=== PATIENT | female | born 1950 | race Caucasian/White ===

== ENCOUNTER 2016-06-29 19:11 | Emergency (ER) | payer MEDICARE, OTHER ==
[~2016-06-29] VITALS: Ht 149.9 cm; Wt 65.5 kg
[~2016-06-29 19:11] MED LIST: AMLO-145 PO; ASPI-676 PO; ATOR80TA75 PO; BENA40TA54 PO; CARV6.25 PO; CLOP75TA27 PO; FOLI-49 PO; HYDR-3671 PO; HYDR200T39 PO; ISOS10TA2 PO; KTR.5OP5 LEFT EYE; MEGE400O4 PO; MET25 PO; METF500T4 PO; PANT40TA4 PO; PRD1OP5 LEFT EYE; SULF500T11 PO
[2016-06-29 19:31] VITALS: Ht 149.9 cm; Wt 65.5 kg
--- NOTE | 2016-06-29 22:52 | ERA ---
ER Documentation Chief Complaint Date/Time DATE: 06/29/16 TIME: 22:51 Chief Complaint fever/chills, day 6 of amox for ear infection, cough 10 days, n/v HPI The patient is a 65-year-old female, presenting to the ER because of right ear pain for 10 days. She was seen by her physician who treated her with amoxicillin for the last 9 days. She still complaining of right ear pain and intermittent chills. She denies facial pain, sore throat, complains of intermittent cough with posttussive emesis. She denies chest pain, dyspnea, abdominal pain, vomiting, diarrhea, constipation, dysuria. She does not smoke, drink Past medical history: CAD, history of CVA, hypertension, dyslipidemia, diabetes mellitus, rheumatoid arthritis Past surgical history: Stent PCI ROS All systems reviewed and are negative except as per history of present illness. Medications Home Meds Active Scripts Carvedilol* (Coreg*) 6.25 Mg Tab, 6.25 MG PO BID, #60 TAB Prov:FERNANDO HELLER MD 08/17/14 Pantoprazole (Protonix) 40 Mg Tabec, 40 MG PO DAILY@06 for GASTROINTESTINAL UPSET, #60 Prov:LANDON ZAMORA MD 03/05/14 Megestrol Acetate* (Megace*) 400 Mg/10 Ml Susp, 400 MG PO BID for apetite, #120 Prov:LANDON ZAMOAR MD 03/05/14 Isosorbide Dinitrate* (Isordil*) 10 Mg Tab, 10 MG PO TID for chest pain, angina , #90 Prov:LANDON ZAMORA MD 03/05/14 Hydralazine Hcl* (Hydralazine Hcl*) 25 Mg Tab, 25 MG PO TID, #90 TAB Prov:ELI BUCHANAN NP 02/02/14 Reported Medications Metformin* (Glucophage*) 500 Mg Tab, 500 MG PO BID WITH MEALS, TAB 08/14/14 Prednisolone Acetate* (Pred Forte*) 5 Ml Susp, 1 DROP LEFT EYE QID, EA 03/03/14 Ketorolac Tromethamine Oph (Acular) 10 Ml Drops, 1 DROP LEFT EYE QID, EA 03/03/14 Hydroxychloroquine Sulfate* (Hydroxychloroquine Sulfate*) 200 Mg Tablet, 200 MG PO TID, TAB 01/31/14 Folic Acid* (Folic Acid*) 1 Mg Tablet, 1 MG PO DAILY, TAB 01/31/14 Methotrexate* (Methotrexate*) 2.5 Mg Tab, 2.5 MG PO 5 times weekly, TAB 01/31/14 Sulfasalazine* (Sulfazine*) 500 Mg Tablet, 500 MG PO BID, TAB 01/31/14 Aspirin (Angelina Child) 81 Mg Chew, 81 MG PO DAILY 08/14/13 Benazepril Hcl* (Lotensin*) 40 Mg Tablet, 40 MG PO DAILY 02/27/13 Amlodipine Besylate* (Amlodipine Besylate*) 5 Mg Tablet, 5 MG PO 02/27/13 Atorvastatin* (Atorvastatin*) 80 Mg Tablet, 80 MG PO HS 02/27/13 Clopidogrel Bisulfate (Clopidogrel) 75 Mg Tablet, 75 MG PO DAILY 02/27/13 Allergies Allergies: Coded Allergies: No Known Drug Allergies (Verified Allergy, Unknown, 03/03/14) PMhx/Soc History of Surgery: Yes (cardiac catheter c stent placement, L shoulder surgery ) Anesthesia Reaction: No Hx Neurological Disorder: Yes (CVA LEFT WEAKNESS(RESOLVED)) Hx Respiratory Disorders: No Hx Cardiac Disorders: Yes (HTN,CP,CAD, HYPERLIPIDEMIA) Hx Psychiatric Problems: No Hx Miscellaneous Medical Probl: Yes (chronic hyponatremia, HTN, CAD, hyperlipidemia, DM2, h/o CVA L side weak) Hx Alcohol Use: No Hx Substance Use: No Hx Tobacco Use: No Physical Exam Vitals Vital Signs Date Time Temp Pulse Resp B/P Pulse Ox O2 Delivery O2 Flow Rate FiO2 06/29/16 19:31 98.6 70 20 129/62 98 Physical Exam Const: No acute distress. Head: Atraumatic. Eyes: Normal Conjunctiva. ENT: Normal External Ears, Nose and Mouth. Bilateral tympanic membranes are within normal limits, moderate amount of cerumen in the right ear canal Neck: Full range of motion. No meningismus. Resp: Clear to auscultation bilaterally. Cardio: Regular rate and rhythm, no murmurs. Abd: Soft, non distended, normal bowel sounds, non tender. Skin: No petechiae or rashes. Back: No midline or flank tenderness. Ext: No cyanosis, or edema. Neur: Awake and alert. No focal deficit Psych: Normal Mood and Affect. Procedures/MDM MEDICAL MAKING DECISION: The patient is a 65-year-old female, presenting with recent right otitis media and cerumen impaction. The differential diagnoses considered include but are not limited to otitis media, otitis externa, cellulitis Departure Diagnosis: Primary Impression: Otitis media Additional Impression: Impacted cerumen of right ear Condition: Good Comments She was discharged with Zithromax since he is still symptomatic and Debrox I discussed the findings with the patient. I advised the patient to follow-up with the primary physician in about 2-3 days, sooner if needed and return if any concern. CASS QUESADA MD Jun 29, 2016 22:52
[2016-06-29] MEDS ORDERED: CARB15DR48 RIGHT EAR (23:21)
[2016-06-29] MEDS ORDERED: AZIT250T94 PO (23:21)
== END 2016-06-29 23:40 | disposition home or self-care (01) ==
LOC: E/R 19:11
DX: H66.91 Otitis media, unspecified, right ear (principal); H61.21 Impacted cerumen, right ear; I25.10 Atherosclerotic heart disease of native coronary artery without angina pectoris; I10 Essential (primary) hypertension; E11.9 Type 2 diabetes mellitus without complications; Z79.84 Long term (current) use of oral hypoglycemic drugs; Z79.82 Long term (current) use of aspirin
CPT/HCPCS: 99283

== ENCOUNTER 2016-10-07 15:13 | Inpatient (IN) | payer MEDICARE, OTHER ==
[~2016-10-07] VITALS: Ht 144.8 cm; Wt 65.7 kg
[~2016-10-07 15:13] MED LIST changes: +AZIT250T94 PO; +CARB15DR48 RIGHT EAR; -SULF500T11 PO; +SULF500T5 PO
[2016-10-07] MEDS ORDERED: ONDANSETRON 4 MG INJ IV STA (16:12)
[2016-10-07] MEDS ORDERED: SODIUM CHLORIDE 0.9% 1L BAG IV* STA (16:12)
[2016-10-07] MEDS ORDERED: CEFTRIAXONE 1 GM/50 ML (PMX) 50 ML IVPB ONE (16:30)
[2016-10-07] MEDS: IBUPROFEN 600 MG TAB PO ONE ×2 (16:40→17:02)
[2016-10-07 16:47] LABS: ADD SCAN DIFF NO
[2016-10-07 16:52] LABS: ABNORMAL IP MESSAGE 1; HEMATOCRIT 35.6 % (37.0-47.0); HEMOGLOBIN 11.7 g/dl (12.0-16.0); MEAN CORPUSCULAR HEMOGLOBIN 31.8 pg (29.0-33.0); MEAN CORPUSCULAR HGB CONC 32.9 g/dl (32.0-37.0); MEAN CORPUSCULAR VOLUME 96.7 fl (82.0-101.0); MEAN PLATELET VOLUME 10.8 fl (7.4-10.4); PLATELET COUNT 261 10^3/UL (140-415); RED BLOOD COUNT 3.68 10^6/ul (4.20-5.40); RED CELL DISTRIBUTION WIDTH 14.6 % (11.5-14.5); WHITE BLOOD COUNT 14.7 10^3/ul (4.8-10.8)
[2016-10-07 17:02] LABS: ALBUMIN 3.4 g/dl (3.3-4.9)
[2016-10-07 17:03] LABS: INR 1.29; PARTIAL THROMBOPLASTIN TIME 32.7 Sec (25.0-35.0); POTASSIUM 3.6 mmol/L (3.5-5.1); PROTIME 16.2 Sec (12.2-14.2); PT RATIO 1.3
[2016-10-07 17:05] LABS: ALBUMIN/GLOBULIN RATIO 0.68; BILIRUBIN,DIRECT 2.2 mg/dl (0.00-0.20); BILIRUBIN,INDIRECT 0.5 mg/dl (0-1.1); BILIRUBIN,TOTAL 2.7 mg/dl (0.2-1.3); CREATININE 1.05 mg/dl (0.44-1.00); TOTAL PROTEIN 8.4 g/dl (6.1-8.1)
[2016-10-07 17:06] LABS: CALCIUM 10.3 mg/dl (8.4-10.2)
--- NOTE | 2016-10-07 17:10 | RADRPT ---
PROCEDURE: XR Chest. CLINICAL INDICATION: Sepsis. TECHNIQUE: PA and Lateral views of the chest were obtained. COMPARISON: Chest x-ray 08/14/2014. FINDINGS: The soft tissues are normal. The left humeral head is not visualized. This finding is unchanged co mpared to 03/03/2013. The heart, cardiomediastinal silhouette and hilar structures are normal. The pulmonary vasculature is normal. Atherosclerotic calcifications are noted in the aortic arch. The car ngs are clear. The costophrenic angles are normal. IMPRESSION: 1. Stable chest x-ray with no evidence of active cardiopulmonary disease. 2. Absence of the left humeral head is noted that is unchanged compared to 03/03/2013. This is pre sumed secondary to earlier surgery. Clinical correlation is needed. RPTAT:AAJJ Physician Yaritza Date Time Electronically viewed and signed by Physician Yaritza on 10/07/2016 17:10 NICOLA/
[2016-10-07 17:13] LABS: ADD UMIC YES; URINE BILIRUBIN (Dip) 2+ (NEGATIVE); URINE BLOOD (Dip) TRACE (NEGATIVE); URINE COLOR AMBER (YELLOW); URINE GLUCOSE (Dip) NEGATIVE (NEGATIVE); URINE KETONES (Dip) NEGATIVE (NEGATIVE); URINE LEUKOCYTE ESTERASE (Dip) NEGATIVE (NEGATIVE); URINE NITRITE (Dip) NEGATIVE (NEGATIVE); URINE TOTAL PROTEIN (Dip) 2+ (NEGATIVE); URINE UROBILINOGEN (Dip) 2.0 E.U./dL (0.1-1.0)
[2016-10-07] MEDS ORDERED: CARV3.1260 PO (17:15)
[2016-10-07] MEDS ORDERED: METF500T4 PO (17:15)
[2016-10-07] MEDS ORDERED: ATOR40TA68 PO (17:16)
[2016-10-07] MEDS ORDERED: TRAV2.5D BOTH EYES (17:16)
[2016-10-07 17:17] LABS: TROPONIN-I 0.026 ng/ml (0.00-0.12)
[2016-10-07 17:28] LABS: ICTOTEST POSITIVE (NEGATIVE)
[2016-10-07] MEDS ORDERED: metroNIDAZOLE 500 MG/NS (PMX) 100 ML IVPB ONE (17:30)
[2016-10-07 17:32] LABS: BACTERIA,URINE MODERATE; URINE RBCS 0-2 /HPF (0)
--- NOTE | 2016-10-07 17:41 | RADRPT ---
PROCEDURE: CT abdomen and pelvis without contrast. CLINICAL INDICATION: Sepsis TECHNIQUE: CT scan of the abdomen and pelvis without contrast was performed and is reconstructed a t 2.5 mm contiguous axial intervals from the dome of the diaphragm to the inferior pubic rami.. The patient was scanned without intravenous contrast. Sagittal and coronal reformatted images were obt ained from the axial source images. The calculated radiation dose measures 5 526 mGy centimeters. Th e CTDI measures 10 mGy. COMPARISON: CT abdomen pelvis August 18, 2013 FINDINGS: There is interstitial infiltrate in the medial basal segment of the left lower lobe. No alveolar pn eumonia is seen and there is no mass or effusion. Dense coronary artery calcifications are present. The liver is of normal size, contour and attenuation with no mass . There is mild intrahepatic duct al dilatation. No gallstones are visualized. No splenic, adrenal or pancreatic abnormalities prese nt. Kidneys are of normal size and contour. No hydronephrosis, calculus or masses seen. Ureters are o f normal course and caliber with no stone. [place] catheter is seen in a decompressed urinary bladder . . Atrophic postmenopausal uterus appears normal. No adnexal mass is seen. There is no aneurysm. No adenopathy is present. No intraperitoneal or retroperitoneal abscess is noted. No bowel mass or obstruction is present. The appendix is normal. No phlegmon, ascites or pneumop eritoneum is visualized. The osseous structures are intact. IMPRESSION: No evidence of urolithiasis, obstructive uropathy, diverticulitis or appendicitis. Mild intrahepatic ductal dilatation. Correlation with serum bilirubin levels is suggested. No intraperitoneal or retroperitoneal abscess seen. Vascular calcifications. Minimal interstitial infiltrate left lower lobe. .Dante Choi MD, Date Time Electronically viewed and signed by .Dante Choi MD, on 10/07/2016 17:41 .A/
--- NOTE | 2016-10-07 17:46 | ERA ---
ER Documentation Chief Complaint Date/Time DATE: 10/07/16 TIME: 17:29 Chief Complaint AP, VOMITING, FEVER, STARTING YESTERDAY HPI 65-year-old woman brought in by family member for fever, weakness, abdominal pain, cramping and vomiting 2 days. Her emesis has been clear nonbloody nonbilious and she has had no diarrhea. She has had no melena or blood per rectum, no chest pain or shortness of breath, no rash, no cough, no sore throat or difficulty swallowing, no headache or blurry vision, no neck pain. Patient has had no recent antibiotic use or recent travel. ROS All systems reviewed and are negative except as per history of present illness. Medications Home Meds Reported Medications Travoprost* (Travatan Z*) 2.5 Ml Drops, 1 DROP BOTH EYES HS, #1 BOTTLE 10/07/16 Atorvastatin* (Atorvastatin*) 40 Mg Tablet, 40 MG PO QHS, #30 TAB 10/07/16 Metformin Hcl* (Metformin Hcl*) 500 Mg Tablet, 500 MG PO WITH BREAKFAST DINNE, # 60 TAB 10/07/16 Carvedilol* (Carvedilol*) 3.125 Mg Tablet, 3.125 MG PO BID, #60 TAB 10/07/16 Discontinued Reported Medications Metformin* (Glucophage*) 500 Mg Tab, 500 MG PO BID WITH MEALS, TAB 08/14/14 Prednisolone Acetate* (Pred Forte*) 5 Ml Susp, 1 DROP LEFT EYE QID, EA 03/03/14 Ketorolac Tromethamine Oph (Acular) 10 Ml Drops, 1 DROP LEFT EYE QID, EA 03/03/14 Hydroxychloroquine Sulfate* (Hydroxychloroquine Sulfate*) 200 Mg Tablet, 200 MG PO TID, TAB 01/31/14 Folic Acid* (Folic Acid*) 1 Mg Tablet, 1 MG PO DAILY, TAB 01/31/14 Methotrexate* (Methotrexate*) 2.5 Mg Tab, 2.5 MG PO 5 times weekly, TAB 01/31/14 Sulfasalazine* (Sulfazine*) 500 Mg Tablet, 500 MG PO BID, TAB 01/31/14 Aspirin (Angelina Child) 81 Mg Chew, 81 MG PO DAILY 08/14/13 Benazepril Hcl* (Lotensin*) 40 Mg Tablet, 40 MG PO DAILY 02/27/13 Amlodipine Besylate* (Amlodipine Besylate*) 5 Mg Tablet, 5 MG PO 02/27/13 Atorvastatin* (Atorvastatin*) 80 Mg Tablet, 80 MG PO HS 02/27/13 Clopidogrel Bisulfate (Clopidogrel) 75 Mg Tablet, 75 MG PO DAILY 02/27/13 Discontinued Scripts Carbamide Peroxide* (Debrox*) 6.5% - 15 Ml Drops, 10 DROP RIGHT EAR BID for 5 Days, BOTTLE Prov:CASS QUESADA MD 06/29/16 Azithromycin* (Zithromax*) 250 Mg Tablet, 250 MG PO .MANACK DIRECTED, #6 TAB TAKE 500 MG (2 TABS) THE FIRST DAY THEN 250 MG (1 TAB) DAYS 2-5 Prov:CASS QUESADA MD 06/29/16 Carvedilol* (Coreg*) 6.25 Mg Tab, 6.25 MG PO BID, #60 TAB Prov:FERNANDO HELLER MD 08/17/14 Pantoprazole (Protonix) 40 Mg Tabec, 40 MG PO DAILY@06 for GASTROINTESTINAL UPSET, #60 Prov:LANDON DELATORRE MD 03/05/14 Megestrol Acetate* (Megace*) 400 Mg/10 Ml Susp, 400 MG PO BID for apetite, #120 Prov:LANDON DELATORRE MD 03/05/14 Isosorbide Dinitrate* (Isordil*) 10 Mg Tab, 10 MG PO TID for chest pain, angina , #90 Prov:LANDON DELATORRE MD 03/05/14 Hydralazine Hcl* (Hydralazine Hcl*) 25 Mg Tab, 25 MG PO TID, #90 TAB Prov:ELI BUCHANAN NP 02/02/14 Allergies Allergies: Coded Allergies: No Known Drug Allergies (Verified Allergy, Unknown, 10/07/16) PMhx/Soc Hypertension, diabetes mellitus, rheumatoid arthritis, previous stroke, SIADH, coronary artery disease and NH with 3 previous coronary artery stents, chronic right-sided earache History of Surgery: Yes (bilat knee (last 08/31)) Anesthesia Reaction: No Hx Neurological Disorder: No Hx Respiratory Disorders: No Hx Cardiac Disorders: Yes (HTN, Stent) Hx Psychiatric Problems: No Hx Miscellaneous Medical Probl: Yes (DM) Hx Alcohol Use: No Hx Substance Use: No Hx Tobacco Use: No Smoking Status: Never smoker FmHx Family History: diabetes Physical Exam Vitals Vital Signs Date Time Temp Pulse Resp B/P Pulse Ox O2 Delivery O2 Flow Rate FiO2 10/07/16 18:30 20 118/49 100 Nasal Cannula 3.0 10/07/16 16:29 81 28 79/56 98 Room Air 10/07/16 16:29 Nasal Cannula 2 10/07/16 15:15 103.8 91 20 152/70 98 Physical Exam GENERAL: Well-developed, elderly, dehydrated, febrile HEENT: Dry mucous membranes, pink conjunctiva, no cervical spine tenderness or step-off deformities, no goiter, no jaundice or icterus, extraocular movements intact without pain. No submandibular induration, and no pharyngeal erythema NEURO: Alert and oriented 3, cranial nerves II through XII intact bilaterally, pupils equal round reactive to light, no facial asymmetry CARDIAC: Tachycardic and regular, no murmurs rubs or gallops LUNGS: Clear bilaterally no wheezing crackles or stridor ABDOMEN: Right upper quadrant tenderness to touch, no rigidity, no rebound, no psoas sign no obturator sign. Normoactive bowel sounds SKIN: Warm and dry to touch, no abrasions, contusions, or hematomas, no lacerations, no ecchymosis, no target lesions, and without ulcers EXTREMITIES: No clubbing cyanosis or edema, calves are bilaterally symmetrical, no Homans sign, no popliteal cord sign. Distal pulses equal and bilateral PSYCH: Unable to assess Result Diagram: 10/07/16 1620 10/07/16 1620 Results 24 hrs Laboratory Tests Test 10/07/16 16:20 10/07/16 16:55 10/07/16 18:45 White Blood Count 14.710^3/ul Red Blood Count 3.6810^6/ul Hemoglobin 11.7g/dl Hematocrit 35.6% Mean Corpuscular Volume 96.7fl Mean Corpuscular Hemoglobin 31.8pg Mean Corpuscular Hemoglobin Concent 32.9g/dl Red Cell Distribution Width 14.6% Platelet Count 78832^3/UL Mean Platelet Volume 10.8fl Neutrophils % 72.0% Band Neutrophils % 22.0% Lymphocytes % 5.0% Monocytes % 1.0% Eosinophils % % Neutrophils # 10.610^3/ul Lymphocytes # 0.710^3/ul Monocytes # 0.110^3/ul Eosinophils # 10^3/ul Prothrombin Time 16.2Sec Prothrombin Time Ratio 1.3 INR International Normalized Ratio 1.29 Activated Partial Thromboplast Time 32.7Sec Sodium Level 129mmol/L Potassium Level 3.6mmol/L Chloride Level 90mmol/L Carbon Dioxide Level 18mmol/L Anion Gap 25 Blood Urea Nitrogen 24mg/dl Creatinine 1.05mg/dl Glucose Level 201mg/dl Lactic Acid Level 6.8mmol/L 4.8mmol/L Calcium Level 10.3mg/dl Total Bilirubin 2.7mg/dl Direct Bilirubin 2.20mg/dl Indirect Bilirubin 0.5mg/dl Aspartate Amino Transf (AST/SGOT) 133IU/L Alanine Aminotransferase (ALT/SGPT) 83IU/L Alkaline Phosphatase 1270IU/L Troponin I 0.026ng/ml Total Protein 8.4g/dl Albumin 3.4g/dl Globulin 5.00g/dl Albumin/Globulin Ratio 0.68 Lipase 221U/L Urine Color MARLENE Urine Clarity SLIGHTLY CLOUDY Urine pH 5.5 Urine Specific [place] 1.025 Urine Ketones NEGATIVE Urine Nitrite NEGATIVE Urine Bilirubin 2+ Urine Ictotest POSITIVE Urine Urobilinogen 2.0 E.U./dL Urine Leukocyte Esterase NEGATIVE Urine Microscopic RBC 0-2/HPF Urine Microscopic WBC 0-2/HPF Urine Bacteria MODERATE Urine Granular Casts OCCASIONAL Urine Fine Granular Casts OCCASIONAL Urine Coarse Granular Casts FEW Urine Hemoglobin TRACE Urine Glucose NEGATIVE% Urine Total Protein 2+ Current Medications Medications (Trade) Dose Ordered Sig/Maegan Route PRN Reason Start Time Stop Time Status Last Admin Dose Admin Sodium Chloride (NS) 2,000 ml BOLUS OVER 2 HOURS STAT IV* 10/07/16 16:12 10/07/16 16:15 DC 10/07/16 16:41 Ondansetron HCl (Zofran Inj) 4 mg ONCE STAT IV 10/07/16 16:12 10/07/16 16:15 DC 10/07/16 16:40 Ibuprofen 600 mg 600 mg ONCE ONCE PO 10/07/16 16:30 10/07/16 16:31 DC Ceftriaxone Sodium 50 ml @ 100 mls/hr ONCE ONCE IVPB 10/07/16 16:30 10/07/16 16:59 DC 10/07/16 16:40 Metronidazole (Flagyl 500 Mg (Pmx)) 100 ml @ 100 mls/hr ONCE ONCE IVPB 10/07/16 17:30 10/07/16 18:29 DC 10/07/16 18:22 Atorvastatin Calcium (Lipitor) 40 mg QHS PO 10/07/16 21:00 Carvedilol (Coreg) 3.125 mg BID PO 10/07/16 21:00 Latanoprost 1 drop 1 drop HS BOTH EYES 10/07/16 21:00 Ceftriaxone Sodium 50 ml @ 100 mls/hr DAILY IVPB 10/08/16 16:00 10/08/16 16:00 DC Azithromycin 250 ml @ 250 mls/hr DAILY IVPB 10/07/16 20:00 Sodium Chloride (NS) 1,000 ml @ 75 mls/hr [id number] IV 10/07/16 19:09 UNV IV Flush (NS 3 ml) 3 ml PER PROTOCOL IV 10/07/16 19:30 UNV Ondansetron HCl (Zofran Inj) 4 mg Q4H PRN IV NAUSEA AND/OR VOMITING 10/07/16 19:30 UNV Acetaminophen (Tylenol Tab) 650 mg Q6H PRN PO PAIN LEVEL 1-3 OR FEVER 10/07/16 19:30 UNV Acetaminophen/ Hydrocodone Bitart ([place] (5/325)) 1 tab Q6H PRN PO MODERATE PAIN LEVEL 4-6 10/07/16 19:30 UNV Morphine Sulfate (morphine) 2 mg Q4H PRN IV SEVERE PAIN LEVEL 7-10 10/07/16 19:30 UNV Docusate Sodium (Colace) 100 mg Q12H PRN PO CONSTIPATION 10/07/16 19:30 UNV Magnesium Hydroxide (Milk Of Mag) 30 ml DAILY PRN PO CONSTIPATION 10/07/16 19:30 UNV Bisacodyl (Dulcolax) 5 mg DAILY PRN PO CONSTIPATION 10/07/16 19:30 UNV Bisacodyl (Dulcolax Supp) 10 mg DAILY PRN [place] CONSTIPATION 10/07/16 19:30 UNV Sodium Biphosphate/ Sodium Phosphate (Fleet Enema) 133 ml DAILY PRN [place] CONSTIPATION 10/07/16 19:30 UNV Zolpidem Tartrate (Ambien) 5 mg QHS PRN PO SLEEP 10/07/16 19:30 UNV Famotidine (Pepcid Iv) 20 mg Q12 IV 10/07/16 21:00 UNV Albuterol/ Ipratropium (Duoneb) 3 ml Q2H RESP THERAPY PRN HHN SHORTNESS OF BREATH 10/07/16 19:30 UNV Insulin Aspart (Novolog Insulin Pen) NOVOLOG *MODERATE* ALGORITHM WITH MEALS BEDTIME SC 10/07/16 21:00 UNV Miscellaneous Information (* Miscellaneous Pharmacy Order) HYPOGLYCEMIA PROTOCOL w... ONCE ONCE XX 10/07/16 19:30 10/07/16 19:31 UNV Miscellaneous Information (* Miscellaneous Pharmacy Order) Discontinue Glyburide, Glipizide,... ONCE ONCE XX 10/07/16 19:30 10/07/16 19:31 UNV Miscellaneous Information Discontinue all previ... ONCE ONCE XX 10/07/16 19:30 10/07/16 19:31 UNV Metronidazole 100 ml @ 100 mls/hr Q8 IVPB 10/07/16 22:00 UNV Piperacillin Sod/ Tazobactam Sod (Zosyn 3.375gm/ 100 ml (Pmx)) 100 ml @ 200 mls/hr Q8 IVPB 10/07/16 22:00 UNV Procedures/MDM IV line was established patient was placed on washroom attendant rhythm strip revealed a sinus tachycardia at 110 bpm with upright P and T waves. Patient was febrile. Blood and urine cultures have been ordered results are pending I will follow-up. I administered about 2 L normal saline intravenously, ibuprofen 600 mg p.o., ceftriaxone 1 g IV, and Flagyl 500 mg IV. Patient also received Zofran 4 mg IV. EKG performed, read by me: Normal sinus rhythm at 71 bpm, normal axis, no acute ST segment changes, narrow QRS complex, with good R-wave progression in precordial leads. Chest X-ray 1V Interpreted by me: Soft Tissue: No acute abnormalities Bones: No acute abnormalities Mediastinum/Cardiac Silhouette/Lungs: No acute abnormalities Patient's infectious symptoms have not stabilized and the patient is at risk of rapid decompensation. The patient will be admitted for careful hydration, antibiotic therapy, and infectious source control. CBC reveals a leukocytosis of 15, electrolytes revealed dehydration with a BUN/ creatinine of 24/1, lactic acid elevated at 6.8, liver function tests were abnormal with an alkaline phosphatase of over 1000 and transaminitis, lipase normal, troponin was negative. Urine analysis was positive for bilirubinuria CT scan of the abdomen and pelvis was performed, given the patient's symptoms. There was no acute inflammatory or infectious pathology noted, vascular structures were unremarkable. Please refer radiologist's dictation for full report. Severe Sepsis Assessment: Infectious Source: Cholangitis End organ damage indicated by: Lactate equals 6.8 Bili equals 2.8 Severe Sepsis Managment: Blood Cultures X 2 before broad spectrum antibiotics initiated within 3 hours of recognition. 30 ml/kg NS bolus Completed Initial Lactate: 6.8, repeat lactic acid level down to 4.8. Critical Care: Time: 40 minutes, this was time separate from other procedures Treatments/Evaluations: Emergent fluid management, while maintaining close respiratory support. Immediate broad spectrum antibiotic therapy. Simultaneous assessment for possible sources in order to direct therapy. Consideration for invasive and chemical support to prevent respiratory or cardiac collapse. Septic Shock Assessment (1 hour post 30 ml/kg fluid bolus): Hypotension (SBP < 90 or 40 mmHg drop, MAP < 65): No Lactic acid > 4.0 yes Perfusion Reassessment for Septic Shock: Temp 100.8 and febrile, pulse 70, BP 120/80, respiratory rate 20 breaths per minute, oxygen saturation 98% and normal Heart Exam: Regular rate and rhythm Lung Exam: No Crackles Capillary Refill: Less than 2 seconds Peripheral Pulses: Radially present Skin: [place], hot to touch Hypotensive Treatment (not required for isolated lactic acid elevation): Comfort Care: No Central LIne: Not indicated Vasopressor started: None I considered further perfusion assessment with CVP measurement, SCVO2, bedside ultrasound volume assessment, passive leg raise, trial of further fluid bolus. And preceded with IV antibiotics, IV fluids, and pain control Accepting Care Team: Current data and ongoing care discussed. Time: Time of admission Primary Provider: Dr. Sean Delatorre Consulting: DREA Soares who saw the patient at the bedside, I also spoke to the surgeon new car salesperson Dr. Smart Outstanding Data: none Departure Diagnosis: Primary Impression: Septic shock Additional Impressions: Hyponatremia Acute cholangitis Condition: Serious GRACIELA JOHNSON MD Oct 07, 2016 17:41
[2016-10-07 17:53] LABS: LYMPHOCYTES # 0.7 10^3/ul (0.8-2.9); MONOCYTE # 0.1 10^3/ul (0.3-0.9); NEUTROPHIL # 10.6 10^3/ul (1.6-7.5)
[2016-10-07] MEDS ORDERED: ACETAMINOPHEN 325 MG TAB PO PRN (19:30)
[2016-10-07] MEDS ORDERED: DOCUSATE SODIUM 100 MG CAP PO PRN (19:30)
[2016-10-07] MEDS ORDERED: ALBUTEROL/IPRATROPIUM (NEB) 3 ML AMP HHN PRN (19:30)
[2016-10-07] MEDS ORDERED: NACL 0.9% 3 ML SYG IV SCH (19:30)
[2016-10-07] MEDS ORDERED: ZOLPIDEM 5 MG TAB PO PRN (19:30)
[2016-10-07] MEDS ORDERED: HYDROCODONE/APAP (5/325) TAB PO PRN (19:30)
[2016-10-07] MEDS ORDERED: NA PHOSPHATE/BIPHOS 133 ML ENEMA PR PRN (19:30)
[2016-10-07] MEDS ORDERED: BISACODYL 10 MG SUPP PR PRN (19:30)
[2016-10-07] MEDS ORDERED: MAGNESIUM HYDROXIDE 30ML CUP PO PRN (19:30)
--- NOTE | 2016-10-07 20:13 | RADRPT ---
PROCEDURE: Right upper quadrant ultrasound. CLINICAL INDICATION: Abdominal pain, intrahepatic biliary ductal dilatation seen on prior CT. TECHNIQUE: Multiple real-time longitudinal and transverse images of the right upper quadrant of th e abdomen were acquired utilizing a curved array transducer. Images were reviewed on a high-resoluti on PACS workstation. COMPARISON: CT of the abdomen and pelvis dated 10/07/2016 FINDINGS: The pancreas head and body are unremarkable. The pancreas tail is not well seen. The liver is normal in echogenicity. The liver measures 14.3 cm in length. No hepatic lesion is se en. There is intrahepatic biliary ductal dilatation. The portal vein is patent with hepatopetal simone w. There is a 1.9 cm stone in the gallbladder neck. The gallbladder wall is thickened (6 mm). There is no pericholecystic fluid. The common bile duct measures 10 mm in diameter, dilated. The right kidney measures 9.3 cm in length. Renal echogenicity is increased. There is no hydroneph rosis, urinary calculus, or renal mass. The visualized portions of the aorta and IVC are unremarkable. IMPRESSION: 1. Intrahepatic and extrahepatic biliary ductal dilatation (CBD: 10 mm), nonspecific. Correlation w ith bilirubin levels is recommended. This could be further evaluated with MRCP or ERCP, as clinical ly warranted. 2. Cholelithiasis and gallbladder wall thickening. This could represent cholecystitis in the corre ct clinical setting. 3. Echogenic right kidney, suggestive of medical renal disease. RPTAT: HTAR .Breezy Murguia MD, Date Time Electronically viewed and signed by .Breezy Murguia MD, on 10/07/2016 20:12 .R/
[2016-10-07] MEDS ORDERED: DEXTROSE 50% 50 ML SYRINGE IV PRN ×2 (20:30)
[2016-10-07] MEDS ORDERED: GLUCOSE GEL 15 GRAM TUBE PO PRN ×2 (20:30)
[2016-10-07] MEDS ORDERED: GLUCAGON 1 MG INJ IM PRN (20:30)
[2016-10-07] MEDS ORDERED: GLUCOSE GEL 15 GRAM TUBE BUCCAL PRN (20:30)
[2016-10-07 20:35] VITALS: TEMP 98.3
--- NOTE | 2016-10-07 20:53 | CONS ---
DATE OF ADMISSION: 10/07/2016 DATE OF CONSULTATION: TYPE OF CONSULTATION: Gastroenterology. Dear Landon, Thank you for your kind referral. HISTORY OF PRESENT ILLNESS: The patient is a 65-year-old female brought to the emergency room for a bdominal pain confined to the epigastric area and both upper quadrants for last 2 to 3 days' duratio n associated with fever and chills and also 2 episodes of vomiting. No GI bleeding. The patient hernandes d a knee replacement just last month and was in a group home for rehab. No chest pain, no shortne ss of breath. No GI bleeding. 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 PAST MEDICAL HISTORY: History of rheumatoid arthritis, diabetes mellitus. Coronary artery disease, myocardial infarction, had 3 coronary artery stents. Right-sided chronic earache and also previous history of stroke and SIADH. REVIEW OF SYSTEMS: Negative otherwise. FAMILY HISTORY: Nothing contributory other than diabetes. All the information regarding patient's condition obtained by discussing with a family member who wa s by the side of the patient. PHYSICAL EXAMINATION: GENERAL: She is alert, awake, well built, not in distress. VITAL SIGNS: Stable. HEENT: Unremarkable. NECK: Supple. No thyromegaly, no lymphadenopathy. CARDIOVASCULAR: No murmur, gallop or click. LUNGS: Clear. ABDOMEN: Soft. Mild tenderness in the epigastric area. Bowel sounds good. EXTREMITIES: No edema. CENTRAL NERVOUS SYSTEM: Grossly within normal limit. MEDICATIONS: All the patient's medications reviewed. LABORATORY DATA: WBC is 14.7, hematocrit is 35, platelet count was 261. BUN 24, creatinine is 1. Total bilirubin was 2.7, alkaline phosphatase 1270. Her lactic acid level was 6.8 and 4.8, and INR was within normal limits. MEDICATIONS: The patient is on: 1. Flagyl. 2. Zosyn. 3. Carvedilol. 4. Famotidine. 5. Insulin. 6. Azithromycin. She is not on any antiplatelet agent or blood thinner. IMPRESSION: 1. Abnormal LFTs with abdominal pain, vomiting and fever and chills, rule out cholangitis secondary to most probably bile duct stone. 2. Rheumatoid arthritis. 3. Diabetes mellitus. 4. Status post knee replacement 1 month ago. 5. History of cerebrovascular accident. 6. History of 3 stents. 7. Diabetes mellitus. 8. Possible pneumonia. PLAN: Continue all the antibiotic, IV hydration. Will get stat MRCP done, and if MRCP shows a ston e or any biliary obstruction, patient will undergo therapeutic endoscopy. In the meantime, will opt imize the patient's condition, make sure lactic acid level is coming down and WBC is also dropping. Dictated By: LAUREN SOUSA/NTS Conf#: [id number] DID#: [id number] CC: LANDON ZAMORA MD;*EndCC*
[2016-10-07 20:56] VITALS: Ht 144.8 cm; Wt 65.7 kg
[2016-10-07 20:59] VITALS: PULSE 77
[2016-10-07 21:00] VITALS: BP 115/55; PULSE 79; RESP 16
[2016-10-07] MEDS: LATANOPROST 0.005% 2.5 ML OPH BOTH EYES SCH (21:00)
[2016-10-07] MEDS: INSULIN ASPART [NOVOLOG] 3 ML PEN SC SCH (21:00)
[2016-10-07] MEDS: ATORVASTATIN 40 MG TAB PO SCH (21:47)
[2016-10-07] MEDS: morphine 2 MG INJ IV PRN (21:47)
[2016-10-07] MEDS: metroNIDAZOLE 500 MG/NS (PMX) 100 ML IVPB SCH (21:47)
[2016-10-07] MEDS: ONDANSETRON 4 MG INJ IV PRN (21:47)
[2016-10-07] MEDS: PIPER-TAZO 3.375 GM IV (PMX) 100 ML IVPB SCH (21:48)
[2016-10-07] MEDS: SOD CHLORIDE 0.9% 1,000 ML IV SCH (21:48)
[2016-10-07] MEDS: FAMOTIDINE 20 MG INJ IV SCH (21:48)
--- NOTE | 2016-10-07 22:26 | CONS ---
Date/Time of Note Date/Time of Note DATE: 10/07/16 TIME: 22:20 Assessment/Plan Assessment/Plan Chief Complaint/Hosp Course 1. Abdominal pain, nausea, vomiting, & abnormal LFTs probably 2nd Cholangitis secondary to most probably biliary obstruction/?Choledocholithiasis -abx -ivf -supportive -GI for ERCP -eventual lap janet 2. CAD, hx of HI with multiple stents -cardiac optimization 3. DM -nutrition and medication optimization -encourage weight optimization 4. CVA hx -medical/cardiac optimization -off loading -nutritional optimization 5. Rheumatoid arthritis. -medical management 6. Possible PNA -pulmonary toilette -abx per medical team 7. Anemia -monitor 8. Lactic acidosis, leukocytosis with sepsis 2nd #1 -abx -supportive -as above Thank you very much for consulting me in this patient's care, Problems: Consultation Date/Type/Reason Admit Date/Time Oct 07, 2016 at 20:54 Date of Consultation: Oct 07, 2016 Type of Consultation: Gen surgical Reason for Consultation Abdominal pain Dilated biliary tree Cholangitis Referring Provider: LANDON ZAMORA MD Hx of Present Illness Chacho Lamar is a 65-year-old female with multiple significant comorbidities brought to the emergency room from rehab for abdominal pain confined to the epigastric area and both upper quadrants for last 2 to 3 days' duration associated with fever and chills and 2 episodes of vomiting. No GI bleeding. No cough, sz, rash, or change in bowel functions. No cp/sob/visual or neuro changes. No pyuria. No dysuria. No blood per mouth or rectum. Surgical consult is obtained for further evaluation and treatment. 12 point ros negative unless addressed in hpi. Past Medical History Rheumatoid arthritis Diabetes mellitus. Coronary artery disease, Myocardial infarction Right-sided chronic earache History of stroke SIADH. BMI 31, obesity Past Surgical History Stents x 3 Knee replacement Family History Significant Family History: diabetes Social History Smoking Status: Never smoker Exam/Review of Systems Vital Signs Vitals Vital Signs Date Time Temp Pulse Resp B/P Pulse Ox O2 Delivery O2 Flow Rate FiO2 10/07/16 21:00 97.8 79 16 115/55 98 Nasal Cannula 2.0 Exam Constitutional: alert, obese, oriented, No distress Psych: nl mood/affect, No anxiety, No confusion Head: atraumatic, normocephalic Eyes: EOMI, PERRL, nl conjunctiva ENMT: mucosa pink and moist, nl external ears & nose Neck: supple, No non-tender Respiratory: normal air movement, No congested cough Cardiovascular: regular rate and rhythm, No edema Gastrointestinal: soft, tender (min), No rebound or guarding Musculoskeletal: No joint tenderness, No nl extremities to inspection, No nl gait and stance Extremities: normal pulses, No calf tenderness, No cyanosis Neurological: nl mental status, nl speech Skin: nl turgor, No diaphoresis, No rash or lesions Lymph: nl lymph nodes Results Result Diagram: 10/07/16 1620 10/07/16 1620 Results 24 hrs Laboratory Tests Test 10/07/16 16:20 10/07/16 16:55 10/07/16 18:45 10/07/16 21:20 White Blood Count 14.7 #H Red Blood Count 3.68 L Hemoglobin 11.7 L Hematocrit 35.6 L Mean Corpuscular Volume 96.7 Mean Corpuscular Hemoglobin 31.8 Mean Corpuscular Hemoglobin Concent 32.9 Red Cell Distribution Width 14.6 H Platelet Count 261 Mean Platelet Volume 10.8 #H Neutrophils % 72.0 Band Neutrophils % 22.0 H Lymphocytes % 5.0 L Monocytes % 1.0 Eosinophils % Neutrophils # 10.6 H Lymphocytes # 0.7 L Monocytes # 0.1 L Eosinophils # Prothrombin Time 16.2 H Prothrombin Time Ratio 1.3 INR International Normalized Ratio 1.29 Activated Partial Thromboplast Time 32.7 Sodium Level 129 L Potassium Level 3.6 Chloride Level 90 L Carbon Dioxide Level 18 L Anion Gap 25 H Blood Urea Nitrogen 24 H Creatinine 1.05 H Glucose Level 201 Lactic Acid Level 6.8 *H 4.8 *H 5.3 *H Calcium Level 10.3 H Total Bilirubin 2.7 H Direct Bilirubin 2.20 H Indirect Bilirubin 0.5 Aspartate Amino Transf (AST/SGOT) 133 H Alanine Aminotransferase (ALT/SGPT) 83 H Alkaline Phosphatase 1270 H Troponin I 0.026 Total Protein 8.4 H Albumin 3.4 Globulin 5.00 H Albumin/Globulin Ratio 0.68 Lipase 221 Urine Color MARLENE Urine Clarity SLIGHTLY CLOUDY Urine pH 5.5 Urine Specific [place] 1.025 Urine Ketones NEGATIVE Urine Nitrite NEGATIVE Urine Bilirubin 2+ H Urine Ictotest POSITIVE Urine Urobilinogen 2.0 E.U./dL H Urine Leukocyte Esterase NEGATIVE Urine Microscopic RBC 0-2 Urine Microscopic WBC 0-2 Urine Bacteria MODERATE Urine Granular Casts OCCASIONAL Urine Fine Granular Casts OCCASIONAL Urine Coarse Granular Casts FEW Urine Hemoglobin TRACE Urine Glucose NEGATIVE Urine Total Protein 2+ H Medications Medications Current Medications Atorvastatin Calcium (Lipitor) 40 mg QHS PO Last administered on 10/07/16 21: 47; Admin Dose 40 MG; Start 10/07/16 at 21:00 Carvedilol (Coreg) 3.125 mg BID PO Last administered on 10/07/16 21:48; Admin Dose 3.125 MG; Start 10/07/16 at 21:00 Latanoprost 1 drop 1 drop HS BOTH EYES ; Start 10/07/16 at 21:00 Azithromycin 250 ml @ 250 mls/hr DAILY IVPB ; Start 10/07/16 at 20:00 Sodium Chloride (NS) 1,000 ml @ 75 mls/hr [id number] IV Last administered on 10/07 21:48; Admin Dose 75 MLS/HR; Start 10/07/16 at 19:09 Ondansetron HCl (Zofran Inj) 4 mg Q4H PRN IV NAUSEA AND/OR VOMITING Last administered on 10/07/16 21:47; Admin Dose 4 MG; Start 10/07/16 at 19:30 Acetaminophen (Tylenol Tab) 650 mg Q6H PRN PO PAIN LEVEL 1-3 OR FEVER; Start at 19:30 Acetaminophen/ Hydrocodone Bitart ([place] (5/325)) 1 tab Q6H PRN PO MODERATE PAIN LEVEL 4-6; Start 10/07/16 at 19:30 Morphine Sulfate (morphine) 2 mg Q4H PRN IV SEVERE PAIN LEVEL 7-10 Last administered on 10/07/16 21:47; Admin Dose 2 MG; Start 10/07/16 at 19:30 Docusate Sodium (Colace) 100 mg Q12H PRN PO CONSTIPATION; Start 10/07/16 at 19: 30 Magnesium Hydroxide (Milk Of Mag) 30 ml DAILY PRN PO CONSTIPATION; Start at 19:30 Bisacodyl (Dulcolax) 5 mg DAILY PRN PO CONSTIPATION; Start 10/07/16 at 19:30 Bisacodyl (Dulcolax Supp) 10 mg DAILY PRN CA CONSTIPATION; Start 10/07/16 at 19 :30 Sodium Biphosphate/ Sodium Phosphate (Fleet Enema) 133 ml DAILY PRN CA CONSTIPATION; Start 10/07/16 at 19:30 Zolpidem Tartrate (Ambien) 5 mg QHS PRN PO SLEEP; Start 10/07/16 at 19:30 Famotidine 20 mg 20 mg Q12 IV Last administered on 10/07/16 21:48; Admin Dose 20 MG; Start 10/07/16 at 21:00 Metronidazole 100 ml @ 100 mls/hr Q8 IVPB Last administered on 10/07/16 21:47 ; Admin Dose 100 MLS/HR; Start 10/07/16 at 22:00 Piperacillin Sod/ Tazobactam Sod (Zosyn 3.375gm/ 100 ml (Pmx)) 100 ml @ 200 mls /hr Q8 IVPB Last administered on 10/07/16 21:48; Admin Dose 200 MLS/HR; Start 10/07/16 at 22:00 Diagnostic Test (Pha) (Accu-Chek) 1 ea 02 XX ; Start 10/08/16 at 02:00 Miscellaneous Information 1 ea NOTE XX ; Start 10/07/16 at 20:30 Glucose (Glutose) 15 gm Q15M PRN PO DECREASED GLUCOSE; Start 10/07/16 at 20:30 Glucose (Glutose) 22.5 gm Q15M PRN PO DECREASED GLUCOSE; Start 10/07/16 at 20: 30 Dextrose (D50w Syringe) 25 ml Q15M PRN IV DECREASED GLUCOSE; Start 10/07/16 at 20:30 Dextrose (D50w Syringe) 50 ml Q15M PRN IV DECREASED GLUCOSE; Start 10/07/16 at 20:30 Glucagon (Glucagen) 1 mg Q15M PRN IM DECREASED GLUCOSE; Start 10/07/16 at 20:30 Glucose (Glutose) 15 gm Q15M PRN BUCCAL DECREASED GLUCOSE; Start 10/07/16 at 20 :30 BINH RODRIGUEZ MD Oct 07, 2016 22:26
[2016-10-07] MEDS: ACCUCHECK AT 2AM (Patients on SS coverage) XX SCH (23:34)
[2016-10-07] MEDS: AZITHROMYCIN 500MG/NS (PMX) 250 ML IVPB SCH (23:34)
[2016-10-08] VITALS (35 sets, daily range): BP systolic 103–217; BP diastolic 54–191; PULSE 57–108; RESP 18–43
[2016-10-08] MEDS: morphine 2 MG INJ IV PRN ×2 (02:14→23:21)
[2016-10-08] MEDS: ONDANSETRON 4 MG INJ IV PRN (02:14)
[2016-10-08] MEDS: metroNIDAZOLE 500 MG/NS (PMX) 100 ML IVPB SCH ×3 (05:41→23:21)
[2016-10-08] MEDS: PIPER-TAZO 3.375 GM IV (PMX) 100 ML IVPB SCH ×3 (05:41→23:21)
--- NOTE | 2016-10-08 07:00 | HP ---
DATE OF ADMISSION: 10/07/2016 CHIEF COMPLAINT: Fever, chills, abdominal pain. REASON FOR ADMISSION: Severe sepsis, concerned about biliary sepsis, left lower lobe pneumonia. HISTORY OF PRESENT ILLNESS: This is a 65-year-old female who has a past medical history of hypertension; history of coronary artery disease, status post previous stent placement; history of diabetes mellitus, on metformin at home; history of bilateral knee surgery. The recent surgery was done in ____ . The patient presented to the [facility] Emergency Room with a complaint of abdominal pain. She was also complaining of fever, chills. She was febrile with a temperature up to 101 in the emergency room. She has been having abdominal pain, cramping and vomiting episodes for the last 2 days. The emesis has been clear, nonbloody, nonbilious, and then she has had no diarrhea, and the patient has no melena or bright red blood per rectum, no chest pain, no shortness of breath, no rash, no cough, no sore throat or difficulty swallowing. The patient had a lactic acid of 6.8 in the emergency room. She was little bit hypotensive with a blood pressure of 79/56. She was febrile with a temperature of 103.8. She has been started on IV antibiotics, Zosyn, Flagyl, azithromycin. GI has been consulted because her CT abdomen and pelvis without contrast done in the emergency room shows there is a small stone at the neck of the gallbladder and concerned about dilated common bile duct. General Surgery, Dr. Milan Smart, has been also consulted on the patient. The patient is hemodynamically stable at the time of my evaluation. Her temperature came down to 98.3, heart rate 80, respirations 20, blood pressure 112/52, and she is saturating 100% on 2 L nasal cannula. REVIEW OF SYSTEMS: Positive for multiple complaints including abdominal pain, nausea, vomiting, fever, chills. Other review of systems has been obtained and is negative except what is mentioned in the history of present illness. PAST MEDICAL HISTORY: Notable for hypertension, diabetes mellitus, history of coronary artery disease, status post previous stent placement. PAST SURGICAL HISTORY: History of bilateral knee surgery, the last surgery done in ____. SOCIAL HISTORY: No smoking, alcohol, recreational drug use. FAMILY HISTORY: Not available at the time of my evaluation. PHYSICAL EXAMINATION: VITAL SIGNS: Temperature 103.8, heart rate is 91, respirations 20, blood pressure 79/56, saturation 98% on 2 L nasal cannula. GENERAL: Awake, alert. Moderate distress due to the hypotension and sepsis. HEENT: Normal. Oropharynx clear. No jaundice. NECK: Supple. No JVD, no lymphadenopathy. LUNGS: Bilateral air entry presence. The patient has left lower lobe rales present with minimal expiratory wheezing. HEART: S1, S2. Tachycardia. No murmur. ABDOMEN: Soft, tender to palpation in right upper quadrant with minimal guarding, no rebound tenderness. Bowel sounds are present. EXTREMITIES: No clubbing, cyanosis, edema. Bilateral knees have surgical scarring present. No cyanosis. NEUROLOGICAL: Nonfocal, intact. PSYCHIATRIC: Appropriate affect and mood. SKIN: No rash. LABORATORY DATA AND DIAGNOSTIC IMAGIN. WBC 14.7, hemoglobin 11.7, platelet count is 261. 2. Sodium 129, potassium 3.6, chloride 90, bicarbonate 18, BUN 24, creatinine 1.05, glucose 201, calcium 10.3. Lactic acid 6.8 on admission. Total bilirubin 2.7, direct bilirubin 2.2, AST 133, ALT 83, alkaline phosphatase 1270. Troponin x1 negative. Albumin 3.4, lipase 221. Urinalysis shows positive Icotest, negative leukocyte esterase, moderate bacteria, few granular casts, urine hemoglobin ____. 3. Chest x-ray, 1 view portable done in the emergency room shows a stable chest x-ray, no evidence of any cardiopulmonary disease. Absence of the left femoral head. 4. Gallbladder ultrasound shows 1.9 cm stone in the gallbladder neck, intrahepatic and extrahepatic biliary ductal dilatation stents, 10 mm of common bile duct cholelithiasis and gallbladder wall thickening, echogenic right kidney suggestive of medical renal disease. 5. CT abdomen, pelvis without contrast done that shows no evidence of urolithiasis, obstructive uropathy, diverticulitis or appendicitis. Mild intrahepatic ductal dilatations. No intraperitoneal or retroperitoneal abscess seen. Vascular calcifications, minimal interstitial left lower lobe infiltrate. IMPRESSION: This is a 65-year-old female with: 1. Severe sepsis, multifactorial secondary to possible biliary sepsis and also secondary to left lower lobe infiltrates. 2. Biliary sepsis with acute choledocholithiasis and dilated common bile duct, concerned about obstructing common bile duct stone. 3. Left lower lobe infiltrates, concerned about community-acquired pneumonia. 4. Lactic acidosis, likely secondary to severe sepsis. 5. Hyponatremia with a sodium 129 on admission, ____ secondary to hypovolemic hyponatremia. 6. Acute kidney injury on chronic kidney disease stage III secondary to prerenal azotemia and secondary to sepsis. 7. History of chronic kidney disease stage II to III secondary to diabetic nephropathy. 8. Hypercalcemia secondary to moderate to severe dehydration. 9. Moderate to severe dehydration. 10. Acute transaminitis with alkaline phosphatase of 1270 and elevated total bilirubin secondary to biliary obstruction. 11. History of hypertension. 12. History of diabetes mellitus type 2, on metformin. 13. History of coronary artery disease, status post previous stent placement. 14. History of bilateral knee surgeries, the last one was done in 08/2014. PLAN: 1. The patient currently seen in the emergency room. The patient likely has a biliary sepsis and left lower lobe pneumonia. I will start her on broad- spectrum antibiotics including Zosyn 3.375 grams IV q.8 hours along with that Flagyl 500 mg IV q.8h., and azithromycin will be added for community-acquired pneumonia coverage. 2. The patient will be kept n.p.o. except medications. 3. GI consult, Dr. Soares to evaluate the patient. 4. General Surgery, Dr. Milan Smart, has been also consulted due to possible gallbladder wall thickening and to rule out acute cholecystitis. 5. MRCP has been ordered to evaluate for common bile duct stone. 6. Pepcid 20 mg IV b.i.d. for GI prophylaxis. 7. SCDs for DVT prophylaxis 8. continue IVF, making good urine output- had a [place] catheter placed in ED- pt was recently discharged from SNF on saturday after having rehab for knee surgery- will conitnue current IVF at 75 cc/hr, will avoid Any high volume resuscitation due to risk of fluid overload. 9. The patient currently seen in the emergency room. She has severe sepsis and getting admitted to the telemetry inpatient. The patient will be followed up along with GI, Dr. Soares, and General Surgery, Dr. Milan Smart. Dictated By: LANDON ZAMORA MD, KP/YURY Conf#: [id number] DID#: [id number]
[2016-10-08] MEDS: INSULIN ASPART [NOVOLOG] 3 ML PEN SC SCH ×4 (08:00→21:00)
[2016-10-08] MEDS: SOD CHLORIDE 0.9% 1,000 ML IV SCH (08:02)
[2016-10-08] MEDS: FAMOTIDINE 20 MG INJ IV SCH ×2 (08:10→23:23)
[2016-10-08 08:25] LABS: ADD SCAN DIFF NO
[2016-10-08 08:45] LABS: BASOPHILS % 0.2 % (0.0-2.0); EOSINOPHILS # 0.1 10^3/ul (0.0-0.5); EOSINOPHILS % 0.9 % (0.0-7.0); HEMATOCRIT 29.4 % (37.0-47.0); HEMOGLOBIN 9.5 g/dl (12.0-16.0); LYMPHOCYTES # 0.9 10^3/ul (0.8-2.9); LYMPHOCYTES % 8.2 % (15.0-51.0); MEAN CORPUSCULAR HEMOGLOBIN 31.1 pg (29.0-33.0); MEAN CORPUSCULAR HGB CONC 32.3 g/dl (32.0-37.0); MEAN CORPUSCULAR VOLUME 96.4 fl (82.0-101.0); MEAN PLATELET VOLUME 11.4 fl (7.4-10.4); NEUTROPHIL # 8.8 10^3/ul (1.6-7.5); NEUTROPHILS % 80.2 % (39.0-77.0); PLATELET COUNT 185 10^3/UL (140-415); RED BLOOD COUNT 3.05 10^6/ul (4.20-5.40); RED CELL DISTRIBUTION WIDTH 14.7 % (11.5-14.5); WHITE BLOOD COUNT 10.9 10^3/ul (4.8-10.8)
[2016-10-08 08:55] LABS: ALBUMIN 2.5 g/dl (3.3-4.9); ALBUMIN/GLOBULIN RATIO 0.71; BILIRUBIN,DIRECT 1.3 mg/dl (0.00-0.20); BILIRUBIN,INDIRECT 0.3 mg/dl (0-1.1); BILIRUBIN,TOTAL 1.6 mg/dl (0.2-1.3); CALCIUM 8.4 mg/dl (8.4-10.2); CREATININE 0.68 mg/dl (0.44-1.00); MAGNESIUM 2.1 mg/dl (1.7-2.5); POTASSIUM 3.5 mmol/L (3.5-5.1)
--- NOTE | 2016-10-08 12:03 | PN ---
Date/Time of Note Date/Time of Note DATE: 10/08/16 TIME: 12:00 Assessment/Plan VTE Prophylaxis VTE Prophylaxis Intervention: SCD's Lines/Catheters IV [facility] Type (from [facility] Peripheral IV Urinary Cath still in place: Yes Reason Cath still needed: urinary retention Assessment/Plan Assessment/Plan 1. Severe sepsis, multifactorial secondary to possible biliary sepsis and also secondary to left lower lobe infiltrates. 2. Biliary sepsis with acute choledocholithiasis and dilated common bile duct, concerned about obstructing common bile duct stone. 3. Left lower lobe infiltrates, concerned about community-acquired pneumonia. 4. Lactic acidosis, likely secondary to severe sepsis. 5. Hyponatremia with a sodium 129 on admission, ____ secondary to hypovolemic hyponatremia. 6. Acute kidney injury on chronic kidney disease stage III secondary to prerenal azotemia and secondary to sepsis. 7. History of chronic kidney disease stage II to III secondary to diabetic nephropathy. 8. Hypercalcemia secondary to moderate to severe dehydration. 9. Moderate to severe dehydration. 10. Acute transaminitis with alkaline phosphatase of 1270 and elevated total bilirubin secondary to biliary obstruction. 11. History of hypertension. 12. History of diabetes mellitus type 2, on metformin. 13. History of coronary artery disease, status post previous stent placement. 14. History of bilateral knee surgeries, the last one was done in 08/2014. PLAN: Amparo bx zosyn, Flagyl and Azithromycin Blood cx grew gram negative rods, concerned about Biliary sepsis S/p GI consult Subjective 24 Hr Interval Summary Free Text/Dictation WBC improving, Afebrile, S/p GI consult, MRCP done, Blood cx grew gram negative rods Exam/Review of Systems Vital Signs Vitals Vital Signs Date Time Temp Pulse Resp B/P Pulse Ox O2 Delivery O2 Flow Rate FiO2 10/08/16 08:42 63 10/08/16 08:30 Nasal Cannula 2.0 10/08/16 07:43 97.6 20 104/54 100 Intake and Output 10/07/16 10/07/16 10/08/16 15:00 23:00 07:00 Intake Total 3600 ml Output Total 1200 ml Balance 2400 ml Exam GENERAL: Awake, alert. Moderate distress due to the hypotension and sepsis. HEENT: Normal. Oropharynx clear. No jaundice. NECK: Supple. No JVD, no lymphadenopathy. LUNGS: Bilateral air entry presence. The patient has left lower lobe rales present with minimal expiratory wheezing. HEART: S1, S2. Tachycardia. No murmur. ABDOMEN: Soft, tender to palpation in right upper quadrant with minimal guarding, no rebound tenderness. Bowel sounds are present. EXTREMITIES: No clubbing, cyanosis, edema. Bilateral knees have surgical scarring present. No cyanosis. NEUROLOGICAL: Nonfocal, intact. PSYCHIATRIC: Appropriate affect and mood. SKIN: No rash. Results Result Diagram: 10/08/16 0655 10/08/16 0655 Results 24 hrs Laboratory Tests Test 10/07/16 16:20 10/07/16 16:55 10/07/16 18:45 10/07/16 21:20 White Blood Count 14.7 #H Red Blood Count 3.68 L Hemoglobin 11.7 L Hematocrit 35.6 L Mean Corpuscular Volume 96.7 Mean Corpuscular Hemoglobin 31.8 Mean Corpuscular Hemoglobin Concent 32.9 Red Cell Distribution Width 14.6 H Platelet Count 261 Mean Platelet Volume 10.8 #H Neutrophils % 72.0 Band Neutrophils % 22.0 H Lymphocytes % 5.0 L Monocytes % 1.0 Eosinophils % Neutrophils # 10.6 H Lymphocytes # 0.7 L Monocytes # 0.1 L Eosinophils # Prothrombin Time 16.2 H Prothrombin Time Ratio 1.3 INR International Normalized Ratio 1.29 Activated Partial Thromboplast Time 32.7 Sodium Level 129 L Potassium Level 3.6 Chloride Level 90 L Carbon Dioxide Level 18 L Anion Gap 25 H Blood Urea Nitrogen 24 H Creatinine 1.05 H Glucose Level 201 Lactic Acid Level 6.8 *H 4.8 *H 5.3 *H Calcium Level 10.3 H Total Bilirubin 2.7 H Direct Bilirubin 2.20 H Indirect Bilirubin 0.5 Aspartate Amino Transf (AST/SGOT) 133 H Alanine Aminotransferase (ALT/SGPT) 83 H Alkaline Phosphatase 1270 H Troponin I 0.026 Total Protein 8.4 H Albumin 3.4 Globulin 5.00 H Albumin/Globulin Ratio 0.68 Lipase 221 Urine Color MARLENE Urine Clarity SLIGHTLY CLOUDY Urine pH 5.5 Urine Specific [place] 1.025 Urine Ketones NEGATIVE Urine Nitrite NEGATIVE Urine Bilirubin 2+ H Urine Ictotest POSITIVE Urine Urobilinogen 2.0 E.U./dL H Urine Leukocyte Esterase NEGATIVE Urine Microscopic RBC 0-2 Urine Microscopic WBC 0-2 Urine Bacteria MODERATE Urine Granular Casts OCCASIONAL Urine Fine Granular Casts OCCASIONAL Urine Coarse Granular Casts FEW Urine Hemoglobin TRACE Urine Glucose NEGATIVE Urine Total Protein 2+ H Test 10/07/16 22:14 10/08/16 06:55 10/08/16 07:23 Bedside Glucose 121 89 White Blood Count 10.9 #H Red Blood Count 3.05 L Hemoglobin 9.5 L Hematocrit 29.4 L Mean Corpuscular Volume 96.4 Mean Corpuscular Hemoglobin 31.1 Mean Corpuscular Hemoglobin Concent 32.3 Red Cell Distribution Width 14.7 H Platelet Count 185 # Mean Platelet Volume 11.4 H Neutrophils % 80.2 H Lymphocytes % 8.2 L Monocytes % 9.0 Eosinophils % 0.9 Basophils % 0.2 Nucleated Red Blood Cells % 0.0 Neutrophils # 8.8 H Lymphocytes # 0.9 Monocytes # 1.0 H Eosinophils # 0.1 Basophils # 0.0 Nucleated Red Blood Cells # 0.0 Sodium Level 133 L Potassium Level 3.5 Chloride Level 105 # Carbon Dioxide Level 22 Anion Gap 10 # Blood Urea Nitrogen 17 Creatinine 0.68 Glucose Level 87 # Calcium Level 8.4 Magnesium Level 2.1 Total Bilirubin 1.6 H Direct Bilirubin 1.30 #H Indirect Bilirubin 0.3 Aspartate Amino Transf (AST/SGOT) 90 H Alanine Aminotransferase (ALT/SGPT) 69 Alkaline Phosphatase 813 H Total Protein 6.0 #L Albumin 2.5 L Globulin 3.50 H Albumin/Globulin Ratio 0.71 Medications Medications Current Medications Atorvastatin Calcium (Lipitor) 40 mg QHS PO Last administered on 10/07/16 21: 47; Admin Dose 40 MG; Start 10/07/16 at 21:00 Carvedilol (Coreg) 3.125 mg BID PO Last administered on 10/08/16 08:10; Admin Dose 3.125 MG; Start 10/07/16 at 21:00 Latanoprost 1 drop 1 drop HS BOTH EYES ; Start 10/07/16 at 21:00 Azithromycin 250 ml @ 250 mls/hr DAILY IVPB Last administered on 10/07/16 23: 34; Admin Dose 250 MLS/HR; Start 10/07/16 at 20:00 Sodium Chloride (NS) 1,000 ml @ 75 mls/hr [id number] IV Last administered on 10/07 21:48; Admin Dose 75 MLS/HR; Start 10/07/16 at 19:09 Ondansetron HCl (Zofran Inj) 4 mg Q4H PRN IV NAUSEA AND/OR VOMITING Last administered on 10/08/16 02:14; Admin Dose 4 MG; Start 10/07/16 at 19:30 Acetaminophen (Tylenol Tab) 650 mg Q6H PRN PO PAIN LEVEL 1-3 OR FEVER; Start at 19:30 Acetaminophen/ Hydrocodone Bitart ([place] (5/325)) 1 tab Q6H PRN PO MODERATE PAIN LEVEL 4-6 Last administered on 10/08/16 03:00; Admin Dose 1 TAB; Start at 19:30 Morphine Sulfate (morphine) 2 mg Q4H PRN IV SEVERE PAIN LEVEL 7-10 Last administered on 10/08/16 02:14; Admin Dose 2 MG; Start 10/07/16 at 19:30 Docusate Sodium (Colace) 100 mg Q12H PRN PO CONSTIPATION; Start 10/07/16 at 19: 30 Magnesium Hydroxide (Milk Of Mag) 30 ml DAILY PRN PO CONSTIPATION; Start at 19:30 Bisacodyl (Dulcolax) 5 mg DAILY PRN PO CONSTIPATION; Start 10/07/16 at 19:30 Bisacodyl (Dulcolax Supp) 10 mg DAILY PRN [place] CONSTIPATION; Start 10/07/16 at 19 :30 Sodium Biphosphate/ Sodium Phosphate (Fleet Enema) 133 ml DAILY PRN [place] CONSTIPATION; Start 10/07/16 at 19:30 Zolpidem Tartrate (Ambien) 5 mg QHS PRN PO SLEEP; Start 10/07/16 at 19:30 Famotidine 20 mg 20 mg Q12 IV Last administered on 10/08/16 08:10; Admin Dose 20 MG; Start 10/07/16 at 21:00 Metronidazole 100 ml @ 100 mls/hr Q8 IVPB Last administered on 10/08/16 05:41 ; Admin Dose 100 MLS/HR; Start 10/07/16 at 22:00 Piperacillin Sod/ Tazobactam Sod (Zosyn 3.375gm/ 100 ml (Pmx)) 100 ml @ 200 mls /hr Q8 IVPB Last administered on 10/08/16 05:41; Admin Dose 200 MLS/HR; Start 10/07/16 at 22:00 Diagnostic Test (Pha) (Accu-Chek) 1 ea 02 XX ; Start 10/08/16 at 02:00 Miscellaneous Information 1 ea NOTE XX ; Start 10/07/16 at 20:30 Glucose (Glutose) 15 gm Q15M PRN PO DECREASED GLUCOSE; Start 10/07/16 at 20:30 Glucose (Glutose) 22.5 gm Q15M PRN PO DECREASED GLUCOSE; Start 10/07/16 at 20: 30 Dextrose (D50w Syringe) 25 ml Q15M PRN IV DECREASED GLUCOSE; Start 10/07/16 at 20:30 Dextrose (D50w Syringe) 50 ml Q15M PRN IV DECREASED GLUCOSE; Start 10/07/16 at 20:30 Glucagon (Glucagen) 1 mg Q15M PRN IM DECREASED GLUCOSE; Start 10/07/16 at 20:30 Glucose (Glutose) 15 gm Q15M PRN BUCCAL DECREASED GLUCOSE; Start 10/07/16 at 20 :30 LANDON ZAMORA MD Oct 08, 2016 12:03
[2016-10-08] MEDS: AZITHROMYCIN 500MG/NS (PMX) 250 ML IVPB SCH (12:32)
--- NOTE | 2016-10-08 13:42 | RADRPT ---
PROCEDURE: MRCP CLINICAL INDICATION: Abdominal pain TECHNIQUE: MRCP was performed on the a high-resolution, high Alexandrea field strength scanner. Patien t was examined without contrast. 3-D coronal rotating MIP images of the biliary tree are available for review. COMPARISON: None FINDINGS: The liver is normal in size and signal intensity. No focal liver lesions is seen. Large gallstones are seen. Gallbladder wall thickening is noted. Suggestion of pericholecystic edema is seen. Mild t o moderate intrahepatic ductal dilatation and mild common bile duct dilatation is seen. The common bile duct measures approximate 9 mm in size. Suggestion of layering filling defects in the common b ile duct is noted. The spleen, pancreas, adrenal glands and kidneys normal in size and signal intensity. The kidneys a re normal in size and contour and are without evidence of hydronephrosis. No abnormally enlarged lym ph nodes or fluid collections are seen. IMPRESSION: 1. Mild to moderate intrahepatic ductal dilatation and mild common bile duct dilatation with the parsons ggestion of layering filling defects in the common bile duct which may represent choledocholithiasis . Consider further evaluation with an ERCP as clinically warranted. 2. Cholelithiasis with gallbladder wall thickening as well as pericholecystic edema which in the co rrect clinical setting may represent acute cholecystitis. RPTAT: HPNM Physician Hans Date Time Electronically viewed and signed by Physician Hans on 10/08/2016 13:42 /
--- NOTE | 2016-10-08 14:01 | PN ---
Date/Time of Note Date/Time of Note DATE: 10/08/16 TIME: 13:58 Assessment/Plan Lines/Catheters IV Catheter Type (from [facility]): Peripheral IV [place] in Place (from Nrs): Yes Assessment/Plan Chief Complaint/Hosp Course 1. Abdominal pain, nausea, vomiting, & abnormal LFTs probably 2nd Cholangitis secondary to most probably biliary obstruction/Choledocholithiasis -abx -ivf -supportive -GI for ERCP -eventual lap janet 2. CAD, hx of MS with multiple stents -cardiac optimization 3. DM -nutrition and medication optimization -encourage weight optimization 4. CVA hx -medical/cardiac optimization -off loading -nutritional optimization 5. Rheumatoid arthritis. -medical management 6. Possible PNA -pulmonary toilette -abx per medical team 7. Anemia -monitor 8. Lactic acidosis, leukocytosis with sepsis 2nd #1. Improving -abx -supportive -as above Thank you, Problems: Subjective 24 Hr Interval Summary Pain improving. MRCP noted. ERCP being scheduled. No f/c. No n/v. No cough. No hernandes/dizzy/visual or neuro changes. No dysuria. Exam/Review of Systems Vital Signs Vitals Vital Signs Date Time Temp Pulse Resp B/P Pulse Ox O2 Delivery O2 Flow Rate FiO2 10/08/16 12:13 98.0 62 20 117/60 99 10/08/16 08:30 Nasal Cannula 2.0 Intake and Output 10/07/16 10/07/16 10/08/16 15:00 23:00 07:00 Intake Total 3600 ml Output Total 1200 ml Balance 2400 ml Exam Free Text/Dictation Constitutional: alert, obese, oriented, No distress Psych: nl mood/affect, No anxiety, No confusion Head: atraumatic, normocephalic Eyes: EOMI, PERRL, nl conjunctiva ENMT: mucosa pink and moist, nl external ears & nose Neck: supple, No non-tender Respiratory: normal air movement, No congested cough Cardiovascular: regular rate and rhythm, No edema Gastrointestinal: soft, NT, No rebound or guarding Musculoskeletal: No joint tenderness, No nl extremities to inspection, No nl gait and stance Extremities: normal pulses, No calf tenderness, No cyanosis Neurological: nl mental status, nl speech Skin: nl turgor, No diaphoresis, No rash or lesions Lymph: nl lymph nodes Results Free Text/Dictation MRCP: 1. Mild to moderate intrahepatic ductal dilatation and mild common bile duct dilatation with the suggestion of layering filling defects in the common bile duct which may represent choledocholithiasis. Consider further evaluation with an ERCP as clinically warranted. 2. Cholelithiasis with gallbladder wall thickening as well as pericholecystic edema which in the correct clinical setting may represent acute cholecystitis. Result Diagram: 10/08/16 0655 10/08/16 0655 BINH RODRIGUEZ MD Oct 08, 2016 14:01
[2016-10-08] MEDS ORDERED: CEFTRIAXONE 1 GM/50 ML (PMX) 50 ML IVPB SCH (16:00)
--- NOTE | 2016-10-08 16:29 | CONS ---
Date/Time of Note Date/Time of Note DATE: 10/08/16 TIME: 16:28 Assessment/Plan Assessment/Plan Additional Assessment/Plan IMPRESSION: 1. Abnormal LFTs with abdominal pain, vomiting and fever and chills, rule out cholangitis secondary to most probably bile duct stone. 2. Rheumatoid arthritis. 3. Diabetes mellitus. 4. Status post knee replacement 1 month ago. 5. History of cerebrovascular accident. 6. History of 3 stents. 7. Diabetes mellitus. 8. Possible pneumonia. PLAN: Continue all the antibiotic, IV hydration. Will get stat MRCP done, and if MRCP shows a stone or any biliary obstruction, patient will undergo therapeutic endoscopy. In the meantime, will optimize the patient's condition, make sure lactic acid level is coming down and WBC is also dropping. Patient MRCP is positive for bile duct stone and acute cholecystitis. I discussed the case with the surgeon and has agreed for the ERCP. Patient is scheduled at 6 PM for therapeutic ERCP Consultation Date/Type/Reason Admit Date/Time Oct 07, 2016 at 20:54 Initial Consult Date 10/07/16 Type of Consultation: Gen surgical Referring Provider: LANDON ZAMORA MD 24 HR Interval Summary Free Text/Dictation Pain is much better Constitutional: improved Exam/Review of Systems Vital Signs Vitals Vital Signs Date Time Temp Pulse Resp B/P Pulse Ox O2 Delivery O2 Flow Rate FiO2 10/08/16 15:39 98.0 65 20 125/70 98 10/08/16 08:30 Nasal Cannula 2.0 Intake and Output 10/07/16 10/07/16 10/08/16 15:00 23:00 07:00 Intake Total 3600 ml Output Total 1200 ml Balance 2400 ml Exam Constitutional: alert, oriented, well developed Psych: nl mood/affect, no complaints Head: atraumatic, normocephalic Eyes: EOMI, PERRL, nl conjunctiva, nl lids, nl sclera ENMT: nl external ears & nose, nl lips & teeth, nl nasal mucosa & septum Neck: non-tender, supple Respiratory: clear to auscultation, normal air movement Cardiovascular: nl pulses, regular rate and rhythm Gastrointestinal: nl liver, spleen, non-tender, soft Musculoskeletal: nl extremities to inspection, nl gait and stance Extremities: normal pulses Neurological: PRODUCTION CORRUGATOR II-XII intact, nl mental status, nl speech, nl strength Skin: nl turgor, No rash or lesions Lymph: nl lymph nodes Results Result Diagram: 10/08/16 0655 10/08/16 0655 Results 24 hrs Laboratory Tests Test 10/07/16 16:55 10/07/16 18:45 10/07/16 21:20 10/07/16 22:14 Urine Color MARLENE Urine Clarity SLIGHTLY CLOUDY Urine pH 5.5 Urine Specific [place] 1.025 Urine Ketones NEGATIVE Urine Nitrite NEGATIVE Urine Bilirubin 2+ H Urine Ictotest POSITIVE Urine Urobilinogen 2.0 E.U./dL H Urine Leukocyte Esterase NEGATIVE Urine Microscopic RBC 0-2 Urine Microscopic WBC 0-2 Urine Bacteria MODERATE Urine Granular Casts OCCASIONAL Urine Fine Granular Casts OCCASIONAL Urine Coarse Granular Casts FEW Urine Hemoglobin TRACE Urine Glucose NEGATIVE Urine Total Protein 2+ H Lactic Acid Level 4.8 *H 5.3 *H Bedside Glucose 121 Test 10/08/16 06:55 10/08/16 07:23 10/08/16 12:05 White Blood Count 10.9 #H Red Blood Count 3.05 L Hemoglobin 9.5 L Hematocrit 29.4 L Mean Corpuscular Volume 96.4 Mean Corpuscular Hemoglobin 31.1 Mean Corpuscular Hemoglobin Concent 32.3 Red Cell Distribution Width 14.7 H Platelet Count 185 # Mean Platelet Volume 11.4 H Neutrophils % 80.2 H Lymphocytes % 8.2 L Monocytes % 9.0 Eosinophils % 0.9 Basophils % 0.2 Nucleated Red Blood Cells % 0.0 Neutrophils # 8.8 H Lymphocytes # 0.9 Monocytes # 1.0 H Eosinophils # 0.1 Basophils # 0.0 Nucleated Red Blood Cells # 0.0 Sodium Level 133 L Potassium Level 3.5 Chloride Level 105 # Carbon Dioxide Level 22 Anion Gap 10 # Blood Urea Nitrogen 17 Creatinine 0.68 Glucose Level 87 # Calcium Level 8.4 Magnesium Level 2.1 Total Bilirubin 1.6 H Direct Bilirubin 1.30 #H Indirect Bilirubin 0.3 Aspartate Amino Transf (AST/SGOT) 90 H Alanine Aminotransferase (ALT/SGPT) 69 Alkaline Phosphatase 813 H Total Protein 6.0 #L Albumin 2.5 L Globulin 3.50 H Albumin/Globulin Ratio 0.71 Bedside Glucose 89 87 Medications Medications Current Medications Atorvastatin Calcium (Lipitor) 40 mg QHS PO Last administered on 10/07/16 21: 47; Admin Dose 40 MG; Start 10/07/16 at 21:00 Carvedilol (Coreg) 3.125 mg BID PO Last administered on 10/08/16 08:10; Admin Dose 3.125 MG; Start 10/07/16 at 21:00 Latanoprost 1 drop 1 drop HS BOTH EYES ; Start 10/07/16 at 21:00 Azithromycin 250 ml @ 250 mls/hr DAILY IVPB Last administered on 10/08/16 12: 32; Admin Dose 250 MLS/HR; Start 10/07/16 at 20:00 Sodium Chloride (NS) 1,000 ml @ 75 mls/hr [id number] IV Last administered on 10/07 21:48; Admin Dose 75 MLS/HR; Start 10/07/16 at 19:09 Ondansetron HCl (Zofran Inj) 4 mg Q4H PRN IV NAUSEA AND/OR VOMITING Last administered on 10/08/16 02:14; Admin Dose 4 MG; Start 10/07/16 at 19:30 Acetaminophen (Tylenol Tab) 650 mg Q6H PRN PO PAIN LEVEL 1-3 OR FEVER; Start at 19:30 Acetaminophen/ Hydrocodone Bitart ([place] (5/325)) 1 tab Q6H PRN PO MODERATE PAIN LEVEL 4-6 Last administered on 10/08/16 03:00; Admin Dose 1 TAB; Start at 19:30 Morphine Sulfate (morphine) 2 mg Q4H PRN IV SEVERE PAIN LEVEL 7-10 Last administered on 10/08/16 02:14; Admin Dose 2 MG; Start 10/07/16 at 19:30 Docusate Sodium (Colace) 100 mg Q12H PRN PO CONSTIPATION; Start 10/07/16 at 19: 30 Magnesium Hydroxide (Milk Of Mag) 30 ml DAILY PRN PO CONSTIPATION; Start at 19:30 Bisacodyl (Dulcolax) 5 mg DAILY PRN PO CONSTIPATION; Start 10/07/16 at 19:30 Bisacodyl (Dulcolax Supp) 10 mg DAILY PRN [place] CONSTIPATION; Start 10/07/16 at 19 :30 Sodium Biphosphate/ Sodium Phosphate (Fleet Enema) 133 ml DAILY PRN [place] CONSTIPATION; Start 10/07/16 at 19:30 Zolpidem Tartrate (Ambien) 5 mg QHS PRN PO SLEEP; Start 10/07/16 at 19:30 Famotidine 20 mg 20 mg Q12 IV Last administered on 10/08/16 08:10; Admin Dose 20 MG; Start 10/07/16 at 21:00 Metronidazole 100 ml @ 100 mls/hr Q8 IVPB Last administered on 10/08/16 14:04 ; Admin Dose 100 MLS/HR; Start 10/07/16 at 22:00 Piperacillin Sod/ Tazobactam Sod (Zosyn 3.375gm/ 100 ml (Pmx)) 100 ml @ 200 mls /hr Q8 IVPB Last administered on 10/08/16 15:31; Admin Dose 200 MLS/HR; Start 10/07/16 at 22:00 Diagnostic Test (Pha) (Accu-Chek) 1 ea 02 XX ; Start 10/08/16 at 02:00 Miscellaneous Information 1 ea NOTE XX ; Start 10/07/16 at 20:30 Glucose (Glutose) 15 gm Q15M PRN PO DECREASED GLUCOSE; Start 10/07/16 at 20:30 Glucose (Glutose) 22.5 gm Q15M PRN PO DECREASED GLUCOSE; Start 10/07/16 at 20: 30 Dextrose (D50w Syringe) 25 ml Q15M PRN IV DECREASED GLUCOSE; Start 10/07/16 at 20:30 Dextrose (D50w Syringe) 50 ml Q15M PRN IV DECREASED GLUCOSE; Start 10/07/16 at 20:30 Glucagon (Glucagen) 1 mg Q15M PRN IM DECREASED GLUCOSE; Start 10/07/16 at 20:30 Glucose (Glutose) 15 gm Q15M PRN BUCCAL DECREASED GLUCOSE; Start 10/07/16 at 20 :30 LAUREN GODFREY MD Oct 08, 2016 16:29
[2016-10-08] MEDS ORDERED: INDOMETHACIN 50 MG SUPP PR ONE (17:10)
[2016-10-08] MEDS ORDERED: ETOMIDATE 20 MG INJ ONE (18:01)
[2016-10-08] MEDS ORDERED: ROCURONIUM 50 MG INJ ONE (18:01)
[2016-10-08] MEDS ORDERED: NEOSTIGMINE 3 MG/3 ML SYRINGE ONE ×2 (18:28→20:06)
[2016-10-08] MEDS ORDERED: METOCLOPRAMIDE 10 MG INJ ONE (18:28)
[2016-10-08] MEDS ORDERED: ONDANSETRON 4 MG INJ ONE (18:28)
[2016-10-08] MEDS ORDERED: GLYCOPYRROLATE 0.4 MG INJ ONE ×2 (18:28→20:06)
[2016-10-08] MEDS ORDERED: DEXAMETHASONE 4 MG/ML 1 ML INJ ONE (18:28)
[2016-10-08] MEDS ORDERED: PHENYLephrine (100 MCG/ML) 5ML SYG ONE (18:40)
[2016-10-08] MEDS ORDERED: ONDANSETRON 4 MG INJ IV PRN (19:00)
[2016-10-08] MEDS ORDERED: MEPERIDINE 25 MG INJ IV PRN (19:00)
[2016-10-08] MEDS ORDERED: EPHEDrine SULFATE 50 MG/5 ML SYG IV PRN (19:00)
[2016-10-08] MEDS ORDERED: morphine (1 MG/ML) 10ML SYRINGE IV PRN ×3 (19:00)
[2016-10-08] MEDS ORDERED: DIPHENHYDRAMINE 50 MG INJ IV PRN (19:00)
[2016-10-08] MEDS ORDERED: HYDROmorphONE (0.2 MG/ML) 10ML SYG IV PRN ×3 (19:00)
[2016-10-08] MEDS ORDERED: FENTAnyl 50 MCG/ML VIAL IV PRN ×2 (19:00)
[2016-10-08] MEDS ORDERED: METOCLOPRAMIDE 10 MG INJ IV PRN (19:00)
[2016-10-08] MEDS: hydrALAzine 20 MG INJ IV PRN ×3 (19:45→20:49)
[2016-10-08] MEDS: LABETALOL HCL 20MG INJ IV PRN ×2 (20:42→20:51)
[2016-10-08] MEDS: LATANOPROST 0.005% 2.5 ML OPH BOTH EYES SCH (21:00)
[2016-10-09] VITALS (11 sets, daily range): BP systolic 102–191; BP diastolic 55–93; PULSE 58–93; RESP 18–21
[2016-10-09] MEDS: ATORVASTATIN 40 MG TAB PO SCH ×2 (00:10→21:34)
[2016-10-09] MEDS: SOD CHLORIDE 0.9% 1,000 ML IV SCH ×2 (00:10→11:09)
[2016-10-09] MEDS: LORAZEPAM 2 MG INJ IV PRN (00:11)
[2016-10-09] MEDS: ACCUCHECK AT 2AM (Patients on SS coverage) XX SCH (02:00)
--- NOTE | 2016-10-09 05:00 | GILP ---
DATE OF PROCEDURE: PROCEDURE: ERCP, sphincterotomy, removal of large quantity of pus and multiple pigmented stones and stenting. INDICATION: A 65-year-old female undergoing this procedure for ascending cholangitis and MRCP showe d stones in the bile duct . The risks of the procedure, related and unrelated complications, a nesthetic risks, and alternatives discussed and informed consent was obtained. DESCRIPTION OF PROCEDURE: The patient was brought to the GI lab, sedated by Dr. Mai and after opt imal sedation by Dr. Mai, the anesthesiologist. The patient was intubated and placed in prone pos ition. Indocin suppository was administered. ERCP scope passed with much ease into esophagus and a dvanced further down into stomach and then into the duodenum. The ampulla was in a very unstable po sition both on a long route and short route, the scope will not stay in the duodenum until fall back into the stomach selectively cannulated. The bile duct appeared dilated. Pus was coming out, so d ecided to do a sphincterotomy. Good sphincterotomy was done. After doing sphincterotomy, a 9 to 12 mm balloon was used, 12 mm balloon would come out easily, large quantity of pus came out, a lot of debris came out and at this point decided to deploy the stent. Stent 10-[place] 5 cm successfully de ployed and constantly we did suctioning to remove all the pus, 2 stones came out, each one was about 5 to 6 mm in diameter easily assisted both were pigmented stone and we the pus from the bile duct through the stent. Scope was then removed with good patient tolerance. IMPRESSION 1. Unstable ampullary position. 2. Successful sphincterotomy done. 3. Large quantity of pus removed. 4. Multiple debris and 2 pigmented stones 5 to 6 mm in diameter, removed easily. 5. Stent 10-[place] 5 cm successfully deployed and excellent drainage established. 6. Fluoroscopy time was totally 14 seconds. PLAN: At this point is to monitor LFT, WBC count and the patient should be subjected for a laparosc opic cholecystectomy since there was no filling of the cystic duct and there appears to be a stone i n the cystic duct compressing upon the bile duct externally. Dictated By: LAUREN SOUSA/YURY Conf#: [id number] DID#: [id number] CC: LANDON ZAMORA MD;*[facility]*
[2016-10-09] MEDS: metroNIDAZOLE 500 MG/NS (PMX) 100 ML IVPB SCH ×3 (05:50→22:25)
[2016-10-09] MEDS: PIPER-TAZO 3.375 GM IV (PMX) 100 ML IVPB SCH ×3 (05:50→22:25)
[2016-10-09 06:18] LABS: ADD SCAN DIFF NO
[2016-10-09 06:33] LABS: INR 1.3; PROTIME 16.3 Sec (12.2-14.2); PT RATIO 1.3
[2016-10-09 06:34] LABS: PARTIAL THROMBOPLASTIN TIME 23.8 Sec (25.0-35.0)
[2016-10-09 06:45] LABS: ALBUMIN 2.6 g/dl (3.3-4.9); POTASSIUM 3.3 mmol/L (3.5-5.1)
[2016-10-09 06:47] LABS: BILIRUBIN,DIRECT 0.1 mg/dl (0.00-0.20); BILIRUBIN,INDIRECT 0.4 mg/dl (0-1.1); BILIRUBIN,TOTAL 0.5 mg/dl (0.2-1.3); CREATININE 0.6 mg/dl (0.44-1.00)
[2016-10-09 06:48] LABS: ALBUMIN/GLOBULIN RATIO 0.68; TOTAL PROTEIN 6.4 g/dl (6.1-8.1)
[2016-10-09 06:49] LABS: CALCIUM 8.2 mg/dl (8.4-10.2)
[2016-10-09] MEDS: morphine 2 MG INJ IV PRN ×2 (08:06→21:42)
[2016-10-09] MEDS: FAMOTIDINE 20 MG INJ IV SCH ×2 (08:06→21:36)
--- NOTE | 2016-10-09 08:10 | RADRPT ---
PROCEDURE: X-ray fluoroscopy guidance CLINICAL INDICATION: Abdominal pain, ERCP, fluoroscopic guidance TECHNIQUE: Fluoroscopic guidance was utilized for an intraoperative procedure. COMPARISON: None available FINDINGS: Fluoroscopic guidance was utilized for and intraoperative procedure. 14.0 second of fluoroscopy time was utilized for the procedure. 21 x-ray images were obtained during the procedure in progress. No gross filling defects are seen in the common bile duct. IMPRESSION: X-ray fluoroscopic guidance utilized for intraoperative procedure. No gross filling defects in the common bile duct. Please see procedure note for details. RPTAT: AA .Mike Sanchez MD, MD Date Time Electronically viewed and signed by .Mike Sanchez MD, MD on 10/09/2016 08:10 .P/
[2016-10-09] MEDS: INSULIN ASPART [NOVOLOG] 3 ML PEN SC SCH ×5 (08:25→22:53)
[2016-10-09] MEDS: AZITHROMYCIN 500MG/NS (PMX) 250 ML IVPB SCH (09:43)
[2016-10-09 11:09] LABS: BASOPHILS % 0.2 % (0.0-2.0); HEMOGLOBIN 9.9 g/dl (12.0-16.0); LYMPHOCYTES # 0.6 10^3/ul (0.8-2.9); MEAN CORPUSCULAR HEMOGLOBIN 32.2 pg (29.0-33.0); MEAN CORPUSCULAR VOLUME 97.7 fl (82.0-101.0); MEAN PLATELET VOLUME 11.6 fl (7.4-10.4); MONOCYTE # 0.4 10^3/ul (0.3-0.9); MONOCYTES % 3.4 % (0.0-11.0); NEUTROPHIL # 9.2 10^3/ul (1.6-7.5); NEUTROPHILS % 88.8 % (39.0-77.0); PLATELET COUNT 217 10^3/UL (140-415); RED BLOOD COUNT 3.07 10^6/ul (4.20-5.40); RED CELL DISTRIBUTION WIDTH 15.2 % (11.5-14.5); WHITE BLOOD COUNT 10.4 10^3/ul (4.8-10.8)
[2016-10-09] MEDS ORDERED: NIFEdipine (XL) 60 MG TAB PO ONE (11:30)
[2016-10-09] MEDS: hydrALAzine 20 MG INJ IV PRN (11:36)
--- NOTE | 2016-10-09 11:54 | PN ---
Date/Time of Note Date/Time of Note DATE: 10/09/16 TIME: 11:47 Assessment/Plan VTE Prophylaxis VTE Prophylaxis Intervention: SCD's Lines/Catheters IV Catheter Type (from Nrs): Peripheral IV Urinary Cath still in place: Yes Reason Cath still needed: urinary retention Assessment/Plan Assessment/Plan 1. Severe sepsis, multifactorial secondary to possible biliary sepsis and also secondary to left lower lobe infiltrates. 2. Biliary sepsis with acute choledocholithiasis s/p ERCP, sphincterotomy, Removal of multiple stones and stent placement by DREA Isaacs on 10/08/16 3. Left lower lobe infiltrates, concerned about community-acquired pneumonia. 4. Lactic acidosis, likely secondary to severe sepsis. 5. Hyponatremia with a sodium 129 on admission secondary to hypovolemic hyponatremia. 6. Acute kidney injury on chronic kidney disease stage III secondary to prerenal azotemia and secondary to sepsis. 7. History of chronic kidney disease stage II to III secondary to diabetic nephropathy. 8. Hypercalcemia secondary to moderate to severe dehydration. 9. Moderate to severe dehydration. 10. Acute transaminitis with alkaline phosphatase of 1270 due to acute choledocholithiasis 11. History of hypertension.-now Accelerated HTN, not well controlled 12. History of diabetes mellitus type 2, on metformin. 13. History of coronary artery disease, status post previous stent placement. 14. History of bilateral knee surgeries, recently had right knee surgery 15. Hypokalemia PLAN: pt went into delirium overnight after ERCP- required IV ativan, IV morhpine and seroquel S/p ERCP, sphincterotomy, Removal of multiple stones and stent placement by DREA Isaacs Start procardia XL 60mg pO daily for better BP control, IV hydralazine prn , KCL replacement 20mEQ IV x 1 Amparo bx zosyn, Flagyl and Azithromycin Blood cx grew gram negative rods- Final results pending SCD for DVT prophylaxis Subjective 24 Hr Interval Summary Free Text/Dictation pt went into delirium overnight after ERCP- required IV ativan, IV morhpine and seroquel S/p ERCP, sphincterotomy, Removal of multiple stones and stent placement by DREA Isaacs Exam/Review of Systems Vital Signs Vitals Vital Signs Date Time Temp Pulse Resp B/P Pulse Ox O2 Delivery O2 Flow Rate FiO2 10/09/16 09:12 58 10/09/16 08:08 98.2 18 187/65 99 10/09/16 01:55 2.0 10/08/16 22:10 Nasal Cannula Intake and Output 10/08/16 10/08/16 10/09/16 14:59 22:59 06:59 Intake Total 250 ml 220 ml 15 ml Output Total 800 ml 1400 ml Balance 250 ml -580 ml -1385 ml Exam GENERAL: Awake, alert. Moderate distress due to the hypotension and sepsis. HEENT: Normal. Oropharynx clear. No jaundice. NECK: Supple. No JVD, no lymphadenopathy. LUNGS: Bilateral air entry presence. The patient has left lower lobe rales present with minimal expiratory wheezing. HEART: S1, S2. Tachycardia. No murmur. ABDOMEN: Soft, tender to palpation in right upper quadrant with minimal guarding, no rebound tenderness. Bowel sounds are present. EXTREMITIES: No clubbing, cyanosis, edema. Bilateral knees have surgical scarring present. No cyanosis. NEUROLOGICAL: Nonfocal, intact. PSYCHIATRIC: Appropriate affect and mood. SKIN: No rash. Results Result Diagram: 10/09/16 0550 10/09/16 0550 Results 24 hrs Laboratory Tests Test 10/08/16 12:05 10/08/16 17:21 10/08/16 19:33 10/08/16 22:30 Bedside Glucose 87 80 88 156 Test 10/09/16 05:50 10/09/16 07:54 10/09/16 11:41 White Blood Count 10.4 Red Blood Count 3.07 L Hemoglobin 9.9 L Hematocrit 30.0 L Mean Corpuscular Volume 97.7 Mean Corpuscular Hemoglobin 32.2 Mean Corpuscular Hemoglobin Concent 33.0 Red Cell Distribution Width 15.2 H Platelet Count 217 Mean Platelet Volume 11.6 H Neutrophils % 88.8 H Lymphocytes % 6.0 L Monocytes % 3.4 Eosinophils % 0.0 Basophils % 0.2 Nucleated Red Blood Cells % 0.0 Neutrophils # 9.2 H Lymphocytes # 0.6 L Monocytes # 0.4 Eosinophils # 0.0 Basophils # 0.0 Nucleated Red Blood Cells # 0.0 Prothrombin Time 16.3 H Prothrombin Time Ratio 1.3 INR International Normalized Ratio 1.30 Activated Partial Thromboplast Time 23.8 L Sodium Level 136 Potassium Level 3.3 L Chloride Level 103 Carbon Dioxide Level 20 L Anion Gap 16 Blood Urea Nitrogen 18 Creatinine 0.60 Glucose Level 151 Calcium Level 8.2 L Total Bilirubin 0.5 Direct Bilirubin 0.10 # Indirect Bilirubin 0.4 Aspartate Amino Transf (AST/SGOT) 77 H Alanine Aminotransferase (ALT/SGPT) 60 Alkaline Phosphatase 785 H Total Protein 6.4 Albumin 2.6 L Globulin 3.80 H Albumin/Globulin Ratio 0.68 Bedside Glucose 141 120 Medications Medications Current Medications Atorvastatin Calcium (Lipitor) 40 mg QHS PO Last administered on 10/09/16 00: 10; Admin Dose 40 MG; Start 10/07/16 at 21:00 Carvedilol (Coreg) 3.125 mg BID PO Last administered on 10/09/16 08:08; Admin Dose 3.125 MG; Start 10/07/16 at 21:00 Latanoprost 1 drop 1 drop HS BOTH EYES ; Start 10/07/16 at 21:00 Azithromycin 250 ml @ 250 mls/hr DAILY IVPB Last administered on 10/09/16 09: 43; Admin Dose 250 MLS/HR; Start 10/07/16 at 20:00 Sodium Chloride (NS) 1,000 ml @ 75 mls/hr [id number] IV Last administered on 10/09 00:10; Admin Dose 75 MLS/HR; Start 10/07/16 at 19:09 Ondansetron HCl (Zofran Inj) 4 mg Q4H PRN IV NAUSEA AND/OR VOMITING Last administered on 10/08/16 02:14; Admin Dose 4 MG; Start 10/07/16 at 19:30 Acetaminophen (Tylenol Tab) 650 mg Q6H PRN PO PAIN LEVEL 1-3 OR FEVER; Start at 19:30 Acetaminophen/ Hydrocodone Bitart ([place] (5/325)) 1 tab Q6H PRN PO MODERATE PAIN LEVEL 4-6 Last administered on 10/08/16 03:00; Admin Dose 1 TAB; Start at 19:30 Morphine Sulfate (morphine) 2 mg Q4H PRN IV SEVERE PAIN LEVEL 7-10 Last administered on 10/09/16 08:06; Admin Dose 2 MG; Start 10/07/16 at 19:30 Docusate Sodium (Colace) 100 mg Q12H PRN PO CONSTIPATION; Start 10/07/16 at 19: 30 Magnesium Hydroxide (Milk Of Mag) 30 ml DAILY PRN PO CONSTIPATION; Start at 19:30 Bisacodyl (Dulcolax) 5 mg DAILY PRN PO CONSTIPATION; Start 10/07/16 at 19:30 Bisacodyl (Dulcolax Supp) 10 mg DAILY PRN [place] CONSTIPATION; Start 10/07/16 at 19 :30 Sodium Biphosphate/ Sodium Phosphate (Fleet Enema) 133 ml DAILY PRN [place] CONSTIPATION; Start 10/07/16 at 19:30 Zolpidem Tartrate (Ambien) 5 mg QHS PRN PO SLEEP; Start 10/07/16 at 19:30 Famotidine 20 mg 20 mg Q12 IV Last administered on 10/09/16 08:06; Admin Dose 20 MG; Start 10/07/16 at 21:00 Metronidazole 100 ml @ 100 mls/hr Q8 IVPB Last administered on 10/09/16 05:50 ; Admin Dose 100 MLS/HR; Start 10/07/16 at 22:00 Piperacillin Sod/ Tazobactam Sod (Zosyn 3.375gm/ 100 ml (Pmx)) 100 ml @ 200 mls /hr Q8 IVPB Last administered on 10/09/16 05:50; Admin Dose 200 MLS/HR; Start 10/07/16 at 22:00 Diagnostic Test (Pha) (Accu-Chek) 1 ea 02 XX ; Start 10/08/16 at 02:00 Miscellaneous Information 1 ea NOTE XX ; Start 10/07/16 at 20:30 Glucose (Glutose) 15 gm Q15M PRN PO DECREASED GLUCOSE; Start 10/07/16 at 20:30 Glucose (Glutose) 22.5 gm Q15M PRN PO DECREASED GLUCOSE; Start 10/07/16 at 20: 30 Dextrose (D50w Syringe) 25 ml Q15M PRN IV DECREASED GLUCOSE; Start 10/07/16 at 20:30 Dextrose (D50w Syringe) 50 ml Q15M PRN IV DECREASED GLUCOSE; Start 10/07/16 at 20:30 Glucagon (Glucagen) 1 mg Q15M PRN IM DECREASED GLUCOSE; Start 10/07/16 at 20:30 Glucose (Glutose) 15 gm Q15M PRN BUCCAL DECREASED GLUCOSE; Start 10/07/16 at 20 :30 Lorazepam (Ativan) 1 mg Q4 PRN IV AGITATION/ANXIETY Last administered on 00:11; Admin Dose 1 MG; Start 10/08/16 at 23:30 Quetiapine Fumarate (Seroquel) 12.5 mg ONCE ONCE PO ; Start 10/09/16 at 23:52; Stop 10/09/16 at 23:53 Nifedipine (Procardia Xl) 60 mg DAILY PO ; Start 10/10/16 at 09:00 Hydralazine HCl 10 mg 10 mg Q4H PRN IV SBP>150 mm hg Last administered on 10/09 11:36; Admin Dose 10 MG; Start 10/09/16 at 11:30 Potassium Chloride/Sodium Chloride (KCl/NS) 110 ml @ 55 mls/hr ONCE ONCE IVPB ; Start 10/09/16 at 13:00; Stop 10/09/16 at 14:59 LANDON ZAMORA MD Oct 09, 2016 11:54
[2016-10-09] MEDS ORDERED: POTASSIUM CHLORIDE 20 MEQ in SOD CHLORIDE 0.9% 100 ML IVPB ONE (13:00)
--- NOTE | 2016-10-09 15:15 | PN ---
Date/Time of Note Date/Time of Note DATE: 10/09/16 TIME: 15:13 Assessment/Plan Lines/Catheters IV Catheter Type (from [facility]): Peripheral IV [place] in Place (from Nrs): Yes Assessment/Plan Chief Complaint/Hosp Course 1. Abdominal pain, nausea, vomiting, & abnormal LFTs probably 2nd Cholangitis 2nd Choledocholithiasis s/p ERCP with drainage of stone and pus & stent placement 10/09 -abx -ivf -supportive -eventual lap janet 2. CAD, hx of NH with multiple stents -cardiac optimization 3. DM -nutrition and medication optimization -encourage weight optimization 4. CVA hx -medical/cardiac optimization -off loading -nutritional optimization 5. Rheumatoid arthritis. -medical management 6. Possible PNA -pulmonary toilette -abx per medical team 7. Anemia -monitor 8. Lactic acidosis, leukocytosis with sepsis 2nd #1. Improving -abx -supportive -as above Thank you, Problems: Subjective 24 Hr Interval Summary s/p ERCP with stone and pus drainage s/p stent placement. Pain improving. No f /c. No n/v. No cough. No hernandes/dizzy/visual or neuro changes. No dysuria. Leukocytosis improved. Exam/Review of Systems Vital Signs Vitals Vital Signs Date Time Temp Pulse Resp B/P Pulse Ox O2 Delivery O2 Flow Rate FiO2 10/09/16 12:26 68 10/09/16 11:47 97.9 20 191/77 99 10/09/16 01:55 2.0 10/08/16 22:10 Nasal Cannula Intake and Output 10/08/16 10/08/16 10/09/16 15:00 23:00 07:00 Intake Total 250 ml 220 ml 15 ml Output Total 800 ml 1400 ml Balance 250 ml -580 ml -1385 ml Exam Free Text/Dictation Constitutional: alert, obese, oriented, No distress Psych: nl mood/affect, No anxiety, No confusion Head: atraumatic, normocephalic Eyes: EOMI, PERRL, nl conjunctiva ENMT: mucosa pink and moist, nl external ears & nose Neck: supple, No non-tender Respiratory: normal air movement, No congested cough Cardiovascular: regular rate and rhythm, No edema Gastrointestinal: soft, NT, No rebound or guarding Musculoskeletal: No joint tenderness, No nl extremities to inspection, No nl gait and stance Extremities: normal pulses, No calf tenderness, No cyanosis Neurological: nl mental status, nl speech Skin: nl turgor, No diaphoresis, No rash or lesions Lymph: nl lymph nodes Results Result Diagram: 10/09/16 0550 10/09/16 0550 BINH RODRIGUEZ MD Oct 09, 2016 15:15
[2016-10-09] MEDS: BISACODYL (EC) 5 MG TAB PO PRN (15:57)
--- NOTE | 2016-10-09 19:40 | CONS ---
Date/Time of Note Date/Time of Note DATE: 10/09/16 TIME: 19:38 Assessment/Plan Assessment/Plan Additional Assessment/Plan IMPRESSION: 1. Abnormal LFTs with abdominal pain, vomiting and fever and chills, rule out cholangitis secondary to most probably bile duct stone. 2. Rheumatoid arthritis. 3. Diabetes mellitus. 4. Status post knee replacement 1 month ago. 5. History of cerebrovascular accident. 6. History of 3 stents. 7. Diabetes mellitus. 8. Possible pneumonia. PLAN: Continue all the antibiotic, IV hydration Monitor LFT and CBC Consultation Date/Type/Reason Admit Date/Time Oct 07, 2016 at 20:54 Initial Consult Date 10/07/16 Type of Consultation: Gen surgical Referring Provider: LANDON ZAMORA MD 24 HR Interval Summary Constitutional: improved Exam/Review of Systems Vital Signs Vitals Vital Signs Date Time Temp Pulse Resp B/P Pulse Ox O2 Delivery O2 Flow Rate FiO2 10/09/16 16:34 83 10/09/16 16:24 98.1 20 124/58 97 10/09/16 08:50 Nasal Cannula 2.0 Intake and Output 10/08/16 10/08/16 10/09/16 15:00 23:00 07:00 Intake Total 250 ml 220 ml 15 ml Output Total 800 ml 1400 ml Balance 250 ml -580 ml -1385 ml Exam Constitutional: alert, oriented, well developed Psych: nl mood/affect, no complaints Head: atraumatic, normocephalic Eyes: EOMI, PERRL, nl conjunctiva, nl lids, nl sclera ENMT: nl external ears & nose, nl lips & teeth, nl nasal mucosa & septum Neck: non-tender, supple Respiratory: clear to auscultation, normal air movement Cardiovascular: nl pulses, regular rate and rhythm Gastrointestinal: nl liver, spleen, non-tender, soft Musculoskeletal: nl extremities to inspection, nl gait and stance Extremities: normal pulses Neurological: [employer] II-XII intact, nl mental status, nl speech, nl strength Skin: nl turgor, No rash or lesions Lymph: nl lymph nodes Results Result Diagram: 10/09/16 0550 10/09/16 0550 Results 24 hrs Laboratory Tests Test 10/08/16 22:30 10/09/16 05:50 10/09/16 07:54 10/09/16 11:41 Bedside Glucose 156 141 120 White Blood Count 10.4 Red Blood Count 3.07 L Hemoglobin 9.9 L Hematocrit 30.0 L Mean Corpuscular Volume 97.7 Mean Corpuscular Hemoglobin 32.2 Mean Corpuscular Hemoglobin Concent 33.0 Red Cell Distribution Width 15.2 H Platelet Count 217 Mean Platelet Volume 11.6 H Neutrophils % 88.8 H Lymphocytes % 6.0 L Monocytes % 3.4 Eosinophils % 0.0 Basophils % 0.2 Nucleated Red Blood Cells % 0.0 Neutrophils # 9.2 H Lymphocytes # 0.6 L Monocytes # 0.4 Eosinophils # 0.0 Basophils # 0.0 Nucleated Red Blood Cells # 0.0 Prothrombin Time 16.3 H Prothrombin Time Ratio 1.3 INR International Normalized Ratio 1.30 Activated Partial Thromboplast Time 23.8 L Sodium Level 136 Potassium Level 3.3 L Chloride Level 103 Carbon Dioxide Level 20 L Anion Gap 16 Blood Urea Nitrogen 18 Creatinine 0.60 Glucose Level 151 Calcium Level 8.2 L Total Bilirubin 0.5 Direct Bilirubin 0.10 # Indirect Bilirubin 0.4 Aspartate Amino Transf (AST/SGOT) 77 H Alanine Aminotransferase (ALT/SGPT) 60 Alkaline Phosphatase 785 H Total Protein 6.4 Albumin 2.6 L Globulin 3.80 H Albumin/Globulin Ratio 0.68 Test 10/09/16 17:14 Bedside Glucose 168 Medications Medications Current Medications Atorvastatin Calcium (Lipitor) 40 mg QHS PO Last administered on 10/09/16 00: 10; Admin Dose 40 MG; Start 10/07/16 at 21:00 Carvedilol (Coreg) 3.125 mg BID PO Last administered on 10/09/16 08:08; Admin Dose 3.125 MG; Start 10/07/16 at 21:00 Latanoprost 1 drop 1 drop HS BOTH EYES ; Start 10/07/16 at 21:00 Azithromycin 250 ml @ 250 mls/hr DAILY IVPB Last administered on 10/09/16 09: 43; Admin Dose 250 MLS/HR; Start 10/07/16 at 20:00 Sodium Chloride (NS) 1,000 ml @ 75 mls/hr [id number] IV Last administered on 10/09 00:10; Admin Dose 75 MLS/HR; Start 10/07/16 at 19:09 Ondansetron HCl (Zofran Inj) 4 mg Q4H PRN IV NAUSEA AND/OR VOMITING Last administered on 10/08/16 02:14; Admin Dose 4 MG; Start 10/07/16 at 19:30 Acetaminophen (Tylenol Tab) 650 mg Q6H PRN PO PAIN LEVEL 1-3 OR FEVER; Start at 19:30 Acetaminophen/ Hydrocodone Bitart ([place] (5/325)) 1 tab Q6H PRN PO MODERATE PAIN LEVEL 4-6 Last administered on 10/08/16 03:00; Admin Dose 1 TAB; Start at 19:30 Morphine Sulfate (morphine) 2 mg Q4H PRN IV SEVERE PAIN LEVEL 7-10 Last administered on 10/09/16 08:06; Admin Dose 2 MG; Start 10/07/16 at 19:30 Docusate Sodium (Colace) 100 mg Q12H PRN PO CONSTIPATION; Start 10/07/16 at 19: 30 Magnesium Hydroxide (Milk Of Mag) 30 ml DAILY PRN PO CONSTIPATION; Start at 19:30 Bisacodyl (Dulcolax) 5 mg DAILY PRN PO CONSTIPATION Last administered on 15:57; Admin Dose 5 MG; Start 10/07/16 at 19:30 Bisacodyl (Dulcolax Supp) 10 mg DAILY PRN [place] CONSTIPATION; Start 10/07/16 at 19 :30 Sodium Biphosphate/ Sodium Phosphate (Fleet Enema) 133 ml DAILY PRN [place] CONSTIPATION; Start 10/07/16 at 19:30 Zolpidem Tartrate (Ambien) 5 mg QHS PRN PO SLEEP; Start 10/07/16 at 19:30 Famotidine 20 mg 20 mg Q12 IV Last administered on 10/09/16 08:06; Admin Dose 20 MG; Start 10/07/16 at 21:00 Metronidazole 100 ml @ 100 mls/hr Q8 IVPB Last administered on 10/09/16 15:07 ; Admin Dose 100 MLS/HR; Start 10/07/16 at 22:00 Piperacillin Sod/ Tazobactam Sod (Zosyn 3.375gm/ 100 ml (Pmx)) 100 ml @ 200 mls /hr Q8 IVPB Last administered on 10/09/16 13:30; Admin Dose 200 MLS/HR; Start 10/07/16 at 22:00 Diagnostic Test (Pha) (Accu-Chek) 1 ea 02 XX ; Start 10/08/16 at 02:00 Miscellaneous Information 1 ea NOTE XX ; Start 10/07/16 at 20:30 Glucose (Glutose) 15 gm Q15M PRN PO DECREASED GLUCOSE; Start 10/07/16 at 20:30 Glucose (Glutose) 22.5 gm Q15M PRN PO DECREASED GLUCOSE; Start 10/07/16 at 20: 30 Dextrose (D50w Syringe) 25 ml Q15M PRN IV DECREASED GLUCOSE; Start 10/07/16 at 20:30 Dextrose (D50w Syringe) 50 ml Q15M PRN IV DECREASED GLUCOSE; Start 10/07/16 at 20:30 Glucagon (Glucagen) 1 mg Q15M PRN IM DECREASED GLUCOSE; Start 10/07/16 at 20:30 Glucose (Glutose) 15 gm Q15M PRN BUCCAL DECREASED GLUCOSE; Start 10/07/16 at 20 :30 Lorazepam (Ativan) 1 mg Q4 PRN IV AGITATION/ANXIETY Last administered on 00:11; Admin Dose 1 MG; Start 10/08/16 at 23:30 Quetiapine Fumarate (Seroquel) 12.5 mg ONCE ONCE PO ; Start 10/09/16 at 23:52; Stop 10/09/16 at 23:53 Nifedipine (Procardia Xl) 60 mg DAILY PO ; Start 10/10/16 at 09:00 Hydralazine HCl (Apresoline) 10 mg Q4H PRN IV SBP>150 mm hg Last administered on 10/09/16 11:36; Admin Dose 10 MG; Start 10/09/16 at 11:30 LAUREN GODFREY MD Oct 09, 2016 19:40
[2016-10-09] MEDS: LATANOPROST 0.005% 2.5 ML OPH BOTH EYES SCH (21:00)
[2016-10-09] MEDS ORDERED: QUETIAPINE 25 MG TAB PO ONE (23:52)
[2016-10-10] VITALS (12 sets, daily range): BP systolic 100–151; BP diastolic 58–69; PULSE 64–89; RESP 16–19
[2016-10-10] MEDS: SOD CHLORIDE 0.9% 1,000 ML IV SCH ×2 (00:29→12:37)
[2016-10-10] MEDS: ACCUCHECK AT 2AM (Patients on SS coverage) XX SCH (03:00)
[2016-10-10] MEDS: LORAZEPAM 2 MG INJ IV PRN (04:58)
[2016-10-10] MEDS: metroNIDAZOLE 500 MG/NS (PMX) 100 ML IVPB SCH ×3 (05:02→21:50)
[2016-10-10] MEDS: PIPER-TAZO 3.375 GM IV (PMX) 100 ML IVPB SCH ×3 (05:02→21:50)
[2016-10-10 07:47] LABS: ADD SCAN DIFF NO
[2016-10-10 07:51] LABS: BASOPHILS % 0.1 % (0.0-2.0); EOSINOPHILS # 0.1 10^3/ul (0.0-0.5); HEMATOCRIT 29.2 % (37.0-47.0); HEMOGLOBIN 9.9 g/dl (12.0-16.0); LYMPHOCYTES # 1.1 10^3/ul (0.8-2.9); LYMPHOCYTES % 8.1 % (15.0-51.0); MEAN CORPUSCULAR HEMOGLOBIN 32.1 pg (29.0-33.0); MEAN CORPUSCULAR HGB CONC 33.9 g/dl (32.0-37.0); MEAN CORPUSCULAR VOLUME 94.8 fl (82.0-101.0); MEAN PLATELET VOLUME 11.2 fl (7.4-10.4); MONOCYTE # 0.8 10^3/ul (0.3-0.9); MONOCYTES % 5.8 % (0.0-11.0); NEUTROPHIL # 11.7 10^3/ul (1.6-7.5); NEUTROPHILS % 83.9 % (39.0-77.0); NUCLEATED RED BLOOD CELLS% 0.1 /100WBC (0.0-0.0); PLATELET COUNT 268 10^3/UL (140-415); RED BLOOD COUNT 3.08 10^6/ul (4.20-5.40); RED CELL DISTRIBUTION WIDTH 15.4 % (11.5-14.5); WHITE BLOOD COUNT 13.9 10^3/ul (4.8-10.8)
[2016-10-10] MEDS: INSULIN ASPART [NOVOLOG] 3 ML PEN SC SCH ×4 (08:00→21:00)
[2016-10-10 08:13] LABS: INR 1.41; PROTIME 17.3 Sec (12.2-14.2); PT RATIO 1.4
[2016-10-10 08:14] LABS: PARTIAL THROMBOPLASTIN TIME 28.4 Sec (25.0-35.0)
[2016-10-10 08:21] LABS: ALBUMIN 2.8 g/dl (3.3-4.9); ALBUMIN/GLOBULIN RATIO 0.73; BILIRUBIN,INDIRECT 0.2 mg/dl (0-1.1); BILIRUBIN,TOTAL 0.2 mg/dl (0.2-1.3); CALCIUM 8.4 mg/dl (8.4-10.2); CREATININE 0.75 mg/dl (0.44-1.00); POTASSIUM 3.2 mmol/L (3.5-5.1); TOTAL PROTEIN 6.6 g/dl (6.1-8.1)
[2016-10-10] MEDS: AZITHROMYCIN 500MG/NS (PMX) 250 ML IVPB SCH (09:03)
[2016-10-10] MEDS: FAMOTIDINE 20 MG INJ IV SCH (09:03)
[2016-10-10] MEDS: NIFEdipine (XL) 60 MG TAB PO SCH (09:05)
[2016-10-10] MEDS: morphine 2 MG INJ IV PRN (13:00)
[2016-10-10] MEDS ORDERED: POTASSIUM CHLORIDE 20 MEQ in SOD CHLORIDE 0.9% 100 ML IVPB ONE (14:30)
--- NOTE | 2016-10-10 14:33 | PN ---
Date/Time of Note Date/Time of Note DATE: 10/10/16 TIME: 14:31 Assessment/Plan VTE Prophylaxis VTE Prophylaxis Intervention: SCD's Lines/Catheters IV Catheter Type (from Nrs): [place] Urinary Cath still in place: Yes Reason Cath still needed: urinary retention Assessment/Plan Assessment/Plan 1. Severe sepsis, multifactorial secondary to possible biliary sepsis and also secondary to left lower lobe infiltrates. 2. Bacteremia with Blood cx growing E.coli 2. Biliary sepsis with acute choledocholithiasis s/p ERCP, sphincterotomy, Removal of multiple stones and stent placement by GI on 10/08/16 3. Left lower lobe infiltrates, concerned about community-acquired pneumonia. 4. Lactic acidosis, likely secondary to severe sepsis. 5. Hyponatremia with a sodium 129 on admission secondary to hypovolemic hyponatremia. 6. Acute kidney injury on chronic kidney disease stage III secondary to prerenal azotemia and secondary to sepsis. 7. History of chronic kidney disease stage II to III secondary to diabetic nephropathy. 8. Hypercalcemia secondary to moderate to severe dehydration. 9. Moderate to severe dehydration. 10. Acute transaminitis with alkaline phosphatase of 1270 due to acute choledocholithiasis 11. History of hypertension.-now Accelerated HTN, not well controlled 12. History of diabetes mellitus type 2, on metformin. 13. History of coronary artery disease, status post previous stent placement. 14. History of bilateral knee surgeries, recently had right knee surgery 15. Hypokalemia PLAN: d/c IV ativan due to sedation/lethargy S/p ERCP, sphincterotomy, Removal of multiple stones and stent placement by GI Start procardia XL 60mg pO daily for better BP control, IV hydralazine prn , - now BP well controlled, tolerating PO KCL replacement 20mEQ IV x 1 Amparo bx zosyn, Flagyl and Azithromycin Blood cx grew E.Coli SCD for DVT prophylaxis Subjective 24 Hr Interval Summary Free Text/Dictation still c/o abd pain, lethargic today after receiving IV ativan, Bp stable, K low Exam/Review of Systems Vital Signs Vitals Vital Signs Date Time Temp Pulse Resp B/P Pulse Ox O2 Delivery O2 Flow Rate FiO2 10/10/16 12:27 78 10/10/16 11:57 97.4 19 139/69 94 10/10/16 07:50 Nasal Cannula 2.0 Intake and Output 10/09/16 10/09/16 10/10/16 15:00 23:00 07:00 Intake Total 100 ml 2030 ml 500 ml Output Total 800 ml 1500 ml Balance 100 ml 1230 ml -1000 ml Exam GENERAL: Awake, alert. Moderate distress due to the hypotension and sepsis. HEENT: Normal. Oropharynx clear. No jaundice. NECK: Supple. No JVD, no lymphadenopathy. LUNGS: Bilateral air entry presence. The patient has left lower lobe rales present with minimal expiratory wheezing. HEART: S1, S2. Tachycardia. No murmur. ABDOMEN: Soft, tender to palpation in right upper quadrant with minimal guarding, no rebound tenderness. Bowel sounds are present. EXTREMITIES: No clubbing, cyanosis, edema. Bilateral knees have surgical scarring present. No cyanosis. NEUROLOGICAL: Nonfocal, intact. PSYCHIATRIC: Appropriate affect and mood. SKIN: No rash. Results Result Diagram: 10/10/16 0625 10/10/16 0625 Results 24 hrs Laboratory Tests Test 10/09/16 17:14 10/09/16 21:40 10/09/16 22:49 10/10/16 03:34 Bedside Glucose 168 262 H 244 H 123 Test 10/10/16 06:25 10/10/16 07:55 10/10/16 12:04 White Blood Count 13.9 #H Red Blood Count 3.08 L Hemoglobin 9.9 L Hematocrit 29.2 L Mean Corpuscular Volume 94.8 Mean Corpuscular Hemoglobin 32.1 Mean Corpuscular Hemoglobin Concent 33.9 Red Cell Distribution Width 15.4 H Platelet Count 268 # Mean Platelet Volume 11.2 H Neutrophils % 83.9 H Lymphocytes % 8.1 L Monocytes % 5.8 Eosinophils % 1.0 Basophils % 0.1 Nucleated Red Blood Cells % 0.1 H Neutrophils # 11.7 H Lymphocytes # 1.1 Monocytes # 0.8 Eosinophils # 0.1 Basophils # 0.0 Nucleated Red Blood Cells # 0.0 Prothrombin Time 17.3 H Prothrombin Time Ratio 1.4 INR International Normalized Ratio 1.41 Activated Partial Thromboplast Time 28.4 Sodium Level 135 Potassium Level 3.2 L Chloride Level 104 Carbon Dioxide Level 25 Anion Gap 9 # Blood Urea Nitrogen 12 Creatinine 0.75 Glucose Level 116 Calcium Level 8.4 Magnesium Level 1.9 Total Bilirubin 0.2 Direct Bilirubin 0.00 Indirect Bilirubin 0.2 Aspartate Amino Transf (AST/SGOT) 67 H Alanine Aminotransferase (ALT/SGPT) 58 Alkaline Phosphatase 803 H Total Protein 6.6 Albumin 2.8 L Globulin 3.80 H Albumin/Globulin Ratio 0.73 Bedside Glucose 105 138 Medications Medications Current Medications Atorvastatin Calcium (Lipitor) 40 mg QHS PO Last administered on 10/09/16 21: 34; Admin Dose 40 MG; Start 10/07/16 at 21:00 Carvedilol (Coreg) 3.125 mg BID PO Last administered on 10/10/16 09:04; Admin Dose 3.125 MG; Start 10/07/16 at 21:00 Latanoprost 1 drop 1 drop HS BOTH EYES ; Start 10/07/16 at 21:00 Azithromycin 250 ml @ 250 mls/hr DAILY IVPB Last administered on 10/10/16 09: 03; Admin Dose 250 MLS/HR; Start 10/07/16 at 20:00 Sodium Chloride (NS) 1,000 ml @ 75 mls/hr [id number] IV Last administered on 10/09 00:10; Admin Dose 75 MLS/HR; Start 10/07/16 at 19:09 Ondansetron HCl (Zofran Inj) 4 mg Q4H PRN IV NAUSEA AND/OR VOMITING Last administered on 10/08/16 02:14; Admin Dose 4 MG; Start 10/07/16 at 19:30 Acetaminophen (Tylenol Tab) 650 mg Q6H PRN PO PAIN LEVEL 1-3 OR FEVER; Start at 19:30 Docusate Sodium (Colace) 100 mg Q12H PRN PO CONSTIPATION; Start 10/07/16 at 19: 30 Magnesium Hydroxide (Milk Of Mag) 30 ml DAILY PRN PO CONSTIPATION; Start at 19:30 Bisacodyl (Dulcolax) 5 mg DAILY PRN PO CONSTIPATION Last administered on 15:57; Admin Dose 5 MG; Start 10/07/16 at 19:30 Bisacodyl (Dulcolax Supp) 10 mg DAILY PRN [place] CONSTIPATION; Start 10/07/16 at 19 :30 Sodium Biphosphate/ Sodium Phosphate (Fleet Enema) 133 ml DAILY PRN [place] CONSTIPATION; Start 10/07/16 at 19:30 Zolpidem Tartrate (Ambien) 5 mg QHS PRN PO SLEEP; Start 10/07/16 at 19:30 Famotidine 20 mg 20 mg Q12 IV Last administered on 10/10/16 09:03; Admin Dose 20 MG; Start 10/07/16 at 21:00 Metronidazole 100 ml @ 100 mls/hr Q8 IVPB Last administered on 10/10/16 14:28 ; Admin Dose 100 MLS/HR; Start 10/07/16 at 22:00 Piperacillin Sod/ Tazobactam Sod (Zosyn 3.375gm/ 100 ml (Pmx)) 100 ml @ 200 mls /hr Q8 IVPB Last administered on 10/10/16 14:27; Admin Dose 200 MLS/HR; Start 10/07/16 at 22:00 Diagnostic Test (Pha) (Accu-Chek) 1 ea 02 XX Last administered on 10/10/16 03: 00; Admin Dose 1 EA; Start 10/08/16 at 02:00 Miscellaneous Information 1 ea NOTE XX ; Start 10/07/16 at 20:30 Glucose (Glutose) 15 gm Q15M PRN PO DECREASED GLUCOSE; Start 10/07/16 at 20:30 Glucose (Glutose) 22.5 gm Q15M PRN PO DECREASED GLUCOSE; Start 10/07/16 at 20: 30 Dextrose (D50w Syringe) 25 ml Q15M PRN IV DECREASED GLUCOSE; Start 10/07/16 at 20:30 Dextrose (D50w Syringe) 50 ml Q15M PRN IV DECREASED GLUCOSE; Start 10/07/16 at 20:30 Glucagon (Glucagen) 1 mg Q15M PRN IM DECREASED GLUCOSE; Start 10/07/16 at 20:30 Glucose (Glutose) 15 gm Q15M PRN BUCCAL DECREASED GLUCOSE; Start 10/07/16 at 20 :30 Nifedipine (Procardia Xl) 60 mg DAILY PO Last administered on 10/10/16 09:05; Admin Dose 60 MG; Start 10/10/16 at 09:00 Hydralazine HCl (Apresoline) 10 mg Q4H PRN IV SBP>150 mm hg Last administered on 10/09/16 11:36; Admin Dose 10 MG; Start 10/09/16 at 11:30 Acetaminophen/ Hydrocodone Bitart ([place] (5/325)) 1 tab Q4H PRN PO MODERATE PAIN LEVEL 4-6; Start 10/10/16 at 17:30; Status UNV Morphine Sulfate (morphine) 1 mg Q6H PRN IV SEVERE PAIN LEVEL 7-10; Start 10/10 at 17:30; Status UNV LANDON ZAMORA MD Oct 10, 2016 14:33
--- NOTE | 2016-10-10 17:02 | CONS ---
Date/Time of Note Date/Time of Note DATE: 10/10/16 TIME: 17:01 Assessment/Plan Assessment/Plan Additional Assessment/Plan IMPRESSION: 1. Abnormal LFTs with abdominal pain, vomiting and fever and chills, rule out cholangitis secondary to most probably bile duct stone. 2. Rheumatoid arthritis. 3. Diabetes mellitus. 4. Status post knee replacement 1 month ago. 5. History of cerebrovascular accident. 6. History of 3 stents. 7. Diabetes mellitus. 8. Possible pneumonia. PLAN: Continue all the antibiotic, IV hydration Monitor LFT and CBC We will send for amylase lipase Surgery was deferred. Family thinks patient is more confused because of anesthesia and wants to wait for a few more days. Consultation Date/Type/Reason Admit Date/Time Oct 07, 2016 at 20:54 Initial Consult Date 10/07/16 Type of Consultation: Gen surgical Referring Provider: LANDON ZAMORA MD 24 HR Interval Summary Free Text/Dictation As per family patient is confused. She is also on opioid Exam/Review of Systems Vital Signs Vitals Vital Signs Date Time Temp Pulse Resp B/P Pulse Ox O2 Delivery O2 Flow Rate FiO2 10/10/16 16:40 82 10/10/16 16:17 98.0 19 146/69 95 10/10/16 07:50 Nasal Cannula 2.0 Intake and Output 10/09/16 10/09/16 10/10/16 15:00 23:00 07:00 Intake Total 100 ml 2030 ml 500 ml Output Total 800 ml 1500 ml Balance 100 ml 1230 ml -1000 ml Exam Constitutional: alert, oriented, well developed Psych: nl mood/affect, no complaints Head: atraumatic, normocephalic Eyes: EOMI, PERRL, nl conjunctiva, nl lids, nl sclera ENMT: nl external ears & nose, nl lips & teeth, nl nasal mucosa & septum Neck: non-tender, supple Respiratory: clear to auscultation, normal air movement Cardiovascular: nl pulses, regular rate and rhythm Gastrointestinal: nl liver, spleen, non-tender, soft Musculoskeletal: nl extremities to inspection, nl gait and stance Extremities: normal pulses 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, nl mental status, nl speech, nl strength Skin: nl turgor, No rash or lesions Lymph: nl lymph nodes Results Result Diagram: 10/10/1625 4/26/17 0625 Results 24 hrs Laboratory Tests Test 10/09/16 17:14 10/09/16 21:40 10/09/16 22:49 10/10/16 03:34 Bedside Glucose 168 262 H 244 H 123 Test 10/10/16 06:25 10/10/16 07:55 10/10/16 12:04 White Blood Count 13.9 #H Red Blood Count 3.08 L Hemoglobin 9.9 L Hematocrit 29.2 L Mean Corpuscular Volume 94.8 Mean Corpuscular Hemoglobin 32.1 Mean Corpuscular Hemoglobin Concent 33.9 Red Cell Distribution Width 15.4 H Platelet Count 268 # Mean Platelet Volume 11.2 H Neutrophils % 83.9 H Lymphocytes % 8.1 L Monocytes % 5.8 Eosinophils % 1.0 Basophils % 0.1 Nucleated Red Blood Cells % 0.1 H Neutrophils # 11.7 H Lymphocytes # 1.1 Monocytes # 0.8 Eosinophils # 0.1 Basophils # 0.0 Nucleated Red Blood Cells # 0.0 Prothrombin Time 17.3 H Prothrombin Time Ratio 1.4 INR International Normalized Ratio 1.41 Activated Partial Thromboplast Time 28.4 Sodium Level 135 Potassium Level 3.2 L Chloride Level 104 Carbon Dioxide Level 25 Anion Gap 9 # Blood Urea Nitrogen 12 Creatinine 0.75 Glucose Level 116 Calcium Level 8.4 Magnesium Level 1.9 Total Bilirubin 0.2 Direct Bilirubin 0.00 Indirect Bilirubin 0.2 Aspartate Amino Transf (AST/SGOT) 67 H Alanine Aminotransferase (ALT/SGPT) 58 Alkaline Phosphatase 803 H Total Protein 6.6 Albumin 2.8 L Globulin 3.80 H Albumin/Globulin Ratio 0.73 Bedside Glucose 105 138 Medications Medications Current Medications Atorvastatin Calcium (Lipitor) 40 mg QHS PO Last administered on 10/09/16 21: 34; Admin Dose 40 MG; Start 10/07/16 at 21:00 Carvedilol (Coreg) 3.125 mg BID PO Last administered on 10/10/16 09:04; Admin Dose 3.125 MG; Start 10/07/16 at 21:00 Latanoprost 1 drop 1 drop HS BOTH EYES ; Start 10/07/16 at 21:00 Azithromycin 250 ml @ 250 mls/hr DAILY IVPB Last administered on 10/10/16 09: 03; Admin Dose 250 MLS/HR; Start 10/07/16 at 20:00 Sodium Chloride (NS) 1,000 ml @ 75 mls/hr [id number] IV Last administered on 10/09 00:10; Admin Dose 75 MLS/HR; Start 10/07/16 at 19:09 Ondansetron HCl (Zofran Inj) 4 mg Q4H PRN IV NAUSEA AND/OR VOMITING Last administered on 10/08/16 02:14; Admin Dose 4 MG; Start 10/07/16 at 19:30 Acetaminophen (Tylenol Tab) 650 mg Q6H PRN PO PAIN LEVEL 1-3 OR FEVER; Start at 19:30 Docusate Sodium (Colace) 100 mg Q12H PRN PO CONSTIPATION; Start 10/07/16 at 19: 30 Magnesium Hydroxide (Milk Of Mag) 30 ml DAILY PRN PO CONSTIPATION; Start at 19:30 Bisacodyl (Dulcolax) 5 mg DAILY PRN PO CONSTIPATION Last administered on 15:57; Admin Dose 5 MG; Start 10/07/16 at 19:30 Bisacodyl (Dulcolax Supp) 10 mg DAILY PRN NE CONSTIPATION; Start 10/07/16 at 19 :30 Sodium Biphosphate/ Sodium Phosphate (Fleet Enema) 133 ml DAILY PRN NE CONSTIPATION; Start 10/07/16 at 19:30 Zolpidem Tartrate 5 mg 5 mg QHS PRN PO SLEEP; Start 10/07/16 at 19:30 Metronidazole 100 ml @ 100 mls/hr Q8 IVPB Last administered on 10/10/16 14:28 ; Admin Dose 100 MLS/HR; Start 10/07/16 at 22:00 Piperacillin Sod/ Tazobactam Sod (Zosyn 3.375gm/ 100 ml (Pmx)) 100 ml @ 200 mls /hr Q8 IVPB Last administered on 10/10/16 14:27; Admin Dose 200 MLS/HR; Start 10/07/16 at 22:00 Diagnostic Test (Pha) (Accu-Chek) 1 ea 02 XX Last administered on 10/10/16 03: 00; Admin Dose 1 EA; Start 10/08/16 at 02:00 Miscellaneous Information 1 ea NOTE XX ; Start 10/07/16 at 20:30 Glucose (Glutose) 15 gm Q15M PRN PO DECREASED GLUCOSE; Start 10/07/16 at 20:30 Glucose (Glutose) 22.5 gm Q15M PRN PO DECREASED GLUCOSE; Start 10/07/16 at 20: 30 Dextrose (D50w Syringe) 25 ml Q15M PRN IV DECREASED GLUCOSE; Start 10/07/16 at 20:30 Dextrose (D50w Syringe) 50 ml Q15M PRN IV DECREASED GLUCOSE; Start 10/07/16 at 20:30 Glucagon (Glucagen) 1 mg Q15M PRN IM DECREASED GLUCOSE; Start 10/07/16 at 20:30 Glucose (Glutose) 15 gm Q15M PRN BUCCAL DECREASED GLUCOSE; Start 10/07/16 at 20 :30 Nifedipine (Procardia Xl) 60 mg DAILY PO Last administered on 10/10/16 09:05; Admin Dose 60 MG; Start 10/10/16 at 09:00 Hydralazine HCl (Apresoline) 10 mg Q4H PRN IV SBP>150 mm hg Last administered on 10/09/16 11:36; Admin Dose 10 MG; Start 10/09/16 at 11:30 Acetaminophen/ Hydrocodone Bitart ([place] (5/325)) 1 tab Q4H PRN PO MODERATE PAIN LEVEL 4-6; Start 10/10/16 at 17:30 Morphine Sulfate (morphine) 1 mg Q6H PRN IV SEVERE PAIN LEVEL 7-10; Start 10/10 at 17:30 Famotidine (Pepcid) 20 mg Q12 PO ; Start 10/10/16 at 21:00 LAUREN GODFREY MD Oct 10, 2016 17:02
[2016-10-10] MEDS ORDERED: HYDROCODONE/APAP (5/325) TAB PO PRN (17:30)
[2016-10-10] MEDS ORDERED: morphine 2 MG INJ IV PRN (17:30)
[2016-10-10] MEDS: FAMOTIDINE 20 MG TAB PO SCH (21:50)
[2016-10-10] MEDS: ATORVASTATIN 40 MG TAB PO SCH (21:50)
[2016-10-11] VITALS (13 sets, daily range): BP systolic 129–160; BP diastolic 60–77; PULSE 79–95; RESP 16–18
[2016-10-11] MEDS: LATANOPROST 0.005% 2.5 ML OPH BOTH EYES SCH (00:34)
[2016-10-11] MEDS: ACCUCHECK AT 2AM (Patients on SS coverage) XX SCH (01:21)
[2016-10-11] MEDS: hydrALAzine 20 MG INJ IV PRN (01:27)
[2016-10-11] MEDS: SOD CHLORIDE 0.9% 1,000 ML IV SCH (03:09)
[2016-10-11] MEDS: PIPER-TAZO 3.375 GM IV (PMX) 100 ML IVPB SCH ×3 (05:36→21:19)
[2016-10-11] MEDS: metroNIDAZOLE 500 MG/NS (PMX) 100 ML IVPB SCH ×3 (06:14→21:19)
[2016-10-11 07:52] LABS: ADD SCAN DIFF NO
--- NOTE | 2016-10-11 08:09 | PN ---
Date/Time of Note Date/Time of Note DATE: 10/10/16 TIME: 13:03 Assessment/Plan Lines/Catheters IV Catheter Type (from [facility]): Saline [facility] [place] in Place (from [facility]): No Assessment/Plan Chief Complaint/Hosp Course 1. Abdominal pain, nausea, vomiting, & abnormal LFTs probably 2nd Cholangitis 2nd Choledocholithiasis s/p ERCP with drainage of stone and pus & stent placement 10/09. Family refused surgery for today and postponed till later. -abx -ivf -supportive -eventual lap janet 2. CAD, hx of [place] with multiple stents -cardiac optimization 3. DM -nutrition and medication optimization -encourage weight optimization 4. CVA hx -medical/cardiac optimization -off loading -nutritional optimization 5. Rheumatoid arthritis. -medical management 6. Possible PNA -pulmonary toilette -abx per medical team 7. Anemia -monitor 8. Lactic acidosis, leukocytosis with sepsis 2nd #1. Improving -abx -supportive -as above Thank you, Late entry 10/10 Problems: Subjective 24 Hr Interval Summary Surgery scheduled for today but family elected to cancel and delay till later since patient didnt wake up well from anesthesia. s/p ERCP with stone and pus drainage s/p stent placement. Pain improving. No f/c. No n/v. No cough. No hernandes/dizzy/visual or neuro changes. No dysuria. Leukocytosis. Exam/Review of Systems Vital Signs Vitals Vital Signs Date Time Temp Pulse Resp B/P Pulse Ox O2 Delivery O2 Flow Rate FiO2 10/11/16 06:00 2.0 10/11/16 05:05 85 10/11/16 04:52 99.2 18 150/68 99 10/11/16 02:00 Nasal Cannula Intake and Output 10/10/16 10/10/16 10/11/16 14:59 22:59 06:59 Intake Total 1110 ml 300 ml Output Total 1200 ml Balance -90 ml 300 ml Exam Free Text/Dictation Constitutional: alert, obese No distress Psych: nl mood/affect, No anxiety, No confusion Head: atraumatic, normocephalic Eyes: EOMI, PERRL, nl conjunctiva ENMT: mucosa pink and moist, nl external ears & nose Neck: supple, No non-tender Respiratory: normal air movement, No congested cough Cardiovascular: regular rate and rhythm, No edema Gastrointestinal: soft, NT, No rebound or guarding Musculoskeletal: No joint tenderness, No nl extremities to inspection, No nl gait and stance Extremities: normal pulses, No calf tenderness, No cyanosis Neurological: nl mental status, nl speech Skin: nl turgor, No diaphoresis, No rash or lesions Lymph: nl lymph nodes Results Result Diagram: 10/10/16 0625 10/10/16 0625 BINH RODRIGUEZ MD Oct 11, 2016 08:09
--- NOTE | 2016-10-11 08:12 | PN ---
Date/Time of Note Date/Time of Note DATE: 10/11/16 TIME: 08:09 Assessment/Plan Lines/Catheters IV Catheter Type (from [facility]): Saline [facility] [place] in Place (from [facility]): No Assessment/Plan Chief Complaint/Hosp Course 1. Abdominal pain, nausea, vomiting, & abnormal LFTs probably 2nd Cholangitis 2nd Choledocholithiasis s/p ERCP with drainage of stone and pus & stent placement 10/09. Family refused surgery yesterday and postponed till later. -check labs -abx -ivf -supportive -eventual lap janet 2. CAD, hx of [place] with multiple stents -cardiac optimization 3. DM -nutrition and medication optimization -encourage weight optimization 4. CVA hx -medical/cardiac optimization -off loading -nutritional optimization 5. Rheumatoid arthritis. -medical management 6. Possible PNA -pulmonary toilette -abx per medical team 7. Anemia -monitor 8. Lactic acidosis, leukocytosis with sepsis 2nd #1. Improving -abx -supportive -as above Thank you, Problems: Subjective 24 Hr Interval Summary Surgery refused by family yesterday. s/p ERCP with stone and pus drainage s/p stent placement. Pain improving. No f/c. No n/v. No cough. No hernandes/dizzy/ visual or neuro changes. No dysuria. Leukocytosis yesterday. Exam/Review of Systems Vital Signs Vitals Vital Signs Date Time Temp Pulse Resp B/P Pulse Ox O2 Delivery O2 Flow Rate FiO2 10/11/16 06:00 2.0 10/11/16 05:05 85 10/11/16 04:52 99.2 18 150/68 99 10/11/16 02:00 Nasal Cannula Intake and Output 10/10/16 10/10/16 10/11/16 14:59 22:59 06:59 Intake Total 1110 ml 300 ml Output Total 1200 ml Balance -90 ml 300 ml Exam Free Text/Dictation Constitutional: alert, obese No distress Psych: nl mood/affect, No anxiety, No confusion Head: atraumatic, normocephalic Eyes: EOMI, PERRL, nl conjunctiva ENMT: mucosa pink and moist, nl external ears & nose Neck: supple, No non-tender Respiratory: normal air movement, No congested cough Cardiovascular: regular rate and rhythm, No edema Gastrointestinal: soft, NT, No rebound or guarding Musculoskeletal: No joint tenderness, No nl extremities to inspection, No nl gait and stance Extremities: normal pulses, No calf tenderness, No cyanosis Neurological: nl mental status, nl speech Skin: nl turgor, No diaphoresis, No rash or lesions Lymph: nl lymph nodes Results Result Diagram: 10/10/16 0625 10/10/16 0625 BINH RODRIGUEZ MD Oct 11, 2016 08:12
[2016-10-11 08:13] LABS: BASOPHILS % 0.1 % (0.0-2.0); EOSINOPHILS # 0.2 10^3/ul (0.0-0.5); EOSINOPHILS % 1.5 % (0.0-7.0); HEMATOCRIT 31.8 % (37.0-47.0); HEMOGLOBIN 10.6 g/dl (12.0-16.0); INR 1.25; LYMPHOCYTES # 1.3 10^3/ul (0.8-2.9); LYMPHOCYTES % 8.8 % (15.0-51.0); MEAN CORPUSCULAR HEMOGLOBIN 30.9 pg (29.0-33.0); MEAN CORPUSCULAR HGB CONC 33.3 g/dl (32.0-37.0); MEAN CORPUSCULAR VOLUME 92.7 fl (82.0-101.0); MONOCYTE # 1.4 10^3/ul (0.3-0.9); MONOCYTES % 9.3 % (0.0-11.0); NEUTROPHIL # 11.6 10^3/ul (1.6-7.5); NEUTROPHILS % 79.5 % (39.0-77.0); PARTIAL THROMBOPLASTIN TIME 27.4 Sec (25.0-35.0); PLATELET COUNT 270 10^3/UL (140-415); PROTIME 15.8 Sec (12.2-14.2); PT RATIO 1.2; RED BLOOD COUNT 3.43 10^6/ul (4.20-5.40); RED CELL DISTRIBUTION WIDTH 15.7 % (11.5-14.5); WHITE BLOOD COUNT 14.6 10^3/ul (4.8-10.8)
[2016-10-11 08:20] LABS: AMYLASE 431 U/L (11-123)
[2016-10-11] MEDS: FAMOTIDINE 20 MG TAB PO SCH ×2 (08:20→21:12)
[2016-10-11] MEDS: AZITHROMYCIN 500MG/NS (PMX) 250 ML IVPB SCH (08:21)
[2016-10-11] MEDS: NIFEdipine (XL) 60 MG TAB PO SCH (08:21)
[2016-10-11 08:23] LABS: ALBUMIN 2.9 g/dl (3.3-4.9); ALBUMIN/GLOBULIN RATIO 0.76; BILIRUBIN,INDIRECT 0.4 mg/dl (0-1.1); BILIRUBIN,TOTAL 0.4 mg/dl (0.2-1.3); CALCIUM 8.5 mg/dl (8.4-10.2); CREATININE 0.6 mg/dl (0.44-1.00); TOTAL PROTEIN 6.7 g/dl (6.1-8.1)
[2016-10-11] MEDS: INSULIN ASPART [NOVOLOG] 3 ML PEN SC SCH ×4 (08:30→21:00)
[2016-10-11 08:57] LABS: POTASSIUM 2.9 mmol/L (3.5-5.1)
[2016-10-11] MEDS ORDERED: POTASSIUM CHLORIDE 250 ML IVPB ONE (11:00)
--- NOTE | 2016-10-11 11:20 | CONS ---
Date/Time of Note Date/Time of Note DATE: 10/11/16 TIME: 11:19 Assessment/Plan Assessment/Plan Additional Assessment/Plan IMPRESSION: 1. Abnormal LFTs with abdominal pain, vomiting and fever and chills, rule out cholangitis secondary to most probably bile duct stone. 2. Rheumatoid arthritis. 3. Diabetes mellitus. 4. Status post knee replacement 1 month ago. 5. History of cerebrovascular accident. 6. History of 3 stents. 7. Diabetes mellitus. 8. Possible pneumonia. 9 mild pancreatitis, improving PLAN: Continue all the antibiotic, IV hydration Monitor LFT and CBC We will send for amylase lipase Surgery was deferred. Family thinks patient is more confused because of anesthesia and wants to wait for a few more days. Discussed with the son [id number]. Consultation Date/Type/Reason Admit Date/Time Oct 07, 2016 at 20:54 Initial Consult Date 10/07/16 Type of Consultation: Gen surgical Referring Provider: LANDON ZAMORA MD 24 HR Interval Summary Free Text/Dictation Abdominal pain much better No nausea no vomiting Constitutional: improved Exam/Review of Systems Vital Signs Vitals Vital Signs Date Time Temp Pulse Resp B/P Pulse Ox O2 Delivery O2 Flow Rate FiO2 10/11/16 09:25 83 10/11/16 08:24 98.4 18 136/66 99 10/11/16 06:00 2.0 10/11/16 02:00 Nasal Cannula Intake and Output 10/10/16 10/10/16 10/11/16 15:00 23:00 07:00 Intake Total 1210 ml 900 ml Output Total 1200 ml 2500 ml Balance 10 ml -1600 ml Exam Constitutional: alert, oriented, well developed Psych: nl mood/affect, no complaints Head: atraumatic, normocephalic Eyes: EOMI, PERRL, nl conjunctiva, nl lids, nl sclera ENMT: nl external ears & nose, nl lips & teeth, nl nasal mucosa & septum Neck: non-tender, supple Respiratory: clear to auscultation, normal air movement Cardiovascular: nl pulses, regular rate and rhythm Gastrointestinal: nl liver, spleen, non-tender, soft Musculoskeletal: nl extremities to inspection, nl gait and stance Extremities: normal pulses 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, nl mental status, nl speech, nl strength Skin: nl turgor, No rash or lesions Lymph: nl lymph nodes Results Result Diagram: 10/11/16 0650 10/11/16 0650 Results 24 hrs Laboratory Tests Test 10/10/16 12:04 10/10/16 17:25 10/10/16 22:02 10/11/16 06:50 Bedside Glucose 138 148 173 White Blood Count 14.6 H Red Blood Count 3.43 L Hemoglobin 10.6 L Hematocrit 31.8 L Mean Corpuscular Volume 92.7 Mean Corpuscular Hemoglobin 30.9 Mean Corpuscular Hemoglobin Concent 33.3 Red Cell Distribution Width 15.7 H Platelet Count 270 Mean Platelet Volume 11.0 H Neutrophils % 79.5 H Lymphocytes % 8.8 L Monocytes % 9.3 Eosinophils % 1.5 Basophils % 0.1 Nucleated Red Blood Cells % 0.0 Neutrophils # 11.6 H Lymphocytes # 1.3 Monocytes # 1.4 H Eosinophils # 0.2 Basophils # 0.0 Nucleated Red Blood Cells # 0.0 Prothrombin Time 15.8 H Prothrombin Time Ratio 1.2 INR International Normalized Ratio 1.25 Activated Partial Thromboplast Time 27.4 Sodium Level 131 L Potassium Level 2.9 *L Chloride Level 97 Carbon Dioxide Level 26 Anion Gap 11 Blood Urea Nitrogen 7 Creatinine 0.60 Glucose Level 127 Calcium Level 8.5 Magnesium Level 1.6 L Total Bilirubin 0.4 Direct Bilirubin 0.00 Indirect Bilirubin 0.4 Aspartate Amino Transf (AST/SGOT) 58 H Alanine Aminotransferase (ALT/SGPT) 52 Alkaline Phosphatase 770 H Total Protein 6.7 Albumin 2.9 L Globulin 3.80 H Albumin/Globulin Ratio 0.76 Amylase Level 431 H Lipase 2424 H Test 10/11/16 08:17 Bedside Glucose 170 Medications Medications Current Medications Atorvastatin Calcium (Lipitor) 40 mg QHS PO Last administered on 10/10/16 21: 50; Admin Dose 40 MG; Start 10/07/16 at 21:00 Carvedilol (Coreg) 3.125 mg BID PO Last administered on 10/11/16 08:20; Admin Dose 3.125 MG; Start 10/07/16 at 21:00 Latanoprost 1 drop 1 drop HS BOTH EYES Last administered on 10/11/16 00:34; Admin Dose 1 DROP; Start 10/07/16 at 21:00 Azithromycin 250 ml @ 250 mls/hr DAILY IVPB Last administered on 10/11/16 08: 21; Admin Dose 250 MLS/HR; Start 10/07/16 at 20:00 Sodium Chloride (NS) 1,000 ml @ 75 mls/hr [id number] IV Last administered on 10/09 00:10; Admin Dose 75 MLS/HR; Start 10/07/16 at 19:09 Ondansetron HCl (Zofran Inj) 4 mg Q4H PRN IV NAUSEA AND/OR VOMITING Last administered on 10/08/16 02:14; Admin Dose 4 MG; Start 10/07/16 at 19:30 Acetaminophen (Tylenol Tab) 650 mg Q6H PRN PO PAIN LEVEL 1-3 OR FEVER; Start at 19:30 Docusate Sodium (Colace) 100 mg Q12H PRN PO CONSTIPATION; Start 10/07/16 at 19: 30 Magnesium Hydroxide (Milk Of Mag) 30 ml DAILY PRN PO CONSTIPATION; Start at 19:30 Bisacodyl (Dulcolax) 5 mg DAILY PRN PO CONSTIPATION Last administered on 15:57; Admin Dose 5 MG; Start 10/07/16 at 19:30 Bisacodyl (Dulcolax Supp) [address] CONSTIPATION; Start 10/07/16 at 19 :30 Sodium Biphosphate/ Sodium Phosphate (Fleet Enema) [address] CONSTIPATION; Start 10/07/16 at 19:30 Zolpidem Tartrate 5 mg 5 mg QHS PRN PO SLEEP; Start 10/07/16 at 19:30 Metronidazole 100 ml @ 100 mls/hr Q8 IVPB Last administered on 10/11/16 06:14 ; Admin Dose 100 MLS/HR; Start 10/07/16 at 22:00 Piperacillin Sod/ Tazobactam Sod (Zosyn 3.375gm/ 100 ml (Pmx)) 100 ml @ 200 mls /hr Q8 IVPB Last administered on 10/11/16 05:36; Admin Dose 200 MLS/HR; Start 10/07/16 at 22:00 Diagnostic Test (Pha) (Accu-Chek) 1 ea 02 XX Last administered on 10/10/16 03: 00; Admin Dose 1 EA; Start 10/08/16 at 02:00 Miscellaneous Information 1 ea NOTE XX ; Start 10/07/16 at 20:30 Glucose (Glutose) 15 gm Q15M PRN PO DECREASED GLUCOSE; Start 10/07/16 at 20:30 Glucose (Glutose) 22.5 gm Q15M PRN PO DECREASED GLUCOSE; Start 10/07/16 at 20: 30 Dextrose (D50w Syringe) 25 ml Q15M PRN IV DECREASED GLUCOSE; Start 10/07/16 at 20:30 Dextrose (D50w Syringe) 50 ml Q15M PRN IV DECREASED GLUCOSE; Start 10/07/16 at 20:30 Glucagon (Glucagen) 1 mg Q15M PRN IM DECREASED GLUCOSE; Start 10/07/16 at 20:30 Glucose (Glutose) 15 gm Q15M PRN BUCCAL DECREASED GLUCOSE; Start 10/07/16 at 20 :30 Nifedipine (Procardia Xl) 60 mg DAILY PO Last administered on 10/11/16 08:21; Admin Dose 60 MG; Start 10/10/16 at 09:00 Hydralazine HCl (Apresoline) 10 mg Q4H PRN IV SBP>150 mm hg Last administered on 10/11/16 01:27; Admin Dose 10 MG; Start 10/09/16 at 11:30 Acetaminophen/ Hydrocodone Bitart ([place] (5/325)) 1 tab Q4H PRN PO MODERATE PAIN LEVEL 4-6; Start 10/10/16 at 17:30 Morphine Sulfate (morphine) 1 mg Q6H PRN IV SEVERE PAIN LEVEL 7-10; Start 10/10 at 17:30 Famotidine 20 mg 20 mg Q12 PO Last administered on 10/11/16 08:20; Admin Dose 20 MG; Start 10/10/16 at 21:00 Potassium Chloride (KCl 40 MEQ/250 ML NS) 250 ml @ 62.5 mls/hr ONCE ONCE IVPB Last administered on 10/11/16 11:03; Admin Dose 62.5 MLS/HR; Start 10/11/16 at 11:00; Stop 10/11/16 at 14:59 LAUREN GODFREY MD Oct 11, 2016 11:20
--- NOTE | 2016-10-11 12:23 | PN ---
Date/Time of Note Date/Time of Note DATE: 10/11/16 TIME: 12:21 Assessment/Plan VTE Prophylaxis VTE Prophylaxis Intervention: SCD's Lines/Catheters [facility] [place] [facility] Urinary Cath still in place: No Assessment/Plan Assessment/Plan 1. Severe sepsis, multifactorial secondary to possible biliary sepsis and also secondary to left lower lobe infiltrates. 2. Bacteremia with Blood cx growing E.coli 2. Biliary sepsis with acute choledocholithiasis s/p ERCP, sphincterotomy, Removal of multiple stones and stent placement by GI on 10/08/16 3. Left lower lobe infiltrates, concerned about community-acquired pneumonia. 4. Lactic acidosis, likely secondary to severe sepsis. 5. Hyponatremia with a sodium 129 on admission secondary to hypovolemic hyponatremia. 6. Acute kidney injury on chronic kidney disease stage III secondary to prerenal azotemia and secondary to sepsis. 7. History of chronic kidney disease stage II to III secondary to diabetic nephropathy. 8. Hypercalcemia secondary to moderate to severe dehydration. 9. Moderate to severe dehydration. 10. Acute transaminitis with alkaline phosphatase of 1270 due to acute choledocholithiasis 11. History of hypertension.-now Accelerated HTN, not well controlled 12. History of diabetes mellitus type 2, on metformin. 13. History of coronary artery disease, status post previous stent placement. 14. History of bilateral knee surgeries, recently had right knee surgery 15. Hypokalemia PLAN: d/bev IV ativan due to sedation/lethargy S/p ERCP, sphincterotomy, Removal of multiple stones and stent placement by GI BP controleld with Procadia XL KCL replacement 40mEQ IV x 1 Amparo bx zosyn, Flagyl and Azithromycin Blood cx grew E.Coli Nystatin PO for oral thrush SCD for DVT prophylaxis Subjective 24 Hr Interval Summary Free Text/Dictation pt more stable, hansen discontinued, C/o oral pain with thrush Exam/Review of Systems Vital Signs Vitals Vital Signs Date Time Temp Pulse Resp B/P Pulse Ox O2 Delivery O2 Flow Rate FiO2 10/11/16 12:04 2.0 10/11/16 09:25 83 10/11/16 08:24 98.4 18 136/66 99 10/11/16 02:00 Nasal Cannula Intake and Output 10/10/16 10/10/16 10/11/16 15:00 23:00 07:00 Intake Total 1210 ml 900 ml Output Total 1200 ml 2500 ml Balance 10 ml -1600 ml Exam GENERAL: Awake, alert. HEENT: Normal. Oropharynx clear. No jaundice. NECK: Supple. No JVD, no lymphadenopathy. LUNGS: Bilateral air entry presence. The patient has left lower lobe rales present with minimal expiratory wheezing. HEART: S1, S2. Tachycardia. No murmur. ABDOMEN: Soft, tender to palpation in right upper quadrant with minimal guarding, no rebound tenderness. Bowel sounds are present. EXTREMITIES: No clubbing, cyanosis, edema. Bilateral knees have surgical scarring present. No cyanosis. NEUROLOGICAL: Nonfocal, intact. PSYCHIATRIC: Appropriate affect and mood. SKIN: No rash. Results Result Diagram: 10/11/16 0650 10/11/16 0650 Results 24 hrs Laboratory Tests Test 10/10/16 17:25 10/10/16 22:02 10/11/16 06:50 10/11/16 08:17 Bedside Glucose 148 173 170 White Blood Count 14.6 H Red Blood Count 3.43 L Hemoglobin 10.6 L Hematocrit 31.8 L Mean Corpuscular Volume 92.7 Mean Corpuscular Hemoglobin 30.9 Mean Corpuscular Hemoglobin Concent 33.3 Red Cell Distribution Width 15.7 H Platelet Count 270 Mean Platelet Volume 11.0 H Neutrophils % 79.5 H Lymphocytes % 8.8 L Monocytes % 9.3 Eosinophils % 1.5 Basophils % 0.1 Nucleated Red Blood Cells % 0.0 Neutrophils # 11.6 H Lymphocytes # 1.3 Monocytes # 1.4 H Eosinophils # 0.2 Basophils # 0.0 Nucleated Red Blood Cells # 0.0 Prothrombin Time 15.8 H Prothrombin Time Ratio 1.2 INR International Normalized Ratio 1.25 Activated Partial Thromboplast Time 27.4 Sodium Level 131 L Potassium Level 2.9 *L Chloride Level 97 Carbon Dioxide Level 26 Anion Gap 11 Blood Urea Nitrogen 7 Creatinine 0.60 Glucose Level 127 Calcium Level 8.5 Magnesium Level 1.6 L Total Bilirubin 0.4 Direct Bilirubin 0.00 Indirect Bilirubin 0.4 Aspartate Amino Transf (AST/SGOT) 58 H Alanine Aminotransferase (ALT/SGPT) 52 Alkaline Phosphatase 770 H Total Protein 6.7 Albumin 2.9 L Globulin 3.80 H Albumin/Globulin Ratio 0.76 Amylase Level 431 H Lipase 2424 H Medications Medications Current Medications Atorvastatin Calcium (Lipitor) 40 mg QHS PO Last administered on 10/10/16 21: 50; Admin Dose 40 MG; Start 10/07/16 at 21:00 Carvedilol (Coreg) 3.125 mg BID PO Last administered on 10/11/16 08:20; Admin Dose 3.125 MG; Start 10/07/16 at 21:00 Latanoprost 1 drop 1 drop HS BOTH EYES Last administered on 10/11/16 00:34; Admin Dose 1 DROP; Start 10/07/16 at 21:00 Azithromycin 250 ml @ 250 mls/hr DAILY IVPB Last administered on 10/11/16 08: 21; Admin Dose 250 MLS/HR; Start 10/07/16 at 20:00 Sodium Chloride (NS) 1,000 ml @ 75 mls/hr [id number] IV Last administered on 10/09 00:10; Admin Dose 75 MLS/HR; Start 10/07/16 at 19:09 Ondansetron HCl (Zofran Inj) 4 mg Q4H PRN IV NAUSEA AND/OR VOMITING Last administered on 10/08/16 02:14; Admin Dose 4 MG; Start 10/07/16 at 19:30 Acetaminophen (Tylenol Tab) 650 mg Q6H PRN PO PAIN LEVEL 1-3 OR FEVER; Start at 19:30 Docusate Sodium (Colace) 100 mg Q12H PRN PO CONSTIPATION; Start 10/07/16 at 19: 30 Magnesium Hydroxide (Milk Of Mag) 30 ml DAILY PRN PO CONSTIPATION; Start at 19:30 Bisacodyl (Dulcolax) 5 mg DAILY PRN PO CONSTIPATION Last administered on 15:57; Admin Dose 5 MG; Start 10/07/16 at 19:30 Bisacodyl (Dulcolax Supp) 10 mg DAILY PRN [place] CONSTIPATION; Start 10/07/16 at 19 :30 Sodium Biphosphate/ Sodium Phosphate (Fleet Enema) 133 ml DAILY PRN [place] CONSTIPATION; Start 10/07/16 at 19:30 Zolpidem Tartrate 5 mg 5 mg QHS PRN PO SLEEP; Start 10/07/16 at 19:30 Metronidazole 100 ml @ 100 mls/hr Q8 IVPB Last administered on 10/11/16 06:14 ; Admin Dose 100 MLS/HR; Start 10/07/16 at 22:00 Piperacillin Sod/ Tazobactam Sod (Zosyn 3.375gm/ 100 ml (Pmx)) 100 ml @ 200 mls /hr Q8 IVPB Last administered on 10/11/16 05:36; Admin Dose 200 MLS/HR; Start 10/07/16 at 22:00 Diagnostic Test (Pha) (Accu-Chek) 1 ea 02 XX Last administered on 10/10/16 03: 00; Admin Dose 1 EA; Start 10/08/16 at 02:00 Miscellaneous Information 1 ea NOTE XX ; Start 10/07/16 at 20:30 Glucose (Glutose) 15 gm Q15M PRN PO DECREASED GLUCOSE; Start 10/07/16 at 20:30 Glucose (Glutose) 22.5 gm Q15M PRN PO DECREASED GLUCOSE; Start 10/07/16 at 20: 30 Dextrose (D50w Syringe) 25 ml Q15M PRN IV DECREASED GLUCOSE; Start 10/07/16 at 20:30 Dextrose (D50w Syringe) 50 ml Q15M PRN IV DECREASED GLUCOSE; Start 10/07/16 at 20:30 Glucagon (Glucagen) 1 mg Q15M PRN IM DECREASED GLUCOSE; Start 10/07/16 at 20:30 Glucose (Glutose) 15 gm Q15M PRN BUCCAL DECREASED GLUCOSE; Start 10/07/16 at 20 :30 Nifedipine (Procardia Xl) 60 mg DAILY PO Last administered on 10/11/16 08:21; Admin Dose 60 MG; Start 10/10/16 at 09:00 Hydralazine HCl (Apresoline) 10 mg Q4H PRN IV SBP>150 mm hg Last administered on 10/11/16 01:27; Admin Dose 10 MG; Start 10/09/16 at 11:30 Acetaminophen/ Hydrocodone Bitart ([place] (5/325)) 1 tab Q4H PRN PO MODERATE PAIN LEVEL 4-6; Start 10/10/16 at 17:30 Morphine Sulfate (morphine) 1 mg Q6H PRN IV SEVERE PAIN LEVEL 7-10; Start 10/10 at 17:30 Famotidine 20 mg 20 mg Q12 PO Last administered on 10/11/16 08:20; Admin Dose 20 MG; Start 10/10/16 at 21:00 Potassium Chloride (KCl 40 MEQ/250 ML NS) 250 ml @ 62.5 mls/hr ONCE ONCE IVPB Last administered on 10/11/16 11:03; Admin Dose 62.5 MLS/HR; Start 10/11/16 at 11:00; Stop 10/11/16 at 14:59 LANDON ZAMORA MD Oct 11, 2016 12:23
[2016-10-11] MEDS ORDERED: MAGNESIUM SULFATE 2 GM/50 ML 50 ML IVPB ONE (12:30)
[2016-10-11] MEDS: NYSTATIN SUSP 5 ML CUP PO SCH ×2 (13:49→21:13)
[2016-10-11] MEDS ORDERED: SOD CHLORIDE 0.9% 1,000 ML IV SCH (19:00)
[2016-10-11] MEDS: ATORVASTATIN 40 MG TAB PO SCH (21:12)
[2016-10-12] VITALS (12 sets, daily range): BP systolic 110–145; BP diastolic 56–76; PULSE 85–101; RESP 18–20
[2016-10-12] MEDS: ACCUCHECK AT 2AM (Patients on SS coverage) XX SCH (02:00)
[2016-10-12] MEDS: LATANOPROST 0.005% 2.5 ML OPH BOTH EYES SCH ×2 (02:08→21:52)
[2016-10-12] MEDS: PIPER-TAZO 3.375 GM IV (PMX) 100 ML IVPB SCH ×3 (06:43→21:54)
[2016-10-12] MEDS: metroNIDAZOLE 500 MG/NS (PMX) 100 ML IVPB SCH ×3 (06:43→21:54)
[2016-10-12 07:50] LABS: ADD SCAN DIFF NO
[2016-10-12 07:53] LABS: BASOPHILS % 0.3 % (0.0-2.0); EOSINOPHILS # 0.2 10^3/ul (0.0-0.5); HEMATOCRIT 33.6 % (37.0-47.0); LYMPHOCYTES # 1.5 10^3/ul (0.8-2.9); LYMPHOCYTES % 13.5 % (15.0-51.0); MEAN CORPUSCULAR HEMOGLOBIN 30.7 pg (29.0-33.0); MEAN CORPUSCULAR HGB CONC 32.7 g/dl (32.0-37.0); MEAN CORPUSCULAR VOLUME 93.9 fl (82.0-101.0); MEAN PLATELET VOLUME 10.7 fl (7.4-10.4); MONOCYTES % 9.1 % (0.0-11.0); NEUTROPHIL # 8.1 10^3/ul (1.6-7.5); NEUTROPHILS % 73.3 % (39.0-77.0); PLATELET COUNT 312 10^3/UL (140-415); RED BLOOD COUNT 3.58 10^6/ul (4.20-5.40); RED CELL DISTRIBUTION WIDTH 15.8 % (11.5-14.5)
[2016-10-12] MEDS: INSULIN ASPART [NOVOLOG] 3 ML PEN SC SCH ×4 (08:00→21:00)
[2016-10-12 08:13] LABS: ALBUMIN 3.1 g/dl (3.3-4.9); ALBUMIN/GLOBULIN RATIO 0.77; BILIRUBIN,INDIRECT 0.3 mg/dl (0-1.1); BILIRUBIN,TOTAL 0.3 mg/dl (0.2-1.3); CALCIUM 8.5 mg/dl (8.4-10.2); CREATININE 0.48 mg/dl (0.44-1.00); TOTAL PROTEIN 7.1 g/dl (6.1-8.1)
[2016-10-12 08:18] LABS: POTASSIUM 2.9 mmol/L (3.5-5.1)
[2016-10-12 08:21] LABS: INR 1.18; PROTIME 15.1 Sec (12.2-14.2); PT RATIO 1.2
[2016-10-12] MEDS: FAMOTIDINE 20 MG TAB PO SCH ×2 (08:53→21:44)
[2016-10-12] MEDS: BISACODYL (EC) 5 MG TAB PO PRN (08:55)
[2016-10-12] MEDS: NIFEdipine (XL) 60 MG TAB PO SCH (08:56)
[2016-10-12] MEDS: NYSTATIN SUSP 5 ML CUP PO SCH ×3 (08:58→21:44)
[2016-10-12] MEDS: AZITHROMYCIN 500MG/NS (PMX) 250 ML IVPB SCH (09:57)
[2016-10-12] MEDS ORDERED: POTASSIUM CHLORIDE 20 MEQ in SOD CHLORIDE 0.9% 1,000 ML IV SCH (11:00)
[2016-10-12] MEDS ORDERED: VITAMIN A & D 5 GM OINT PACKET TOP ONE ×2 (11:09→18:43)
--- NOTE | 2016-10-12 11:46 | PN ---
Date/Time of Note Date/Time of Note DATE: 10/12/16 TIME: 11:44 Assessment/Plan VTE Prophylaxis VTE Prophylaxis Intervention: SCD's Lines/Catheters IV [facility]from [facility] Peripheral IV Urinary Cath still in place: No Assessment/Plan Assessment/Plan 1. Severe sepsis, multifactorial secondary to possible biliary sepsis and also secondary to left lower lobe infiltrates. 2. Bacteremia with Blood cx growing E.coli 2. Biliary sepsis with acute choledocholithiasis s/p ERCP, sphincterotomy, Removal of multiple stones and stent placement by GI on 10/08/16 3. Left lower lobe infiltrates, concerned about community-acquired pneumonia. 4. Lactic acidosis, likely secondary to severe sepsis. 5. Hyponatremia with a sodium 129 on admission secondary to hypovolemic hyponatremia. 6. Acute kidney injury on chronic kidney disease stage III secondary to prerenal azotemia and secondary to sepsis. 7. History of chronic kidney disease stage II to III secondary to diabetic nephropathy. 8. Hypercalcemia secondary to moderate to severe dehydration. 9. Moderate to severe dehydration. 10. Acute transaminitis with alkaline phosphatase of 1270 due to acute choledocholithiasis 11. History of hypertension.-now Accelerated HTN, not well controlled 12. History of diabetes mellitus type 2, on metformin. 13. History of coronary artery disease, status post previous stent placement. 14. History of bilateral knee surgeries, recently had right knee surgery 15. Hypokalemia PLAN: d/bev IV ativan due to sedation/lethargy S/p ERCP, sphincterotomy, Removal of multiple stones and stent placement by GI BP controleld with Procadia XL KCL replacement 20mEQ IV x 1 now and also 20mEQ IV to IV fluids Amparo bx zosyn, Flagyl and Azithromycin Blood cx grew E.Coli Nystatin PO for oral thrush SCD for DVT prophylaxis Subjective 24 Hr Interval Summary Free Text/Dictation doing better K still low Exam/Review of Systems Vital Signs Vitals Vital Signs Date Time Temp Pulse Resp B/P Pulse Ox O2 Delivery O2 Flow Rate FiO2 10/12/16 11:29 97.9 82 18 110/56 99 10/12/16 08:15 Nasal Cannula 2.0 Intake and Output 10/11/16 10/11/16 10/12/16 15:00 23:00 07:00 Intake Total 100 ml 1060 ml 850 ml Balance 100 ml 1060 ml 850 ml Exam GENERAL: Awake, alert. no acute distress HEENT: Normal. Oropharynx clear. No jaundice. NECK: Supple. No JVD, no lymphadenopathy. LUNGS: Bilateral air entry presence. The patient has left lower lobe rales present with minimal expiratory wheezing. HEART: S1, S2. Tachycardia. No murmur. ABDOMEN: Soft, tender to palpation in right upper quadrant with minimal guarding, no rebound tenderness. Bowel sounds are present. EXTREMITIES: No clubbing, cyanosis, edema. Bilateral knees have surgical scarring present. No cyanosis. NEUROLOGICAL: Nonfocal, intact. PSYCHIATRIC: Appropriate affect and mood. SKIN: No rash. Results Result Diagram: 10/12/16 0710/12/16 07 Results 24 hrs Laboratory Tests Test 10/11/16 12:50 10/11/16 17:25 10/11/16 21:38 10/12/16 07:05 Bedside Glucose 121 114 120 White Blood Count 11.0 #H Red Blood Count 3.58 L Hemoglobin 11.0 L Hematocrit 33.6 L Mean Corpuscular Volume 93.9 Mean Corpuscular Hemoglobin 30.7 Mean Corpuscular Hemoglobin Concent 32.7 Red Cell Distribution Width 15.8 H Platelet Count 312 Mean Platelet Volume 10.7 H Neutrophils % 73.3 Lymphocytes % 13.5 L Monocytes % 9.1 Eosinophils % 2.0 Basophils % 0.3 Nucleated Red Blood Cells % 0.0 Neutrophils # 8.1 H Lymphocytes # 1.5 Monocytes # 1.0 H Eosinophils # 0.2 Basophils # 0.0 Nucleated Red Blood Cells # 0.0 Prothrombin Time 15.1 H Prothrombin Time Ratio 1.2 INR International Normalized Ratio 1.18 Activated Partial Thromboplast Time Pending Sodium Level 134 L Potassium Level 2.9 *L Chloride Level 100 Carbon Dioxide Level 26 Anion Gap 11 Blood Urea Nitrogen 7 Creatinine 0.48 Glucose Level 120 Calcium Level 8.5 Total Bilirubin 0.3 Direct Bilirubin 0.00 Indirect Bilirubin 0.3 Aspartate Amino Transf (AST/SGOT) 51 H Alanine Aminotransferase (ALT/SGPT) 54 Alkaline Phosphatase 816 H Total Protein 7.1 Albumin 3.1 L Globulin 4.00 H Albumin/Globulin Ratio 0.77 Test 10/12/16 07:35 Bedside Glucose 121 Medications Medications Current Medications Atorvastatin Calcium (Lipitor) 40 mg QHS PO Last administered on 10/11/16 21: 12; Admin Dose 40 MG; Start 10/07/16 at 21:00 Carvedilol (Coreg) 3.125 mg BID PO Last administered on 10/12/16 08:56; Admin Dose 3.125 MG; Start 10/07/16 at 21:00 Latanoprost 1 drop 1 drop HS BOTH EYES Last administered on 10/12/16 02:08; Admin Dose 1 DROP; Start 10/07/16 at 21:00 Azithromycin (Zithromax 500mg/ NS (Pmx)) 250 ml @ 250 mls/hr DAILY IVPB Last administered on 10/12/16 09:57; Admin Dose 250 MLS/HR; Start 10/07/16 at 20:00 Ondansetron HCl (Zofran Inj) 4 mg Q4H PRN IV NAUSEA AND/OR VOMITING Last administered on 10/08/16 02:14; Admin Dose 4 MG; Start 10/07/16 at 19:30 Acetaminophen (Tylenol Tab) 650 mg Q6H PRN PO PAIN LEVEL 1-3 OR FEVER; Start at 19:30 Docusate Sodium (Colace) 100 mg Q12H PRN PO CONSTIPATION; Start 10/07/16 at 19: 30 Magnesium Hydroxide (Milk Of Mag) 30 ml DAILY PRN PO CONSTIPATION; Start at 19:30 Bisacodyl (Dulcolax) 5 mg DAILY PRN PO CONSTIPATION Last administered on 08:55; Admin Dose 5 MG; Start 10/07/16 at 19:30 Bisacodyl (Dulcolax Supp) 10 mg DAILY PRN [place] CONSTIPATION; Start 10/07/16 at 19 :30 Sodium Biphosphate/ Sodium Phosphate (Fleet Enema) 133 ml DAILY PRN [place] CONSTIPATION; Start 10/07/16 at 19:30 Zolpidem Tartrate 5 mg 5 mg QHS PRN PO SLEEP; Start 10/07/16 at 19:30 Metronidazole 100 ml @ 100 mls/hr Q8 IVPB Last administered on 10/12/16 06:43 ; Admin Dose 100 MLS/HR; Start 10/07/16 at 22:00 Piperacillin Sod/ Tazobactam Sod (Zosyn 3.375gm/ 100 ml (Pmx)) 100 ml @ 200 mls /hr Q8 IVPB Last administered on 10/12/16 06:43; Admin Dose 200 MLS/HR; Start 10/07/16 at 22:00 Diagnostic Test (Pha) (Accu-Chek) 1 ea 02 XX Last administered on 10/10/16 03: 00; Admin Dose 1 EA; Start 10/08/16 at 02:00 Miscellaneous Information 1 ea NOTE XX ; Start 10/07/16 at 20:30 Glucose (Glutose) 15 gm Q15M PRN PO DECREASED GLUCOSE; Start 10/07/16 at 20:30 Glucose (Glutose) 22.5 gm Q15M PRN PO DECREASED GLUCOSE; Start 10/07/16 at 20: 30 Dextrose (D50w Syringe) 25 ml Q15M PRN IV DECREASED GLUCOSE; Start 10/07/16 at 20:30 Dextrose (D50w Syringe) 50 ml Q15M PRN IV DECREASED GLUCOSE; Start 10/07/16 at 20:30 Glucagon (Glucagen) 1 mg Q15M PRN IM DECREASED GLUCOSE; Start 10/07/16 at 20:30 Glucose (Glutose) 15 gm Q15M PRN BUCCAL DECREASED GLUCOSE; Start 10/07/16 at 20 :30 Nifedipine (Procardia Xl) 60 mg DAILY PO Last administered on 10/12/16 08:56; Admin Dose 60 MG; Start 10/10/16 at 09:00 Hydralazine HCl (Apresoline) 10 mg Q4H PRN IV SBP>150 mm hg Last administered on 10/11/16 01:27; Admin Dose 10 MG; Start 10/09/16 at 11:30 Acetaminophen/ Hydrocodone Bitart ([place] (5/325)) 1 tab Q4H PRN PO MODERATE PAIN LEVEL 4-6; Start 10/10/16 at 17:30 Morphine Sulfate (morphine) 1 mg Q6H PRN IV SEVERE PAIN LEVEL 7-10; Start 10/10 at 17:30 Famotidine (Pepcid) 20 mg Q12 PO Last administered on 10/12/16 08:53; Admin Dose 20 MG; Start 10/10/16 at 21:00 Nystatin 5 ml 5 ml TID PO Last administered on 10/12/16 08:58; Admin Dose 5 ML ; Start 10/11/16 at 13:00 Potassium Chloride 20 meq/ Sodium Chloride 110 ml @ 55 mls/hr ONCE ONCE IVPB Last administered on 10/12/16t 11:30; Admin Dose 55 MLS/HR; Start 10/12/16 at 12 :30; Stop 10/12/16 at 14:29 Potassium Chloride/Sodium Chloride (NS-KCl 20 Meq) 1,000 ml @ 50 mls/hr Q20H IV ; Start 10/12/16 at 12:30 LANDON ZAMORA MD Oct 12, 2016 11:46
[2016-10-12 12:01] LABS: PARTIAL THROMBOPLASTIN TIME 26.6 Sec (25.0-35.0)
[2016-10-12] MEDS ORDERED: POTASSIUM CHLORIDE 20 MEQ in SOD CHLORIDE 0.9% 100 ML IVPB ONE (12:30)
[2016-10-12] MEDS: NS + KCL 20 MEQ 1,000 ML IV SCH (13:19)
--- NOTE | 2016-10-12 16:26 | CONS ---
Date/Time of Note Date/Time of Note DATE: 10/12/16 TIME: 16:25 Assessment/Plan Assessment/Plan Additional Assessment/Plan IMPRESSION: 1. Abnormal LFTs with abdominal pain, vomiting and fever and chills, rule out cholangitis secondary to most probably bile duct stone. 2. Rheumatoid arthritis. 3. Diabetes mellitus. 4. Status post knee replacement 1 month ago. 5. History of cerebrovascular accident. 6. History of 3 stents. 7. Diabetes mellitus. 8. Possible pneumonia. 9 mild pancreatitis, improving PLAN: Continue all the antibiotic, IV hydration Monitor LFT and CBC We will send for amylase lipase Surgery was deferred. Family thinks patient is more confused because of anesthesia and wants to wait for a few more days. Amylase lipase in a.m. Advance diet Consultation Date/Type/Reason Admit Date/Time Oct 07, 2016 at 20:54 Initial Consult Date 10/07/16 Type of Consultation: Gen surgical Referring Provider: LANDON ZMAORA MD 24 HR Interval Summary Free Text/Dictation Patient has absolutely no pain did not require any narcotics Constitutional: improved, no complaints Exam/Review of Systems Vital Signs Vitals Vital Signs Date Time Temp Pulse Resp B/P Pulse Ox O2 Delivery O2 Flow Rate FiO2 10/12/16 15:50 97.7 87 18 135/65 95 10/12/16 08:15 Nasal Cannula 2.0 Intake and Output 10/11/16 10/11/16 10/12/16 15:00 23:00 07:00 Intake Total 100 ml 1060 ml 850 ml Balance 100 ml 1060 ml 850 ml Exam Constitutional: alert, oriented, well developed Psych: nl mood/affect, no complaints Head: atraumatic, normocephalic Eyes: EOMI, PERRL, nl conjunctiva, nl lids, nl sclera ENMT: nl external ears & nose, nl lips & teeth, nl nasal mucosa & septum Neck: non-tender, supple Respiratory: clear to auscultation, normal air movement Cardiovascular: nl pulses, regular rate and rhythm Gastrointestinal: nl liver, spleen, non-tender, soft Musculoskeletal: nl extremities to inspection, nl gait and stance Extremities: normal pulses 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, nl mental status, nl speech, nl strength Skin: nl turgor, No rash or lesions Lymph: nl lymph nodes Results Result Diagram: 10/12/1605 10/12/1605 Results 24 hrs Laboratory Tests Test 10/11/16 17:25 10/11/16 21:38 10/12/16 07:05 10/12/16 07:35 Bedside Glucose 114 120 121 White Blood Count 11.0 #H Red Blood Count 3.58 L Hemoglobin 11.0 L Hematocrit 33.6 L Mean Corpuscular Volume 93.9 Mean Corpuscular Hemoglobin 30.7 Mean Corpuscular Hemoglobin Concent 32.7 Red Cell Distribution Width 15.8 H Platelet Count 312 Mean Platelet Volume 10.7 H Neutrophils % 73.3 Lymphocytes % 13.5 L Monocytes % 9.1 Eosinophils % 2.0 Basophils % 0.3 Nucleated Red Blood Cells % 0.0 Neutrophils # 8.1 H Lymphocytes # 1.5 Monocytes # 1.0 H Eosinophils # 0.2 Basophils # 0.0 Nucleated Red Blood Cells # 0.0 Prothrombin Time 15.1 H Prothrombin Time Ratio 1.2 INR International Normalized Ratio 1.18 Activated Partial Thromboplast Time 26.6 Sodium Level 134 L Potassium Level 2.9 *L Chloride Level 100 Carbon Dioxide Level 26 Anion Gap 11 Blood Urea Nitrogen 7 Creatinine 0.48 Glucose Level 120 Calcium Level 8.5 Total Bilirubin 0.3 Direct Bilirubin 0.00 Indirect Bilirubin 0.3 Aspartate Amino Transf (AST/SGOT) 51 H Alanine Aminotransferase (ALT/SGPT) 54 Alkaline Phosphatase 816 H Total Protein 7.1 Albumin 3.1 L Globulin 4.00 H Albumin/Globulin Ratio 0.77 Test 10/12/16 11:52 Bedside Glucose 102 Medications Medications Current Medications Atorvastatin Calcium (Lipitor) 40 mg QHS PO Last administered on 10/11/16 21: 12; Admin Dose 40 MG; Start 10/07/16 at 21:00 Carvedilol (Coreg) 3.125 mg BID PO Last administered on 10/12/16 08:56; Admin Dose 3.125 MG; Start 10/07/16 at 21:00 Latanoprost 1 drop 1 drop HS BOTH EYES Last administered on 10/12/16 02:08; Admin Dose 1 DROP; Start 10/07/16 at 21:00 Azithromycin (Zithromax 500mg/ NS (Pmx)) 250 ml @ 250 mls/hr DAILY IVPB Last administered on 10/12/16 09:57; Admin Dose 250 MLS/HR; Start 10/07/16 at 20:00 Ondansetron HCl (Zofran Inj) 4 mg Q4H PRN IV NAUSEA AND/OR VOMITING Last administered on 10/08/16 02:14; Admin Dose 4 MG; Start 10/07/16 at 19:30 Acetaminophen (Tylenol Tab) 650 mg Q6H PRN PO PAIN LEVEL 1-3 OR FEVER; Start at 19:30 Docusate Sodium (Colace) 100 mg Q12H PRN PO CONSTIPATION; Start 10/07/16 at 19: 30 Magnesium Hydroxide (Milk Of Mag) 30 ml DAILY PRN PO CONSTIPATION; Start at 19:30 Bisacodyl (Dulcolax) 5 mg DAILY PRN PO CONSTIPATION Last administered on 08:55; Admin Dose 5 MG; Start 10/07/16 at 19:30 Bisacodyl (Dulcolax Supp) 10 mg DAILY PRN [place] CONSTIPATION; Start 10/07/16 at 19 :30 Sodium Biphosphate/ Sodium Phosphate (Fleet Enema) 133 ml DAILY PRN [place] CONSTIPATION; Start 10/07/16 at 19:30 Zolpidem Tartrate 5 mg 5 mg QHS PRN PO SLEEP; Start 10/07/16 at 19:30 Metronidazole 100 ml @ 100 mls/hr Q8 IVPB Last administered on 10/12/16 14:55 ; Admin Dose 100 MLS/HR; Start 10/07/16 at 22:00 Piperacillin Sod/ Tazobactam Sod (Zosyn 3.375gm/ 100 ml (Pmx)) 100 ml @ 200 mls /hr Q8 IVPB Last administered on 10/12/16 14:06; Admin Dose 200 MLS/HR; Start 10/07/16 at 22:00 Diagnostic Test (Pha) (Accu-Chek) 1 ea 02 XX Last administered on 10/10/16 03: 00; Admin Dose 1 EA; Start 10/08/16 at 02:00 Miscellaneous Information 1 ea NOTE XX ; Start 10/07/16 at 20:30 Glucose (Glutose) 15 gm Q15M PRN PO DECREASED GLUCOSE; Start 10/07/16 at 20:30 Glucose (Glutose) 22.5 gm Q15M PRN PO DECREASED GLUCOSE; Start 10/07/16 at 20: 30 Dextrose (D50w Syringe) 25 ml Q15M PRN IV DECREASED GLUCOSE; Start 10/07/16 at 20:30 Dextrose (D50w Syringe) 50 ml Q15M PRN IV DECREASED GLUCOSE; Start 10/07/16 at 20:30 Glucagon (Glucagen) 1 mg Q15M PRN IM DECREASED GLUCOSE; Start 10/07/16 at 20:30 Glucose (Glutose) 15 gm Q15M PRN BUCCAL DECREASED GLUCOSE; Start 10/07/16 at 20 :30 Nifedipine (Procardia Xl) 60 mg DAILY PO Last administered on 10/12/16 08:56; Admin Dose 60 MG; Start 10/10/16 at 09:00 Hydralazine HCl (Apresoline) 10 mg Q4H PRN IV SBP>150 mm hg Last administered on 10/11/16 01:27; Admin Dose 10 MG; Start 10/09/16 at 11:30 Acetaminophen/ Hydrocodone Bitart ([place] (5/325)) 1 tab Q4H PRN PO MODERATE PAIN LEVEL 4-6; Start 10/10/16 at 17:30 Morphine Sulfate (morphine) 1 mg Q6H PRN IV SEVERE PAIN LEVEL 7-10; Start 10/10 at 17:30 Famotidine (Pepcid) 20 mg Q12 PO Last administered on 10/12/16 08:53; Admin Dose 20 MG; Start 10/10/16 at 21:00 Nystatin 5 ml 5 ml TID PO Last administered on 10/12/16 13:19; Admin Dose 5 ML ; Start 10/11/16 at 13:00 Potassium Chloride/Sodium Chloride (NS-KCl 20 Meq) 1,000 ml @ 50 mls/hr Q20H IV Last administered on 10/12/16 13:19; Admin Dose 50 MLS/HR; Start 10/12/16 at 12:30 LAUREN GODFREY MD Oct 12, 2016 16:26
[2016-10-12] MEDS: ATORVASTATIN 40 MG TAB PO SCH (21:44)
[2016-10-13] VITALS (11 sets, daily range): BP systolic 115–147; BP diastolic 58–71; PULSE 77–88; RESP 18–20
[2016-10-13] MEDS: ACCUCHECK AT 2AM (Patients on SS coverage) XX SCH (01:26)
[2016-10-13] MEDS: PIPER-TAZO 3.375 GM IV (PMX) 100 ML IVPB SCH ×3 (05:07→22:32)
[2016-10-13] MEDS: metroNIDAZOLE 500 MG/NS (PMX) 100 ML IVPB SCH ×3 (05:07→21:17)
[2016-10-13 07:46] LABS: CREATININE 0.56 mg/dl (0.44-1.00)
[2016-10-13 07:47] LABS: CALCIUM 8.8 mg/dl (8.4-10.2)
[2016-10-13 07:52] LABS: POTASSIUM 2.8 mmol/L (3.5-5.1)
[2016-10-13] MEDS: INSULIN ASPART [NOVOLOG] 3 ML PEN SC SCH ×5 (08:00→21:38)
[2016-10-13] MEDS: NS + KCL 20 MEQ 1,000 ML IV SCH (08:33)
[2016-10-13] MEDS: AZITHROMYCIN 500MG/NS (PMX) 250 ML IVPB SCH (08:34)
[2016-10-13] MEDS: NIFEdipine (XL) 60 MG TAB PO SCH (08:34)
[2016-10-13] MEDS: FAMOTIDINE 20 MG TAB PO SCH ×2 (08:34→21:16)
[2016-10-13] MEDS: NYSTATIN SUSP 5 ML CUP PO SCH ×3 (08:35→21:16)
--- NOTE | 2016-10-13 11:26 | PN ---
Date/Time of Note Date/Time of Note DATE: 10/13/16 TIME: 11:20 Assessment/Plan VTE Prophylaxis VTE Prophylaxis Intervention: SCD's Lines/Catheters IV Catheter Type (from Nrs): Peripheral IV Urinary Cath still in place: No Assessment/Plan Assessment/Plan 1. Severe sepsis, multifactorial secondary to possible biliary sepsis and also secondary to left lower lobe infiltrates. bacteremia 2. Bacteremia with Blood cx growing E.coli follow up blood cx 09/16/16 negative to date 2. Biliary sepsis with acute choledocholithiasis s/p ERCP, sphincterotomy, Removal of multiple stones and stent placement by GI on 10/08/16 3. Left lower lobe infiltrates, concerned about community-acquired pneumonia. 4. Lactic acidosis, likely secondary to severe sepsis. 5. Hyponatremia with a sodium 129 on admission secondary to hypovolemic hyponatremia. 6. Acute kidney injury on chronic kidney disease stage III secondary to prerenal azotemia and secondary to sepsis. 7. History of chronic kidney disease stage II to III secondary to diabetic nephropathy. 8. Hypercalcemia secondary to moderate to severe dehydration. 9. Moderate to severe dehydration. 10. Acute transaminitis with alkaline phosphatase of 1270 due to acute choledocholithiasis 11. History of hypertension.-now Accelerated HTN, not well controlled 12. History of diabetes mellitus type 2, on metformin. 13. History of coronary artery disease, status post previous stent placement. 14. History of bilateral knee surgeries, recently had right knee surgery 15. Hypokalemia PLAN: out of bed to chair TID S/p ERCP, sphincterotomy, Removal of multiple stones and stent placement by GI BP controleld with Procadia XL , stable KCL replacement 40mEQ IV x 1 today, pt continues to have Low K, IV KCL has been added to NS at 50 cc/hr Amparo bx zosyn, Flagyl and Azithromycin Blood cx grew E.Coli Nystatin PO for oral thrush SCD for DVT prophylaxis Subjective 24 Hr Interval Summary Free Text/Dictation pt tolerated full liquid diet, BP stable, Refused surgery , pain controlled, c/ o nausea, Exam/Review of Systems Vital Signs Vitals Vital Signs Date Time Temp Pulse Resp B/P Pulse Ox O2 Delivery O2 Flow Rate FiO2 10/13/16 08:12 82 10/13/16 07:57 98.3 20 121/58 95 10/12/16 20:30 Nasal Cannula 2.0 Intake and Output 10/12/16 10/12/16 10/13/16 15:00 23:00 07:00 Intake Total 350 ml 1050 ml 1100 ml Balance 350 ml 1050 ml 1100 ml Exam GENERAL: Awake, alert. no acute distress HEENT: Normal. Oropharynx clear. No jaundice. NECK: Supple. No JVD, no lymphadenopathy. LUNGS: Bilateral air entry presence. The patient has left lower lobe rales present with minimal expiratory wheezing. HEART: S1, S2. Tachycardia. No murmur. ABDOMEN: Soft, tender to palpation in right upper quadrant with minimal guarding, no rebound tenderness. Bowel sounds are present. EXTREMITIES: No clubbing, cyanosis, edema. Bilateral knees have surgical scarring present. No cyanosis. NEUROLOGICAL: Nonfocal, intact. PSYCHIATRIC: Appropriate affect and mood. SKIN: No rash. Results Result Diagram: 10/12/16 0705 10/13/16 0629 Results 24 hrs Laboratory Tests Test 10/12/16 11:52 10/12/16 17:35 10/12/16 19:57 10/13/16 06:29 Bedside Glucose 102 112 130 Sodium Level 138 Potassium Level 2.8 *L Chloride Level 100 Carbon Dioxide Level 23 Anion Gap 18 #H Blood Urea Nitrogen 8 Creatinine 0.56 Glucose Level 117 Calcium Level 8.8 Test 10/13/16 08:14 Bedside Glucose 105 Medications Medications Current Medications Atorvastatin Calcium (Lipitor) 40 mg QHS PO Last administered on 10/12/16 21: 44; Admin Dose 40 MG; Start 10/07/16 at 21:00 Carvedilol (Coreg) 3.125 mg BID PO Last administered on 10/13/16 08:34; Admin Dose 3.125 MG; Start 10/07/16 at 21:00 Latanoprost 1 drop 1 drop HS BOTH EYES Last administered on 10/12/16 21:52; Admin Dose 1 DROP; Start 10/07/16 at 21:00 Azithromycin (Zithromax 500mg/ NS (Pmx)) 250 ml @ 250 mls/hr DAILY IVPB Last administered on 10/13/16 08:34; Admin Dose 250 MLS/HR; Start 10/07/16 at 20:00 Ondansetron HCl (Zofran Inj) 4 mg Q4H PRN IV NAUSEA AND/OR VOMITING Last administered on 10/08/16 02:14; Admin Dose 4 MG; Start 10/07/16 at 19:30 Acetaminophen (Tylenol Tab) 650 mg Q6H PRN PO PAIN LEVEL 1-3 OR FEVER; Start at 19:30 Docusate Sodium (Colace) 100 mg Q12H PRN PO CONSTIPATION; Start 10/07/16 at 19: 30 Magnesium Hydroxide (Milk Of Mag) 30 ml DAILY PRN PO CONSTIPATION; Start at 19:30 Bisacodyl (Dulcolax) 5 mg DAILY PRN PO CONSTIPATION Last administered on 08:55; Admin Dose 5 MG; Start 10/07/16 at 19:30 Bisacodyl (Dulcolax Supp) 10 mg DAILY PRN [place] CONSTIPATION; Start 10/07/16 at 19 :30 Sodium Biphosphate/ Sodium Phosphate (Fleet Enema) 133 ml DAILY PRN [place] CONSTIPATION; Start 10/07/16 at 19:30 Zolpidem Tartrate 5 mg 5 mg QHS PRN PO SLEEP; Start 10/07/16 at 19:30 Metronidazole 100 ml @ 100 mls/hr Q8 IVPB Last administered on 10/13/16 05:07 ; Admin Dose 100 MLS/HR; Start 10/07/16 at 22:00 Piperacillin Sod/ Tazobactam Sod (Zosyn 3.375gm/ 100 ml (Pmx)) 100 ml @ 200 mls /hr Q8 IVPB Last administered on 10/13/16 05:07; Admin Dose 200 MLS/HR; Start 10/07/16 at 22:00 Diagnostic Test (Pha) (Accu-Chek) 1 ea 02 XX Last administered on 10/10/16 03: 00; Admin Dose 1 EA; Start 10/08/16 at 02:00 Miscellaneous Information 1 ea NOTE XX ; Start 10/07/16 at 20:30 Glucose (Glutose) 15 gm Q15M PRN PO DECREASED GLUCOSE; Start 10/07/16 at 20:30 Glucose (Glutose) 22.5 gm Q15M PRN PO DECREASED GLUCOSE; Start 10/07/16 at 20: 30 Dextrose (D50w Syringe) 25 ml Q15M PRN IV DECREASED GLUCOSE; Start 10/07/16 at 20:30 Dextrose (D50w Syringe) 50 ml Q15M PRN IV DECREASED GLUCOSE; Start 10/07/16 at 20:30 Glucagon (Glucagen) 1 mg Q15M PRN IM DECREASED GLUCOSE; Start 10/07/16 at 20:30 Glucose (Glutose) 15 gm Q15M PRN BUCCAL DECREASED GLUCOSE; Start 10/07/16 at 20 :30 Nifedipine (Procardia Xl) 60 mg DAILY PO Last administered on 10/13/16 08:34; Admin Dose 60 MG; Start 10/10/16 at 09:00 Hydralazine HCl (Apresoline) 10 mg Q4H PRN IV SBP>150 mm hg Last administered on 10/11/16 01:27; Admin Dose 10 MG; Start 10/09/16 at 11:30 Acetaminophen/ Hydrocodone Bitart ([place] (5/325)) 1 tab Q4H PRN PO MODERATE PAIN LEVEL 4-6; Start 10/10/16 at 17:30 Morphine Sulfate (morphine) 1 mg Q6H PRN IV SEVERE PAIN LEVEL 7-10; Start 10/10 at 17:30 Famotidine (Pepcid) 20 mg Q12 PO Last administered on 10/13/16 08:34; Admin Dose 20 MG; Start 10/10/16 at 21:00 Nystatin 5 ml 5 ml TID PO Last administered on 10/13/16 08:35; Admin Dose 5 ML ; Start 10/11/16 at 13:00 Potassium Chloride/Sodium Chloride 1,000 ml @ 50 mls/hr Q20H IV Last administered on 10/13/16 08:33; Admin Dose 50 MLS/HR; Start 10/12/16 at 12:30 Potassium Chloride (KCl 40 MEQ/250 ML NS) 250 ml @ 62.5 mls/hr ONCE ONCE IVPB ; Start 10/13/16 at 12:00; Stop 10/13/16 at 15:59 LANDON ZAMORA MD Oct 13, 2016 11:26
[2016-10-13] MEDS ORDERED: POTASSIUM CHLORIDE 250 ML IVPB ONE (12:00)
--- NOTE | 2016-10-13 16:35 | CONS ---
Date/Time of Note Date/Time of Note DATE: 10/13/16 TIME: 16:34 Assessment/Plan Assessment/Plan Additional Assessment/Plan Assessment/Plan Assessment/Plan Additional Assessment/Plan IMPRESSION: 1. Abnormal LFTs with abdominal pain, vomiting and fever and chills, rule out cholangitis secondary to most probably bile duct stone. 2. Rheumatoid arthritis. 3. Diabetes mellitus. 4. Status post knee replacement 1 month ago. 5. History of cerebrovascular accident. 6. History of 3 stents. 7. Diabetes mellitus. 8. Possible pneumonia. 9 mild pancreatitis, improving PLAN: Continue all the antibiotic, IV hydration Monitor LFT and CBC We will send for amylase lipase Surgery was deferred. Family thinks patient is more confused because of anesthesia and wants to wait for a few more days. Amylase lipase in a.m. Advance diet I been writing amylase lipase level for last 2 days and for some reason somebody's canceling it. Also I told the staff to put the patient on a regular diet but patient is still on a liquid diet. Consultation Date/Type/Reason Admit Date/Time Oct 07, 2016 at 20:54 Initial Consult Date 10/07/16 Type of Consultation: Gen surgical Referring Provider: LANDON ZAMORA MD 24 HR Interval Summary Constitutional: improved, no complaints Exam/Review of Systems Vital Signs Vitals Vital Signs Date Time Temp Pulse Resp B/P Pulse Ox O2 Delivery O2 Flow Rate FiO2 10/13/16 16:14 82 10/13/16 15:51 98.2 20 137/63 96 10/13/16 08:00 Nasal Cannula 2.0 Intake and Output 10/12/16 10/12/16 10/13/16 14:59 22:59 06:59 Intake Total 350 ml 950 ml 1200 ml Balance 350 ml 950 ml 1200 ml Exam Constitutional: alert, oriented, well developed Psych: nl mood/affect, no complaints Head: atraumatic, normocephalic Eyes: EOMI, PERRL, nl conjunctiva, nl lids, nl sclera ENMT: nl external ears & nose, nl lips & teeth, nl nasal mucosa & septum Neck: non-tender, supple Respiratory: clear to auscultation, normal air movement Cardiovascular: nl pulses, regular rate and rhythm Gastrointestinal: nl liver, spleen, non-tender, soft Musculoskeletal: nl extremities to inspection, nl gait and stance Extremities: normal pulses Neurological: 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 II-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 intact, nl mental status, nl speech, nl strength Skin: nl turgor, No rash or lesions Lymph: nl lymph nodes Results Result Diagram: 10/12/16 0705 10/13/16 0629 Results 24 hrs Laboratory Tests Test 10/12/16 17:35 10/12/16 19:57 10/13/16 06:29 10/13/16 08:14 Bedside Glucose 112 130 105 Sodium Level 138 Potassium Level 2.8 *L Chloride Level 100 Carbon Dioxide Level 23 Anion Gap 18 #H Blood Urea Nitrogen 8 Creatinine 0.56 Glucose Level 117 Calcium Level 8.8 Test 10/13/16 12:35 Bedside Glucose 188 Medications Medications Current Medications Atorvastatin Calcium (Lipitor) 40 mg QHS PO Last administered on 10/12/16 21: 44; Admin Dose 40 MG; Start 10/07/16 at 21:00 Carvedilol (Coreg) 3.125 mg BID PO Last administered on 10/13/16 08:34; Admin Dose 3.125 MG; Start 10/07/16 at 21:00 Latanoprost 1 drop 1 drop HS BOTH EYES Last administered on 10/12/16 21:52; Admin Dose 1 DROP; Start 10/07/16 at 21:00 Azithromycin (Zithromax 500mg/ NS (Pmx)) 250 ml @ 250 mls/hr DAILY IVPB Last administered on 10/13/16 08:34; Admin Dose 250 MLS/HR; Start 10/07/16 at 20:00 Ondansetron HCl (Zofran Inj) 4 mg Q4H PRN IV NAUSEA AND/OR VOMITING Last administered on 10/08/16 02:14; Admin Dose 4 MG; Start 10/07/16 at 19:30 Acetaminophen (Tylenol Tab) 650 mg Q6H PRN PO PAIN LEVEL 1-3 OR FEVER; Start at 19:30 Docusate Sodium (Colace) 100 mg Q12H PRN PO CONSTIPATION; Start 10/07/16 at 19: 30 Magnesium Hydroxide (Milk Of Mag) 30 ml DAILY PRN PO CONSTIPATION; Start at 19:30 Bisacodyl (Dulcolax) 5 mg DAILY PRN PO CONSTIPATION Last administered on 08:55; Admin Dose 5 MG; Start 10/07/16 at 19:30 Bisacodyl (Dulcolax Supp) 10 mg DAILY PRN [place] CONSTIPATION; Start 10/07/16 at 19 :30 Sodium Biphosphate/ Sodium Phosphate (Fleet Enema) 133 ml DAILY PRN [place] CONSTIPATION; Start 10/07/16 at 19:30 Zolpidem Tartrate 5 mg 5 mg QHS PRN PO SLEEP; Start 10/07/16 at 19:30 Metronidazole 100 ml @ 100 mls/hr Q8 IVPB Last administered on 10/13/16 05:07 ; Admin Dose 100 MLS/HR; Start 10/07/16 at 22:00 Piperacillin Sod/ Tazobactam Sod (Zosyn 3.375gm/ 100 ml (Pmx)) 100 ml @ 200 mls /hr Q8 IVPB Last administered on 10/13/16 05:07; Admin Dose 200 MLS/HR; Start 10/07/16 at 22:00 Diagnostic Test (Pha) (Accu-Chek) 1 ea 02 XX Last administered on 10/10/16 03: 00; Admin Dose 1 EA; Start 10/08/16 at 02:00 Miscellaneous Information 1 ea NOTE XX ; Start 10/07/16 at 20:30 Glucose (Glutose) 15 gm Q15M PRN PO DECREASED GLUCOSE; Start 10/07/16 at 20:30 Glucose (Glutose) 22.5 gm Q15M PRN PO DECREASED GLUCOSE; Start 10/07/16 at 20: 30 Dextrose (D50w Syringe) 25 ml Q15M PRN IV DECREASED GLUCOSE; Start 10/07/16 at 20:30 Dextrose (D50w Syringe) 50 ml Q15M PRN IV DECREASED GLUCOSE; Start 10/07/16 at 20:30 Glucagon (Glucagen) 1 mg Q15M PRN IM DECREASED GLUCOSE; Start 10/07/16 at 20:30 Glucose (Glutose) 15 gm Q15M PRN BUCCAL DECREASED GLUCOSE; Start 10/07/16 at 20 :30 Nifedipine (Procardia Xl) 60 mg DAILY PO Last administered on 10/13/16 08:34; Admin Dose 60 MG; Start 10/10/16 at 09:00 Hydralazine HCl (Apresoline) 10 mg Q4H PRN IV SBP>150 mm hg Last administered on 10/11/16 01:27; Admin Dose 10 MG; Start 10/09/16 at 11:30 Acetaminophen/ Hydrocodone Bitart ([place] (5/325)) 1 tab Q4H PRN PO MODERATE PAIN LEVEL 4-6; Start 10/10/16 at 17:30 Morphine Sulfate (morphine) 1 mg Q6H PRN IV SEVERE PAIN LEVEL 7-10; Start 10/10 at 17:30 Famotidine (Pepcid) 20 mg Q12 PO Last administered on 10/13/16 08:34; Admin Dose 20 MG; Start 10/10/16 at 21:00 Nystatin 5 ml 5 ml TID PO Last administered on 10/13/16 12:39; Admin Dose 5 ML ; Start 10/11/16 at 13:00 Potassium Chloride/Sodium Chloride (NS-KCl 20 Meq) 1,000 ml @ 50 mls/hr Q20H IV Last administered on 10/13/16 08:33; Admin Dose 50 MLS/HR; Start 10/12/16 at 12:30 LAUREN GODFREY MD Oct 13, 2016 16:35
--- NOTE | 2016-10-13 17:54 | PN ---
Date/Time of Note Date/Time of Note DATE: 10/12/16 TIME: 17:52 Assessment/Plan Lines/Catheters IV Catheter Type (from [facility]): Peripheral IV [place] in Place (from [facility]): No Assessment/Plan Chief Complaint/Hosp Course 1. Abdominal pain, nausea, vomiting, & abnormal LFTs probably 2nd Cholangitis 2nd Choledocholithiasis s/p ERCP with drainage of stone and pus & stent placement 10/09. Family refused surgery for now. -check labs -abx -ivf -supportive -eventual lap janet 2. CAD, hx of [place] with multiple stents -cardiac optimization 3. DM -nutrition and medication optimization -encourage weight optimization 4. CVA hx -medical/cardiac optimization -off loading -nutritional optimization 5. Rheumatoid arthritis. -medical management 6. Possible PNA -pulmonary toilette -abx per medical team 7. Anemia -monitor 8. Lactic acidosis, leukocytosis with sepsis 2nd #1. Improving -abx -supportive -as above Thank you, Late entry 10/12 Problems: Subjective 24 Hr Interval Summary No surgery for now per family. s/p ERCP with stone and pus drainage s/p stent placement. Pain improving. No f/c. No n/v. No cough. No hernandes/dizzy/visual or neuro changes. No dysuria. Leukocytosis improving Exam/Review of Systems Vital Signs Vitals Vital Signs Date Time Temp Pulse Resp B/P Pulse Ox O2 Delivery O2 Flow Rate FiO2 10/13/16 16:14 82 10/13/16 15:51 98.2 20 137/63 96 10/13/16 08:00 Nasal Cannula 2.0 Intake and Output 10/12/16 10/12/16 10/13/16 15:00 23:00 07:00 Intake Total 350 ml 1050 ml 1100 ml Balance 350 ml 1050 ml 1100 ml Exam Free Text/Dictation Constitutional: alert, obese No distress Psych: nl mood/affect, No anxiety, No confusion Head: atraumatic, normocephalic Eyes: EOMI, PERRL, nl conjunctiva ENMT: mucosa pink and moist, nl external ears & nose Neck: supple, No non-tender Respiratory: normal air movement, No congested cough Cardiovascular: regular rate and rhythm, No edema Gastrointestinal: soft, NT, No rebound or guarding Musculoskeletal: No joint tenderness, No nl extremities to inspection, No nl gait and stance Extremities: normal pulses, No calf tenderness, No cyanosis Neurological: nl mental status, nl speech Skin: nl turgor, No diaphoresis, No rash or lesions Lymph: nl lymph nodes Results Result Diagram: 10/12/16 0705 10/13/16 0629 BINH RODRIGUEZ MD Oct 13, 2016 17:54
--- NOTE | 2016-10-13 17:55 | PN ---
Date/Time of Note Date/Time of Note DATE: 10/13/16 TIME: 17:54 Assessment/Plan Lines/Catheters IV Catheter Type (from [facility]): Peripheral IV [place] in Place (from [facility]): No Assessment/Plan Chief Complaint/Hosp Course 1. Abdominal pain, nausea, vomiting, & abnormal LFTs probably 2nd Cholangitis 2nd Choledocholithiasis s/p ERCP with drainage of stone and pus & stent placement 10/09. Family refused surgery for now. -check labs -abx -ivf -supportive -eventual lap janet 2. CAD, hx of [place] with multiple stents -cardiac optimization 3. DM -nutrition and medication optimization -encourage weight optimization 4. CVA hx -medical/cardiac optimization -off loading -nutritional optimization 5. Rheumatoid arthritis. -medical management 6. Possible PNA -pulmonary toilette -abx per medical team 7. Anemia -monitor 8. Lactic acidosis, leukocytosis with sepsis 2nd #1. Improving -abx -supportive -as above Thank you, Problems: Subjective 24 Hr Interval Summary No surgery for now per family. s/p ERCP with stone and pus drainage s/p stent placement. Pain improving. No f/c. No n/v. No cough. No hernandes/dizzy/visual or neuro changes. No dysuria. Leukocytosis improving Exam/Review of Systems Vital Signs Vitals Vital Signs Date Time Temp Pulse Resp B/P Pulse Ox O2 Delivery O2 Flow Rate FiO2 10/13/16 16:14 82 10/13/16 15:51 98.2 20 137/63 96 10/13/16 08:00 Nasal Cannula 2.0 Intake and Output 10/12/16 10/12/16 10/13/16 15:00 23:00 07:00 Intake Total 350 ml 1050 ml 1100 ml Balance 350 ml 1050 ml 1100 ml Exam Free Text/Dictation Constitutional: alert, obese No distress Psych: nl mood/affect, No anxiety, No confusion Head: atraumatic, normocephalic Eyes: EOMI, PERRL, nl conjunctiva ENMT: mucosa pink and moist, nl external ears & nose Neck: supple, No non-tender Respiratory: normal air movement, No congested cough Cardiovascular: regular rate and rhythm, No edema Gastrointestinal: soft, NT, No rebound or guarding Musculoskeletal: No joint tenderness, No nl extremities to inspection, No nl gait and stance Extremities: normal pulses, No calf tenderness, No cyanosis Neurological: nl mental status, nl speech Skin: nl turgor, No diaphoresis, No rash or lesions Lymph: nl lymph nodes Results Result Diagram: 10/12/16 0705 10/13/16 0629 BINH RODRIGUEZ MD Oct 13, 2016 17:54
[2016-10-13 19:05] LABS: AMYLASE 213 U/L (11-123)
[2016-10-13] MEDS: ATORVASTATIN 40 MG TAB PO SCH (21:16)
[2016-10-13] MEDS: LATANOPROST 0.005% 2.5 ML OPH BOTH EYES SCH (21:29)
[2016-10-14] VITALS (10 sets, daily range): BP systolic 113–169; BP diastolic 72–84; PULSE 76–93; RESP 16–19
[2016-10-14] MEDS: ACCUCHECK AT 2AM (Patients on SS coverage) XX SCH (02:00)
[2016-10-14] MEDS: NS + KCL 20 MEQ 1,000 ML IV SCH ×2 (03:35→21:54)
[2016-10-14] MEDS: PIPER-TAZO 3.375 GM IV (PMX) 100 ML IVPB SCH (05:58)
[2016-10-14] MEDS: metroNIDAZOLE 500 MG/NS (PMX) 100 ML IVPB SCH (06:44)
[2016-10-14] MEDS: INSULIN ASPART [NOVOLOG] 3 ML PEN SC SCH ×4 (08:00→21:00)
[2016-10-14 08:02] LABS: CALCIUM 8.8 mg/dl (8.4-10.2); CREATININE 0.51 mg/dl (0.44-1.00); POTASSIUM 3.4 mmol/L (3.5-5.1)
[2016-10-14] MEDS: FAMOTIDINE 20 MG TAB PO SCH ×2 (08:23→21:49)
[2016-10-14] MEDS: NYSTATIN SUSP 5 ML CUP PO SCH ×3 (08:23→21:49)
[2016-10-14] MEDS: AZITHROMYCIN 500MG/NS (PMX) 250 ML IVPB SCH (08:25)
[2016-10-14] MEDS: NIFEdipine (XL) 60 MG TAB PO SCH (08:25)
[2016-10-14] MEDS ORDERED: LOPERAMIDE 2 MG CAP PO PRN (10:00)
--- NOTE | 2016-10-14 11:35 | CONS ---
Date/Time of Note Date/Time of Note DATE: 10/14/16 TIME: 11:34 Assessment/Plan Assessment/Plan Additional Assessment/Plan IMPRESSION: 1. Abnormal LFTs with abdominal pain, vomiting and fever and chills, rule out cholangitis secondary to most probably bile duct stone. 2. Rheumatoid arthritis. 3. Diabetes mellitus. 4. Status post knee replacement 1 month ago. 5. History of cerebrovascular accident. 6. History of 3 stents. 7. Diabetes mellitus. 8. Possible pneumonia. 9 mild pancreatitis, improving PLAN: Continue all the antibiotic, IV hydration Monitor LFT and CBC We will send for amylase lipase Surgery was deferred. Family thinks patient is more confused because of anesthesia and wants to wait for a few more days. Amylase lipase in a.m. Advance diet Consultation Date/Type/Reason Admit Date/Time Oct 07, 2016 at 20:54 Initial Consult Date 10/07/16 Type of Consultation: Gen surgical Referring Provider: LANDON ZAMORA MD 24 HR Interval Summary Constitutional: improved, no complaints Exam/Review of Systems Vital Signs Vitals Vital Signs Date Time Temp Pulse Resp B/P Pulse Ox O2 Delivery O2 Flow Rate FiO2 10/14/16 08:34 84 10/14/16 07:39 2.0 10/14/16 07:35 98.9 18 169/77 93 10/13/16 21:33 Nasal Cannula Intake and Output 10/13/16 10/13/16 10/14/16 15:00 23:00 07:00 Intake Total 720 ml 950 ml Output Total 600 ml Balance 120 ml 950 ml Exam Constitutional: alert, oriented, well developed Psych: nl mood/affect, no complaints Head: atraumatic, normocephalic Eyes: EOMI, PERRL, nl conjunctiva, nl lids, nl sclera ENMT: nl external ears & nose, nl lips & teeth, nl nasal mucosa & septum Neck: non-tender, supple Respiratory: clear to auscultation, normal air movement Cardiovascular: nl pulses, regular rate and rhythm Gastrointestinal: nl liver, spleen, non-tender, soft Musculoskeletal: nl extremities to inspection, nl gait and stance Extremities: normal pulses Neurological: 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/LINEMAN II-XII intact, nl mental status, nl speech, nl strength Skin: nl turgor, No rash or lesions Lymph: nl lymph nodes Results Result Diagram: 10/12/16 0705 10/14/16 0729 Results 24 hrs Laboratory Tests Test 10/13/16 12:35 10/13/16 17:40 10/13/16 18:25 10/13/16 19:05 Bedside Glucose 188 151 178 Amylase Level 213 H Lipase 1757 H Test 10/13/16 20:47 10/14/16 02:43 10/14/16 07:29 10/14/16 08:11 Bedside Glucose 194 135 136 Sodium Level 135 Potassium Level 3.4 L Chloride Level 104 Carbon Dioxide Level 23 Anion Gap 11 # Blood Urea Nitrogen 9 Creatinine 0.51 Glucose Level 149 Calcium Level 8.8 Medications Medications Current Medications Atorvastatin Calcium (Lipitor) 40 mg QHS PO Last administered on 10/13/16 21: 16; Admin Dose 40 MG; Start 10/07/16 at 21:00 Carvedilol (Coreg) 3.125 mg BID PO Last administered on 10/14/16 08:25; Admin Dose 3.125 MG; Start 10/07/16 at 21:00 Latanoprost (Xalatan) 1 drop HS BOTH EYES Last administered on 10/13/16 21:29 ; Admin Dose 1 DROP; Start 10/07/16 at 21:00 Ondansetron HCl (Zofran Inj) 4 mg Q4H PRN IV NAUSEA AND/OR VOMITING Last administered on 10/08/16 02:14; Admin Dose 4 MG; Start 10/07/16 at 19:30 Acetaminophen (Tylenol Tab) 650 mg Q6H PRN PO PAIN LEVEL 1-3 OR FEVER; Start at 19:30 Docusate Sodium (Colace) 100 mg Q12H PRN PO CONSTIPATION; Start 10/07/16 at 19: 30 Magnesium Hydroxide (Milk Of Mag) 30 ml DAILY PRN PO CONSTIPATION; Start at 19:30 Bisacodyl (Dulcolax) 5 mg DAILY PRN PO CONSTIPATION Last administered on 08:55; Admin Dose 5 MG; Start 10/07/16 at 19:30 Bisacodyl (Dulcolax Supp) 10 mg DAILY PRN [place] CONSTIPATION; Start 10/07/16 at 19 :30 Sodium Biphosphate/ Sodium Phosphate (Fleet Enema) 133 ml DAILY PRN [place] CONSTIPATION; Start 10/07/16 at 19:30 Zolpidem Tartrate (Ambien) 5 mg QHS PRN PO SLEEP; Start 10/07/16 at 19:30 Diagnostic Test (Pha) (Accu-Chek) 1 ea 02 XX Last administered on 10/10/16 03: 00; Admin Dose 1 EA; Start 10/08/16 at 02:00 Miscellaneous Information 1 ea NOTE XX ; Start 10/07/16 at 20:30 Glucose (Glutose) 15 gm Q15M PRN PO DECREASED GLUCOSE; Start 10/07/16 at 20:30 Glucose (Glutose) 22.5 gm Q15M PRN PO DECREASED GLUCOSE; Start 10/07/16 at 20: 30 Dextrose (D50w Syringe) 25 ml Q15M PRN IV DECREASED GLUCOSE; Start 10/07/16 at 20:30 Dextrose (D50w Syringe) 50 ml Q15M PRN IV DECREASED GLUCOSE; Start 10/07/16 at 20:30 Glucagon (Glucagen) 1 mg Q15M PRN IM DECREASED GLUCOSE; Start 10/07/16 at 20:30 Glucose (Glutose) 15 gm Q15M PRN BUCCAL DECREASED GLUCOSE; Start 10/07/16 at 20 :30 Nifedipine (Procardia Xl) 60 mg DAILY PO Last administered on 10/14/16 08:25; Admin Dose 60 MG; Start 10/10/16 at 09:00 Hydralazine HCl (Apresoline) 10 mg Q4H PRN IV SBP>150 mm hg Last administered on 10/11/16 01:27; Admin Dose 10 MG; Start 10/09/16 at 11:30 Acetaminophen/ Hydrocodone Bitart ([place] (5/325)) 1 tab Q4H PRN PO MODERATE PAIN LEVEL 4-6; Start 10/10/16 at 17:30 Morphine Sulfate (morphine) 1 mg Q6H PRN IV SEVERE PAIN LEVEL 7-10; Start 10/10 at 17:30 Famotidine (Pepcid) 20 mg Q12 PO Last administered on 10/14/16 08:23; Admin Dose 20 MG; Start 10/10/16 at 21:00 Nystatin 5 ml 5 ml TID PO Last administered on 10/14/16 08:23; Admin Dose 5 ML ; Start 10/11/16 at 13:00 Potassium Chloride/Sodium Chloride (NS-KCl 20 Meq) 1,000 ml @ 50 mls/hr Q20H IV Last administered on 10/14/16 03:35; Admin Dose 50 MLS/HR; Start 10/12/16 at 12:30 Levofloxacin (Levaquin) 500 mg DAILY@06 PO ; Start 10/15/16 at 06:00; Stop at 05:59 Loperamide HCl (Imodium Cap) 2 mg Q6H PRN PO DIARRHEA Last administered on 10/14 10:38; Admin Dose 2 MG; Start 10/14/16 at 10:00 LAUREN GODFREY MD Oct 14, 2016 11:35
--- NOTE | 2016-10-14 17:15 | PN ---
Date/Time of Note Date/Time of Note DATE: 10/14/16 TIME: 17:09 Assessment/Plan VTE Prophylaxis VTE Prophylaxis Intervention: SCD's Lines/Catheters IV Catheter Type (from [facility]): Peripheral IV Urinary Cath still in place: No (NO F/C) Assessment/Plan Assessment/Plan 1. Severe sepsis, multifactorial secondary to possible biliary sepsis and also secondary to left lower lobe infiltrates. bacteremia 2. Bacteremia with Blood cx growing E.coli follow up blood cx 09/16/16 negative to date 2. Biliary sepsis with acute choledocholithiasis s/p ERCP, sphincterotomy, Removal of multiple stones and stent placement by GI on 10/08/16 3. Left lower lobe infiltrates, concerned about community-acquired pneumonia. 4. Lactic acidosis, likely secondary to severe sepsis. 5. Hyponatremia with a sodium 129 on admission secondary to hypovolemic hyponatremia. 6. Acute kidney injury on chronic kidney disease stage III secondary to prerenal azotemia and secondary to sepsis. 7. History of chronic kidney disease stage II to III secondary to diabetic nephropathy. 8. Hypercalcemia secondary to moderate to severe dehydration. 9. Moderate to severe dehydration. 10. Acute transaminitis with alkaline phosphatase of 1270 due to acute choledocholithiasis 11. History of hypertension.-now Accelerated HTN, not well controlled 12. History of diabetes mellitus type 2, on metformin. 13. History of coronary artery disease, status post previous stent placement. 14. History of bilateral knee surgeries, recently had right knee surgery 15. Hypokalemia PLAN: out of bed to chair TID, Stool for CL difficle S/p ERCP, sphincterotomy, Removal of multiple stones and stent placement by GI BP controleld with Procadia XL , stable agressive K replaceemnt D/c all IV abx, start PO levaquin Blood cx grew E.Coli - follow up blood cx negative to date Nystatin PO for oral thrush SCD for DVT prophylaxis Subjective 24 Hr Interval Summary Free Text/Dictation stable, still not eating well, BP stable , c/o diarrhea Exam/Review of Systems Vital Signs Vitals Vital Signs Date Time Temp Pulse Resp B/P Pulse Ox O2 Delivery O2 Flow Rate FiO2 10/14/16 16:18 83 10/14/16 15:48 98.5 17 154/72 93 10/14/16 08:45 Nasal Cannula 2.0 Intake and Output 10/13/16 10/13/16 10/14/16 14:59 22:59 06:59 Intake Total 720 ml 950 ml Output Total 600 ml Balance 120 ml 950 ml Exam GENERAL: Awake, alert. no acute distress HEENT: Normal. Oropharynx clear. No jaundice. NECK: Supple. No JVD, no lymphadenopathy. LUNGS: Bilateral air entry presence. The patient has left lower lobe rales present with minimal expiratory wheezing. HEART: S1, S2. Tachycardia. No murmur. ABDOMEN: Soft, tender to palpation in right upper quadrant with minimal guarding, no rebound tenderness. Bowel sounds are present. EXTREMITIES: No clubbing, cyanosis, edema. Bilateral knees have surgical scarring present. No cyanosis. NEUROLOGICAL: Nonfocal, intact. PSYCHIATRIC: Appropriate affect and mood. SKIN: No rash. Results Result Diagram: 10/12/16 0705 10/14/16 0729 Results 24 hrs Laboratory Tests Test 10/13/16 17:40 10/13/16 18:25 10/13/16 19:05 10/13/16 20:47 Amylase Level 213 H Lipase 1757 H Bedside Glucose 151 178 194 Test 10/14/16 02:43 10/14/16 07:29 10/14/16 08:11 10/14/16 12:26 Bedside Glucose 135 136 175 Sodium Level 135 Potassium Level 3.4 L Chloride Level 104 Carbon Dioxide Level 23 Anion Gap 11 # Blood Urea Nitrogen 9 Creatinine 0.51 Glucose Level 149 Calcium Level 8.8 Medications Medications Current Medications Atorvastatin Calcium (Lipitor) 40 mg QHS PO Last administered on 10/13/16 21: 16; Admin Dose 40 MG; Start 10/07/16 at 21:00 Carvedilol (Coreg) 3.125 mg BID PO Last administered on 10/14/16 08:25; Admin Dose 3.125 MG; Start 10/07/16 at 21:00 Latanoprost (Xalatan) 1 drop HS BOTH EYES Last administered on 10/13/16 21:29 ; Admin Dose 1 DROP; Start 10/07/16 at 21:00 Ondansetron HCl (Zofran Inj) 4 mg Q4H PRN IV NAUSEA AND/OR VOMITING Last administered on 10/08/16 02:14; Admin Dose 4 MG; Start 10/07/16 at 19:30 Acetaminophen (Tylenol Tab) 650 mg Q6H PRN PO PAIN LEVEL 1-3 OR FEVER; Start at 19:30 Docusate Sodium (Colace) 100 mg Q12H PRN PO CONSTIPATION; Start 10/07/16 at 19: 30 Magnesium Hydroxide (Milk Of Mag) 30 ml DAILY PRN PO CONSTIPATION; Start at 19:30 Bisacodyl (Dulcolax) 5 mg DAILY PRN PO CONSTIPATION Last administered on 08:55; Admin Dose 5 MG; Start 10/07/16 at 19:30 Bisacodyl (Dulcolax Supp) 10 mg DAILY PRN [place] CONSTIPATION; Start 10/07/16 at 19 :30 Sodium Biphosphate/ Sodium Phosphate (Fleet Enema) 133 ml DAILY PRN DE CONSTIPATION; Start 10/07/16 at 19:30 Zolpidem Tartrate (Ambien) 5 mg QHS PRN PO SLEEP; Start 10/07/16 at 19:30 Diagnostic Test (Pha) (Accu-Chek) 1 ea 02 XX Last administered on 10/10/16 03: 00; Admin Dose 1 EA; Start 10/08/16 at 02:00 Miscellaneous Information 1 ea NOTE XX ; Start 10/07/16 at 20:30 Glucose (Glutose) 15 gm Q15M PRN PO DECREASED GLUCOSE; Start 10/07/16 at 20:30 Glucose (Glutose) 22.5 gm Q15M PRN PO DECREASED GLUCOSE; Start 10/07/16 at 20: 30 Dextrose (D50w Syringe) 25 ml Q15M PRN IV DECREASED GLUCOSE; Start 10/07/16 at 20:30 Dextrose (D50w Syringe) 50 ml Q15M PRN IV DECREASED GLUCOSE; Start 10/07/16 at 20:30 Glucagon (Glucagen) 1 mg Q15M PRN IM DECREASED GLUCOSE; Start 10/07/16 at 20:30 Glucose (Glutose) 15 gm Q15M PRN BUCCAL DECREASED GLUCOSE; Start 10/07/16 at 20 :30 Nifedipine (Procardia Xl) 60 mg DAILY PO Last administered on 10/14/16 08:25; Admin Dose 60 MG; Start 10/10/16 at 09:00 Hydralazine HCl (Apresoline) 10 mg Q4H PRN IV SBP>150 mm hg Last administered on 10/11/16 01:27; Admin Dose 10 MG; Start 10/09/16 at 11:30 Acetaminophen/ Hydrocodone Bitart ([place] (5/325)) 1 tab Q4H PRN PO MODERATE PAIN LEVEL 4-6; Start 10/10/16 at 17:30 Morphine Sulfate (morphine) 1 mg Q6H PRN IV SEVERE PAIN LEVEL 7-10; Start 10/10 at 17:30 Famotidine (Pepcid) 20 mg Q12 PO Last administered on 10/14/16 08:23; Admin Dose 20 MG; Start 10/10/16 at 21:00 Nystatin 5 ml 5 ml TID PO Last administered on 10/14/16 12:54; Admin Dose 5 ML ; Start 10/11/16 at 13:00 Potassium Chloride/Sodium Chloride (NS-KCl 20 Meq) 1,000 ml @ 50 mls/hr Q20H IV Last administered on 10/14/16 03:35; Admin Dose 50 MLS/HR; Start 10/12/16 at 12:30 Levofloxacin (Levaquin) 500 mg DAILY@06 PO ; Start 10/15/16 at 06:00; Stop at 05:59 Loperamide HCl (Imodium Cap) 2 mg Q6H PRN PO DIARRHEA Last administered on 10/14 10:38; Admin Dose 2 MG; Start 10/14/16 at 10:00 LANDON ZAMORA MD Oct 14, 2016 17:15
[2016-10-14] MEDS: LATANOPROST 0.005% 2.5 ML OPH BOTH EYES SCH (21:48)
[2016-10-14] MEDS: ATORVASTATIN 40 MG TAB PO SCH (21:49)
[2016-10-15] VITALS (12 sets, daily range): BP systolic 117–183; BP diastolic 59–83; PULSE 80–93; RESP 16–20
[2016-10-15] MEDS: NS + KCL 20 MEQ 1,000 ML IV SCH ×2 (00:04→21:43)
[2016-10-15] MEDS: ACCUCHECK AT 2AM (Patients on SS coverage) XX SCH (02:00)
[2016-10-15] MEDS: LEVOFLOXACIN 500 MG TAB PO SCH (06:44)
[2016-10-15 07:40] LABS: ADD SCAN DIFF NO
[2016-10-15 07:45] LABS: BASOPHIL # 0.1 10^3/ul (0.0-0.1); BASOPHILS % 0.6 % (0.0-2.0); EOSINOPHILS # 0.3 10^3/ul (0.0-0.5); EOSINOPHILS % 3.2 % (0.0-7.0); HEMATOCRIT 34.5 % (37.0-47.0); HEMOGLOBIN 11.4 g/dl (12.0-16.0); LYMPHOCYTES % 24.8 % (15.0-51.0); MEAN CORPUSCULAR HEMOGLOBIN 31.1 pg (29.0-33.0); MEAN CORPUSCULAR VOLUME 94.3 fl (82.0-101.0); MEAN PLATELET VOLUME 10.2 fl (7.4-10.4); MONOCYTE # 0.8 10^3/ul (0.3-0.9); MONOCYTES % 10.7 % (0.0-11.0); NEUTROPHIL # 4.7 10^3/ul (1.6-7.5); NEUTROPHILS % 59.3 % (39.0-77.0); PLATELET COUNT 417 10^3/UL (140-415); RED BLOOD COUNT 3.66 10^6/ul (4.20-5.40); RED CELL DISTRIBUTION WIDTH 15.6 % (11.5-14.5); WHITE BLOOD COUNT 7.9 10^3/ul (4.8-10.8)
[2016-10-15 08:04] LABS: ALBUMIN 3.4 g/dl (3.3-4.9); ALBUMIN/GLOBULIN RATIO 0.8; BILIRUBIN,INDIRECT 0.3 mg/dl (0-1.1); BILIRUBIN,TOTAL 0.3 mg/dl (0.2-1.3); CREATININE 0.46 mg/dl (0.44-1.00); POTASSIUM 3.4 mmol/L (3.5-5.1); TOTAL PROTEIN 7.6 g/dl (6.1-8.1)
[2016-10-15 08:24] LABS: INR 1.17; PT RATIO 1.2
[2016-10-15 08:25] LABS: PARTIAL THROMBOPLASTIN TIME 26.8 Sec (25.0-35.0)
[2016-10-15] MEDS: NYSTATIN SUSP 5 ML CUP PO SCH ×3 (09:35→21:43)
[2016-10-15] MEDS: NIFEdipine (XL) 60 MG TAB PO SCH (09:36)
[2016-10-15] MEDS: FAMOTIDINE 20 MG TAB PO SCH ×2 (09:39→21:43)
[2016-10-15] MEDS: INSULIN ASPART [NOVOLOG] 3 ML PEN SC SCH ×4 (09:39→21:49)
--- NOTE | 2016-10-15 12:03 | PN ---
Date/Time of Note Date/Time of Note DATE: 10/14/16 TIME: 12:01 Assessment/Plan Lines/Catheters IV Catheter Type (from [facility]): Peripheral IV [place] in Place (from [facility]): No (NO F/C) Assessment/Plan Chief Complaint/Hosp Course 1. Abdominal pain, nausea, vomiting, & abnormal LFTs probably 2nd Cholangitis 2nd Choledocholithiasis s/p ERCP with drainage of stone and pus & stent placement 10/09. Family refused surgery for now. s/p Abx -trend labs -ivf -supportive -? eventual outpatient lap janet if family agrees at that point 2. CAD, hx of [place] with multiple stents -cardiac optimization 3. DM -nutrition and medication optimization -encourage weight optimization 4. CVA hx -medical/cardiac optimization -off loading -nutritional optimization 5. Rheumatoid arthritis. -medical management 6. Possible PNA -pulmonary toilette -abx per medical team 7. Anemia -monitor 8. Lactic acidosis, leukocytosis with sepsis 2nd #1. Improved -abx -supportive -as above Thank you, Late entry 10/14 Problems: Subjective 24 Hr Interval Summary No surgery for now per family. s/p ERCP with stone and pus drainage s/p stent placement. Pain improved. No f/c. No n/v. No cough. No hernandes/dizzy/visual or neuro changes. No dysuria. Leukocytosis improving. LFTs and Pancreatic enzymes improving. Exam/Review of Systems Vital Signs Vitals Vital Signs Date Time Temp Pulse Resp B/P Pulse Ox O2 Delivery O2 Flow Rate FiO2 10/15/16 11:53 98.5 93 17 145/71 95 10/15/16 08:15 2.0 10/14/16 20:22 Nasal Cannula Intake and Output 10/14/16 10/14/16 10/15/16 14:59 22:59 06:59 Intake Total 100 ml 500 ml 650 ml Balance 100 ml 500 ml 650 ml Exam Free Text/Dictation Constitutional: alert, obese No distress Psych: nl mood/affect, No anxiety, No confusion Head: atraumatic, normocephalic Eyes: EOMI, PERRL, nl conjunctiva ENMT: mucosa pink and moist, nl external ears & nose Neck: supple, No non-tender Respiratory: normal air movement, No congested cough Cardiovascular: regular rate and rhythm, No edema Gastrointestinal: soft, NT, No rebound or guarding Musculoskeletal: No joint tenderness, No nl extremities to inspection, No nl gait and stance Extremities: normal pulses, No calf tenderness, No cyanosis Neurological: nl mental status, nl speech Skin: nl turgor, No diaphoresis, No rash or lesions Lymph: nl lymph nodes Results Result Diagram: 10/15/16 0630 10/15/16 0630 BINH RODRIGUEZ MD October 15, 2016 12:03
--- NOTE | 2016-10-15 12:04 | PN ---
Date/Time of Note Date/Time of Note DATE: 10/15/16 TIME: 12:03 Assessment/Plan Lines/Catheters IV Catheter Type (from [facility]): Peripheral IV [place] in Place (from [facility]): No (NO F/C) Assessment/Plan Chief Complaint/Hosp Course 1. Abdominal pain, nausea, vomiting, & abnormal LFTs probably 2nd Cholangitis 2nd Choledocholithiasis s/p ERCP with drainage of stone and pus & stent placement 10/09. Family refused surgery for now. s/p Abx -trend labs -ivf -supportive -? eventual outpatient lap janet if family agrees at that point 2. CAD, hx of CT with multiple stents -cardiac optimization 3. DM -nutrition and medication optimization -encourage weight optimization 4. CVA hx -medical/cardiac optimization -off loading -nutritional optimization 5. Rheumatoid arthritis. -medical management 6. Possible PNA -pulmonary toilette -abx per medical team 7. Anemia -monitor 8. Lactic acidosis, leukocytosis with sepsis 2nd #1. Improved -abx -supportive -as above Thank you, Problems: Subjective 24 Hr Interval Summary No surgery for now per family. s/p ERCP with stone and pus drainage s/p stent placement. Pain improving. No f/c. No n/v. No cough. No hernandes/dizzy/visual or neuro changes. No dysuria. Leukocytosis reduced Exam/Review of Systems Vital Signs Vitals Vital Signs Date Time Temp Pulse Resp B/P Pulse Ox O2 Delivery O2 Flow Rate FiO2 10/15/16 11:53 98.5 93 17 145/71 95 10/15/16 08:15 2.0 10/14/16 20:22 Nasal Cannula Intake and Output 10/14/16 10/14/16 10/15/16 14:59 22:59 06:59 Intake Total 100 ml 500 ml 650 ml Balance 100 ml 500 ml 650 ml Exam Free Text/Dictation Constitutional: alert, obese No distress Psych: nl mood/affect, No anxiety, No confusion Head: atraumatic, normocephalic Eyes: EOMI, PERRL, nl conjunctiva ENMT: mucosa pink and moist, nl external ears & nose Neck: supple, No non-tender Respiratory: normal air movement, No congested cough Cardiovascular: regular rate and rhythm, No edema Gastrointestinal: soft, NT, No rebound or guarding Musculoskeletal: No joint tenderness, No nl extremities to inspection, No nl gait and stance Extremities: normal pulses, No calf tenderness, No cyanosis Neurological: nl mental status, nl speech Skin: nl turgor, No diaphoresis, No rash or lesions Lymph: nl lymph nodes Results Result Diagram: 10/15/16 0630 10/15/16 0630 BINH RODRIGUEZ MD October 15, 2016 12:04
--- NOTE | 2016-10-15 13:58 | PN ---
Date/Time of Note Date/Time of Note DATE: 10/15/16 TIME: 13:57 Assessment/Plan VTE Prophylaxis VTE Prophylaxis Intervention: SCD's Lines/Catheters IV Catheter Type (from [facility]): Peripheral IV Urinary Cath still in place: No (NO F/C) Assessment/Plan Assessment/Plan 1. Severe sepsis, multifactorial secondary to possible biliary sepsis and also secondary to left lower lobe infiltrates. bacteremia 2. Bacteremia with Blood cx growing E.coli follow up blood cx 09/16/16 negative to date 2. Biliary sepsis with acute choledocholithiasis s/p ERCP, sphincterotomy, Removal of multiple stones and stent placement by GI on 10/08/16 3. Left lower lobe infiltrates, concerned about community-acquired pneumonia. 4. Lactic acidosis, likely secondary to severe sepsis. 5. Hyponatremia with a sodium 129 on admission secondary to hypovolemic hyponatremia. 6. Acute kidney injury on chronic kidney disease stage III secondary to prerenal azotemia and secondary to sepsis. 7. History of chronic kidney disease stage II to III secondary to diabetic nephropathy. 8. Hypercalcemia secondary to moderate to severe dehydration. 9. Moderate to severe dehydration. 10. Acute transaminitis with alkaline phosphatase of 1270 due to acute choledocholithiasis 11. History of hypertension.-now Accelerated HTN, not well controlled 12. History of diabetes mellitus type 2, on metformin. 13. History of coronary artery disease, status post previous stent placement. 14. History of bilateral knee surgeries, recently had right knee surgery 15. Hypokalemia PLAN: out of bed to chair TID, Stool for CL difficle S/p ERCP, sphincterotomy, Removal of multiple stones and stent placement by GI BP controleld with Procadia XL , stable agressive K replaceemnt D/c all IV abx, started on PO levaquin Blood cx grew E.Coli - follow up blood cx negative to date Nystatin PO for oral thrush SCD for DVT prophylaxis Subjective 24 Hr Interval Summary Free Text/Dictation no acute events overnight,BP stable, afebril Exam/Review of Systems Vital Signs Vitals Vital Signs Date Time Temp Pulse Resp B/P Pulse Ox O2 Delivery O2 Flow Rate FiO2 10/15/16 12:34 93 10/15/16 11:53 98.5 17 145/71 95 10/15/16 08:15 2.0 10/14/16 20:22 Nasal Cannula Intake and Output 10/14/16 10/14/16 10/15/16 15:00 23:00 07:00 Intake Total 100 ml 500 ml 650 ml Balance 100 ml 500 ml 650 ml Exam GENERAL: Awake, alert. no acute distress HEENT: Normal. Oropharynx clear. No jaundice. NECK: Supple. No JVD, no lymphadenopathy. LUNGS: Bilateral air entry presence. The patient has left lower lobe rales present with minimal expiratory wheezing. HEART: S1, S2. Tachycardia. No murmur. ABDOMEN: Soft, tender to palpation in right upper quadrant with minimal guarding, no rebound tenderness. Bowel sounds are present. EXTREMITIES: No clubbing, cyanosis, edema. Bilateral knees have surgical scarring present. No cyanosis. NEUROLOGICAL: Nonfocal, intact. PSYCHIATRIC: Appropriate affect and mood. SKIN: No rash. Results Result Diagram: 10/15/16 0630 10/15/16 0630 Results 24 hrs Laboratory Tests Test 10/14/16 17:29 10/14/16 21:50 10/15/16 06:30 10/15/16 09:33 Bedside Glucose 180 153 210 White Blood Count 7.9 # Red Blood Count 3.66 L Hemoglobin 11.4 L Hematocrit 34.5 L Mean Corpuscular Volume 94.3 Mean Corpuscular Hemoglobin 31.1 Mean Corpuscular Hemoglobin Concent 33.0 Red Cell Distribution Width 15.6 H Platelet Count 417 #H Mean Platelet Volume 10.2 Neutrophils % 59.3 Lymphocytes % 24.8 Monocytes % 10.7 Eosinophils % 3.2 Basophils % 0.6 Nucleated Red Blood Cells % 0.0 Neutrophils # 4.7 Lymphocytes # 2.0 Monocytes # 0.8 Eosinophils # 0.3 Basophils # 0.1 Nucleated Red Blood Cells # 0.0 Prothrombin Time 15.0 H Prothrombin Time Ratio 1.2 INR International Normalized Ratio 1.17 Activated Partial Thromboplast Time 26.8 Sodium Level 134 L Potassium Level 3.4 L Chloride Level 102 Carbon Dioxide Level 23 Anion Gap 12 Blood Urea Nitrogen 8 Creatinine 0.46 Glucose Level 179 Calcium Level 9.0 Total Bilirubin 0.3 Direct Bilirubin 0.00 Indirect Bilirubin 0.3 Aspartate Amino Transf (AST/SGOT) 59 H Alanine Aminotransferase (ALT/SGPT) 44 Alkaline Phosphatase 779 H Total Protein 7.6 Albumin 3.4 Globulin 4.20 H Albumin/Globulin Ratio 0.80 Amylase Level 225 H Lipase 1560 H Test 10/15/16 12:40 Bedside Glucose 270 H Medications Medications Current Medications Atorvastatin Calcium (Lipitor) 40 mg QHS PO Last administered on 10/14/16 21: 49; Admin Dose 40 MG; Start 10/07/16 at 21:00 Carvedilol (Coreg) 3.125 mg BID PO Last administered on 10/15/16 09:35; Admin Dose 3.125 MG; Start 10/07/16 at 21:00 Latanoprost (Xalatan) 1 drop HS BOTH EYES Last administered on 10/14/16 21:48 ; Admin Dose 1 DROP; Start 10/07/16 at 21:00 Ondansetron HCl (Zofran Inj) 4 mg Q4H PRN IV NAUSEA AND/OR VOMITING Last administered on 10/08/16 02:14; Admin Dose 4 MG; Start 10/07/16 at 19:30 Acetaminophen (Tylenol Tab) 650 mg Q6H PRN PO PAIN LEVEL 1-3 OR FEVER; Start at 19:30 Docusate Sodium (Colace) 100 mg Q12H PRN PO CONSTIPATION; Start 10/07/16 at 19: 30 Magnesium Hydroxide (Milk Of Mag) 30 ml DAILY PRN PO CONSTIPATION; Start at 19:30 Bisacodyl (Dulcolax) 5 mg DAILY PRN PO CONSTIPATION Last administered on 08:55; Admin Dose 5 MG; Start 10/07/16 at 19:30 Bisacodyl (Dulcolax Supp) 10 mg DAILY PRN [place] CONSTIPATION; Start 10/07/16 at 19 :30 Sodium Biphosphate/ Sodium Phosphate (Fleet Enema) 133 ml DAILY PRN [place] CONSTIPATION; Start 10/07/16 at 19:30 Zolpidem Tartrate (Ambien) 5 mg QHS PRN PO SLEEP; Start 10/07/16 at 19:30 Diagnostic Test (Pha) (Accu-Chek) 1 ea 02 XX Last administered on 10/10/16 03: 00; Admin Dose 1 EA; Start 10/08/16 at 02:00 Miscellaneous Information 1 ea NOTE XX ; Start 10/07/16 at 20:30 Glucose (Glutose) 15 gm Q15M PRN PO DECREASED GLUCOSE; Start 10/07/16 at 20:30 Glucose (Glutose) 22.5 gm Q15M PRN PO DECREASED GLUCOSE; Start 10/07/16 at 20: 30 Dextrose (D50w Syringe) 25 ml Q15M PRN IV DECREASED GLUCOSE; Start 10/07/16 at 20:30 Dextrose (D50w Syringe) 50 ml Q15M PRN IV DECREASED GLUCOSE; Start 10/07/16 at 20:30 Glucagon (Glucagen) 1 mg Q15M PRN IM DECREASED GLUCOSE; Start 10/07/16 at 20:30 Glucose (Glutose) 15 gm Q15M PRN BUCCAL DECREASED GLUCOSE; Start 10/07/16 at 20 :30 Nifedipine (Procardia Xl) 60 mg DAILY PO Last administered on 10/15/16 09:36; Admin Dose 60 MG; Start 10/10/16 at 09:00 Hydralazine HCl (Apresoline) 10 mg Q4H PRN IV SBP>150 mm hg Last administered on 10/11/16 01:27; Admin Dose 10 MG; Start 10/09/16 at 11:30 Acetaminophen/ Hydrocodone Bitart ([place] (5/325)) 1 tab Q4H PRN PO MODERATE PAIN LEVEL 4-6; Start 10/10/16 at 17:30 Morphine Sulfate (morphine) 1 mg Q6H PRN IV SEVERE PAIN LEVEL 7-10; Start 10/10 at 17:30 Famotidine (Pepcid) 20 mg Q12 PO Last administered on 10/15/16 09:39; Admin Dose 20 MG; Start 10/10/16 at 21:00 Nystatin 5 ml 5 ml TID PO Last administered on 10/15/16 13:18; Admin Dose 5 ML ; Start 10/11/16 at 13:00 Potassium Chloride/Sodium Chloride (NS-KCl 20 Meq) 1,000 ml @ 50 mls/hr Q20H IV Last administered on 10/14/16 21:54; Admin Dose 50 MLS/HR; Start 10/12/16 at 12:30 Levofloxacin (Levaquin) 500 mg DAILY@06 PO Last administered on 10/15/16 06:44 ; Admin Dose 500 MG; Start 10/15/16 at 06:00; Stop 10/21/16 at 05:59 Loperamide HCl (Imodium Cap) 2 mg Q6H PRN PO DIARRHEA Last administered on 10/14t 10:38; Admin Dose 2 MG; Start 10/14/16 at 10:00 LANDON ZAMORA MD October 15, 2016 13:58
[2016-10-15] MEDS ORDERED: POTASSIUM CHLORIDE 20 MEQ in SOD CHLORIDE 0.9% 100 ML IVPB ONE (16:00)
--- NOTE | 2016-10-15 18:13 | CONS ---
Date/Time of Note Date/Time of Note DATE: 10/15/16 TIME: 18:12 Assessment/Plan Assessment/Plan Additional Assessment/Plan Additional Assessment/Plan IMPRESSION: 1. Abnormal LFTs with abdominal pain, vomiting and fever and chills, rule out cholangitis secondary to most probably bile duct stone. 2. Rheumatoid arthritis. 3. Diabetes mellitus. 4. Status post knee replacement 1 month ago. 5. History of cerebrovascular accident. 6. History of 3 stents. 7. Diabetes mellitus. 8. Possible pneumonia. 9 mild pancreatitis, patient totally asymptomatic now PLAN: Continue all the antibiotic, IV hydration Monitor LFT and CBC We will send for amylase lipase Discussed with the son and the patient and now she is agreed for the surgery Advance diet Consultation Date/Type/Reason Admit Date/Time Oct 07, 2016 at 20:54 Initial Consult Date 10/07/16 Type of Consultation: Gen surgical Referring Provider: LANDON ZAMORA MD 24 HR Interval Summary Constitutional: improved, no complaints Exam/Review of Systems Vital Signs Vitals Vital Signs Date Time Temp Pulse Resp B/P Pulse Ox O2 Delivery O2 Flow Rate FiO2 10/15/16 16:41 87 10/15/16 16:00 98.6 17 117/59 99 10/15/16 08:30 Nasal Cannula 2.0 Intake and Output 10/14/16 10/14/16 10/15/16 15:00 23:00 07:00 Intake Total 100 ml 500 ml 650 ml Balance 100 ml 500 ml 650 ml Exam Constitutional: alert, oriented, well developed Psych: nl mood/affect, no complaints Head: atraumatic, normocephalic Eyes: EOMI, PERRL, nl conjunctiva, nl lids, nl sclera ENMT: nl external ears & nose, nl lips & teeth, nl nasal mucosa & septum Neck: non-tender, supple Respiratory: clear to auscultation, normal air movement Cardiovascular: nl pulses, regular rate and rhythm Gastrointestinal: nl liver, spleen, non-tender, soft Musculoskeletal: nl extremities to inspection, nl gait and stance Extremities: normal pulses Neurological: GUARD ENTRANCE REGISTRAR II-XII intact, nl mental status, nl speech, nl strength Skin: nl turgor, No rash or lesions Lymph: nl lymph nodes Results Result Diagram: 10/15/1630 10/15/16 0630 Results 24 hrs Laboratory Tests Test 10/14/16 21:50 10/15/16 06:30 10/15/16 09:33 10/15/16 12:40 Bedside Glucose 153 210 270 H White Blood Count 7.9 # Red Blood Count 3.66 L Hemoglobin 11.4 L Hematocrit 34.5 L Mean Corpuscular Volume 94.3 Mean Corpuscular Hemoglobin 31.1 Mean Corpuscular Hemoglobin Concent 33.0 Red Cell Distribution Width 15.6 H Platelet Count 417 #H Mean Platelet Volume 10.2 Neutrophils % 59.3 Lymphocytes % 24.8 Monocytes % 10.7 Eosinophils % 3.2 Basophils % 0.6 Nucleated Red Blood Cells % 0.0 Neutrophils # 4.7 Lymphocytes # 2.0 Monocytes # 0.8 Eosinophils # 0.3 Basophils # 0.1 Nucleated Red Blood Cells # 0.0 Prothrombin Time 15.0 H Prothrombin Time Ratio 1.2 INR International Normalized Ratio 1.17 Activated Partial Thromboplast Time 26.8 Sodium Level 134 L Potassium Level 3.4 L Chloride Level 102 Carbon Dioxide Level 23 Anion Gap 12 Blood Urea Nitrogen 8 Creatinine 0.46 Glucose Level 179 Calcium Level 9.0 Total Bilirubin 0.3 Direct Bilirubin 0.00 Indirect Bilirubin 0.3 Aspartate Amino Transf (AST/SGOT) 59 H Alanine Aminotransferase (ALT/SGPT) 44 Alkaline Phosphatase 779 H Total Protein 7.6 Albumin 3.4 Globulin 4.20 H Albumin/Globulin Ratio 0.80 Amylase Level 225 H Lipase 1560 H Medications Medications Current Medications Atorvastatin Calcium (Lipitor) 40 mg QHS PO Last administered on 10/14/16 21: 49; Admin Dose 40 MG; Start 10/07/16 at 21:00 Carvedilol (Coreg) 3.125 mg BID PO Last administered on 10/15/16 09:35; Admin Dose 3.125 MG; Start 10/07/16 at 21:00 Latanoprost (Xalatan) 1 drop HS BOTH EYES Last administered on 10/14/16 21:48 ; Admin Dose 1 DROP; Start 10/07/16 at 21:00 Ondansetron HCl (Zofran Inj) 4 mg Q4H PRN IV NAUSEA AND/OR VOMITING Last administered on 10/08/16 02:14; Admin Dose 4 MG; Start 10/07/16 at 19:30 Acetaminophen (Tylenol Tab) 650 mg Q6H PRN PO PAIN LEVEL 1-3 OR FEVER; Start at 19:30 Docusate Sodium (Colace) 100 mg Q12H PRN PO CONSTIPATION; Start 10/07/16 at 19: 30 Magnesium Hydroxide (Milk Of Mag) 30 ml DAILY PRN PO CONSTIPATION; Start at 19:30 Bisacodyl (Dulcolax) 5 mg DAILY PRN PO CONSTIPATION Last administered on 08:55; Admin Dose 5 MG; Start 10/07/16 at 19:30 Bisacodyl (Dulcolax Supp) 10 mg DAILY PRN [place] CONSTIPATION; Start 10/07/16 at 19 :30 Sodium Biphosphate/ Sodium Phosphate (Fleet Enema) 133 ml DAILY PRN [place] CONSTIPATION; Start 10/07/16 at 19:30 Zolpidem Tartrate (Ambien) 5 mg QHS PRN PO SLEEP; Start 10/07/16 at 19:30 Diagnostic Test (Pha) (Accu-Chek) 1 ea 02 XX Last administered on 10/10/16 03: 00; Admin Dose 1 EA; Start 10/08/16 at 02:00 Miscellaneous Information 1 ea NOTE XX ; Start 10/07/16 at 20:30 Glucose (Glutose) 15 gm Q15M PRN PO DECREASED GLUCOSE; Start 10/07/16 at 20:30 Glucose (Glutose) 22.5 gm Q15M PRN PO DECREASED GLUCOSE; Start 10/07/16 at 20: 30 Dextrose (D50w Syringe) 25 ml Q15M PRN IV DECREASED GLUCOSE; Start 10/07/16 at 20:30 Dextrose (D50w Syringe) 50 ml Q15M PRN IV DECREASED GLUCOSE; Start 10/07/16 at 20:30 Glucagon (Glucagen) 1 mg Q15M PRN IM DECREASED GLUCOSE; Start 10/07/16 at 20:30 Glucose (Glutose) 15 gm Q15M PRN BUCCAL DECREASED GLUCOSE; Start 10/07/16 at 20 :30 Nifedipine (Procardia Xl) 60 mg DAILY PO Last administered on 10/15/16 09:36; Admin Dose 60 MG; Start 10/10/16 at 09:00 Hydralazine HCl (Apresoline) 10 mg Q4H PRN IV SBP>150 mm hg Last administered on 10/11/16 01:27; Admin Dose 10 MG; Start 10/09/16 at 11:30 Acetaminophen/ Hydrocodone Bitart ([place] (5/325)) 1 tab Q4H PRN PO MODERATE PAIN LEVEL 4-6; Start 10/10/16 at 17:30 Morphine Sulfate (morphine) 1 mg Q6H PRN IV SEVERE PAIN LEVEL 7-10; Start 10/10 at 17:30 Famotidine (Pepcid) 20 mg Q12 PO Last administered on 10/15/16 09:39; Admin Dose 20 MG; Start 10/10/16 at 21:00 Nystatin 5 ml 5 ml TID PO Last administered on 10/15/16 13:18; Admin Dose 5 ML ; Start 10/11/16 at 13:00 Potassium Chloride/Sodium Chloride (NS-KCl 20 Meq) 1,000 ml @ 50 mls/hr Q20H IV Last administered on 10/14/16 21:54; Admin Dose 50 MLS/HR; Start 10/12/16 at 12:30 Levofloxacin (Levaquin) 500 mg DAILY@06 PO Last administered on 10/15/16 06:44 ; Admin Dose 500 MG; Start 10/15/16 at 06:00; Stop 10/21/16 at 05:59 Loperamide HCl (Imodium Cap) 2 mg Q6H PRN PO DIARRHEA Last administered on 10/14 10:38; Admin Dose 2 MG; Start 10/14/16 at 10:00 LAUREN GODFREY MD October 15, 2016 18:13
[2016-10-15] MEDS: ATORVASTATIN 40 MG TAB PO SCH (21:43)
[2016-10-15] MEDS: LATANOPROST 0.005% 2.5 ML OPH BOTH EYES SCH (21:47)
[2016-10-16] VITALS (10 sets, daily range): BP systolic 137–146; BP diastolic 60–78; PULSE 80–96; RESP 19–20
[2016-10-16] MEDS: ACCUCHECK AT 2AM (Patients on SS coverage) XX SCH (02:44)
[2016-10-16] MEDS: LEVOFLOXACIN 500 MG TAB PO SCH (05:49)
[2016-10-16] MEDS: NYSTATIN SUSP 5 ML CUP PO SCH ×2 (09:21→11:58)
[2016-10-16] MEDS: FAMOTIDINE 20 MG TAB PO SCH (09:21)
[2016-10-16] MEDS: NIFEdipine (XL) 60 MG TAB PO SCH (09:21)
[2016-10-16] MEDS: INSULIN ASPART [NOVOLOG] 3 ML PEN SC SCH ×2 (09:22→11:59)
--- NOTE | 2016-10-16 10:35 | CONS ---
Date/Time of Note Date/Time of Note DATE: 10/16/16 TIME: 10:34 Assessment/Plan Assessment/Plan Additional Assessment/Plan IMPRESSION: 1. Abnormal LFTs with abdominal pain, vomiting and fever and chills, rule out cholangitis secondary to most probably bile duct stone. 2. Rheumatoid arthritis. 3. Diabetes mellitus. 4. Status post knee replacement 1 month ago. 5. History of cerebrovascular accident. 6. History of 3 stents. 7. Diabetes mellitus. 8. Possible pneumonia. 9 mild pancreatitis, patient totally asymptomatic now PLAN: Continue all the antibiotic, IV hydration Monitor LFT and CBC We will send for amylase lipase Discussed with the son and the patient and now she is agreed for the surgery Advance diet Consultation Date/Type/Reason Admit Date/Time Oct 07, 2016 at 20:54 Initial Consult Date 10/07/16 Type of Consultation: Gen surgical Referring Provider: LANDON ZAMORA MD 24 HR Interval Summary Free Text/Dictation Patient denies of abdominal pain She is able to tolerate oral feeding. No nausea no vomiting Constitutional: improved, no complaints Exam/Review of Systems Vital Signs Vitals Vital Signs Date Time Temp Pulse Resp B/P Pulse Ox O2 Delivery O2 Flow Rate FiO2 10/16/16 08:18 90 10/16/16 08:16 98.3 19 143/69 98 10/16/16 06:07 2.0 10/16/16 00:00 Nasal Cannula Intake and Output 10/15/16 10/15/16 10/16/16 14:59 22:59 06:59 Intake Total 1080 ml 250 ml Balance 1080 ml 250 ml Exam Constitutional: alert, oriented, well developed Psych: nl mood/affect, no complaints Head: atraumatic, normocephalic Eyes: EOMI, PERRL, nl conjunctiva, nl lids, nl sclera ENMT: nl external ears & nose, nl lips & teeth, nl nasal mucosa & septum Neck: non-tender, supple Respiratory: clear to auscultation, normal air movement Cardiovascular: nl pulses, regular rate and rhythm Gastrointestinal: nl liver, spleen, non-tender, soft Musculoskeletal: nl extremities to inspection, nl gait and stance Extremities: normal pulses Neurological: SALES LEADER II-XII intact, nl mental status, nl speech, nl strength Skin: nl turgor, No rash or lesions Lymph: nl lymph nodes Results Result Diagram: 10/15/16 0630 10/15/16 0630 Results 24 hrs Laboratory Tests Test 10/15/16 12:40 10/15/16 18:25 10/15/16 21:42 10/16/16 02:41 Bedside Glucose 270 H 184 195 129 Test 10/16/16 07:36 Bedside Glucose 167 Medications Medications Current Medications Atorvastatin Calcium (Lipitor) 40 mg QHS PO Last administered on 10/15/16 21:43 ; Admin Dose 40 MG; Start 10/07/16 at 21:00 Carvedilol (Coreg) 3.125 mg BID PO Last administered on 10/16/16 09:21; Admin Dose 3.125 MG; Start 10/07/16 at 21:00 Latanoprost (Xalatan) 1 drop HS BOTH EYES Last administered on 10/15/16 21:47; Admin Dose 1 DROP; Start 10/07/16 at 21:00 Ondansetron HCl (Zofran Inj) 4 mg Q4H PRN IV NAUSEA AND/OR VOMITING Last administered on 10/08/16 02:14; Admin Dose 4 MG; Start 10/07/16 at 19:30 Acetaminophen (Tylenol Tab) 650 mg Q6H PRN PO PAIN LEVEL 1-3 OR FEVER; Start at 19:30 Docusate Sodium (Colace) 100 mg Q12H PRN PO CONSTIPATION; Start 10/07/16 at 19: 30 Magnesium Hydroxide (Milk Of Mag) 30 ml DAILY PRN PO CONSTIPATION; Start at 19:30 Bisacodyl (Dulcolax) 5 mg DAILY PRN PO CONSTIPATION Last administered on 08:55; Admin Dose 5 MG; Start 10/07/16 at 19:30 Bisacodyl (Dulcolax Supp) 10 mg DAILY PRN [place] CONSTIPATION; Start 10/07/16 at 19 :30 Sodium Biphosphate/ Sodium Phosphate (Fleet Enema) 133 ml DAILY PRN [place] CONSTIPATION; Start 10/07/16 at 19:30 Zolpidem Tartrate (Ambien) 5 mg QHS PRN PO SLEEP; Start 10/07/16 at 19:30 Diagnostic Test (Pha) (Accu-Chek) 1 ea 02 XX Last administered on 10/16/16 02: 44; Admin Dose 1 EA; Start 10/08/16 at 02:00 Miscellaneous Information 1 ea NOTE XX ; Start 10/07/16 at 20:30 Glucose (Glutose) 15 gm Q15M PRN PO DECREASED GLUCOSE; Start 10/07/16 at 20:30 Glucose (Glutose) 22.5 gm Q15M PRN PO DECREASED GLUCOSE; Start 10/07/16 at 20: 30 Dextrose (D50w Syringe) 25 ml Q15M PRN IV DECREASED GLUCOSE; Start 10/07/16 at 20:30 Dextrose (D50w Syringe) 50 ml Q15M PRN IV DECREASED GLUCOSE; Start 10/07/16 at 20:30 Glucagon (Glucagen) 1 mg Q15M PRN IM DECREASED GLUCOSE; Start 10/07/16 at 20:30 Glucose (Glutose) 15 gm Q15M PRN BUCCAL DECREASED GLUCOSE; Start 10/07/16 at 20 :30 Nifedipine (Procardia Xl) 60 mg DAILY PO Last administered on 10/16/16 09:21; Admin Dose 60 MG; Start 10/10/16 at 09:00 Hydralazine HCl (Apresoline) 10 mg Q4H PRN IV SBP>150 mm hg Last administered on 10/11/16 01:27; Admin Dose 10 MG; Start 10/09/16 at 11:30 Acetaminophen/ Hydrocodone Bitart ([place] (5/325)) 1 tab Q4H PRN PO MODERATE PAIN LEVEL 4-6; Start 10/10/16 at 17:30 Morphine Sulfate (morphine) 1 mg Q6H PRN IV SEVERE PAIN LEVEL 7-10; Start 10/10 at 17:30 Famotidine (Pepcid) 20 mg Q12 PO Last administered on 10/16/16 09:21; Admin Dose 20 MG; Start 10/10/16 at 21:00 Nystatin 5 ml 5 ml TID PO Last administered on 10/16/16 09:21; Admin Dose 5 ML ; Start 10/11/16 at 13:00 Potassium Chloride/Sodium Chloride (NS-KCl 20 Meq) 1,000 ml @ 50 mls/hr Q20H IV Last administered on 10/15/16 21:43; Admin Dose 50 MLS/HR; Start 10/12/16 at 12:30 Levofloxacin (Levaquin) 500 mg DAILY@06 PO Last administered on 10/16/16 05:49 ; Admin Dose 500 MG; Start 10/15/16 at 06:00; Stop 10/21/16 at 05:59 Loperamide HCl (Imodium Cap) 2 mg Q6H PRN PO DIARRHEA Last administered on 10/14 10:38; Admin Dose 2 MG; Start 10/14/16 at 10:00 LAUREN GODFREY MD October 16, 2016 10:35
--- NOTE | 2016-10-16 11:15 | PDOCDIS ---
Discharge Instructions CONDITION Patient Condition: Good HOME CARE INSTRUCTIONS: Special Diet: soft diet x 3 days then advance to regular diet ACTIVITY: Activity Restrictions: Slowly Increase Activity Rest between Activity Avoid heavy lifting Avoid Heavy Housework FOLLOW UP/APPOINTMENTS Appointments Follow up with Dr.Shehnaz Villa in 1-2 week. follow up with Dr.Kalpesh Zamora ) in 1-2 week. Follow up with GI in 2 weeks. follow up with General surgery in 2-3 week after discharge LANDON ZAMORA MD October 16, 2016 11:15
[2016-10-16] MEDS ORDERED: METO10TA92 PO (11:19)
[2016-10-16] MEDS ORDERED: AMLO-147 PO (11:19)
[2016-10-16] MEDS ORDERED: PANT40TA3 PO (11:19)
[2016-10-16] MEDS ORDERED: NYST1000 PO (11:19)
[2016-10-16] MEDS ORDERED: LEVO500T72 PO (11:19)
--- NOTE | 2016-10-16 16:45 | PN ---
Date/Time of Note Date/Time of Note DATE: 10/16/16 TIME: 16:44 Assessment/Plan Lines/Catheters IV Catheter Type (from [facility]): Peripheral IV [place] in Place (from [facility]): No Assessment/Plan Chief Complaint/Hosp Course 1. Abdominal pain, nausea, vomiting, & abnormal LFTs probably 2nd Cholangitis 2nd Choledocholithiasis s/p ERCP with drainage of stone and pus & stent placement 10/09. Family refused surgery for now. s/p Abx -? eventual outpatient lap janet if family agrees at that point 2. CAD, hx of [place] with multiple stents -cardiac optimization 3. DM -nutrition and medication optimization -encourage weight optimization 4. CVA hx -medical/cardiac optimization -off loading -nutritional optimization 5. Rheumatoid arthritis. -medical management 6. Possible PNA -pulmonary toilette -abx per medical team 7. Anemia -monitor 8. Lactic acidosis, leukocytosis with sepsis 2nd #1. Improved -abx -supportive -as above Thank you, Problems: Subjective 24 Hr Interval Summary No surgery for now per family. s/p ERCP with stone and pus drainage s/p stent placement. Pain improving. No f/c. No n/v. No cough. No hernandes/dizzy/visual or neuro changes. No dysuria. Leukocytosis resolved Exam/Review of Systems Vital Signs Vitals Vital Signs Date Time Temp Pulse Resp B/P Pulse Ox O2 Delivery O2 Flow Rate FiO2 10/16/16 16:26 90 10/16/16 16:18 98.3 19 144/78 99 10/16/16 06:07 2.0 10/16/16 00:00 Nasal Cannula Intake and Output 10/15/16 10/15/16 10/16/16 15:00 23:00 07:00 Intake Total 1130 ml 200 ml Balance 1130 ml 200 ml Exam Free Text/Dictation Constitutional: alert, obese No distress Psych: nl mood/affect, No anxiety, No confusion Head: atraumatic, normocephalic Eyes: EOMI, PERRL, nl conjunctiva ENMT: mucosa pink and moist, nl external ears & nose Neck: supple, No non-tender Respiratory: normal air movement, No congested cough Cardiovascular: regular rate and rhythm, No edema Gastrointestinal: soft, NT, No rebound or guarding Musculoskeletal: No joint tenderness, No nl extremities to inspection, No nl gait and stance Extremities: normal pulses, No calf tenderness, No cyanosis Neurological: nl mental status, nl speech Skin: nl turgor, No diaphoresis, No rash or lesions Lymph: nl lymph nodes Results Result Diagram: 10/15/1630 10/15/1630 BINH RODRIGUEZ MD October 16, 2016 16:44
--- NOTE | 2016-10-16 22:21 | DS ---
DATE OF ADMISSION: 10/07/2016 DATE OF DISCHARGE: 10/16/2016 FINAL DISCHARGE DIAGNOSES: 1. Severe sepsis, multifactorial secondary to biliary sepsis and left lower lobe pneumonia. 2. Bacteremia with blood culture growing Escherichia coli. 3. Biliary sepsis with acute choledocholithiasis status post ERCP, sphincterotomy, removal of multi ple stones, and stent placement by Dr. Rodger SHEPARD. 4. Left lower lobe infiltrates concerning about community-acquired pneumonia. 5. Lactic acidosis secondary to severe sepsis. 6. Hyponatremia with a sodium of 129 on admission secondary to hypovolemic hyponatremia. 7. Acute kidney injury on chronic kidney disease stage III secondary to prerenal azotemia and secon stacia to sepsis. 8. History of chronic kidney disease stage II to III secondary to diabetic nephropathy. 9. Moderate to severe dehydration. 10. Acute transaminitis with elevated alkaline phosphatase due to the acute choledocholithiasis. 11. History of hypertension with accelerated hypertension. 12. History of diabetes mellitus type 2 on metformin. 13. History of coronary artery disease, status post previous stent placement. 14. History of bilateral knee surgeries. Recently had a right knee surgery in 08/2016. CONSULTATIONS DONE DURING THIS HOSPITALIZATION: 1. GI consult, Dr. Soares. 2. General surgery consult, Dr. Milan Smart. PROCEDURES PERFORMED DURING THIS HOSPITALIZATION: 1. The patient underwent ERCP with a sphincterotomy, removal of multiple stones, and stent placemen t by Dr. Rodger SHEPARD on 10/08/2016. 2. The patient has been offered to have laparoscopic cholecystectomy, but she refused surgery manisha g this admission. HOSPITAL COURSE: This is a 65-year-old female with a past medical history of hypertension, hyperlip idemia, history of coronary artery disease, status post previous stent placement, history of diabete s mellitus on metformin at home, history of bilateral knee surgery, recent surgery on her right knee done in 08/2016. The patient was at the halfway facility, [facility], and was discha rged on 10/05/2016. The patient did not feel well after discharge. She continues to complain of th e nausea, vomiting, and had a fever, chills at home. The patient was febrile with a temperature up to 103.7. In the emergency room, she was tachycardic, hypotensive, and she was admitted for severe sepsis, likely secondary to biliary sepsis. She was started on IV broad spectrum antibiotics includ ing Zosyn and vancomycin. She was also added for IV Flagyl due to concern about biliary sepsis. Steven ansari was noted to have left lower lobe infiltrates on chest x-ray, concern about community-acquired pne umonia. The patient was on broad spectrum antibiotics, IV fluid resuscitation for severe sepsis. S he was evaluated by GI, Dr. Soares, and had an ERCP, sphincterotomy, removal of multiple stones, and had stent placement done by Dr. Soares. She tolerated the procedure very well. Postop, she was tr ansferred to the telemetry floor where she was continued on IV fluids hydration and IV antibiotics. Slowly and gradually, she was started back on her diet. She was seen by general surgery, Dr. Michael Smart, and she was offered to have laparoscopic cholecystectomy, but the patient's family refuse d to have surgery during this hospitalization. They wanted to have conservative approach including the p.o. antibiotics upon discharge. The patient's blood culture grew E. coli. Due to the biliary sepsis, but after getting a few days of IV antibiotic, she had 2 more sets of blood cultures, which were negative. She remained symptomatically improved, much better, has had a physical therapy evalu ation, and she was discharged home with home health set up upon discharge. DISPOSITION: To home with home health. DISCHARGE CONDITION: Stable and improved compared to admission. DISCHARGE ACTIVITIES: As tolerated, slowly resume to the normal baseline activity. DISCHARGE DIET: Soft consistency diet, ADA 1800 kilocalorie diet. DISCHARGE MEDICATIONS: She was given prescriptions of: 1. Protonix. 2. Reglan. 3. Levaquin 500 mg p.o. daily x7 days upon discharge. 4. She is continued on all of her other previous home medications upon discharge. DISCHARGE FOLLOWUP AND INSTRUCTIONS: 1. The patient is to follow up with her own primary care physician, ____, in 1 to 2 weeks after discharge. 2. The patient is to follow with Dr. Landon Delatorre in outpatient renal clinic 1 to 2 weeks after di schargeronimo. 3. The patient is to follow up with GI, Dr. Soares, as outpatient in 1 month for removal of stent. 4. The patient is to follow with general surgery, Dr. Milan Smart, as outpatient in 2 to 3 weeks after discharge to have outpatient laparoscopic cholecystectomy later in life. 5. The patient's has been explained about the discharge plan and followup instructions. Th ey understood and verbalized understanding. They were set up for home health upon discharge. 6. The patient note that the patient's family refused to have a laparoscopic cholecystectomy during this admission. Dictated By: LANDON DELATORRE MD, KP/YURY Conf#: [id number] DID#: [id number]
== END 2016-10-16 18:30 | disposition home health service (06) | DRG 871 ==
LOC: E/R 15:13 → MS4 20:54
PROVIDERS: ADMIT Internal Medicine Nephrology; ATTEND Internal Medicine Nephrology
PROC: 0F798DZ Dilation of Common Bile Duct with Intraluminal Device, Via Natural or Artificial Opening Endoscopic (ICD-10-PCS; principal; 2016-10-08 20:30)
DX: A41.51 Sepsis due to Escherichia coli [E. coli] (principal); J18.8 Other pneumonia, unspecified organism; N17.9 Acute kidney failure, unspecified; E87.2 Acidosis; K85.90 Acute pancreatitis without necrosis or infection, unspecified; E11.21 Type 2 diabetes mellitus with diabetic nephropathy; K80.33 Calculus of bile duct with acute cholangitis with obstruction; B37.0 Candidal stomatitis; E87.1 Hypo-osmolality and hyponatremia; I12.9 Hypertensive chronic kidney disease with stage 1 through stage 4 chronic kidney disease, or unspecified chronic kidney disease; N18.3 Chronic kidney disease, stage 3 (moderate); E86.0 Dehydration; I25.10 Atherosclerotic heart disease of native coronary artery without angina pectoris; M06.9 Rheumatoid arthritis, unspecified; E66.9 Obesity, unspecified; E83.52 Hypercalcemia; E87.6 Hypokalemia; R65.20 Severe sepsis without septic shock; Z86.73 Personal history of transient ischemic attack (TIA), and cerebral infarction without residual deficits; Z79.84 Long term (current) use of oral hypoglycemic drugs; Z95.5 Presence of coronary angioplasty implant and graft; Z68.31 Body mass index [BMI] 31.0-31.9, adult
CPT/HCPCS: 36415; 71010; 74176; 74181; 74330; 76705; 80048; 80053; 81001; 81003; 82150; 82962; 83605; 83690; 83735; 84484; 85025; 85610; 85730; 87040; 87086; 93005; 94664; 96365; 96366; 96368; 96375; 97116; 97162; 97530; C2617; J0360; J0456; J0696; J1100; J1815; J2060; J2270; J2370; J2405; J2543; J2710; J2765; J3475; J3480; J7030

== ENCOUNTER 2017-02-22 06:00 | Inpatient (IN) | payer MEDICARE, OTHER ==
[2017-02-22] VITALS (50 sets, daily range): BP systolic 91–147; BP diastolic 39–74; PULSE 68–89; RESP 14–20; Ht 149.9 cm; Wt 58.8 kg
[~2017-02-22] VITALS: Ht 149.9 cm; Wt 58.8 kg
[~2017-02-22 06:00] MED LIST changes: -AMLO-145 PO; +AMLO-147 PO; -ASPI-676 PO; +ATOR40TA68 PO; -ATOR80TA75 PO; -AZIT250T94 PO; -BENA40TA54 PO; -CARB15DR48 RIGHT EAR; +CARV3.1260 PO; -CARV6.25 PO; -CLOP75TA27 PO; -FOLI-49 PO; -HYDR-3671 PO; -HYDR200T39 PO; -ISOS10TA2 PO; -KTR.5OP5 LEFT EYE; +LEVO500T72 PO; -MEGE400O4 PO; -MET25 PO; +METO10TA92 PO; +NYST1000 PO; +PANT40TA3 PO; -PANT40TA4 PO; -PRD1OP5 LEFT EYE; -SULF500T5 PO; +TRAV2.5D BOTH EYES
--- NOTE | 2017-02-22 06:44 | RADRPT ---
PROCEDURE: Chest. CLINICAL INDICATION: Chest pain. TECHNIQUE: Single frontal view of the chest was obtained. COMPARISON: 10/07/2016. FINDINGS: The cardiac silhouette is enlarged. The aortic arch is calcified. There is mild pulmonary venous co ngestion. There is no focal consolidation or pleural effusion. There is no pneumothorax. There are severe degenerative changes of the left shoulder with erosion of the left proximal humerus. IMPRESSION: Mild cardiomegaly and pulmonary venous congestion. Aortic atherosclerosis. .Will Faria MD, Date Time Electronically viewed and signed by .Will Faria MD, MD on 02/22/2017 06:43 .T/
[2017-02-22] MEDS ORDERED: CIPRO 400 MG/200 ML D5W IVPB ONE (07:00)
[2017-02-22] MEDS ORDERED: IOHEXOL 300MG/ML 30 ML BTL ONE (07:29)
[2017-02-22 07:40] LABS: BASOPHILS % 0.7 % (0.0-2.0); EOSINOPHILS # 0.2 10^3/ul (0.0-0.5); EOSINOPHILS % 3.6 % (0.0-7.0); HEMATOCRIT 31.9 % (37.0-47.0); HEMOGLOBIN 10.3 g/dl (12.0-16.0); LYMPHOCYTES # 1.4 10^3/ul (0.8-2.9); LYMPHOCYTES % 24.7 % (15.0-51.0); MEAN CORPUSCULAR HEMOGLOBIN 32.4 pg (29.0-33.0); MEAN CORPUSCULAR HGB CONC 32.3 g/dl (32.0-37.0); MEAN CORPUSCULAR VOLUME 100.3 fl (82.0-101.0); MEAN PLATELET VOLUME 10.8 fl (7.4-10.4); MONOCYTE # 0.8 10^3/ul (0.3-0.9); MONOCYTES % 13.5 % (0.0-11.0); NEUTROPHILS % 57.2 % (39.0-77.0); PLATELET COUNT 274 10^3/UL (140-415); RED BLOOD COUNT 3.18 10^6/ul (4.20-5.40); RED CELL DISTRIBUTION WIDTH 18.6 % (11.5-14.5); WHITE BLOOD COUNT 5.8 10^3/ul (4.8-10.8)
[2017-02-22 07:54] LABS: ADD UMIC YES; UR ASCORBIC ACID NEGATIVE (NEGATIVE); UR BILIRUBIN (Dip) NEGATIVE (NEGATIVE); UR BLOOD (Dip) 2+ mg/dL (NEGATIVE); UR CLARITY CLEAR (CLEAR); UR COLOR STRAW (YELLOW); UR GLUCOSE (Dip) NEGATIVE (NEGATIVE); UR KETONES (Dip) NEGATIVE (NEGATIVE); UR LEUKOCYTE ESTERASE (Dip) NEGATIVE Leu/ul (NEGATIVE); UR NITRITE (Dip) NEGATIVE (NEGATIVE); UR RBC 0 /HPF (0-5); UR SPECIFIC GRAVITY (Dip) 1.006 (1.003-1.030); UR TOTAL PROTEIN (Dip) NEGATIVE (NEGATIVE); UR UROBILINOGEN (Dip) NEGATIVE (NEGATIVE)
[2017-02-22 07:56] LABS: INR 1.06; PROTIME 13.8 Sec (12.2-14.2); PT RATIO 1.1
[2017-02-22 07:57] LABS: PARTIAL THROMBOPLASTIN TIME 27.1 Sec (25.0-35.0)
[2017-02-22 08:10] LABS: ALBUMIN 3.7 g/dl (3.3-4.9); ALBUMIN/GLOBULIN RATIO 1.15; BILIRUBIN,INDIRECT 0.3 mg/dl (0-1.1); BILIRUBIN,TOTAL 0.3 mg/dl (0.2-1.3); TOTAL PROTEIN 6.9 g/dl (6.1-8.1)
[2017-02-22 08:14] LABS: CALCIUM 9.9 mg/dl (8.4-10.2); CREATININE 0.64 mg/dl (0.44-1.00); POTASSIUM 3.8 mmol/L (3.5-5.1)
--- NOTE | 2017-02-22 08:19 | HPN ---
Date/Time of Note Date/Time of Note DATE: 02/22/17 TIME: 08:19 Interval H&P Admission Note Pt. seen H&P reviewed: No system changes BINH RODRIGUEZ MD Feb 22, 2017 08:19
[2017-02-22] MEDS ORDERED: ONDANSETRON 4 MG INJ ONE (08:21)
[2017-02-22] MEDS ORDERED: MIDAZOLAM 1 MG/ML 2 ML INJ ONE (08:21)
[2017-02-22] MEDS ORDERED: BUPIVACAINE 0.5%/EPI (SDV) 30 ML INJ ONE (08:21)
[2017-02-22] MEDS ORDERED: PROPOFOL 20 ML ONE (08:21)
[2017-02-22] MEDS ORDERED: ROCURONIUM 50 MG INJ ONE (08:21)
[2017-02-22] MEDS ORDERED: FENTAnyl 50 MCG/ML VIAL ONE (08:21)
[2017-02-22] MEDS ORDERED: NEOSTIGMINE 3 MG/3 ML SYRINGE ONE (08:21)
[2017-02-22] MEDS ORDERED: CEFAZOLIN 1 GM INJ ONE (08:21)
[2017-02-22] MEDS ORDERED: GLYCOPYRROLATE 0.4 MG INJ ONE (08:21)
[2017-02-22] MEDS ORDERED: DEXAMETHASONE 4 MG/ML 1 ML INJ ONE (08:22)
--- NOTE | 2017-02-22 08:32 | HP ---
Date/Time of Note Date/Time of Note DATE: 02/22/17 TIME: 08:24 Assessment/Plan VTE Prophylaxis VTE Prophylaxis Intervention: anti-embolic stocking, SCD's Lines/Catheters IV Catheter Type (from Nrs): Peripheral IV Assessment/Plan Chief Complaint/Hosp Course 1. Cholangitis secondary biliary obstruction/Choledocholithiasis s/p ERCP by Dr. Soares in past. Here for removal of stent and cholecystectomy -stent removal by GI -lap janet -patient cleared by cardiology and primary to proceed with surgery 2. CAD, hx of [place] with multiple stents -cleared by cardiology 3. DM -nutrition and medication optimization -encourage weight optimization 4. CVA hx -medical/cardiac optimization -off loading -nutritional optimization 5. Rheumatoid arthritis. -medical management 6. Anemia -monitor Thank you, Problems: HPI/ROS Admit Date/Time Admit Date/Time 02/22/17 Hx of Present Illness 66-year-old female with multiple comorbidities who previously had cholangitis secondary to an obstructing common bile duct stone. She is status post ERCP. Patient improved and was discharged but is now here for elective cholecystectomy and removal of common bile duct stone placed by Dr. Soares. She had has been evaluated by her primary and group insurance specialist and have both cleared her for surgery. ROS 12 point review of systems negative unless addressed per primary or group insurance specialist. PMH/Family/Social Past Medical History Rheumatoid arthritis Diabetes mellitus. Coronary artery disease, Myocardial infarction Right-sided chronic earache History of stroke SIADH. BMI 31, obesity Past Surgical History ercp Stents x 3 Knee replacement Family History Significant Family History: diabetes Social History Alcohol Use: none Smoking Status: Never smoker Drug Use: none Exam/Review of Systems Vital Signs Vitals Vital Signs Date Time Temp Pulse Resp B/P Pulse Ox O2 Delivery O2 Flow Rate FiO2 02/22/17 07:16 97.6 68 19 113/62 96 Room Air Exam Exam Constitutional: alert, obese, oriented, No distress Psych: nl mood/affect, No anxiety, No confusion Head: atraumatic, normocephalic Eyes: EOMI, PERRL, nl conjunctiva ENMT: mucosa pink and moist, nl external ears & nose Neck: supple, No non-tender Respiratory: normal air movement, No congested cough Cardiovascular: regular rate and rhythm, No edema Gastrointestinal: soft, NT No rebound or guarding Musculoskeletal: No joint tenderness, No nl extremities to inspection, No nl gait and stance Extremities: normal pulses, No calf tenderness, No cyanosis Neurological: nl mental status, nl speech Skin: nl turgor, No diaphoresis, No rash or lesions Lymph: nl lymph nodes Labs Result Diagram: 02/22/17 0600 02/22/17 0645 BINH RODRIGUEZ MD Feb 22, 2017 08:32
[2017-02-22] MEDS ORDERED: SUGAMMADEX SODIUM 200 MG/2 ML VIAL IV ONE (09:30)
[2017-02-22] MEDS ORDERED: HYDROCODONE/APAP (5/325) TAB PO PRN (10:00)
[2017-02-22] MEDS: PANTOPRAZOLE (EC) 40 MG TAB PO SCH (10:00)
[2017-02-22] MEDS ORDERED: ALBUTEROL/IPRATROPIUM (NEB) 3 ML AMP HHN PRN (10:00)
[2017-02-22] MEDS ORDERED: ZOLPIDEM 5 MG TAB PO PRN (10:00)
[2017-02-22] MEDS ORDERED: BISACODYL (EC) 5 MG TAB PO PRN (10:00)
[2017-02-22] MEDS ORDERED: ONDANSETRON 4 MG INJ IV PRN (10:00)
[2017-02-22] MEDS ORDERED: ACETAMINOPHEN 325 MG TAB PO PRN (10:00)
[2017-02-22] MEDS ORDERED: NACL 0.9% 3 ML SYG IV SCH (10:00)
[2017-02-22] MEDS ORDERED: BISACODYL 10 MG SUPP PR PRN (10:00)
[2017-02-22] MEDS ORDERED: morphine 2 MG INJ IV PRN (10:00)
[2017-02-22] MEDS ORDERED: MAGNESIUM HYDROXIDE 30ML CUP PO PRN (10:00)
[2017-02-22] MEDS ORDERED: DOCUSATE SODIUM 100 MG CAP PO PRN (10:00)
--- NOTE | 2017-02-22 10:14 | OPPN ---
Date/Time of Note Date/Time of Note DATE: 02/22/17 TIME: 10:12 Operative Report Preoperative Diagnosis bile duct stone Postoperative Diagnosis same Operation/Procedure Performed ERCP GIANT STONE IN CYSTIC DUCT, VS BILE DUCT CHOLANGITIS STENTED Provider: LAUREN GODFREY MD Estimated blood loss: none Transfusion Required: no Specimen: none Grafts/Implants: none Complications: no LAUREN GODFREY MD Feb 22, 2017 10:14
[2017-02-22] MEDS ORDERED: PIPER-TAZO 3.375 GM IV (PMX) 100 ML IVPB SCH (12:00)
[2017-02-22] MEDS ORDERED: NYSTATIN SUSP 100000 UNITS/ML 60 ML BTL PO SCH (13:00)
--- NOTE | 2017-02-22 13:07 | GILP ---
DATE OF PROCEDURE: 02/22/2017 PROCEDURE PERFORMED: Endoscopic retrograde cholangiopancreatogram, removal of the stone, placement of stent. INDICATIONS FOR PROCEDURE: A 66-year-old female undergoing this procedure for removal of the biliary stent and make sure the bile duct is clean prior to laparoscopic cholecystectomy. She is also scheduled for laparoscopic cholecystectomy. The risks of the procedure, related complications, and anesthetic risks, alternatives thoroughly discussed with her 2 sons, both of them understood agreed, consented for it. DESCRIPTION OF PROCEDURE: The patient was brought to OR room #9, intubated by Dr. Babb, placed in the prone position. After optimal position, the patient was given Indocin suppository and Cipro antibiotic. Scope was passed with much ease into the esophagus, advanced further down into the stomach. There was some undigested food in the antrum secondary to gastroparesis from diabetes mellitus. Crumpler of the duodenum appeared narrow. It offered some resistance to the passage of the scope, but this resistance was minimal. Ampulla was immediately identified. There was a stent there, which was removed along with the stent, small stones all came out. Bile duct was then selectively cannulated, and the largest stone was identified as a filling defect. This may be 3 cm in length and 2 cm in diameter. However, the guidewire was above the stone. We used a 9-12 mm balloon, which was above the stone and we swept the bile duct multiple times. A lot of pus came out, but the stone would not budge. The stone was larger than the diameter of the bile duct, but the cystic duct appeared dilated. My feeling was that the stone is in the cystic duct and this is behaving like a Mirizzi syndrome. At this point, I called Dr. Smart to come and look at today. He came to the OR and looked at the films also. It was a large stone and he also felt technically, it would be difficult for him to remove it laparoscopically. So at this point, decided to deploy the stent, 9 cm in length, 10-Faroese stent successfully deployed and good drainage established. I reviewed all the films with the radiologist and he did not know the location of the stone, but it was in the bile duct or in the cystic duct. However, looking at the cholangiogram, both proximal and distal bile ducts were not dilated and intrahepatic ducts were not dilated. So, we looked at the previous films of the ERCP and there appeared to be a stone in the gallbladder, which was the same size and it was pushing upon the cystic duct, but bile duct was wide open then. At that point, after the placement of stent and removal of the stone, patient's family was suggested to go for the a laparoscopic cholecystectomy, but family had totally declined it. Now the stone definitely has come down into the cystic duct and we need to verify that. IMPRESSION: 1. Large giant stone, either in the cystic duct or bile duct. To me it looks like Mirizzi syndrome. 2. Cholangitis. 3. Removal of the old stent. 4. Removal of small stones. 5. Placement of a 10-Faroese 9 cm stent. 6. Fluoro time was 6 seconds PLAN: To get MRCP done to find the location of the stone, whether it is in the cystic duct or bile duct. If it is in the bile duct, we can use laser to break the stone. If it is in the cystic duct, then it is going to be team approach. Discussing with the surgeon whether he can remove it laparoscopically or not. Dictated By: Gurjit Soares MD /nai/cynthia /Document#: [id number] ; Dr. Smart; Dr. Villa; Dr. Juan Ramon VIRGEN
--- NOTE | 2017-02-22 15:28 | RADRPT ---
Vent Rate: 62 bpm RR Interval: 0 msec HI Interval: 174 msec QRS Duration: 76 msec QT Interval: 418 msec QTC Interval: 424 msec P-R-T [place]: 39 - 54 - 72 degrees Normal sinus rhythm Anterior infarct , age undetermined Abnormal ECG Electronically Signed By: Dom Benson [id number]
[2017-02-22] MEDS: PIPER-TAZO 3.375 GM IV (PMX) 100 ML IVPB SCH ×2 (15:41→20:56)
--- NOTE | 2017-02-22 16:47 | RADRPT ---
PROCEDURE: X-ray fluoroscopy guidance CLINICAL INDICATION: ERCP TECHNIQUE: Fluoroscopic guidance was utilized for an intraoperative procedure. Fluoro time: 0.1 minutes Number of images/sequences: 16 COMPARISON: None available FINDINGS: ERCP with stent removal and replacement procedure was performed. Stone extraction with possible roxana jimmie was seen from the biliary tree. Balloon sweep was performed. Minimal biliary dilatation is seen. The osseous structures are unremarkable. The bowel gas pattern is unremarkable. No free air seen. N o other abnormality is identified. IMPRESSION: 1. X-ray fluoroscopic guidance utilized for intraoperative procedure. 2. ERCP with stent removal and replacement and stone extraction procedure. RPTAT: HMJB .Julian Mueller MD, Date Time Electronically viewed and signed by .Julian Mueller MD, MD on 02/22/2017 16:47 .B/
[2017-02-22] MEDS ORDERED: GLUCOSE GEL 15 GRAM TUBE PO PRN ×2 (18:00)
[2017-02-22] MEDS ORDERED: DEXTROSE 50% 50 ML SYRINGE IV PRN ×2 (18:00)
[2017-02-22] MEDS ORDERED: GLUCAGON 1 MG INJ IM PRN (18:00)
[2017-02-22] MEDS ORDERED: GLUCOSE GEL 15 GRAM TUBE BUCCAL PRN (18:00)
[2017-02-22] MEDS: INSULIN ASPART [NOVOLOG] 3 ML PEN SC SCH (18:35)
[2017-02-22] MEDS: ATORVASTATIN 40 MG TAB PO SCH (20:56)
[2017-02-22] MEDS: HEPARIN 5,000 UNIT/0.5 ML VIAL SC SCH (20:58)
[2017-02-22] MEDS: TRAVOPROST 0.004% 2.5 ML OPH BOTH EYES SCH (21:00)
[2017-02-22] MEDS: NYSTATIN SUSP 5 ML CUP PO SCH (21:16)
--- NOTE | 2017-02-22 22:13 | CONS ---
Date/Time of Note Date/Time of Note DATE: 02/22/17 TIME: 21:48 Assessment/Plan Assessment/Plan Additional Assessment/Plan 1. Acute cholangitis secondary biliary obstruction/Choledocholithiasis s/p ERCP by Dr. Soares in past. Here for removal of stent and cholecystectomy 2. H/O CKD II/III 3. H/o CAD s/p previous stent placement 4. H/o previous CVA 5. Hypertension 6. Hyperlipidemia 7. Diabetes melitus Type II 8. H/o Rheumatoid Arthritis Plan : conitnue IV abx zosyn, renally dose IVF if pt will be NPO Plan is to get MRCP GI consult, General surgery is following Pt is previously cleared by Cardiolgoy for Surgery, depending on MRI result pt will posibley need Open cholecystectomy Pt is admitted under , will continue to follow up on patient Consultation Date/Type/Reason Admit Date/Time 02/22/17 Date of Consultation: Feb 22, 2017 Type of Consultation: NEPHROLOGY Reason for Consultation CKD, Biliary sepsis, possible Acute cholangitis Referring Provider: JOSE TOLBERT MD Hx of Present Illness 66-year-old female with multiple comorbidities who previously had cholangitis secondary to an obstructing common bile duct stone. She is status post ERCP. Patient improved and was discharged but is now here for elective cholecystectomy and removal of common bile duct stone placed by Dr. Soares. She had has been evaluated by her primary and electrocardiogram technician and have both cleared her for surgery.she underwent ERCP today which showed purulent drainage from the duct with a very large stone still stuck. At this time, new stent was replaced and we elected not to proceed with lap janet.whs Constitutional: no complaints Eyes: no complaints ENT: no complaints Respiratory: no complaints Cardiovascular: no complaints Gastrointestinal: decreased appetite, nausea, pain Genitourinary: no complaints Musculoskeletal: no complaints Skin: no complaints Neurologic: no complaints Endocrine: no complaints Lymphatic: no complaints Psychological: no complaints Immunologic: no complaints Past Medical History Medical History: coronary artery disease, diabetes, high cholesterol, hypertension, other (h/o CVA) Past Surgical History Past Surgical Hx: other (Coronary stent placement, Bilatearl Total Knee replacement, ERCP with previous stent placement , Left shoulder Nerve surgery ) Family History Significant Family History: no pertinent family hx Social History Alcohol Use: none Smoking Status: Never smoker Drug Use: none Exam/Review of Systems Vital Signs Vitals Vital Signs Date Time Temp Pulse Resp B/P Pulse Ox O2 Delivery O2 Flow Rate FiO2 02/22/17 20:59 98.5 82 20 121/62 97 02/22/17 18:17 Nasal Cannula 02/22/17 16:15 2.0 Exam Constitutional: alert Psych: no complaints Head: normocephalic Eyes: nl conjunctiva ENMT: nl external ears & nose Neck: non-tender, supple Respiratory: clear to auscultation, diminished breath sounds, normal air movement Cardiovascular: nl pulses, regular rate and rhythm Gastrointestinal: firm, other (TTp in RUQ, no rebound, no guarding), soft Extremities: normal pulses Neurological: MANAGER 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 II-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 intact, nl mental status, nl speech, nl strength Results Result Diagram: 02/22/17 0600 02/22/17 0645 Results 24 hrs Laboratory Tests Test 02/22/17 06:00 02/22/17 06:26 02/22/17 06:45 02/22/17 06:54 White Blood Count 5.8 # Red Blood Count 3.18 L Hemoglobin 10.3 L Hematocrit 31.9 L Mean Corpuscular Volume 100.3 Mean Corpuscular Hemoglobin 32.4 Mean Corpuscular Hemoglobin Concent 32.3 Red Cell Distribution Width 18.6 H Platelet Count 274 # Mean Platelet Volume 10.8 H Neutrophils % 57.2 Lymphocytes % 24.7 Monocytes % 13.5 H Eosinophils % 3.6 Basophils % 0.7 Nucleated Red Blood Cells % 0.0 Neutrophils # (Manual) 3.3 Lymphocytes # 1.4 Monocytes # 0.8 Eosinophils # 0.2 Basophils # 0.0 Nucleated Red Blood Cells # 0.0 Urine Color STRAW Urine Clarity CLEAR Urine pH 7.0 Urine Specific Anna 1.006 Urine Ketones NEGATIVE Urine Nitrite NEGATIVE Urine Bilirubin NEGATIVE Urine Urobilinogen NEGATIVE Urine Leukocyte Esterase NEGATIVE Urine Microscopic RBC 0 Urine Microscopic WBC 0 Urine Hemoglobin 2+ H Urine Glucose NEGATIVE Urine Total Protein NEGATIVE Prothrombin Time 13.8 Prothrombin Time Ratio 1.1 INR International Normalized Ratio 1.06 Activated Partial Thromboplast Time 27.1 Sodium Level 138 Potassium Level 3.8 Chloride Level 104 Carbon Dioxide Level 25 Anion Gap 13 Blood Urea Nitrogen 6 L Creatinine 0.64 Glucose Level 115 Calcium Level 9.9 Total Bilirubin 0.3 Direct Bilirubin 0.00 Indirect Bilirubin 0.3 Aspartate Amino Transf (AST/SGOT) 31 Alanine Aminotransferase (ALT/SGPT) 30 Alkaline Phosphatase 196 H Total Protein 6.9 Albumin 3.7 Globulin 3.20 Albumin/Globulin Ratio 1.15 Bedside Glucose 121 Test 02/22/17 09:44 02/22/17 18:07 Bedside Glucose 161 154 Medications Medications Current Medications Amlodipine Besylate (Norvasc) 10 mg DAILY PO ; Start 02/23/17 at 09:00 Atorvastatin Calcium (Lipitor) 40 mg QHS PO Last administered on 02/22/17 20:56 ; Admin Dose 40 MG; Start 02/22/17 at 21:00 Pantoprazole (Protonix Tab) 40 mg DAILY PO ; Start 02/22/17 at 10:00 Travoprost (Travatan) 1 drop HS BOTH EYES ; Start 02/22/17 at 21:00 Ondansetron HCl (Zofran Inj) 4 mg Q6H PRN IV NAUSEA AND/OR VOMITING; Start 02/22 at 10:00 Acetaminophen (Tylenol Tab) 650 mg Q6H PRN PO PAIN LEVEL 1-3 OR FEVER; Start at 10:00 Acetaminophen/ Hydrocodone Bitart ([place] (5/325)) 1 tab Q6H PRN PO MODERATE PAIN LEVEL 4-6; Start 02/22/17 at 10:00 Morphine Sulfate (morphine) 1 mg Q4H PRN IV SEVERE PAIN LEVEL 7-10; Start at 10:00 Docusate Sodium (Colace) 100 mg Q12H PRN PO CONSTIPATION; Start 02/22/17 at 10: 00 Magnesium Hydroxide (Milk Of Mag) 30 ml DAILY PRN PO CONSTIPATION; Start at 10:00 Bisacodyl (Dulcolax) 5 mg DAILY PRN PO CONSTIPATION; Start 02/22/17 at 10:00 Bisacodyl (Dulcolax Supp) 10 mg DAILY PRN [place] CONSTIPATION; Start 02/22/17 at 10: 00 Zolpidem Tartrate (Ambien) 5 mg QHS PRN PO SLEEP; Start 02/22/17 at 10:00 Heparin Sodium (Porcine) 5000 unit 5,000 unit Q12 SC Last administered on 20:58; Admin Dose 5,000 UNIT; Start 02/22/17 at 21:00 Piperacillin Sod/ Tazobactam Sod (Zosyn 3.375gm/ 100 ml (Pmx)) 100 ml @ 200 mls /hr Q6 IVPB Last administered on 02/22/17 20:56; Admin Dose 200 MLS/HR; Start 02/22/17 at 15:32 Nystatin (Nystatin Susp) 5 ml TID PO Last administered on 02/22/17 21:16; Admin Dose 5 ML; Start 02/22/17 at 21:00 Diagnostic Test (Pha) (Accu-Chek) 1 ea 02 XX ; Start 02/23/17 at 02:00 Insulin Aspart (Novolog Insulin Pen) NOVOLOG *MILD* ALGORITHM Q6 SC Last administered on 02/22/17 18:35; Admin Dose 1 UNIT; Start 02/22/17 at 18:00 Miscellaneous Information 1 ea NOTE XX ; Start 02/22/17 at 18:00 Glucose (Glutose) 15 gm Q15M PRN PO DECREASED GLUCOSE; Start 02/22/17 at 18:00 Glucose (Glutose) 22.5 gm Q15M PRN PO DECREASED GLUCOSE; Start 02/22/17 at 18:00 Dextrose (D50w Syringe) 25 ml Q15M PRN IV DECREASED GLUCOSE; Start 02/22/17 at 18:00 Dextrose (D50w Syringe) 50 ml Q15M PRN IV DECREASED GLUCOSE; Start 02/22/17 at 18:00 Glucagon (Glucagen) 1 mg Q15M PRN IM DECREASED GLUCOSE; Start 02/22/17 at 18:00 Glucose (Glutose) 15 gm Q15M PRN BUCCAL DECREASED GLUCOSE; Start 02/22/17 at 18: 00 LANDON ZAMORA MD Feb 22, 2017 21:58
--- NOTE | 2017-02-22 22:36 | RADRPT ---
PROCEDURE: MR Abdomen and MRCP. CLINICAL INDICATION: The common bile duct stent. Possible obstructing stone in the cystic duct or common bile duct. Cholangitis. TECHNIQUE: MRI abdomen with and without contrast and MRCP was performed on a high field scanner. 7.5 cc Gadavist intravenous contrast material was utilized.. 3-D coronal rotating MIP images of the biliary tree are available for review. COMPARISON: ERCP 02/22/2017, MRCP 10/08/2016 FINDINGS: Study limited by significant patient motion. MRCP: Gallbladder contents are hypointense which may represent gallstones versus residual contrast materia l from ERCP. There is no significant intrahepatic biliary ductal dilatation. The common bile duct is partially obscured by presence of a stent. There is no evidence for dilatation of the common bile d uct. The cystic duct is not distinctly visualized. The pancreatic duct is top normal caliber measuri ng 2 mm. MRI Abdomen: The gallbladder wall is not well visualized. There is no evidence for pericholecystic fluid. The pancreas is normal in size and appearance. There is no focal pancreatic mass or. Pancreatic fl uid. The liver is normal in size and homogeneous in signal intensity. There is normal signal intensity w ithin the liver. No liver mass lesion or intrahepatic biliary dilatation is seen. The spleen is no rmal in size and homogeneous in signal intensity. The stomach is partially collapsed but grossly un remarkable. The adrenal glands are normal in appearance. Kidneys are unremarkable.. The aorta is of normal caliber. There is no retroperitoneal lymphadenopathy. The visualize bowel and mesentery are unremarkable. There is no free fluid. IMPRESSION: 1. Limited by motion. 2. Hypointense gallbladder contents which may represent gallstones and / or residual contrast mater ial from prior ERCP. No gross gallbladder wall thickening or pericholecystic fluid. 3. Cystic duct not distinctly visualized. 4. Normal caliber common bile duct, partially obscured by the presence of a stent. No identifiable intraductal calculi of the examination is limited. 5. Pancreatic duct top normal in caliber. RPTAT: HMVK .Tanvir Casas MD, MD Date Time Electronically viewed and signed by .Tanvir Casas MDMD on 02/22/2017 22:35 .Kalee
[2017-02-23] MEDS: PIPER-TAZO 3.375 GM IV (PMX) 100 ML IVPB SCH ×5 (00:57→23:54)
[2017-02-23] MEDS: ACCU-CHEK XX SCH (01:18)
[2017-02-23 03:37] VITALS: BP 118/58; RESP 20
[2017-02-23 05:27] LABS: BASOPHILS % 0.1 % (0.0-2.0); HEMATOCRIT 33.1 % (37.0-47.0); LYMPHOCYTES # 1.4 10^3/ul (0.8-2.9); LYMPHOCYTES % 17.7 % (15.0-51.0); MEAN CORPUSCULAR HEMOGLOBIN 32.6 pg (29.0-33.0); MEAN CORPUSCULAR HGB CONC 33.2 g/dl (32.0-37.0); MEAN CORPUSCULAR VOLUME 98.2 fl (82.0-101.0); MEAN PLATELET VOLUME 10.6 fl (7.4-10.4); MONOCYTE # 0.6 10^3/ul (0.3-0.9); MONOCYTES % 7.6 % (0.0-11.0); NEUTROPHILS % 74.3 % (39.0-77.0); PLATELET COUNT 271 10^3/UL (140-415); RED BLOOD COUNT 3.37 10^6/ul (4.20-5.40); WHITE BLOOD COUNT 7.8 10^3/ul (4.8-10.8)
[2017-02-23 05:37] LABS: ALBUMIN 3.4 g/dl (3.3-4.9); ALBUMIN/GLOBULIN RATIO 1.06; BILIRUBIN,INDIRECT 0.5 mg/dl (0-1.1); BILIRUBIN,TOTAL 0.5 mg/dl (0.2-1.3); CALCIUM 9.4 mg/dl (8.4-10.2); CREATININE 0.69 mg/dl (0.44-1.00); POTASSIUM 3.6 mmol/L (3.5-5.1); TOTAL PROTEIN 6.6 g/dl (6.1-8.1)
[2017-02-23 05:40] LABS: INR 1.05; PARTIAL THROMBOPLASTIN TIME 26.4 Sec (25.0-35.0); PROTIME 13.7 Sec (12.2-14.2); PT RATIO 1.1
[2017-02-23 07:38] VITALS: BP 112/59; RESP 14
[2017-02-23] MEDS: AMLODIPINE 10 MG TAB PO SCH (08:40)
[2017-02-23] MEDS: PANTOPRAZOLE (EC) 40 MG TAB PO SCH (08:41)
[2017-02-23] MEDS: NYSTATIN SUSP 5 ML CUP PO SCH ×3 (08:41→20:44)
[2017-02-23] MEDS: HEPARIN 5,000 UNIT/0.5 ML VIAL SC SCH ×2 (08:45→20:48)
[2017-02-23] MEDS: INSULIN ASPART [NOVOLOG] 3 ML PEN SC SCH ×5 (09:07→20:49)
--- NOTE | 2017-02-23 10:19 | PN ---
Date/Time of Note Date/Time of Note DATE: 02/23/17 TIME: 09:57 Assessment/Plan Lines/Catheters IV Catheter Type (from [facility]): Peripheral IV Assessment/Plan Chief Complaint/Hosp Course 1. Cholangitis secondary biliary obstruction/Choledocholithiasis s/p ERCP by Dr. Soares in past. Here for removal of stent and cholecystectomy: lap janet not done 2/2 stone in cbd vs. cystic duct; stent replaced, pus evacuated by Dr. Soares; MRCP noted -eventual lap janet 2. CAD, hx of [place] with multiple stents -cleared by cardiology 3. DM -nutrition and medication optimization -encourage weight optimization 4. CVA hx -medical/cardiac optimization -off loading -nutritional optimization 5. Rheumatoid arthritis. -medical management 6. Anemia -monitor 7. Elevated alk phos: 2/ #1 Thank you. Patient seen and examined in collaboration with Dr. Milan Smart. No identifiable intraductal calculi of the examination is limited. Problems: Subjective 24 Hr Interval Summary Feels well. Tolerating diet. No nausea/vomiting. No c/o pain. No fevers, chills , abdominal pain, n/v/d/dysuria, cp, palpitations, sob. +flatus Exam/Review of Systems Vital Signs Vitals Vital Signs Date Time Temp Pulse Resp B/P Pulse Ox O2 Delivery O2 Flow Rate FiO2 02/23/17 07:38 97.8 60 14 112/59 98 02/22/17 18:17 Nasal Cannula 02/22/17 16:15 2.0 Intake and Output 02/22/17 02/22/17 02/23/17 15:00 23:00 07:00 Intake Total 600 ml 320 ml Output Total 900 ml Balance -300 ml 320 ml Exam Constitutional: alert, oriented Psych: nl mood/affect, no complaints Head: atraumatic, normocephalic Eyes: nl lids, nl sclera ENMT: mucosa pink and moist, nl nasal mucosa & septum Neck: non-tender, supple Respiratory: normal air movement Cardiovascular: nl pulses, regular rate and rhythm Gastrointestinal: bowel sounds, non-tender, soft, No distended Musculoskeletal: nl extremities to inspection Extremities: normal pulses Skin: nl turgor, rash or lesions Lymph: nl lymph nodes Results Result Diagram: 02/23/1744002/23/17441 DENNIS MENDEZ NP Feb 23, 2017 10:07
--- NOTE | 2017-02-23 12:58 | CONS ---
Date/Time of Note Date/Time of Note DATE: 02/23/17 TIME: 12:55 Assessment/Plan Assessment/Plan Additional Assessment/Plan Additional Assessment/Plan Additional Assessment/Plan 1. Cholangitis 2. Diabetes mellitus 3. Giant stone most probably in the cystic duct MRCP failed to so stone in the bile duct 4. Hypertension 5. History of CVA 6. Coronary artery disease status post a stent clinically stable Plan Review MRCP with the radiologist if the stone confirmed in the cystic duct I will discuss with Dr. Smart whether this can be removed laparoscopically or not. Continue antibiotics Consultation Date/Type/Reason Admit Date/Time Feb 22, 2017 at 09:50 Initial Consult Date 02/22/17 Type of Consultation: NEPHROLOGY Referring Provider: JOSE TOLBERT MD 24 HR Interval Summary Constitutional: improved, no complaints Exam/Review of Systems Vital Signs Vitals Vital Signs Date Time Temp Pulse Resp B/P Pulse Ox O2 Delivery O2 Flow Rate FiO2 02/23/17 07:38 97.8 60 14 112/59 98 02/22/17 18:17 Nasal Cannula 02/22/17 16:15 2.0 Intake and Output 02/22/17 02/22/17 02/23/17 14:59 22:59 06:59 Intake Total 600 ml 320 ml Output Total 900 ml Balance -300 ml 320 ml Exam Constitutional: alert, oriented, well developed Psych: nl mood/affect, no complaints Head: atraumatic, normocephalic Eyes: EOMI, PERRL, nl conjunctiva, nl lids, nl sclera ENMT: nl external ears & nose, nl lips & teeth, nl nasal mucosa & septum Neck: non-tender, supple Respiratory: clear to auscultation, normal air movement Cardiovascular: nl pulses, regular rate and rhythm Gastrointestinal: nl liver, spleen, non-tender, soft Musculoskeletal: nl extremities to inspection, nl gait and stance Extremities: normal pulses Neurological: PATENTED HOGSHEAD ASSEMBLER II-XII intact, nl mental status, nl speech, nl strength Skin: nl turgor, No rash or lesions Lymph: nl lymph nodes Results Result Diagram: 02/23/17 0441 02/23/17 0442 Results 24 hrs Laboratory Tests Test 02/22/17 18:07 02/23/17 00:47 02/23/17 04:41 02/23/17 04:42 Bedside Glucose 154 143 White Blood Count 7.8 # Red Blood Count 3.37 L Hemoglobin 11.0 L Hematocrit 33.1 L Mean Corpuscular Volume 98.2 Mean Corpuscular Hemoglobin 32.6 Mean Corpuscular Hemoglobin Concent 33.2 Red Cell Distribution Width 18.0 H Platelet Count 271 Mean Platelet Volume 10.6 H Neutrophils % 74.3 Lymphocytes % 17.7 Monocytes % 7.6 Eosinophils % 0.0 Basophils % 0.1 Nucleated Red Blood Cells % 0.0 Neutrophils # (Manual) 5.8 Lymphocytes # 1.4 Monocytes # 0.6 Eosinophils # 0.0 Basophils # 0.0 Nucleated Red Blood Cells # 0.0 Prothrombin Time 13.7 Prothrombin Time Ratio 1.1 INR International Normalized Ratio 1.05 Activated Partial Thromboplast Time 26.4 Sodium Level 135 Potassium Level 3.6 Chloride Level 100 Carbon Dioxide Level 28 Anion Gap 11 Blood Urea Nitrogen 13 Creatinine 0.69 Glucose Level 142 Calcium Level 9.4 Total Bilirubin 0.5 Direct Bilirubin 0.00 Indirect Bilirubin 0.5 Aspartate Amino Transf (AST/SGOT) 37 Alanine Aminotransferase (ALT/SGPT) 32 Alkaline Phosphatase 191 H Total Protein 6.6 Albumin 3.4 Globulin 3.20 Albumin/Globulin Ratio 1.06 Test 02/23/17 05:32 02/23/17 08:38 02/23/17 12:53 Bedside Glucose 151 158 119 Medications Medications Current Medications Amlodipine Besylate (Norvasc) 10 mg DAILY PO Last administered on 02/23/17 08: 40; Admin Dose 10 MG; Start 02/23/17 at 09:00 Atorvastatin Calcium (Lipitor) 40 mg QHS PO Last administered on 02/22/17 20:56 ; Admin Dose 40 MG; Start 02/22/17 at 21:00 Pantoprazole (Protonix Tab) 40 mg DAILY PO Last administered on 02/23/17 08:41 ; Admin Dose 40 MG; Start 02/22/17 at 10:00 Travoprost (Travatan) 1 drop HS BOTH EYES ; Start 02/22/17 at 21:00 Ondansetron HCl (Zofran Inj) 4 mg Q6H PRN IV NAUSEA AND/OR VOMITING; Start 02/22 at 10:00 Acetaminophen (Tylenol Tab) 650 mg Q6H PRN PO PAIN LEVEL 1-3 OR FEVER; Start at 10:00 Acetaminophen/ Hydrocodone Bitart ([place] (5/325)) 1 tab Q6H PRN PO MODERATE PAIN LEVEL 4-6; Start 02/22/17 at 10:00 Morphine Sulfate (morphine) 1 mg Q4H PRN IV SEVERE PAIN LEVEL 7-10; Start at 10:00 Docusate Sodium (Colace) 100 mg Q12H PRN PO CONSTIPATION; Start 02/22/17 at 10: 00 Magnesium Hydroxide (Milk Of Mag) 30 ml DAILY PRN PO CONSTIPATION; Start at 10:00 Bisacodyl (Dulcolax) 5 mg DAILY PRN PO CONSTIPATION; Start 02/22/17 at 10:00 Bisacodyl (Dulcolax Supp) 10 mg DAILY PRN [place] CONSTIPATION; Start 02/22/17 at 10: 00 Zolpidem Tartrate (Ambien) 5 mg QHS PRN PO SLEEP; Start 02/22/17 at 10:00 Heparin Sodium (Porcine) 5000 unit 5,000 unit Q12 SC Last administered on 08:45; Admin Dose 5,000 UNIT; Start 02/22/17 at 21:00 Piperacillin Sod/ Tazobactam Sod (Zosyn 3.375gm/ 100 ml (Pmx)) 100 ml @ 200 mls /hr Q6 IVPB Last administered on 02/23/17 05:30; Admin Dose 200 MLS/HR; Start 02/22/17 at 15:32 Nystatin (Nystatin Susp) 5 ml TID PO Last administered on 02/23/17 08:41; Admin Dose 5 ML; Start 02/22/17 at 21:00 Diagnostic Test (Pha) (Accu-Chek) 1 ea 02 XX ; Start 02/23/17 at 02:00 Miscellaneous Information 1 ea NOTE XX ; Start 02/22/17 at 18:00 Glucose (Glutose) 15 gm Q15M PRN PO DECREASED GLUCOSE; Start 02/22/17 at 18:00 Glucose (Glutose) 22.5 gm Q15M PRN PO DECREASED GLUCOSE; Start 02/22/17 at 18:00 Dextrose (D50w Syringe) 25 ml Q15M PRN IV DECREASED GLUCOSE; Start 02/22/17 at 18:00 Dextrose (D50w Syringe) 50 ml Q15M PRN IV DECREASED GLUCOSE; Start 02/22/17 at 18:00 Glucagon (Glucagen) 1 mg Q15M PRN IM DECREASED GLUCOSE; Start 02/22/17 at 18:00 Glucose (Glutose) 15 gm Q15M PRN BUCCAL DECREASED GLUCOSE; Start 02/22/17 at 18: 00 LAUREN GODFREY MD Feb 23, 2017 12:58
[2017-02-23 13:49] VITALS: BP 111/54; RESP 14
--- NOTE | 2017-02-23 14:22 | CONS ---
Date/Time of Note Date/Time of Note DATE: 02/23/17 TIME: 14:21 Assessment/Plan Assessment/Plan Chief Complaint/Hosp Course 66-year-old female with multiple comorbidities who previously had cholangitis secondary to an obstructing common bile duct stone. She is status post ERCP. Patient improved and was discharged but is now here for elective cholecystectomy and removal of common bile duct stone placed by Dr. Soares. She had has been evaluated by her primary and fishing boat mate and have both cleared her for surgery.she underwent ERCP today which showed purulent drainage from the duct with a very large stone still stuck. At this time, new stent was replaced and we elected not to proceed with lap janet.[facility] Problems: Additional Assessment/Plan 1. Acute cholangitis secondary biliary obstruction/Choledocholithiasis s/p ERCP by Dr. Soares in past. Here for removal of stent and cholecystectomy 2. H/O CKD II/III 3. H/o CAD s/p previous stent placement 4. H/o previous CVA 5. Hypertension 6. Hyperlipidemia 7. Diabetes melitus Type II 8. H/o Rheumatoid Arthritis Plan : conitnue IV abx zosyn, renally dose MRCP done GI and Gen Surgery to follow Renal funciton stable, will follow up Consultation Date/Type/Reason Admit Date/Time Feb 22, 2017 at 09:50 Initial Consult Date 02/22/17 Type of Consultation: NEPHROLOGY Referring Provider: JOSE TOLBERT MD 24 HR Interval Summary Free Text/Dictation no acute events, pain controlled, BP stable Exam/Review of Systems Vital Signs Vitals Vital Signs Date Time Temp Pulse Resp B/P Pulse Ox O2 Delivery O2 Flow Rate FiO2 02/23/17 13:49 97.8 59 14 111/54 100 02/22/17 18:17 Nasal Cannula 02/22/17 16:15 2.0 Intake and Output 02/22/17 02/22/17 02/23/17 15:00 23:00 07:00 Intake Total 600 ml 320 ml Output Total 900 ml Balance -300 ml 320 ml Results Result Diagram: 02/23/17 0441 02/23/17 0442 Results 24 hrs Laboratory Tests Test 02/22/17 18:07 02/23/17 00:47 02/23/17 04:41 02/23/17 04:42 Bedside Glucose 154 143 White Blood Count 7.8 # Red Blood Count 3.37 L Hemoglobin 11.0 L Hematocrit 33.1 L Mean Corpuscular Volume 98.2 Mean Corpuscular Hemoglobin 32.6 Mean Corpuscular Hemoglobin Concent 33.2 Red Cell Distribution Width 18.0 H Platelet Count 271 Mean Platelet Volume 10.6 H Neutrophils % 74.3 Lymphocytes % 17.7 Monocytes % 7.6 Eosinophils % 0.0 Basophils % 0.1 Nucleated Red Blood Cells % 0.0 Neutrophils # (Manual) 5.8 Lymphocytes # 1.4 Monocytes # 0.6 Eosinophils # 0.0 Basophils # 0.0 Nucleated Red Blood Cells # 0.0 Prothrombin Time 13.7 Prothrombin Time Ratio 1.1 INR International Normalized Ratio 1.05 Activated Partial Thromboplast Time 26.4 Sodium Level 135 Potassium Level 3.6 Chloride Level 100 Carbon Dioxide Level 28 Anion Gap 11 Blood Urea Nitrogen 13 Creatinine 0.69 Glucose Level 142 Calcium Level 9.4 Total Bilirubin 0.5 Direct Bilirubin 0.00 Indirect Bilirubin 0.5 Aspartate Amino Transf (AST/SGOT) 37 Alanine Aminotransferase (ALT/SGPT) 32 Alkaline Phosphatase 191 H Total Protein 6.6 Albumin 3.4 Globulin 3.20 Albumin/Globulin Ratio 1.06 Test 02/23/17 05:32 02/23/17 08:38 02/23/17 12:53 Bedside Glucose 151 158 119 Medications Medications Current Medications Amlodipine Besylate (Norvasc) 10 mg DAILY PO Last administered on 02/23/17 08: 40; Admin Dose 10 MG; Start 02/23/17 at 09:00 Atorvastatin Calcium (Lipitor) 40 mg QHS PO Last administered on 02/22/17 20:56 ; Admin Dose 40 MG; Start 02/22/17 at 21:00 Pantoprazole (Protonix Tab) 40 mg DAILY PO Last administered on 02/23/17 08:41 ; Admin Dose 40 MG; Start 02/22/17 at 10:00 Travoprost (Travatan) 1 drop HS BOTH EYES ; Start 02/22/17 at 21:00 Ondansetron HCl (Zofran Inj) 4 mg Q6H PRN IV NAUSEA AND/OR VOMITING; Start 02/22 at 10:00 Acetaminophen (Tylenol Tab) 650 mg Q6H PRN PO PAIN LEVEL 1-3 OR FEVER; Start at 10:00 Acetaminophen/ Hydrocodone Bitart ([place] (5/325)) 1 tab Q6H PRN PO MODERATE PAIN LEVEL 4-6; Start 02/22/17 at 10:00 Morphine Sulfate (morphine) 1 mg Q4H PRN IV SEVERE PAIN LEVEL 7-10; Start at 10:00 Docusate Sodium (Colace) 100 mg Q12H PRN PO CONSTIPATION; Start 02/22/17 at 10: 00 Magnesium Hydroxide (Milk Of Mag) 30 ml DAILY PRN PO CONSTIPATION; Start at 10:00 Bisacodyl (Dulcolax) 5 mg DAILY PRN PO CONSTIPATION; Start 02/22/17 at 10:00 Bisacodyl (Dulcolax Supp) [address] [place] CONSTIPATION; Start 02/22/17 at 10: 00 Zolpidem Tartrate (Ambien) 5 mg QHS PRN PO SLEEP; Start 02/22/17 at 10:00 Heparin Sodium (Porcine) 5000 unit 5,000 unit Q12 SC Last administered on 08:45; Admin Dose 5,000 UNIT; Start 02/22/17 at 21:00 Piperacillin Sod/ Tazobactam Sod (Zosyn 3.375gm/ 100 ml (Pmx)) 100 ml @ 200 mls /hr Q6 IVPB Last administered on 02/23/17 13:15; Admin Dose 200 MLS/HR; Start 02/22/17 at 15:32 Nystatin (Nystatin Susp) 5 ml TID PO Last administered on 02/23/17 13:15; Admin Dose 5 ML; Start 02/22/17 at 21:00 Diagnostic Test (Pha) (Accu-Chek) 1 ea 02 XX ; Start 02/23/17 at 02:00 Miscellaneous Information 1 ea NOTE XX ; Start 02/22/17 at 18:00 Glucose (Glutose) 15 gm Q15M PRN PO DECREASED GLUCOSE; Start 02/22/17 at 18:00 Glucose (Glutose) 22.5 gm Q15M PRN PO DECREASED GLUCOSE; Start 02/22/17 at 18:00 Dextrose (D50w Syringe) 25 ml Q15M PRN IV DECREASED GLUCOSE; Start 02/22/17 at 18:00 Dextrose (D50w Syringe) 50 ml Q15M PRN IV DECREASED GLUCOSE; Start 02/22/17 at 18:00 Glucagon (Glucagen) 1 mg Q15M PRN IM DECREASED GLUCOSE; Start 02/22/17 at 18:00 Glucose (Glutose) 15 gm Q15M PRN BUCCAL DECREASED GLUCOSE; Start 02/22/17 at 18: 00 LANDON ZAMORA MD Feb 23, 2017 14:22
--- NOTE | 2017-02-23 15:41 | CONS ---
DATE OF ADMISSION: 02/22/2017 DATE OF CONSULTATION: 02/22/2017 HISTORY OF PRESENT ILLNESS: The patient is a 66-year-old female with a history of diabetes mellitus, hypertension, rheumatoid arthritis, coronary artery disease status post stent placement, history of CVA, who underwent ERCP by me. The patient had drainage of the pus during the procedure and stent was deployed. There was a larger stone. It was difficult to say whether it is in the bile duct or in the cystic duct, but review of my previous ERCP films and discussing with the radiologist, it appears more in favor of a cystic duct stone. Because of the cholangitis, now patient is getting admitted for further management. The patient also was evaluated by Dr. Smart. PAST MEDICAL HISTORY: As described. SOCIAL HISTORY: Does not smoke or drink. FAMILY HISTORY: Family history with nothing contributory. PHYSICAL EXAMINATION: VITAL SIGNS: Stable. HEENT: Unremarkable. NECK: Supple. No thyromegaly. No lymphadenopathy. HEART: No murmur, gallop, or click. LUNGS: Clear. ABDOMEN: Benign. EXTREMITIES: No edema. INTERNATIONAL SPECIALIST: Grossly within normal limits. IMPRESSION: 1. Cholangitis. 2. Diabetes mellitus. 3. Hypertension. 4. Coronary artery disease status post stent. Cardiac-wolff, stable. 5. Cerebrovascular accident. 6. Large stone, giant stone, either in the cystic duct or in the bile duct. PLAN: Plan is to get him an MRCP done to identify the location of the stone. Continue antibiotic and continue present care. Discussed extensively with both of the sons. Dictated By: Gurjit Soares MD /nai/deepa /Document#: [id number]
--- NOTE | 2017-02-23 17:12 | HP ---
Date/Time of Note Date/Time of Note DATE: 02/22/17 TIME: 17:51 Assessment/Plan VTE Prophylaxis VTE Prophylaxis Intervention: other Lines/Catheters IV Catheter Type (from Nrs): Peripheral IV Assessment/Plan Assessment/Plan - Acute Cholangitis secondary biliary obstruction/Choledocholithiasis s/p ERCP by Dr. Soares in past. - Admitted for for removal of stent and cholecystectomy -stent removal by GI -lap janet- will be NPO after MN on Saturday. MRI abdomen today at 1830. Pending MRI abdomen results- fu -patient cleared by cardiology and primary to proceed with surgery - per surgery- Dr Smart - CAD, hx of [place] with multiple stents -cleared by cardiology - DM - Glycemic control- NPH Mild algorithm - H/O CKD II/III - nephrology follows - CVA hx - no acute issues - Rheumatoid arthritis. - Anemia -monitor H/H - Hypertension - Hyperlipidemia Plan : Admit as inpatient See admission orders continue IV abx zosyn, renally dose IVF if pt will be NPO Plan is to get MRCP Pt is previously cleared by Cardiology for Surgery Dw Dr Henry HPI/ROS Admit Date/Time Admit Date/Time 02/22/17 Hx of Present Illness This is a 66-year-old female with multiple comorbidities, SP ERCP who previously had cholangitis secondary to an obstructing common bile duct stone. Patient improved and was discharged but is now here for elective cholecystectomy and removal of common bile duct stone placed by Dr. Soares. She had has been evaluated by her primary and geomagnetist and have both cleared her for surgery.she underwent ERCP today which showed purulent drainage from the duct with a very large stone still stuck. At this time, new stent was replaced and we elected not to proceed with lap janet.Patient is admitted under Dr Henry. ROS 12 point review of systems negative unless addressed per primary or geomagnetist. PMH/Family/Social Past Medical History Rheumatoid arthritis Diabetes mellitus. Coronary artery disease, Myocardial infarction Right-sided chronic earache History of stroke SIADH. BMI 31, obesity ROS Respiratory: no complaints Gastrointestinal: pain Genitourinary: no complaints Musculoskeletal: no complaints PMH/Family/Social Past Medical History Past Surgical History ercp Stents x 3 Knee replacement Family History diabetes Social History Alcohol Use: none Smoking Status: Never smoker Drug Use: none Social History Alcohol Use: none Smoking Status: Never smoker Drug Use: none Exam/Review of Systems Vital Signs Vitals Vital Signs Date Time Temp Pulse Resp B/P Pulse Ox O2 Delivery O2 Flow Rate FiO2 02/22/17 14:00 98.1 76 14 115/65 100 02/22/17 14:00 Nasal Cannula 2.0 Exam Constitutional: alert, oriented, well developed Respiratory: clear to auscultation, normal air movement Cardiovascular: nl pulses, regular rate and rhythm Gastrointestinal: soft, tender (diffuse tenderness) Musculoskeletal: nl extremities to inspection Extremities: normal pulses Labs Result Diagram: 02/22/17 0600 02/22/17 0645 Medications Medications Current Medications Amlodipine Besylate (Norvasc) 10 mg DAILY PO ; Start 02/23/17 at 09:00 Atorvastatin Calcium (Lipitor) 40 mg QHS PO ; Start 02/22/17 at 21:00 Pantoprazole (Protonix Tab) 40 mg DAILY PO ; Start 02/22/17 at 10:00 Travoprost (Travatan) 1 drop HS BOTH EYES ; Start 02/22/17 at 21:00 Ondansetron HCl (Zofran Inj) 4 mg Q6H PRN IV NAUSEA AND/OR VOMITING; Start 02/22 at 10:00 Acetaminophen (Tylenol Tab) 650 mg Q6H PRN PO PAIN LEVEL 1-3 OR FEVER; Start at 10:00 Acetaminophen/ Hydrocodone Bitart ([place] (5/325)) 1 tab Q6H PRN PO MODERATE PAIN LEVEL 4-6; Start 02/22/17 at 10:00 Morphine Sulfate (morphine) 1 mg Q4H PRN IV SEVERE PAIN LEVEL 7-10; Start at 10:00 Docusate Sodium (Colace) 100 mg Q12H PRN PO CONSTIPATION; Start 02/22/17 at 10: 00 Magnesium Hydroxide (Milk Of Mag) 30 ml DAILY PRN PO CONSTIPATION; Start at 10:00 Bisacodyl (Dulcolax) 5 mg DAILY PRN PO CONSTIPATION; Start 02/22/17 at 10:00 Bisacodyl (Dulcolax Supp) 10 mg DAILY PRN [place] CONSTIPATION; Start 02/22/17 at 10: 00 Zolpidem Tartrate (Ambien) 5 mg QHS PRN PO SLEEP; Start 02/22/17 at 10:00 Heparin Sodium (Porcine) 5000 unit 5,000 unit Q12 SC ; Start 02/22/17 at 21:00 Piperacillin Sod/ Tazobactam Sod (Zosyn 3.375gm/ 100 ml (Pmx)) 100 ml @ 200 mls /hr Q6 IVPB Last administered on 02/22/17t 15:41; Admin Dose 200 MLS/HR; Start 02/22/17 at 15:32 Nystatin (Nystatin Susp) 5 ml TID PO ; Start 02/22/17 at 21:00 JENNIFER CALABRESE Feb 22, 2017 18:01
--- NOTE | 2017-02-23 17:13 | PN ---
Date/Time of Note Date/Time of Note DATE: 02/23/17 TIME: 17:12 Assessment/Plan VTE Prophylaxis VTE Prophylaxis Intervention: other Lines/Catheters IV Catheter Type (from Nrsg): Peripheral IV Assessment/Plan Assessment/Plan - Acute Cholangitis secondary biliary obstruction/Choledocholithiasis s/p ERCP by Dr. Soares in past. - Plan for removal of stent and cholecystectomy -stent removal by GI -lap janet- will be NPO after MN on Saturday. MRI abdomen today at 1830. Pending MRI abdomen results- fu -patient cleared by cardiology and primary to proceed with surgery - per surgery- Dr Smart - CAD, hx of [place] with multiple stents -cleared by cardiology - DM - Glycemic control- NPH Mild algorithm - H/O CKD II/III - nephrology follows - CVA hx - no acute issues - Rheumatoid arthritis. - Anemia -monitor H/H - Hypertension - meds resumed - Hyperlipidemia Dw Dr Wilson/ staff Subjective 24 Hr Interval Summary Free Text/Dictation resting in bed, afebrile, denies any complaints. dw staff Constitutional: requiring IVF Respiratory: no complaints Cardiovascular: no complaints Gastrointestinal: pain Genitourinary: no complaints Musculoskeletal: no complaints Exam/Review of Systems Vital Signs Vitals Vital Signs Date Time Temp Pulse Resp B/P Pulse Ox O2 Delivery O2 Flow Rate FiO2 02/23/17 13:49 97.8 59 14 111/54 100 02/22/17 18:17 Nasal Cannula 02/22/17 16:15 2.0 Intake and Output 02/22/17 02/22/17 02/23/17 15:00 23:00 07:00 Intake Total 600 ml 320 ml Output Total 900 ml Balance -300 ml 320 ml Exam Constitutional: alert, well developed Psych: nl mood/affect Respiratory: clear to auscultation, normal air movement Cardiovascular: nl pulses, regular rate and rhythm Gastrointestinal: soft, tender Musculoskeletal: nl extremities to inspection Neurological: nl mental status, nl speech Results Result Diagram: 02/23/1744002/23/17441 Results 24 hrs Laboratory Tests Test 02/22/17 18:07 02/23/17 00:47 02/23/17 04:41 02/23/17 04:42 Bedside Glucose 154 143 White Blood Count 7.8 # Red Blood Count 3.37 L Hemoglobin 11.0 L Hematocrit 33.1 L Mean Corpuscular Volume 98.2 Mean Corpuscular Hemoglobin 32.6 Mean Corpuscular Hemoglobin Concent 33.2 Red Cell Distribution Width 18.0 H Platelet Count 271 Mean Platelet Volume 10.6 H Neutrophils % 74.3 Lymphocytes % 17.7 Monocytes % 7.6 Eosinophils % 0.0 Basophils % 0.1 Nucleated Red Blood Cells % 0.0 Neutrophils # (Manual) 5.8 Lymphocytes # 1.4 Monocytes # 0.6 Eosinophils # 0.0 Basophils # 0.0 Nucleated Red Blood Cells # 0.0 Prothrombin Time 13.7 Prothrombin Time Ratio 1.1 INR International Normalized Ratio 1.05 Activated Partial Thromboplast Time 26.4 Sodium Level 135 Potassium Level 3.6 Chloride Level 100 Carbon Dioxide Level 28 Anion Gap 11 Blood Urea Nitrogen 13 Creatinine 0.69 Glucose Level 142 Calcium Level 9.4 Total Bilirubin 0.5 Direct Bilirubin 0.00 Indirect Bilirubin 0.5 Aspartate Amino Transf (AST/SGOT) 37 Alanine Aminotransferase (ALT/SGPT) 32 Alkaline Phosphatase 191 H Total Protein 6.6 Albumin 3.4 Globulin 3.20 Albumin/Globulin Ratio 1.06 Test 02/23/17 05:32 02/23/17 08:38 02/23/17 12:53 Bedside Glucose 151 158 119 Medications Medications Current Medications Amlodipine Besylate (Norvasc) 10 mg DAILY PO Last administered on 02/23/17 08: 40; Admin Dose 10 MG; Start 02/23/17 at 09:00 Atorvastatin Calcium (Lipitor) 40 mg QHS PO Last administered on 02/22/17 20:56 ; Admin Dose 40 MG; Start 02/22/17 at 21:00 Pantoprazole (Protonix Tab) 40 mg DAILY PO Last administered on 02/23/17 08:41 ; Admin Dose 40 MG; Start 02/22/17 at 10:00 Travoprost (Travatan) 1 drop HS BOTH EYES ; Start 02/22/17 at 21:00 Ondansetron HCl (Zofran Inj) 4 mg Q6H PRN IV NAUSEA AND/OR VOMITING; Start 02/22 at 10:00 Acetaminophen (Tylenol Tab) 650 mg Q6H PRN PO PAIN LEVEL 1-3 OR FEVER; Start at 10:00 Acetaminophen/ Hydrocodone Bitart ([place] (5/325)) 1 tab Q6H PRN PO MODERATE PAIN LEVEL 4-6; Start 02/22/17 at 10:00 Morphine Sulfate (morphine) 1 mg Q4H PRN IV SEVERE PAIN LEVEL 7-10; Start at 10:00 Docusate Sodium (Colace) 100 mg Q12H PRN PO CONSTIPATION; Start 02/22/17 at 10: 00 Magnesium Hydroxide (Milk Of Mag) 30 ml DAILY PRN PO CONSTIPATION; Start at 10:00 Bisacodyl (Dulcolax) 5 mg DAILY PRN PO CONSTIPATION; Start 02/22/17 at 10:00 Bisacodyl (Dulcolax Supp) 10 mg DAILY PRN [place] CONSTIPATION; Start 02/22/17 at 10: 00 Zolpidem Tartrate (Ambien) 5 mg QHS PRN PO SLEEP; Start 02/22/17 at 10:00 Heparin Sodium (Porcine) 5000 unit 5,000 unit Q12 SC Last administered on 08:45; Admin Dose 5,000 UNIT; Start 02/22/17 at 21:00 Piperacillin Sod/ Tazobactam Sod (Zosyn 3.375gm/ 100 ml (Pmx)) 100 ml @ 200 mls /hr Q6 IVPB Last administered on 02/23/17 13:15; Admin Dose 200 MLS/HR; Start 02/22/17 at 15:32 Nystatin (Nystatin Susp) 5 ml TID PO Last administered on 02/23/17 13:15; Admin Dose 5 ML; Start 02/22/17 at 21:00 Diagnostic Test (Pha) (Accu-Chek) 1 ea 02 XX ; Start 02/23/17 at 02:00 Miscellaneous Information 1 ea NOTE XX ; Start 02/22/17 at 18:00 Glucose (Glutose) 15 gm Q15M PRN PO DECREASED GLUCOSE; Start 02/22/17 at 18:00 Glucose (Glutose) 22.5 gm Q15M PRN PO DECREASED GLUCOSE; Start 02/22/17 at 18:00 Dextrose (D50w Syringe) 25 ml Q15M PRN IV DECREASED GLUCOSE; Start 02/22/17 at 18:00 Dextrose (D50w Syringe) 50 ml Q15M PRN IV DECREASED GLUCOSE; Start 9/8/17 at 18:00 Glucagon (Glucagen) 1 mg Q15M PRN IM DECREASED GLUCOSE; Start 02/22/17 at 18:00 Glucose (Glutose) 15 gm Q15M PRN BUCCAL DECREASED GLUCOSE; Start 02/22/17 at 18: 00 JENNIFER CALABRESE Feb 23, 2017 17:13
[2017-02-23 20:12] VITALS: BP 113/53; RESP 18
[2017-02-23] MEDS: ATORVASTATIN 40 MG TAB PO SCH (20:44)
[2017-02-23] MEDS: TRAVOPROST 0.004% 2.5 ML OPH BOTH EYES SCH (21:00)
[2017-02-24] MEDS: ACCU-CHEK XX SCH (01:58)
[2017-02-24 03:07] VITALS: BP 120/57; RESP 20
[2017-02-24] MEDS: PIPER-TAZO 3.375 GM IV (PMX) 100 ML IVPB SCH ×3 (05:10→17:51)
[2017-02-24 06:25] LABS: BASOPHILS % 0.6 % (0.0-2.0); EOSINOPHILS # 0.2 10^3/ul (0.0-0.5); EOSINOPHILS % 2.5 % (0.0-7.0); HEMATOCRIT 33.9 % (37.0-47.0); HEMOGLOBIN 11.2 g/dl (12.0-16.0); LYMPHOCYTES # 1.9 10^3/ul (0.8-2.9); LYMPHOCYTES % 27.6 % (15.0-51.0); MEAN CORPUSCULAR HEMOGLOBIN 32.8 pg (29.0-33.0); MEAN CORPUSCULAR VOLUME 99.4 fl (82.0-101.0); MEAN PLATELET VOLUME 11.1 fl (7.4-10.4); MONOCYTE # 0.8 10^3/ul (0.3-0.9); MONOCYTES % 11.8 % (0.0-11.0); NEUTROPHILS % 57.4 % (39.0-77.0); PLATELET COUNT 288 10^3/UL (140-415); RED BLOOD COUNT 3.41 10^6/ul (4.20-5.40); WHITE BLOOD COUNT 6.7 10^3/ul (4.8-10.8)
[2017-02-24 06:42] LABS: CALCIUM 9.1 mg/dl (8.4-10.2); CREATININE 0.78 mg/dl (0.44-1.00); POTASSIUM 3.4 mmol/L (3.5-5.1)
[2017-02-24] MEDS: INSULIN ASPART [NOVOLOG] 3 ML PEN SC SCH ×4 (07:20→21:00)
[2017-02-24 08:02] VITALS: BP 120/56; RESP 18
[2017-02-24] MEDS: NYSTATIN SUSP 5 ML CUP PO SCH ×3 (08:33→21:28)
[2017-02-24] MEDS: PANTOPRAZOLE (EC) 40 MG TAB PO SCH (08:33)
[2017-02-24] MEDS: AMLODIPINE 10 MG TAB PO SCH (08:33)
[2017-02-24] MEDS: HEPARIN 5,000 UNIT/0.5 ML VIAL SC SCH ×2 (08:34→21:32)
[2017-02-24] MEDS ORDERED: POTASSIUM CHLORIDE (SR) 20 MEQ TAB PO STA (14:12)
--- NOTE | 2017-02-24 14:15 | CONS ---
Date/Time of Note Date/Time of Note DATE: 02/24/17 TIME: 14:14 Assessment/Plan Assessment/Plan Chief Complaint/Hosp Course 66-year-old female with multiple comorbidities who previously had cholangitis secondary to an obstructing common bile duct stone. She is status post ERCP. Patient improved and was discharged but is now here for elective cholecystectomy and removal of common bile duct stone placed by Dr. Soares. She had has been evaluated by her primary and steam turbine assembler and have both cleared her for surgery.she underwent ERCP today which showed purulent drainage from the duct with a very large stone still stuck. At this time, new stent was replaced and we elected not to proceed with lap janet.[facility] Problems: Additional Assessment/Plan 1. Acute cholangitis secondary biliary obstruction/Choledocholithiasis s/p ERCP by Dr. Soares in past. Here for removal of stent and cholecystectomy 2. H/O CKD II/III 3. H/o CAD s/p previous stent placement 4. H/o previous CVA 5. Hypertension 6. Hyperlipidemia 7. Diabetes melitus Type II 8. H/o Rheumatoid Arthritis 8. Hypokalemia Plan : conitnue IV abx zosyn, renally dose KCl 20meEQ pO x 1 dose for hypokalemia MRCP done GI and Gen Surgery to follow to decide about surgery Renal funciton stable, will follow up Consultation Date/Type/Reason Admit Date/Time Feb 22, 2017 at 09:50 Initial Consult Date 02/22/17 Type of Consultation: NEPHROLOGY Referring Provider: JOSE TOLBERT MD 24 HR Interval Summary Free Text/Dictation Pain controlled, K low Exam/Review of Systems Vital Signs Vitals Vital Signs Date Time Temp Pulse Resp B/P Pulse Ox O2 Delivery O2 Flow Rate FiO2 02/24/17 08:02 98.5 63 18 120/56 96 02/24/17 08:00 Nasal Cannula 2.0 Intake and Output 02/23/17 02/23/17 02/24/17 15:00 23:00 07:00 Intake Total 100 ml 1300 ml 1200 ml Output Total 2000 ml 3 ml Balance 100 ml -700 ml 1197 ml Results Result Diagram: 02/24/17 0510 02/24/17 0510 Results 24 hrs Laboratory Tests Test 02/23/17 17:35 02/23/17 20:43 02/24/17 05:10 02/24/17 08:31 Bedside Glucose 131 176 112 White Blood Count 6.7 Red Blood Count 3.41 L Hemoglobin 11.2 L Hematocrit 33.9 L Mean Corpuscular Volume 99.4 Mean Corpuscular Hemoglobin 32.8 Mean Corpuscular Hemoglobin Concent 33.0 Red Cell Distribution Width 18.0 H Platelet Count 288 Mean Platelet Volume 11.1 H Neutrophils % 57.4 Lymphocytes % 27.6 Monocytes % 11.8 H Eosinophils % 2.5 Basophils % 0.6 Nucleated Red Blood Cells % 0.0 Neutrophils # (Manual) 3.9 Lymphocytes # 1.9 Monocytes # 0.8 Eosinophils # 0.2 Basophils # 0.0 Nucleated Red Blood Cells # 0.0 Sodium Level 140 Potassium Level 3.4 L Chloride Level 104 Carbon Dioxide Level 27 Anion Gap 12 Blood Urea Nitrogen 13 Creatinine 0.78 Glucose Level 106 Calcium Level 9.1 Test 02/24/17 11:55 Bedside Glucose 146 Medications Medications Current Medications Amlodipine Besylate (Norvasc) 10 mg DAILY PO Last administered on 02/24/17 08: 33; Admin Dose 10 MG; Start 02/23/17 at 09:00 Atorvastatin Calcium (Lipitor) 40 mg QHS PO Last administered on 02/23/17 20:44 ; Admin Dose 40 MG; Start 02/22/17 at 21:00 Pantoprazole (Protonix Tab) 40 mg DAILY PO Last administered on 02/24/17 08:33 ; Admin Dose 40 MG; Start 02/22/17 at 10:00 Ondansetron HCl (Zofran Inj) 4 mg Q6H PRN IV NAUSEA AND/OR VOMITING; Start 02/22 at 10:00 Acetaminophen (Tylenol Tab) 650 mg Q6H PRN PO PAIN LEVEL 1-3 OR FEVER; Start at 10:00 Acetaminophen/ Hydrocodone Bitart ([place] (5/325)) 1 tab Q6H PRN PO MODERATE PAIN LEVEL 4-6; Start 02/22/17 at 10:00 Morphine Sulfate (morphine) 1 mg Q4H PRN IV SEVERE PAIN LEVEL 7-10; Start at 10:00 Docusate Sodium (Colace) 100 mg Q12H PRN PO CONSTIPATION; Start 02/22/17 at 10: 00 Magnesium Hydroxide (Milk Of Mag) 30 ml DAILY PRN PO CONSTIPATION; Start at 10:00 Bisacodyl (Dulcolax) 5 mg DAILY PRN PO CONSTIPATION; Start 02/22/17 at 10:00 Bisacodyl (Dulcolax Supp) 10 mg DAILY PRN [place] CONSTIPATION; Start 02/22/17 at 10: 00 Zolpidem Tartrate (Ambien) 5 mg QHS PRN PO SLEEP; Start 02/22/17 at 10:00 Heparin Sodium (Porcine) 5000 unit 5,000 unit Q12 SC Last administered on 08:34; Admin Dose 5,000 UNIT; Start 02/22/17 at 21:00 Piperacillin Sod/ Tazobactam Sod (Zosyn 3.375gm/ 100 ml (Pmx)) 100 ml @ 200 mls /hr Q6 IVPB Last administered on 02/24/17 12:03; Admin Dose 200 MLS/HR; Start 02/22/17 at 15:32 Nystatin (Nystatin Susp) 5 ml TID PO Last administered on 02/24/17 12:03; Admin Dose 5 ML; Start 02/22/17 at 21:00 Diagnostic Test (Pha) (Accu-Chek) 1 ea 02 XX ; Start 02/23/17 at 02:00 Miscellaneous Information 1 ea NOTE XX ; Start 02/22/17 at 18:00 Glucose (Glutose) 15 gm Q15M PRN PO DECREASED GLUCOSE; Start 02/22/17 at 18:00 Glucose (Glutose) 22.5 gm Q15M PRN PO DECREASED GLUCOSE; Start 02/22/17 at 18:00 Dextrose (D50w Syringe) 25 ml Q15M PRN IV DECREASED GLUCOSE; Start 02/22/17 at 18:00 Dextrose (D50w Syringe) 50 ml Q15M PRN IV DECREASED GLUCOSE; Start 02/22/17 at 18:00 Glucagon (Glucagen) 1 mg Q15M PRN IM DECREASED GLUCOSE; Start 02/22/17 at 18:00 Glucose (Glutose) 15 gm Q15M PRN BUCCAL DECREASED GLUCOSE; Start 02/22/17 at 18: 00 Latanoprost (Xalatan) 1 drop HS BOTH EYES ; Start 02/23/17 at 21:52 LANDON ZAMORA MD Feb 24, 2017 14:15
[2017-02-24 14:39] VITALS: BP 114/57; RESP 17
--- NOTE | 2017-02-24 14:55 | PN ---
Date/Time of Note Date/Time of Note DATE: 02/24/17 TIME: 14:52 Assessment/Plan VTE Prophylaxis VTE Prophylaxis Intervention: SCD's Lines/Catheters IV Catheter Type (from Nrsg): Saline Lock Assessment/Plan Assessment/Plan - Acute Cholangitis secondary biliary obstruction/Choledocholithiasis s/p ERCP by Dr. Soares in past. - Plan for removal of stent and cholecystectomy -stent removal by GI -lap janet- will be NPO after MN on Saturday. MRI abdomen today at 1830. Pending MRI abdomen results- fu -patient cleared by cardiology and primary to proceed with surgery - per surgery- Dr Smart - CAD, hx of CT with multiple stents -cleared by cardiology - DM - Glycemic control- NPH Mild algorithm - H/O CKD II/III - nephrology follows - CVA hx - no acute issues - Rheumatoid arthritis. - Anemia -monitor H/H - Hypertension - meds resumed - Hyperlipidemia Dw Dr Wilson/ staff Subjective 24 Hr Interval Summary Respiratory: no complaints Cardiovascular: no complaints Gastrointestinal: no complaints Genitourinary: no complaints Musculoskeletal: no complaints Exam/Review of Systems Vital Signs Vitals Vital Signs Date Time Temp Pulse Resp B/P Pulse Ox O2 Delivery O2 Flow Rate FiO2 02/24/17 14:39 98.0 64 17 114/57 95 02/24/17 08:00 Nasal Cannula 2.0 Intake and Output 02/23/17 02/23/17 02/24/17 15:00 23:00 07:00 Intake Total 100 ml 1300 ml 1200 ml Output Total 2000 ml 3 ml Balance 100 ml -700 ml 1197 ml Exam Constitutional: alert, well developed Psych: nl mood/affect Respiratory: clear to auscultation, normal air movement Cardiovascular: nl pulses, regular rate and rhythm Gastrointestinal: non-tender, soft Musculoskeletal: nl extremities to inspection Extremities: normal pulses Neurological: nl mental status, nl speech Skin: nl turgor Results Result Diagram: 02/24/1710 02/24/1710 Results 24 hrs Laboratory Tests Test 02/23/17 17:35 02/23/17 20:43 02/24/17 05:10 02/24/17 08:31 Bedside Glucose 131 176 112 White Blood Count 6.7 Red Blood Count 3.41 L Hemoglobin 11.2 L Hematocrit 33.9 L Mean Corpuscular Volume 99.4 Mean Corpuscular Hemoglobin 32.8 Mean Corpuscular Hemoglobin Concent 33.0 Red Cell Distribution Width 18.0 H Platelet Count 288 Mean Platelet Volume 11.1 H Neutrophils % 57.4 Lymphocytes % 27.6 Monocytes % 11.8 H Eosinophils % 2.5 Basophils % 0.6 Nucleated Red Blood Cells % 0.0 Neutrophils # (Manual) 3.9 Lymphocytes # 1.9 Monocytes # 0.8 Eosinophils # 0.2 Basophils # 0.0 Nucleated Red Blood Cells # 0.0 Sodium Level 140 Potassium Level 3.4 L Chloride Level 104 Carbon Dioxide Level 27 Anion Gap 12 Blood Urea Nitrogen 13 Creatinine 0.78 Glucose Level 106 Calcium Level 9.1 Test 02/24/17 11:55 Bedside Glucose 146 Medications Medications Current Medications Amlodipine Besylate (Norvasc) 10 mg DAILY PO Last administered on 02/24/17 08: 33; Admin Dose 10 MG; Start 02/23/17 at 09:00 Atorvastatin Calcium (Lipitor) 40 mg QHS PO Last administered on 02/23/17 20:44 ; Admin Dose 40 MG; Start 02/22/17 at 21:00 Pantoprazole (Protonix Tab) 40 mg DAILY PO Last administered on 02/24/17 08:33 ; Admin Dose 40 MG; Start 02/22/17 at 10:00 Ondansetron HCl (Zofran Inj) 4 mg Q6H PRN IV NAUSEA AND/OR VOMITING; Start 02/22 at 10:00 Acetaminophen (Tylenol Tab) 650 mg Q6H PRN PO PAIN LEVEL 1-3 OR FEVER; Start at 10:00 Acetaminophen/ Hydrocodone Bitart ([place] (5/325)) 1 tab Q6H PRN PO MODERATE PAIN LEVEL 4-6; Start 02/22/17 at 10:00 Morphine Sulfate (morphine) 1 mg Q4H PRN IV SEVERE PAIN LEVEL 7-10; Start at 10:00 Docusate Sodium (Colace) 100 mg Q12H PRN PO CONSTIPATION; Start 02/22/17 at 10: 00 Magnesium Hydroxide (Milk Of Mag) 30 ml DAILY PRN PO CONSTIPATION; Start at 10:00 Bisacodyl (Dulcolax) 5 mg DAILY PRN PO CONSTIPATION; Start 02/22/17 at 10:00 Bisacodyl (Dulcolax Supp) 10 mg DAILY PRN [place] CONSTIPATION; Start 02/22/17 at 10: 00 Zolpidem Tartrate (Ambien) 5 mg QHS PRN PO SLEEP; Start 02/22/17 at 10:00 Heparin Sodium (Porcine) 5000 unit 5,000 unit Q12 SC Last administered on 08:34; Admin Dose 5,000 UNIT; Start 02/22/17 at 21:00 Piperacillin Sod/ Tazobactam Sod (Zosyn 3.375gm/ 100 ml (Pmx)) 100 ml @ 200 mls /hr Q6 IVPB Last administered on 02/24/17 12:03; Admin Dose 200 MLS/HR; Start 02/22/17 at 15:32 Nystatin (Nystatin Susp) 5 ml TID PO Last administered on 02/24/17 12:03; Admin Dose 5 ML; Start 02/22/17 at 21:00 Diagnostic Test (Pha) (Accu-Chek) 1 ea 02 XX ; Start 02/23/17 at 02:00 Miscellaneous Information 1 ea NOTE XX ; Start 02/22/17 at 18:00 Glucose (Glutose) 15 gm Q15M PRN PO DECREASED GLUCOSE; Start 02/22/17 at 18:00 Glucose (Glutose) 22.5 gm Q15M PRN PO DECREASED GLUCOSE; Start 02/22/17 at 18:00 Dextrose (D50w Syringe) 25 ml Q15M PRN IV DECREASED GLUCOSE; Start 02/22/17 at 18:00 Dextrose (D50w Syringe) 50 ml Q15M PRN IV DECREASED GLUCOSE; Start 02/22/17 at 18:00 Glucagon (Glucagen) 1 mg Q15M PRN IM DECREASED GLUCOSE; Start 02/22/17 at 18:00 Glucose (Glutose) 15 gm Q15M PRN BUCCAL DECREASED GLUCOSE; Start 02/22/17 at 18: 00 Latanoprost (Xalatan) 1 drop HS BOTH EYES ; Start 02/23/17 at 21:52 JENNIFER CALABRESE Feb 24, 2017 14:55
--- NOTE | 2017-02-24 15:10 | CONS ---
Date/Time of Note Date/Time of Note DATE: 02/24/17 TIME: 15:08 Assessment/Plan Assessment/Plan Additional Assessment/Plan 1. Cholangitis 2. Diabetes mellitus 3. Giant stone most probably in the cystic duct MRCP failed to so stone in the bile duct 4. Hypertension 5. History of CVA 6. Coronary artery disease status post a stent clinically stable 7. Diarrhea probably antibiotic associated Plan Review MRCP with the radiologist if the stone confirmed in the cystic duct I will discuss with Dr. Smart whether this can be removed laparoscopically or not. Continue antibiotics I am more in favor of stone in the cystic duct Consultation Date/Type/Reason Admit Date/Time Feb 22, 2017 at 09:50 Initial Consult Date 02/22/17 Type of Consultation: NEPHROLOGY Referring Provider: JOSE TOLBERT MD 24 HR Interval Summary Free Text/Dictation No abdominal pain no nausea no vomiting Patient complains of diarrhea Constitutional: improved Exam/Review of Systems Vital Signs Vitals Vital Signs Date Time Temp Pulse Resp B/P Pulse Ox O2 Delivery O2 Flow Rate FiO2 02/24/17 14:39 98.0 64 17 114/57 95 02/24/17 08:00 Nasal Cannula 2.0 Intake and Output 02/23/17 02/23/17 02/24/17 15:00 23:00 07:00 Intake Total 100 ml 1300 ml 1200 ml Output Total 2000 ml 3 ml Balance 100 ml -700 ml 1197 ml Exam Constitutional: alert, oriented, well developed Psych: nl mood/affect, no complaints Head: atraumatic, normocephalic Eyes: EOMI, PERRL, nl conjunctiva, nl lids, nl sclera ENMT: nl external ears & nose, nl lips & teeth, nl nasal mucosa & septum Neck: non-tender, supple Respiratory: clear to auscultation, normal air movement Cardiovascular: nl pulses, regular rate and rhythm Gastrointestinal: nl liver, spleen, non-tender, soft Musculoskeletal: nl extremities to inspection, nl gait and stance Extremities: normal pulses Neurological: [employer] II-XII intact, nl mental status, nl speech, nl strength Skin: nl turgor, No rash or lesions Lymph: nl lymph nodes Results Result Diagram: 02/24/17 0510 02/24/17 0510 Results 24 hrs Laboratory Tests Test 02/23/17 17:35 02/23/17 20:43 02/24/17 05:10 02/24/17 08:31 Bedside Glucose 131 176 112 White Blood Count 6.7 Red Blood Count 3.41 L Hemoglobin 11.2 L Hematocrit 33.9 L Mean Corpuscular Volume 99.4 Mean Corpuscular Hemoglobin 32.8 Mean Corpuscular Hemoglobin Concent 33.0 Red Cell Distribution Width 18.0 H Platelet Count 288 Mean Platelet Volume 11.1 H Neutrophils % 57.4 Lymphocytes % 27.6 Monocytes % 11.8 H Eosinophils % 2.5 Basophils % 0.6 Nucleated Red Blood Cells % 0.0 Neutrophils # (Manual) 3.9 Lymphocytes # 1.9 Monocytes # 0.8 Eosinophils # 0.2 Basophils # 0.0 Nucleated Red Blood Cells # 0.0 Sodium Level 140 Potassium Level 3.4 L Chloride Level 104 Carbon Dioxide Level 27 Anion Gap 12 Blood Urea Nitrogen 13 Creatinine 0.78 Glucose Level 106 Calcium Level 9.1 Test 02/24/17 11:55 Bedside Glucose 146 Medications Medications Current Medications Amlodipine Besylate (Norvasc) 10 mg DAILY PO Last administered on 02/24/17 08: 33; Admin Dose 10 MG; Start 02/23/17 at 09:00 Atorvastatin Calcium (Lipitor) 40 mg QHS PO Last administered on 02/23/17 20:44 ; Admin Dose 40 MG; Start 02/22/17 at 21:00 Pantoprazole (Protonix Tab) 40 mg DAILY PO Last administered on 02/24/17 08:33 ; Admin Dose 40 MG; Start 02/22/17 at 10:00 Ondansetron HCl (Zofran Inj) 4 mg Q6H PRN IV NAUSEA AND/OR VOMITING; Start 02/22 at 10:00 Acetaminophen (Tylenol Tab) 650 mg Q6H PRN PO PAIN LEVEL 1-3 OR FEVER; Start at 10:00 Acetaminophen/ Hydrocodone Bitart ([place] (5/325)) 1 tab Q6H PRN PO MODERATE PAIN LEVEL 4-6; Start 02/22/17 at 10:00 Morphine Sulfate (morphine) 1 mg Q4H PRN IV SEVERE PAIN LEVEL 7-10; Start at 10:00 Docusate Sodium (Colace) 100 mg Q12H PRN PO CONSTIPATION; Start 02/22/17 at 10: 00 Magnesium Hydroxide (Milk Of Mag) 30 ml DAILY PRN PO CONSTIPATION; Start at 10:00 Bisacodyl (Dulcolax) 5 mg DAILY PRN PO CONSTIPATION; Start 02/22/17 at 10:00 Bisacodyl (Dulcolax Supp) 10 mg DAILY PRN [place] CONSTIPATION; Start 02/22/17 at 10: 00 Zolpidem Tartrate (Ambien) 5 mg QHS PRN PO SLEEP; Start 02/22/17 at 10:00 Heparin Sodium (Porcine) 5000 unit 5,000 unit Q12 SC Last administered on 08:34; Admin Dose 5,000 UNIT; Start 02/22/17 at 21:00 Piperacillin Sod/ Tazobactam Sod (Zosyn 3.375gm/ 100 ml (Pmx)) 100 ml @ 200 mls /hr Q6 IVPB Last administered on 02/24/17 12:03; Admin Dose 200 MLS/HR; Start 02/22/17 at 15:32 Nystatin (Nystatin Susp) 5 ml TID PO Last administered on 02/24/17 12:03; Admin Dose 5 ML; Start 02/22/17 at 21:00 Diagnostic Test (Pha) (Accu-Chek) 1 ea 02 XX ; Start 02/23/17 at 02:00 Miscellaneous Information 1 ea NOTE XX ; Start 02/22/17 at 18:00 Glucose (Glutose) 15 gm Q15M PRN PO DECREASED GLUCOSE; Start 02/22/17 at 18:00 Glucose (Glutose) 22.5 gm Q15M PRN PO DECREASED GLUCOSE; Start 02/22/17 at 18:00 Dextrose (D50w Syringe) 25 ml Q15M PRN IV DECREASED GLUCOSE; Start 02/22/17 at 18:00 Dextrose (D50w Syringe) 50 ml Q15M PRN IV DECREASED GLUCOSE; Start 02/22/17 at 18:00 Glucagon (Glucagen) 1 mg Q15M PRN IM DECREASED GLUCOSE; Start 02/22/17 at 18:00 Glucose (Glutose) 15 gm Q15M PRN BUCCAL DECREASED GLUCOSE; Start 02/22/17 at 18: 00 Latanoprost (Xalatan) 1 drop HS BOTH EYES ; Start 02/23/17 at 21:52 LAUREN GODFREY MD Feb 24, 2017 15:10
--- NOTE | 2017-02-24 16:46 | PN ---
Date/Time of Note Date/Time of Note DATE: 02/24/17 TIME: 16:21 Assessment/Plan Lines/Catheters IV [facility] (from [facility]): Saline Lock Assessment/Plan Chief Complaint/Hosp Course 1. Cholangitis secondary biliary obstruction/Choledocholithiasis s/p ERCP by Dr. Soares in past. Here for removal of stent and cholecystectomy: lap janet not done 2/2 stone in cbd vs. cystic duct; stent replaced, pus evacuated by Dr. Soares; MRCP noted: awaiting for Dr. Soares to review -eventual lap janet after stone removal 2. CAD, hx of [place] with multiple stents -cleared by cardiology 3. DM -nutrition and medication optimization -encourage weight optimization 4. CVA hx -medical/cardiac optimization -off loading -nutritional optimization 5. Rheumatoid arthritis. -medical management 6. Anemia -monitor 7. Elevated alk phos: 2/ #1 improving Thank you. Patient seen and examined in collaboration with Dr. Milan Smart. No identifiable intraductal calculi of the examination is limited. Problems: Subjective 24 Hr Interval Summary Feels well. Tolerating oral diet without n/v. No abdominal pain. Pending lap janet. No fevers, chills, cp, palpitations, n/v/d/dysuria, sob, abdominal pain/ discomfort. +bowel function Exam/Review of Systems Vital Signs Vitals Vital Signs Date Time Temp Pulse Resp B/P Pulse Ox O2 Delivery O2 Flow Rate FiO2 02/24/17 14:39 98.0 64 17 114/57 95 02/24/17 08:00 Nasal Cannula 2.0 Intake and Output 02/23/17 02/23/17 02/24/17 15:00 23:00 07:00 Intake Total 100 ml 1300 ml 1200 ml Output Total 2000 ml 3 ml Balance 100 ml -700 ml 1197 ml Exam Free Text/Dictation Constitutional: alert, oriented Psych: nl mood/affect, no complaints Head: atraumatic, normocephalic Eyes: nl lids, nl sclera ENMT: mucosa pink and moist, nl nasal mucosa & septum Neck: non-tender, supple Respiratory: normal air movement Cardiovascular: nl pulses, regular rate and rhythm Gastrointestinal: bowel sounds, non-tender, soft, No distended Musculoskeletal: nl extremities to inspection Extremities: normal pulses Skin: nl turgor, rash or lesions Lymph: nl lymph nodes Results Result Diagram: 02/24/17 0510 02/24/17 0510 DENNIS MENDEZ NP Feb 24, 2017 16:35
[2017-02-24 20:14] VITALS: BP 123/60; RESP 18
[2017-02-24] MEDS: ATORVASTATIN 40 MG TAB PO SCH (21:29)
[2017-02-24] MEDS: LATANOPROST 0.005% 2.5 ML OPH BOTH EYES SCH (21:29)
[2017-02-25] MEDS: PIPER-TAZO 3.375 GM IV (PMX) 100 ML IVPB SCH ×5 (00:18→23:56)
[2017-02-25] MEDS: ACCU-CHEK XX SCH (01:41)
[2017-02-25 01:46] VITALS: BP 143/63; RESP 18
[2017-02-25 05:44] LABS: BASOPHILS % 0.6 % (0.0-2.0); EOSINOPHILS # 0.3 10^3/ul (0.0-0.5); EOSINOPHILS % 4.2 % (0.0-7.0); HEMATOCRIT 37.2 % (37.0-47.0); LYMPHOCYTES # 2.6 10^3/ul (0.8-2.9); LYMPHOCYTES % 38.3 % (15.0-51.0); MEAN CORPUSCULAR HEMOGLOBIN 32.7 pg (29.0-33.0); MEAN CORPUSCULAR HGB CONC 32.3 g/dl (32.0-37.0); MEAN CORPUSCULAR VOLUME 101.4 fl (82.0-101.0); MEAN PLATELET VOLUME 10.7 fl (7.4-10.4); MONOCYTE # 0.8 10^3/ul (0.3-0.9); MONOCYTES % 11.4 % (0.0-11.0); NEUTROPHILS % 45.2 % (39.0-77.0); PLATELET COUNT 293 10^3/UL (140-415); RED BLOOD COUNT 3.67 10^6/ul (4.20-5.40); RED CELL DISTRIBUTION WIDTH 18.2 % (11.5-14.5); WHITE BLOOD COUNT 6.7 10^3/ul (4.8-10.8)
[2017-02-25 06:08] LABS: CALCIUM 9.4 mg/dl (8.4-10.2); CREATININE 0.79 mg/dl (0.44-1.00); POTASSIUM 3.9 mmol/L (3.5-5.1)
[2017-02-25] MEDS: INSULIN ASPART [NOVOLOG] 3 ML PEN SC SCH ×4 (07:20→21:41)
[2017-02-25 07:55] VITALS: BP 108/51; RESP 18
[2017-02-25] MEDS: PANTOPRAZOLE (EC) 40 MG TAB PO SCH (08:38)
[2017-02-25] MEDS: NYSTATIN SUSP 5 ML CUP PO SCH ×3 (08:38→21:30)
[2017-02-25] MEDS: AMLODIPINE 10 MG TAB PO SCH (08:39)
--- NOTE | 2017-02-25 08:55 | PN ---
Date/Time of Note Date/Time of Note DATE: 02/25/17 TIME: 08:49 Assessment/Plan Lines/Catheters IV Catheter Type (from [facility]): Saline Lock Assessment/Plan Chief Complaint/Hosp Course 1. Cholangitis secondary biliary obstruction/Choledocholithiasis s/p ERCP by Dr. Soares in past. Here for removal of stent and cholecystectomy: lap janet not done 2/2 stone in cbd vs. cystic duct; stent replaced, pus evacuated by Dr. Soares; MRCP noted: awaiting recs from Dr. Soares -eventual lap janet after stone removal 2. CAD, hx of [place] with multiple stents -cleared by cardiology 3. DM -nutrition and medication optimization -encourage weight optimization 4. CVA hx -medical/cardiac optimization -off loading -nutritional optimization 5. Rheumatoid arthritis. -medical management Thank you. Patient seen and examined in collaboration with Dr. Milan Smart. No identifiable intraductal calculi of the examination is limited. Problems: Subjective 24 Hr Interval Summary Feeling well. Tolerating diet. No abdominal pain or discomfort. No fevers, chills, sob, cp, palpitations, n/v/d/dysuria, hernandes, dizziness. Exam/Review of Systems Vital Signs Vitals Vital Signs Date Time Temp Pulse Resp B/P Pulse Ox O2 Delivery O2 Flow Rate FiO2 02/25/17 07:55 97.1 77 18 108/51 97 02/24/17 08:00 Nasal Cannula 2.0 Intake and Output 02/24/17 02/24/17 02/25/17 15:00 23:00 07:00 Intake Total 100 ml 1140 ml 600 ml Balance 100 ml 1140 ml 600 ml Exam Free Text/Dictation Constitutional: alert, oriented Psych: nl mood/affect, no complaints Head: atraumatic, normocephalic Eyes: nl lids, nl sclera ENMT: mucosa pink and moist, nl nasal mucosa & septum Neck: non-tender, supple Respiratory: normal air movement Cardiovascular: nl pulses, regular rate and rhythm Gastrointestinal: bowel sounds, non-tender, soft, No distended Musculoskeletal: nl extremities to inspection Extremities: normal pulses Skin: nl turgor, rash or lesions Lymph: nl lymph nodes Results Result Diagram: 02/25/17 0449 02/25/17 0449 DENNIS MENDEZ NP Feb 25, 2017 08:55
[2017-02-25] MEDS: HEPARIN 5,000 UNIT/0.5 ML VIAL SC SCH ×2 (09:43→21:35)
--- NOTE | 2017-02-25 13:41 | PN ---
Date/Time of Note Date/Time of Note DATE: 02/25/17 TIME: 13:38 Assessment/Plan VTE Prophylaxis VTE Prophylaxis Intervention: other Lines/Catheters IV [facility]from [facility]): Saline Lock Assessment/Plan Assessment/Plan 1. Cholangitis secondary biliary obstruction/Choledocholithiasis s/p ERCP by Dr. Soares in past. Here for removal of stent and cholecystectomy: lap janet not done 2/2 stone in cbd vs. cystic duct; stent replaced, pus evacuated by Dr. Soares; MRCP noted: awaiting recs from Dr. Soares -eventual lap janet after stone removal 2. CAD, hx of [place] with multiple stents -cleared by cardiology 3. DM -nutrition and medication optimization -encourage weight optimization 4. CVA hx -medical/cardiac optimization -off loading -nutritional optimization 5. Rheumatoid arthritis. -medical management 6. CKD- stage II-III - nephrology follows 7. HTN- stable 8 Dyslipidemias- cont Atorvastatin Dw Dr Keyes Subjective 24 Hr Interval Summary Free Text/Dictation feeling better, afebrile, denies any complaints,toleraing diet dw staff Constitutional: requiring IVF Respiratory: no complaints Cardiovascular: no complaints Gastrointestinal: pain Genitourinary: no complaints Musculoskeletal: no complaints Exam/Review of Systems Vital Signs Vitals Vital Signs Date Time Temp Pulse Resp B/P Pulse Ox O2 Delivery O2 Flow Rate FiO2 02/25/17 08:00 Nasal Cannula 2.0 02/25/17 07:55 97.1 77 18 108/51 97 Intake and Output 02/24/17 02/24/17 02/25/17 15:00 23:00 07:00 Intake Total 100 ml 1140 ml 600 ml Balance 100 ml 1140 ml 600 ml Exam Constitutional: alert, oriented Respiratory: clear to auscultation, normal air movement Cardiovascular: regular rate and rhythm Gastrointestinal: soft, tender Musculoskeletal: nl extremities to inspection Extremities: normal pulses Neurological: nl mental status, nl speech Results Result Diagram: 02/25/17 0449 02/25/179 Results 24 hrs Laboratory Tests Test 02/24/17 17:50 02/24/17 21:26 02/25/17 04:49 02/25/17 08:40 Bedside Glucose 110 117 123 White Blood Count 6.7 Red Blood Count 3.67 L Hemoglobin 12.0 Hematocrit 37.2 Mean Corpuscular Volume 101.4 H Mean Corpuscular Hemoglobin 32.7 Mean Corpuscular Hemoglobin Concent 32.3 Red Cell Distribution Width 18.2 H Platelet Count 293 Mean Platelet Volume 10.7 H Neutrophils % 45.2 Lymphocytes % 38.3 Monocytes % 11.4 H Eosinophils % 4.2 Basophils % 0.6 Nucleated Red Blood Cells % 0.0 Neutrophils # (Manual) 3.1 Lymphocytes # 2.6 Monocytes # 0.8 Eosinophils # 0.3 Basophils # 0.0 Nucleated Red Blood Cells # 0.0 Sodium Level 137 Potassium Level 3.9 Chloride Level 104 Carbon Dioxide Level 28 Anion Gap 9 Blood Urea Nitrogen 9 Creatinine 0.79 Glucose Level 102 Calcium Level 9.4 Test 02/25/17 12:44 Bedside Glucose 143 Medications Medications Current Medications Amlodipine Besylate (Norvasc) 10 mg DAILY PO Last administered on 02/25/17 08: 39; Admin Dose 10 MG; Start 02/23/17 at 09:00 Atorvastatin Calcium (Lipitor) 40 mg QHS PO Last administered on 02/24/17 21: 29; Admin Dose 40 MG; Start 02/22/17 at 21:00 Pantoprazole (Protonix Tab) 40 mg DAILY PO Last administered on 02/25/17 08:38 ; Admin Dose 40 MG; Start 02/22/17 at 10:00 Ondansetron HCl (Zofran Inj) 4 mg Q6H PRN IV NAUSEA AND/OR VOMITING; Start 02/22 at 10:00 Acetaminophen (Tylenol Tab) 650 mg Q6H PRN PO PAIN LEVEL 1-3 OR FEVER; Start at 10:00 Acetaminophen/ Hydrocodone Bitart ([facility] [place] (5/325)) 1 tab Q6H PRN PO MODERATE PAIN LEVEL 4-6; Start 02/22/17 at 10:00 Morphine Sulfate (morphine) 1 mg Q4H PRN IV SEVERE PAIN LEVEL 7-10; Start at 10:00 Docusate Sodium (Colace) 100 mg Q12H PRN PO CONSTIPATION; Start 02/22/17 at 10: 00 Magnesium Hydroxide (Milk Of Mag) 30 ml DAILY PRN PO CONSTIPATION; Start at 10:00 Bisacodyl (Dulcolax) 5 mg DAILY PRN PO CONSTIPATION; Start 02/22/17 at 10:00 Bisacodyl (Dulcolax Supp) 10 mg DAILY PRN [place] CONSTIPATION; Start 02/22/17 at 10: 00 Zolpidem Tartrate (Ambien) 5 mg QHS PRN PO SLEEP; Start 02/22/17 at 10:00 Heparin Sodium (Porcine) 5000 unit 5,000 unit Q12 SC Last administered on 09:43; Admin Dose 5,000 UNIT; Start 02/22/17 at 21:00 Piperacillin Sod/ Tazobactam Sod (Zosyn 3.375gm/ 100 ml (Pmx)) 100 ml @ 200 mls /hr Q6 IVPB Last administered on 02/25/17 12:46; Admin Dose 200 MLS/HR; Start 02/22/17 at 15:32 Nystatin (Nystatin Susp) 5 ml TID PO Last administered on 02/25/17 12:46; Admin Dose 5 ML; Start 02/22/17 at 21:00 Diagnostic Test (Pha) (Accu-Chek) 1 ea 02 XX ; Start 02/23/17 at 02:00 Miscellaneous Information 1 ea NOTE XX ; Start 02/22/17 at 18:00 Glucose (Glutose) 15 gm Q15M PRN PO DECREASED GLUCOSE; Start 02/22/17 at 18:00 Glucose (Glutose) 22.5 gm Q15M PRN PO DECREASED GLUCOSE; Start 02/22/17 at 18:00 Dextrose (D50w Syringe) 25 ml Q15M PRN IV DECREASED GLUCOSE; Start 02/22/17 at 18:00 Dextrose (D50w Syringe) 50 ml Q15M PRN IV DECREASED GLUCOSE; Start 02/22/17 at 18:00 Glucagon (Glucagen) 1 mg Q15M PRN IM DECREASED GLUCOSE; Start 02/22/17 at 18:00 Glucose (Glutose) 15 gm Q15M PRN BUCCAL DECREASED GLUCOSE; Start 02/22/17 at 18: 00 Latanoprost (Xalatan) 1 drop HS BOTH EYES Last administered on 02/24/17 21:29 ; Admin Dose 1 DROP; Start 02/23/17 at 21:52 JENNIFER CALABRESE Feb 25, 2017 13:41
[2017-02-25 14:00] VITALS: BP 111/71; RESP 19
--- NOTE | 2017-02-25 15:48 | CONS ---
Date/Time of Note Date/Time of Note DATE: 02/25/17 TIME: 15:48 Assessment/Plan Assessment/Plan Additional Assessment/Plan Assessment/Plan Additional Assessment/Plan 1. Cholangitis 2. Diabetes mellitus 3. Giant stone most probably in the cystic duct MRCP failed to so stone in the bile duct 4. Hypertension 5. History of CVA 6. Coronary artery disease status post a stent clinically stable 7. Diarrhea probably antibiotic associated Plan Review MRCP with the radiologist if the stone confirmed in the cystic duct I will discuss with Dr. Smart whether this can be removed laparoscopically or not. Continue antibiotics I am more in favor of stone in the cystic duct Consultation Date/Type/Reason Admit Date/Time Feb 22, 2017 at 09:50 Initial Consult Date 02/22/17 Type of Consultation: NEPHROLOGY Referring Provider: JOSE TOLBERT MD 24 HR Interval Summary Constitutional: improved, no complaints Exam/Review of Systems Vital Signs Vitals Vital Signs Date Time Temp Pulse Resp B/P Pulse Ox O2 Delivery O2 Flow Rate FiO2 02/25/17 08:00 Nasal Cannula 2.0 02/25/17 07:55 97.1 77 18 108/51 97 Intake and Output 02/24/17 02/24/17 02/25/17 15:00 23:00 07:00 Intake Total 100 ml 1140 ml 600 ml Balance 100 ml 1140 ml 600 ml Exam Constitutional: alert, oriented, well developed Psych: nl mood/affect, no complaints Head: atraumatic, normocephalic Eyes: EOMI, PERRL, nl conjunctiva, nl lids, nl sclera ENMT: nl external ears & nose, nl lips & teeth, nl nasal mucosa & septum Neck: non-tender, supple Respiratory: clear to auscultation, normal air movement Cardiovascular: nl pulses, regular rate and rhythm Gastrointestinal: nl liver, spleen, non-tender, soft Musculoskeletal: nl extremities to inspection, nl gait and stance Extremities: normal pulses Neurological: INDEPENDENT AGENT MUSIC EDUCATION II-XII intact, nl mental status, nl speech, nl strength Skin: nl turgor, No rash or lesions Lymph: nl lymph nodes Results Result Diagram: 02/25/17 0449 02/25/17 0449 Results 24 hrs Laboratory Tests Test 02/24/17 17:50 02/24/17 21:26 02/25/17 04:49 02/25/17 08:40 Bedside Glucose 110 117 123 White Blood Count 6.7 Red Blood Count 3.67 L Hemoglobin 12.0 Hematocrit 37.2 Mean Corpuscular Volume 101.4 H Mean Corpuscular Hemoglobin 32.7 Mean Corpuscular Hemoglobin Concent 32.3 Red Cell Distribution Width 18.2 H Platelet Count 293 Mean Platelet Volume 10.7 H Neutrophils % 45.2 Lymphocytes % 38.3 Monocytes % 11.4 H Eosinophils % 4.2 Basophils % 0.6 Nucleated Red Blood Cells % 0.0 Neutrophils # (Manual) 3.1 Lymphocytes # 2.6 Monocytes # 0.8 Eosinophils # 0.3 Basophils # 0.0 Nucleated Red Blood Cells # 0.0 Sodium Level 137 Potassium Level 3.9 Chloride Level 104 Carbon Dioxide Level 28 Anion Gap 9 Blood Urea Nitrogen 9 Creatinine 0.79 Glucose Level 102 Calcium Level 9.4 Test 02/25/17 12:44 Bedside Glucose 143 Medications Medications Current Medications Amlodipine Besylate (Norvasc) 10 mg DAILY PO Last administered on 02/25/17 08: 39; Admin Dose 10 MG; Start 02/23/17 at 09:00 Atorvastatin Calcium (Lipitor) 40 mg QHS PO Last administered on 02/24/17 21: 29; Admin Dose 40 MG; Start 02/22/17 at 21:00 Pantoprazole (Protonix Tab) 40 mg DAILY PO Last administered on 02/25/17 08:38 ; Admin Dose 40 MG; Start 02/22/17 at 10:00 Ondansetron HCl (Zofran Inj) 4 mg Q6H PRN IV NAUSEA AND/OR VOMITING; Start 02/22 at 10:00 Acetaminophen (Tylenol Tab) 650 mg Q6H PRN PO PAIN LEVEL 1-3 OR FEVER; Start at 10:00 Acetaminophen/ Hydrocodone Bitart ([place] (5/325)) 1 tab Q6H PRN PO MODERATE PAIN LEVEL 4-6; Start 02/22/17 at 10:00 Morphine Sulfate (morphine) 1 mg Q4H PRN IV SEVERE PAIN LEVEL 7-10; Start at 10:00 Docusate Sodium (Colace) 100 mg Q12H PRN PO CONSTIPATION; Start 02/22/17 at 10: 00 Magnesium Hydroxide (Milk Of Mag) 30 ml DAILY PRN PO CONSTIPATION; Start at 10:00 Bisacodyl (Dulcolax) 5 mg DAILY PRN PO CONSTIPATION; Start 02/22/17 at 10:00 Bisacodyl (Dulcolax Supp) 10 mg DAILY PRN [place] CONSTIPATION; Start 02/22/17 at 10: 00 Zolpidem Tartrate (Ambien) 5 mg QHS PRN PO SLEEP; Start 02/22/17 at 10:00 Heparin Sodium (Porcine) 5000 unit 5,000 unit Q12 SC Last administered on 09:43; Admin Dose 5,000 UNIT; Start 02/22/17 at 21:00 Piperacillin Sod/ Tazobactam Sod (Zosyn 3.375gm/ 100 ml (Pmx)) 100 ml @ 200 mls /hr Q6 IVPB Last administered on 02/25/17 12:46; Admin Dose 200 MLS/HR; Start 02/22/17 at 15:32 Nystatin (Nystatin Susp) 5 ml TID PO Last administered on 02/25/17 12:46; Admin Dose 5 ML; Start 02/22/17 at 21:00 Diagnostic Test (Pha) (Accu-Chek) 1 ea 02 XX ; Start 02/23/17 at 02:00 Miscellaneous Information 1 ea NOTE XX ; Start 02/22/17 at 18:00 Glucose (Glutose) 15 gm Q15M PRN PO DECREASED GLUCOSE; Start 02/22/17 at 18:00 Glucose (Glutose) 22.5 gm Q15M PRN PO DECREASED GLUCOSE; Start 02/22/17 at 18:00 Dextrose (D50w Syringe) 25 ml Q15M PRN IV DECREASED GLUCOSE; Start 02/22/17 at 18:00 Dextrose (D50w Syringe) 50 ml Q15M PRN IV DECREASED GLUCOSE; Start 02/22/17 at 18:00 Glucagon (Glucagen) 1 mg Q15M PRN IM DECREASED GLUCOSE; Start 02/22/17 at 18:00 Glucose (Glutose) 15 gm Q15M PRN BUCCAL DECREASED GLUCOSE; Start 02/22/17 at 18: 00 Latanoprost (Xalatan) 1 drop HS BOTH EYES Last administered on 02/24/17 21:29 ; Admin Dose 1 DROP; Start 02/23/17 at 21:52 LAUREN GODFREY MD Feb 25, 2017 15:48
[2017-02-25] MEDS ORDERED: BARIUM SULF 2% 450 ML BTL (BERRY SMOOTHIE) PO ONE (16:30)
--- NOTE | 2017-02-25 16:32 | CONS ---
Date/Time of Note Date/Time of Note DATE: 02/25/17 TIME: 16:31 Assessment/Plan Assessment/Plan Additional Assessment/Plan 1. Acute cholangitis secondary biliary obstruction/Choledocholithiasis s/p ERCP by Dr. Soares in past. Here for removal of stent and cholecystectomy 2. H/O CKD II/III 3. H/o CAD s/p previous stent placement 4. H/o previous CVA 5. Hypertension 6. Hyperlipidemia 7. Diabetes melitus Type II 8. H/o Rheumatoid Arthritis 8. Hypokalemia Plan : conitnue IV abx zosyn, renally dose MRCP done GI and Gen Surgery to follow to decide about surgery Renal funciton stable, will follow up Consultation Date/Type/Reason Admit Date/Time Feb 22, 2017 at 09:50 Initial Consult Date 02/22/17 Type of Consultation: NEPHROLOGY Referring Provider: JOSE TOLBERT MD 24 HR Interval Summary Free Text/Dictation doing ok, Cr stable, pain controlled Exam/Review of Systems Vital Signs Vitals Vital Signs Date Time Temp Pulse Resp B/P Pulse Ox O2 Delivery O2 Flow Rate FiO2 02/25/17 08:00 Nasal Cannula 2.0 02/25/17 07:55 97.1 77 18 108/51 97 Intake and Output 02/24/17 02/24/17 02/25/17 15:00 23:00 07:00 Intake Total 100 ml 1140 ml 600 ml Balance 100 ml 1140 ml 600 ml Exam Constitutional: alert Respiratory: clear to auscultation, diminished breath sounds, normal air movement Cardiovascular: nl pulses, regular rate and rhythm Gastrointestinal: firm, other (TTp in RUQ, no rebound, no guarding), soft Extremities: normal pulses Neurological: MEDICAL TECHNOLOGIST GENERALIST II-XII intact, nl mental status, nl speech, nl strength Results Result Diagram: 02/25/17 0449 02/25/179 Results 24 hrs Laboratory Tests Test 02/24/17 17:50 02/24/17 21:26 02/25/17 04:49 02/25/17 08:40 Bedside Glucose 110 117 123 White Blood Count 6.7 Red Blood Count 3.67 L Hemoglobin 12.0 Hematocrit 37.2 Mean Corpuscular Volume 101.4 H Mean Corpuscular Hemoglobin 32.7 Mean Corpuscular Hemoglobin Concent 32.3 Red Cell Distribution Width 18.2 H Platelet Count 293 Mean Platelet Volume 10.7 H Neutrophils % 45.2 Lymphocytes % 38.3 Monocytes % 11.4 H Eosinophils % 4.2 Basophils % 0.6 Nucleated Red Blood Cells % 0.0 Neutrophils # (Manual) 3.1 Lymphocytes # 2.6 Monocytes # 0.8 Eosinophils # 0.3 Basophils # 0.0 Nucleated Red Blood Cells # 0.0 Sodium Level 137 Potassium Level 3.9 Chloride Level 104 Carbon Dioxide Level 28 Anion Gap 9 Blood Urea Nitrogen 9 Creatinine 0.79 Glucose Level 102 Calcium Level 9.4 Test 02/25/17 12:44 Bedside Glucose 143 Medications Medications Current Medications Amlodipine Besylate (Norvasc) 10 mg DAILY PO Last administered on 02/25/17 08: 39; Admin Dose 10 MG; Start 02/23/17 at 09:00 Atorvastatin Calcium (Lipitor) 40 mg QHS PO Last administered on 02/24/17 21: 29; Admin Dose 40 MG; Start 02/22/17 at 21:00 Pantoprazole (Protonix Tab) 40 mg DAILY PO Last administered on 02/25/17 08:38 ; Admin Dose 40 MG; Start 02/22/17 at 10:00 Ondansetron HCl (Zofran Inj) 4 mg Q6H PRN IV NAUSEA AND/OR VOMITING; Start 02/22 at 10:00 Acetaminophen (Tylenol Tab) 650 mg Q6H PRN PO PAIN LEVEL 1-3 OR FEVER; Start at 10:00 Acetaminophen/ Hydrocodone Bitart ([place] (5/325)) 1 tab Q6H PRN PO MODERATE PAIN LEVEL 4-6; Start 02/22/17 at 10:00 Morphine Sulfate (morphine) 1 mg Q4H PRN IV SEVERE PAIN LEVEL 7-10; Start at 10:00 Docusate Sodium (Colace) 100 mg Q12H PRN PO CONSTIPATION; Start 02/22/17 at 10: 00 Magnesium Hydroxide (Milk Of Mag) 30 ml DAILY PRN PO CONSTIPATION; Start at 10:00 Bisacodyl (Dulcolax) 5 mg DAILY PRN PO CONSTIPATION; Start 02/22/17 at 10:00 Bisacodyl (Dulcolax Supp) 10 mg DAILY PRN [place] CONSTIPATION; Start 02/22/17 at 10: 00 Zolpidem Tartrate (Ambien) 5 mg QHS PRN PO SLEEP; Start 02/22/17 at 10:00 Heparin Sodium (Porcine) 5000 unit 5,000 unit Q12 SC Last administered on 09:43; Admin Dose 5,000 UNIT; Start 02/22/17 at 21:00 Piperacillin Sod/ Tazobactam Sod (Zosyn 3.375gm/ 100 ml (Pmx)) 100 ml @ 200 mls /hr Q6 IVPB Last administered on 02/25/17 12:46; Admin Dose 200 MLS/HR; Start 02/22/17 at 15:32 Nystatin (Nystatin Susp) 5 ml TID PO Last administered on 02/25/17 12:46; Admin Dose 5 ML; Start 02/22/17 at 21:00 Diagnostic Test (Pha) (Accu-Chek) 1 ea 02 XX ; Start 02/23/17 at 02:00 Miscellaneous Information 1 ea NOTE XX ; Start 02/22/17 at 18:00 Glucose (Glutose) 15 gm Q15M PRN PO DECREASED GLUCOSE; Start 02/22/17 at 18:00 Glucose (Glutose) 22.5 gm Q15M PRN PO DECREASED GLUCOSE; Start 02/22/17 at 18:00 Dextrose (D50w Syringe) 25 ml Q15M PRN IV DECREASED GLUCOSE; Start 02/22/17 at 18:00 Dextrose (D50w Syringe) 50 ml Q15M PRN IV DECREASED GLUCOSE; Start 02/22/17 at 18:00 Glucagon (Glucagen) 1 mg Q15M PRN IM DECREASED GLUCOSE; Start 02/22/17 at 18:00 Glucose (Glutose) 15 gm Q15M PRN BUCCAL DECREASED GLUCOSE; Start 02/22/17 at 18: 00 Latanoprost (Xalatan) 1 drop HS BOTH EYES Last administered on 02/24/17 21:29 ; Admin Dose 1 DROP; Start 02/23/17 at 21:52 LANDON ZAMORA MD Feb 25, 2017 16:32
--- NOTE | 2017-02-25 18:18 | RADRPT ---
PROCEDURE: CT abdomen and pelvis without IV contrast. CLINICAL INDICATION: Abdominal pain TECHNIQUE: CT scan of the abdomen and pelvis without contrast was performed on the [employer] volumetric [address] scanner. The patient was scanned without intravenous contrast. Coronal and sagittal refo rmatted images were obtained from the axial source images. The CTDI vol is 9.82 mGy and the DLP is 4 94.13 mGy-cm. One or more of the following dose reduction techniques were used: Automated exposure control. Adjustment of the mA and/or kV according to patient size. Use of iterative reconstruction technique. COMPARISON: MRCP from 02/22/2017 FINDINGS: CT abdomen: The lung bases are clear. The heart size is not enlarged and is without pericardial thickening or e ffusion. The liver is normal in size and density and is without focal mass or intrahepatic biliary dilatation . The spleen is normal in size and homogeneous in density. The stomach is grossly unremarkable. T he pancreas as visualized is normal. The common bile duct stent is once again seen. The gallbladde r wall appears to be thickened. The adrenal glands are symmetric and normal. The kidneys are symmet rically unremarkable as well. No renal calculus or obstructive uropathy or mass lesion is seen. The aorta is of normal in caliber. Aortic calcifications are seen. There is no retroperitoneal lymph adenopathy. The petra hepatis region is clear. The large bowel is stool-filled. The small and larg e bowel and mesentery, as visualized, are otherwise unremarkable. The normal appendix is identified. CT pelvis: Peripheral uterine calcifications are seen which are likely vascular in nature. The pelvic organs a re otherwise unremarkable. The pelvic sidewalls and inguinal regions are clear. No pelvic mass, ly mphadenopathy, or free fluid is seen. No acute inflammation is seen. The urinary bladder is within normal limits. The surrounding osseous structures are unremarkable. No osteolytic or osteoblastic lesion is detect ed. IMPRESSION: 1. Suggestion of gallbladder wall thickening. Further evaluation with a right upper quadrant ultra sound may be of value as clinically warranted. 2. Common bile duct stent again seen. 3. Stool filled large bowel. RPTAT: HPNM Phillip Mogannam, Physician Date Time Electronically viewed and signed by Phillip Gibbons, Physician on 02/25/2017 18:18 /
[2017-02-25 19:15] VITALS: BP 122/61; RESP 18
[2017-02-25] MEDS: ATORVASTATIN 40 MG TAB PO SCH (21:30)
[2017-02-25] MEDS: LATANOPROST 0.005% 2.5 ML OPH BOTH EYES SCH (21:30)
[2017-02-26 01:49] VITALS: BP 143/61; RESP 18
[2017-02-26] MEDS: ACCU-CHEK XX SCH (02:08)
[2017-02-26 05:47] LABS: BASOPHIL # 0.1 10^3/ul (0.0-0.1); EOSINOPHILS # 0.3 10^3/ul (0.0-0.5); EOSINOPHILS % 4.2 % (0.0-7.0); HEMATOCRIT 37.7 % (37.0-47.0); HEMOGLOBIN 12.2 g/dl (12.0-16.0); LYMPHOCYTES # 2.9 10^3/ul (0.8-2.9); LYMPHOCYTES % 36.8 % (15.0-51.0); MEAN CORPUSCULAR HEMOGLOBIN 32.6 pg (29.0-33.0); MEAN CORPUSCULAR HGB CONC 32.4 g/dl (32.0-37.0); MEAN CORPUSCULAR VOLUME 100.8 fl (82.0-101.0); MEAN PLATELET VOLUME 10.7 fl (7.4-10.4); MONOCYTE # 0.8 10^3/ul (0.3-0.9); MONOCYTES % 10.6 % (0.0-11.0); PLATELET COUNT 301 10^3/UL (140-415); RED BLOOD COUNT 3.74 10^6/ul (4.20-5.40); WHITE BLOOD COUNT 7.9 10^3/ul (4.8-10.8)
[2017-02-26 05:53] LABS: CALCIUM 9.5 mg/dl (8.4-10.2); CREATININE 0.81 mg/dl (0.44-1.00); POTASSIUM 3.9 mmol/L (3.5-5.1)
[2017-02-26] MEDS: PIPER-TAZO 3.375 GM IV (PMX) 100 ML IVPB SCH ×4 (06:02→23:58)
[2017-02-26] MEDS: INSULIN ASPART [NOVOLOG] 3 ML PEN SC SCH ×4 (07:20→21:00)
[2017-02-26 08:12] VITALS: BP 144/78; RESP 18
--- NOTE | 2017-02-26 08:49 | CONS ---
Date/Time of Note Date/Time of Note DATE: 02/26/17 TIME: 08:47 Assessment/Plan Assessment/Plan Additional Assessment/Plan 1. Acute cholangitis secondary biliary obstruction/Choledocholithiasis s/p ERCP by Dr. Soares in past. Here for removal of stent and cholecystectomy 2. H/O CKD II/III 3. H/o CAD s/p previous stent placement 4. H/o previous CVA 5. Hypertension 6. Hyperlipidemia 7. Diabetes melitus Type II 8. H/o Rheumatoid Arthritis 8. Hypokalemia Plan : conitnue IV abx zosyn, renally dose MRCP done which showed stone in cystic duct-Gen Surgery to follow to decide about surgery Renal funciton stable, will follow up Consultation Date/Type/Reason Admit Date/Time Feb 22, 2017 at 09:50 Initial Consult Date 02/22/17 Type of Consultation: NEPHROLOGY Referring Provider: JOSE TOLBERT MD 24 HR Interval Summary Free Text/Dictation no acute events, BP stable, afebrile, no fever, Exam/Review of Systems Vital Signs Vitals Vital Signs Date Time Temp Pulse Resp B/P Pulse Ox O2 Delivery O2 Flow Rate FiO2 02/26/17 08:12 97.3 74 18 144/78 95 02/25/17 20:00 Nasal Cannula 2.0 Intake and Output 02/25/17 02/25/17 02/26/17 15:00 23:00 07:00 Intake Total 200 ml 960 ml 500 ml Balance 200 ml 960 ml 500 ml Exam Constitutional: alert Respiratory: clear to auscultation, diminished breath sounds, normal air movement Cardiovascular: nl pulses, regular rate and rhythm Gastrointestinal: firm, other (TTp in RUQ, no rebound, no guarding), soft Extremities: normal pulses Neurological: CHIMNEY BUILDER II-XII intact, nl mental status, nl speech, nl strength Results Result Diagram: 02/26/17 0444 02/26/17 0445 Results 24 hrs Laboratory Tests Test 02/25/17 12:44 02/25/17 17:07 02/25/17 21:28 02/26/17 01:47 Bedside Glucose 143 94 201 149 Test 02/26/17 04:44 02/26/17 04:45 White Blood Count 7.9 Red Blood Count 3.74 L Hemoglobin 12.2 Hematocrit 37.7 Mean Corpuscular Volume 100.8 Mean Corpuscular Hemoglobin 32.6 Mean Corpuscular Hemoglobin Concent 32.4 Red Cell Distribution Width 18.0 H Platelet Count 301 Mean Platelet Volume 10.7 H Neutrophils % 47.0 Lymphocytes % 36.8 Monocytes % 10.6 Eosinophils % 4.2 Basophils % 1.0 Nucleated Red Blood Cells % 0.0 Neutrophils # (Manual) 3.7 Lymphocytes # 2.9 Monocytes # 0.8 Eosinophils # 0.3 Basophils # 0.1 Nucleated Red Blood Cells # 0.0 Sodium Level 137 Potassium Level 3.9 Chloride Level 106 Carbon Dioxide Level 23 Anion Gap 12 Blood Urea Nitrogen 10 Creatinine 0.81 Glucose Level 120 Calcium Level 9.5 Medications Medications Current Medications Amlodipine Besylate (Norvasc) 10 mg DAILY PO Last administered on 02/25/17 08: 39; Admin Dose 10 MG; Start 02/23/17 at 09:00 Atorvastatin Calcium (Lipitor) 40 mg QHS PO Last administered on 02/25/17 21: 30; Admin Dose 40 MG; Start 02/22/17 at 21:00 Pantoprazole (Protonix Tab) 40 mg DAILY PO Last administered on 02/25/17 08:38 ; Admin Dose 40 MG; Start 02/22/17 at 10:00 Ondansetron HCl (Zofran Inj) 4 mg Q6H PRN IV NAUSEA AND/OR VOMITING; Start 02/22 at 10:00 Acetaminophen (Tylenol Tab) 650 mg Q6H PRN PO PAIN LEVEL 1-3 OR FEVER; Start at 10:00 Acetaminophen/ Hydrocodone Bitart ([place] (5/325)) 1 tab Q6H PRN PO MODERATE PAIN LEVEL 4-6; Start 02/22/17 at 10:00 Morphine Sulfate (morphine) 1 mg Q4H PRN IV SEVERE PAIN LEVEL 7-10; Start at 10:00 Docusate Sodium (Colace) 100 mg Q12H PRN PO CONSTIPATION; Start 02/22/17 at 10: 00 Magnesium Hydroxide (Milk Of Mag) 30 ml DAILY PRN PO CONSTIPATION; Start at 10:00 Bisacodyl (Dulcolax) 5 mg DAILY PRN PO CONSTIPATION; Start 02/22/17 at 10:00 Bisacodyl (Dulcolax Supp) 10 mg DAILY PRN [place] CONSTIPATION; Start 02/22/17 at 10: 00 Zolpidem Tartrate (Ambien) 5 mg QHS PRN PO SLEEP; Start 02/22/17 at 10:00 Heparin Sodium (Porcine) 5000 unit 5,000 unit Q12 SC Last administered on 21:35; Admin Dose 5,000 UNIT; Start 02/22/17 at 21:00 Piperacillin Sod/ Tazobactam Sod (Zosyn 3.375gm/ 100 ml (Pmx)) 100 ml @ 200 mls /hr Q6 IVPB Last administered on 02/26/17 06:02; Admin Dose 200 MLS/HR; Start 02/22/17 at 15:32 Nystatin (Nystatin Susp) 5 ml TID PO Last administered on 02/25/17 21:30; Admin Dose 5 ML; Start 02/22/17 at 21:00 Diagnostic Test (Pha) (Accu-Chek) 1 ea 02 XX Last administered on 02/26/17 02: 08; Admin Dose 1 EA; Start 02/23/17 at 02:00 Miscellaneous Information 1 ea NOTE XX ; Start 02/22/17 at 18:00 Glucose (Glutose) 15 gm Q15M PRN PO DECREASED GLUCOSE; Start 02/22/17 at 18:00 Glucose (Glutose) 22.5 gm Q15M PRN PO DECREASED GLUCOSE; Start 02/22/17 at 18:00 Dextrose (D50w Syringe) 25 ml Q15M PRN IV DECREASED GLUCOSE; Start 02/22/17 at 18:00 Dextrose (D50w Syringe) 50 ml Q15M PRN IV DECREASED GLUCOSE; Start 02/22/17 at 18:00 Glucagon (Glucagen) 1 mg Q15M PRN IM DECREASED GLUCOSE; Start 02/22/17 at 18:00 Glucose (Glutose) 15 gm Q15M PRN BUCCAL DECREASED GLUCOSE; Start 02/22/17 at 18: 00 Latanoprost (Xalatan) 1 drop HS BOTH EYES Last administered on 02/25/17 21:30 ; Admin Dose 1 DROP; Start 02/23/17 at 21:52 LANDON ZAMORA MD Feb 26, 2017 08:49
[2017-02-26] MEDS: NYSTATIN SUSP 5 ML CUP PO SCH ×3 (09:05→22:11)
[2017-02-26] MEDS: PANTOPRAZOLE (EC) 40 MG TAB PO SCH (09:05)
[2017-02-26] MEDS: AMLODIPINE 10 MG TAB PO SCH (09:05)
[2017-02-26] MEDS: HEPARIN 5,000 UNIT/0.5 ML VIAL SC SCH ×2 (09:12→21:00)
--- NOTE | 2017-02-26 12:03 | PN ---
Date/Time of Note Date/Time of Note DATE: 02/26/17 TIME: 12:03 Assessment/Plan Lines/Catheters IV C[facility]ter Type (from [facility]): Peripheral IV Assessment/Plan Chief Complaint/Hosp Course 1. Cholangitis secondary biliary obstruction/Choledocholithiasis s/p ERCP by Dr. Soares in past. Here for removal of stent and cholecystectomy: lap janet not done 2/2 stone in cbd vs. cystic duct; stent replaced, pus evacuated by Dr. Soares; MRCP noted: awaiting recs from Dr. Soares -eventual lap janet after stone removal 2. CAD, hx of DE with multiple stents -cleared by cardiology 3. DM -nutrition and medication optimization -encourage weight optimization 4. CVA hx -medical/cardiac optimization -off loading -nutritional optimization 5. Rheumatoid arthritis. -medical management Thank you. Patient seen and examined in collaboration with Dr. Milan Smart. No identifiable intraductal calculi of the examination is limited. Problems: Exam/Review of Systems Vital Signs Vitals Vital Signs Date Time Temp Pulse Resp B/P Pulse Ox O2 Delivery O2 Flow Rate FiO2 02/26/17 08:12 97.3 74 18 144/78 95 02/25/17 20:00 Nasal Cannula 2.0 Intake and Output 02/25/17 02/25/17 02/26/17 15:00 23:00 07:00 Intake Total 200 ml 960 ml 500 ml Balance 200 ml 960 ml 500 ml Results Result Diagram: 02/26/17 0444 02/26/17 0445 DENNIS MENDEZ NP Feb 26, 2017 12:03
[2017-02-26 16:30] VITALS: BP 135/68; RESP 18
[2017-02-26 18:57] VITALS: BP 144/68; RESP 18
[2017-02-26] MEDS: ATORVASTATIN 40 MG TAB PO SCH (22:10)
[2017-02-26] MEDS: LATANOPROST 0.005% 2.5 ML OPH BOTH EYES SCH (22:10)
[2017-02-27] VITALS (24 sets, daily range): BP systolic 69–169; BP diastolic 38–79; PULSE 98–110; RESP 12–22
[2017-02-27] MEDS: ACCU-CHEK XX SCH (01:11)
--- NOTE | 2017-02-27 05:05 | CONS ---
DATE OF ADMISSION: 02/22/2017 DATE OF CONSULTATION: 02/27/2017 SUBJECTIVE: The patient is a 66-year-old female with a history of diabetes mellitus and hypertension, who presented with ascending cholangitis. He had an ERCP done. The question was raised whether the stone is in the bile duct or in the gallbladder or cystic duct. In order to identify the location of the stone, MRCP and CAT scan done. CAT scan shows definitely stone is in the neck of the gallbladder, pushing the bile duct. The patient has no complaint. No abdominal pain. No nausea. No vomiting. OBJECTIVE: VITALS: Stable. ABDOMEN: Benign. LUNGS: Clear. EXTREMITIES: No edema. NEUROLOGIC: Grossly within normal limits. ASSESSMENT: 1. Cholangitis, successfully treated by stenting the bile duct and relieving the obstruction. 2. Stone, either in the bile duct or the gallbladder. It appears more in the neck of the gallbladder pressing upon the bile duct. 3. Diabetes mellitus. 4. Hypertension. 5. Cerebrovascular accident. PLAN: To continue antibiotic. I will discuss the case with Dr. Smart. If he does not want to operate, then we will go ahead with the spy glass and examine the bile duct. If there is a stone in the bile duct, then we will use a laser. Dictated By: Gurjit Soares MD /nai/alberto /Document#: [id number]
[2017-02-27] MEDS: PIPER-TAZO 3.375 GM IV (PMX) 100 ML IVPB SCH ×4 (06:00→23:37)
[2017-02-27] MEDS ORDERED: SUGAMMADEX SODIUM 200 MG/2 ML VIAL IV ONE ×2 (07:00→19:58)
[2017-02-27] MEDS: NYSTATIN SUSP 5 ML CUP PO SCH ×4 (08:13→23:32)
[2017-02-27] MEDS: PANTOPRAZOLE (EC) 40 MG TAB PO SCH (08:13)
[2017-02-27] MEDS: HEPARIN 5,000 UNIT/0.5 ML VIAL SC SCH ×2 (08:13→21:00)
[2017-02-27] MEDS: AMLODIPINE 10 MG TAB PO SCH (08:39)
[2017-02-27] MEDS: INSULIN ASPART [NOVOLOG] 3 ML PEN SC SCH ×4 (08:42→21:00)
[2017-02-27] MEDS: DEXTROSE 5%-0.45% NACL 1,000 ML IV SCH (11:43)
--- NOTE | 2017-02-27 14:31 | PN ---
Date/Time of Note Date/Time of Note DATE: 02/27/17 TIME: 14:27 Assessment/Plan VTE Prophylaxis VTE Prophylaxis Intervention: other Lines/Catheters IV Catheter Type (from Nrs): Peripheral IV Assessment/Plan Assessment/Plan 1. Cholangitis secondary biliary obstruction/Choledocholithiasis s/p ERCP by Dr. Soares in past. Here for removal of stent and cholecystectomy: lap janet not done 2/2 stone in cbd vs. cystic duct; stent replaced, pus evacuated by Dr. Soares; MRCP noted: awaiting recs from Dr. Soares -eventual lap janet after stone removal - ERCP pending -todat at 1730 2. CAD, hx of [place] with multiple stents -cleared by cardiology 3. DM -nutrition and medication optimization -encourage weight optimization 4. CVA hx -medical/cardiac optimization -off loading -nutritional optimization 5. Rheumatoid arthritis. -medical management 6. CKD- stage II-III - nephrology follows 7. HTN- stable 8 Dyslipidemias- cont Atorvastatin Steve Keyes Subjective 24 Hr Interval Summary Free Text/Dictation ERCP today at 1730. dw staff Respiratory: no complaints Cardiovascular: no complaints Gastrointestinal: pain Genitourinary: no complaints Skin: no complaints Exam/Review of Systems Vital Signs Vitals Vital Signs Date Time Temp Pulse Resp B/P Pulse Ox O2 Delivery O2 Flow Rate FiO2 02/27/17 07:51 96.0 84 16 169/79 98 02/25/17 20:00 Nasal Cannula 2.0 Intake and Output 02/26/17 02/26/17 02/27/17 15:00 23:00 07:00 Intake Total 200 ml 820 ml 300 ml Balance 200 ml 820 ml 300 ml Exam Constitutional: alert, oriented, well developed Respiratory: clear to auscultation, normal air movement Cardiovascular: nl pulses, regular rate and rhythm Gastrointestinal: soft, tender Musculoskeletal: nl extremities to inspection Results Result Diagram: 02/26/17 0444 02/26/17 0445 Results 24 hrs Laboratory Tests Test 02/26/17 17:45 02/26/17 22:07 02/27/17 08:42 02/27/17 12:29 Bedside Glucose 129 144 140 173 Medications Medications Current Medications Amlodipine Besylate (Norvasc) 10 mg DAILY PO Last administered on 02/27/17t 08: 39; Admin Dose 10 MG; Start 02/23/17 at 09:00 Atorvastatin Calcium (Lipitor) 40 mg QHS PO Last administered on 02/26/17 22: 10; Admin Dose 40 MG; Start 02/22/17 at 21:00 Pantoprazole (Protonix Tab) 40 mg DAILY PO Last administered on 02/26/17 09:05 ; Admin Dose 40 MG; Start 02/22/17 at 10:00 Ondansetron HCl (Zofran Inj) 4 mg Q6H PRN IV NAUSEA AND/OR VOMITING; Start 02/22 at 10:00 Acetaminophen (Tylenol Tab) 650 mg Q6H PRN PO PAIN LEVEL 1-3 OR FEVER; Start at 10:00 Acetaminophen/ Hydrocodone Bitart ([place] (5/325)) 1 tab Q6H PRN PO MODERATE PAIN LEVEL 4-6; Start 02/22/17 at 10:00 Morphine Sulfate (morphine) 1 mg Q4H PRN IV SEVERE PAIN LEVEL 7-10; Start at 10:00 Docusate Sodium (Colace) 100 mg Q12H PRN PO CONSTIPATION; Start 02/22/17 at 10: 00 Magnesium Hydroxide (Milk Of Mag) 30 ml DAILY PRN PO CONSTIPATION; Start at 10:00 Bisacodyl (Dulcolax) 5 mg DAILY PRN PO CONSTIPATION Last administered on 09:06; Admin Dose 5 MG; Start 02/22/17 at 10:00 Bisacodyl (Dulcolax Supp) 10 mg DAILY PRN [place] CONSTIPATION; Start 02/22/17 at 10: 00 Zolpidem Tartrate (Ambien) 5 mg QHS PRN PO SLEEP; Start 02/22/17 at 10:00 Heparin Sodium (Porcine) 5000 unit 5,000 unit Q12 SC Last administered on 09:12; Admin Dose 5,000 UNIT; Start 02/22/17 at 21:00 Piperacillin Sod/ Tazobactam Sod (Zosyn 3.375gm/ 100 ml (Pmx)) 100 ml @ 200 mls /hr Q6 IVPB Last administered on 02/27/17 12:07; Admin Dose 200 MLS/HR; Start 02/22/17 at 15:32 Nystatin (Nystatin Susp) 5 ml TID PO Last administered on 02/26/17 22:11; Admin Dose 5 ML; Start 02/22/17 at 21:00 Diagnostic Test (Pha) (Accu-Chek) 1 ea 02 XX Last administered on 02/26/17 02: 08; Admin Dose 1 EA; Start 02/23/17 at 02:00 Miscellaneous Information 1 ea NOTE XX ; Start 02/22/17 at 18:00 Glucose (Glutose) 15 gm Q15M PRN PO DECREASED GLUCOSE; Start 02/22/17 at 18:00 Glucose (Glutose) 22.5 gm Q15M PRN PO DECREASED GLUCOSE; Start 02/22/17 at 18:00 Dextrose (D50w Syringe) 25 ml Q15M PRN IV DECREASED GLUCOSE; Start 02/22/17 at 18:00 Dextrose (D50w Syringe) 50 ml Q15M PRN IV DECREASED GLUCOSE; Start 02/22/17 at 18:00 Glucagon (Glucagen) 1 mg Q15M PRN IM DECREASED GLUCOSE; Start 02/22/17 at 18:00 Glucose (Glutose) 15 gm Q15M PRN BUCCAL DECREASED GLUCOSE; Start 02/22/17 at 18: 00 Latanoprost 1 drop 1 drop HS BOTH EYES Last administered on 02/26/17 22:10; Admin Dose 1 DROP; Start 02/23/17 at 21:52 Dextrose/Sodium Chloride (D5-1/2ns) 1,000 ml @ 60 mls/hr [id number] IV Last administered on 02/27/17 11:43; Admin Dose 60 MLS/HR; Start 02/27/17 at 11:30 JENNIFER CALABRESE Feb 27, 2017 14:31
[2017-02-27] MEDS ORDERED: FENTAnyl 50 MCG/ML VIAL ONE ×2 (15:59→17:38)
[2017-02-27] MEDS ORDERED: ROCURONIUM 50 MG INJ ONE ×2 (15:59→17:38)
[2017-02-27] MEDS ORDERED: PROPOFOL 0 ML ONE (15:59)
[2017-02-27] MEDS ORDERED: MIDAZOLAM 1 MG/ML 2 ML INJ ONE (15:59)
[2017-02-27] MEDS ORDERED: IOHEXOL 300MG/ML 30 ML BTL ONE (17:22)
[2017-02-27] MEDS ORDERED: PROPOFOL 20 ML ONE (17:38)
[2017-02-27] MEDS ORDERED: LIDOCAINE 2% (SDV) 5 ML INJ ONE (17:38)
--- NOTE | 2017-02-27 18:37 | CONS ---
Date/Time of Note Date/Time of Note DATE: 02/27/17 TIME: 18:36 Assessment/Plan Assessment/Plan Additional Assessment/Plan 1. Acute cholangitis secondary biliary obstruction/Choledocholithiasis s/p ERCP by Dr. Soares in past. Here for removal of stent and cholecystectomy 2. H/O CKD II/III 3. H/o CAD s/p previous stent placement 4. H/o previous CVA 5. Hypertension 6. Hyperlipidemia 7. Diabetes melitus Type II 8. H/o Rheumatoid Arthritis 8. Hypokalemia Plan : conitnue IV abx zosyn, renally dose MRCP done - plan for ERCP by GI and Gen Surgery to follow to decide about surgery Renal funciton stable, will follow up Consultation Date/Type/Reason Admit Date/Time Feb 22, 2017 at 09:50 Initial Consult Date 02/22/17 Type of Consultation: NEPHROLOGY Referring Provider: JOSE TOLBERT MD 24 HR Interval Summary Free Text/Dictation afebrile, BPs table, no abd pain Exam/Review of Systems Vital Signs Vitals Vital Signs Date Time Temp Pulse Resp B/P Pulse Ox O2 Delivery O2 Flow Rate FiO2 02/27/17 07:51 96.0 84 16 169/79 98 02/25/17 20:00 Nasal Cannula 2.0 Intake and Output 02/26/17 02/26/17 02/27/17 15:00 23:00 07:00 Intake Total 200 ml 820 ml 300 ml Balance 200 ml 820 ml 300 ml Exam Constitutional: alert Respiratory: clear to auscultation, diminished breath sounds, normal air movement Cardiovascular: nl pulses, regular rate and rhythm Gastrointestinal: firm, other (TTp in RUQ, no rebound, no guarding), soft Extremities: normal pulses Neurological: 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, nl mental status, nl speech, nl strength Results Result Diagram: 02/26/17 0444 02/26/17 0445 Results 24 hrs Laboratory Tests Test 02/26/17 22:07 02/27/17 08:42 02/27/17 12:29 02/27/17 16:38 Bedside Glucose 144 140 173 130 Medications Medications Current Medications Amlodipine Besylate (Norvasc) 10 mg DAILY PO Last administered on 02/27/17t 08: 39; Admin Dose 10 MG; Start 02/23/17 at 09:00 Atorvastatin Calcium (Lipitor) 40 mg QHS PO Last administered on 02/26/17 22: 10; Admin Dose 40 MG; Start 02/22/17 at 21:00 Pantoprazole (Protonix Tab) 40 mg DAILY PO Last administered on 02/26/17 09:05 ; Admin Dose 40 MG; Start 02/22/17 at 10:00 Ondansetron HCl (Zofran Inj) 4 mg Q6H PRN IV NAUSEA AND/OR VOMITING; Start 02/22 at 10:00 Acetaminophen (Tylenol Tab) 650 mg Q6H PRN PO PAIN LEVEL 1-3 OR FEVER; Start at 10:00 Acetaminophen/ Hydrocodone Bitart ([place] (5/325)) 1 tab Q6H PRN PO MODERATE PAIN LEVEL 4-6; Start 02/22/17 at 10:00 Morphine Sulfate (morphine) 1 mg Q4H PRN IV SEVERE PAIN LEVEL 7-10; Start at 10:00 Docusate Sodium (Colace) 100 mg Q12H PRN PO CONSTIPATION; Start 02/22/17 at 10: 00 Magnesium Hydroxide (Milk Of Mag) 30 ml DAILY PRN PO CONSTIPATION; Start at 10:00 Bisacodyl (Dulcolax) 5 mg DAILY PRN PO CONSTIPATION Last administered on 09:06; Admin Dose 5 MG; Start 02/22/17 at 10:00 Bisacodyl (Dulcolax Supp) 10 mg DAILY PRN [place] CONSTIPATION; Start 02/22/17 at 10: 00 Zolpidem Tartrate (Ambien) 5 mg QHS PRN PO SLEEP; Start 02/22/17 at 10:00 Heparin Sodium (Porcine) 5000 unit 5,000 unit Q12 SC Last administered on 09:12; Admin Dose 5,000 UNIT; Start 02/22/17 at 21:00 Piperacillin Sod/ Tazobactam Sod (Zosyn 3.375gm/ 100 ml (Pmx)) 100 ml @ 200 mls /hr Q6 IVPB Last administered on 02/27/17 12:07; Admin Dose 200 MLS/HR; Start 02/22/17 at 15:32 Nystatin (Nystatin Susp) 5 ml TID PO Last administered on 02/26/17 22:11; Admin Dose 5 ML; Start 02/22/17 at 21:00 Diagnostic Test (Pha) (Accu-Chek) 1 ea 02 XX Last administered on 02/26/17 02: 08; Admin Dose 1 EA; Start 02/23/17 at 02:00 Miscellaneous Information 1 ea NOTE XX ; Start 02/22/17 at 18:00 Glucose (Glutose) 15 gm Q15M PRN PO DECREASED GLUCOSE; Start 02/22/17 at 18:00 Glucose (Glutose) 22.5 gm Q15M PRN PO DECREASED GLUCOSE; Start 02/22/17 at 18:00 Dextrose (D50w Syringe) 25 ml Q15M PRN IV DECREASED GLUCOSE; Start 02/22/17 at 18:00 Dextrose (D50w Syringe) 50 ml Q15M PRN IV DECREASED GLUCOSE; Start 02/22/17 at 18:00 Glucagon (Glucagen) 1 mg Q15M PRN IM DECREASED GLUCOSE; Start 02/22/17 at 18:00 Glucose (Glutose) 15 gm Q15M PRN BUCCAL DECREASED GLUCOSE; Start 02/22/17 at 18: 00 Latanoprost 1 drop 1 drop HS BOTH EYES Last administered on 02/26/17 22:10; Admin Dose 1 DROP; Start 02/23/17 at 21:52 Dextrose/Sodium Chloride (D5-1/2ns) 1,000 ml @ 60 mls/hr [id number] IV Last administered on 02/27/17 11:43; Admin Dose 60 MLS/HR; Start 02/27/17 at 11:30 LANDON ZAMORA MD Feb 27, 2017 18:37
[2017-02-27] MEDS: ATORVASTATIN 40 MG TAB PO SCH ×2 (21:00→23:33)
[2017-02-27] MEDS: LATANOPROST 0.005% 2.5 ML OPH BOTH EYES SCH ×2 (21:00→23:33)
--- NOTE | 2017-02-27 21:01 | OPPN ---
Date/Time of Note Date/Time of Note DATE: 02/27/17 TIME: 20:59 Operative Report Preoperative Diagnosis Giant bile duct stone Postoperative Diagnosis Giant multiple bile duct stone Operation/Procedure Performed Removal of the stent Laser lithotripsy breaking stone into multiple segments. Total 2530 was used. Multiple stones removed Spider bite biopsy done Balloon dilatation of the ampulla and the bile duct done before introduction of the Spyglass Deployment of the stent and 18 Setswana 9 cm Pus was drained Provider: LAUREN GODFREY MD Transfusion Required: no Specimen: none Specimens Bye-bite Grafts/Implants: none Complications: no LAUREN GODFREY MD Feb 27, 2017 21:01
[2017-02-27] MEDS ORDERED: HYDROmorphONE (0.2 MG/ML) 10ML SYG IV PRN ×2 (21:30)
[2017-02-27] MEDS ORDERED: LABETALOL HCL 20MG INJ IV PRN (21:30)
[2017-02-27] MEDS ORDERED: ONDANSETRON 4 MG INJ IV PRN (21:30)
--- NOTE | 2017-02-27 22:09 | PN ---
Date/Time of Note Date/Time of Note DATE: 02/27/17 TIME: 15:02 Assessment/Plan Lines/Catheters IV Catheter Type (from [facility]): Peripheral IV Assessment/Plan Chief Complaint/Hosp Course 1. Cholangitis secondary biliary obstruction/Choledocholithiasis s/p ERCP by Dr. Soares in past. Here for removal of stent and cholecystectomy: lap janet not done 2/2 stone in cbd vs. cystic duct; stent replaced, pus evacuated by Dr. Soares; MRCP noted:ERCP today -eventual lap janet after stone removal 2. CAD, hx of [place] with multiple stents -cleared by cardiology 3. DM -nutrition and medication optimization -encourage weight optimization 4. CVA hx -medical/cardiac optimization -off loading -nutritional optimization 5. Rheumatoid arthritis. -medical management Thank you. Patient seen and examined in collaboration with Dr. Milan Smart. No identifiable intraductal calculi of the examination is limited. Problems: Subjective 24 Hr Interval Summary feels well. pending ercp today. Kept NPO. No complaints of abdominal pain, nausea, vomiting, chest pain, palpitations, fever, chills. Exam/Review of Systems Vital Signs Vitals Vital Signs Date Time Temp Pulse Resp B/P Pulse Ox O2 Delivery O2 Flow Rate FiO2 02/27/17 21:33 110 17 87/65 100 Room Air 02/27/17 07:51 96.0 02/25/17 20:00 2.0 Intake and Output 02/26/17 02/26/17 02/27/17 15:00 23:00 07:00 Intake Total 200 ml 820 ml 300 ml Balance 200 ml 820 ml 300 ml Exam Free Text/Dictation Constitutional: alert, oriented Psych: nl mood/affect, no complaints, anxious for procedure Head: atraumatic, normocephalic Eyes: nl lids, nl sclera ENMT: mucosa pink and moist, nl nasal mucosa & septum Neck: non-tender, supple Respiratory: normal air movement Cardiovascular: nl pulses, regular rate and rhythm Gastrointestinal: bowel sounds, non-tender, soft, No distended Musculoskeletal: nl extremities to inspection Extremities: normal pulses Skin: nl turgor, rash or lesions Lymph: nl lymph nodes Results Result Diagram: 02/26/17 0444 02/26/17 0445 DENNIS MENDEZ NP Feb 27, 2017 22:09
[2017-02-28] VITALS (7 sets, daily range): BP systolic 117–141; BP diastolic 56–69; PULSE 83–94; RESP 17–20
[2017-02-28] MEDS: ACCU-CHEK XX SCH (02:00)
[2017-02-28] MEDS: DEXTROSE 5%-0.45% NACL 1,000 ML IV SCH ×2 (04:10→20:50)
[2017-02-28] MEDS: PIPER-TAZO 3.375 GM IV (PMX) 100 ML IVPB SCH ×4 (05:23→23:56)
--- NOTE | 2017-02-28 08:46 | RADRPT ---
PROCEDURE: Intraoperative imaging for ERCP with fluoroscopy. CLINICAL INDICATION: Right upper quadrant pain. Intraoperative. TECHNIQUE: 2 images of the right upper quadrant of the abdomen were obtained in the operating room with an image intensifier. No radiologist was in attendance. 43 seconds of fluoroscopy time was u sed. COMPARISON: MRCP dated 02/22/2017. ERCP dated 02/22/2017. FINDINGS: Images demonstrate the endoscope in position and contrast injected into the common bile duct. IMPRESSION: 1. ERCP as described above. RPTAT: QQ .Brody Marcelo MD, MD Date Time Electronically viewed and signed by .Brody Marcelo MD, MD on 02/28/2017 08:45 .R/
[2017-02-28] MEDS: AMLODIPINE 10 MG TAB PO SCH (08:47)
[2017-02-28] MEDS: PANTOPRAZOLE (EC) 40 MG TAB PO SCH (08:48)
[2017-02-28] MEDS: NYSTATIN SUSP 5 ML CUP PO SCH ×3 (08:48→21:10)
[2017-02-28] MEDS: INSULIN ASPART [NOVOLOG] 3 ML PEN SC SCH ×4 (08:50→21:00)
[2017-02-28] MEDS: HEPARIN 5,000 UNIT/0.5 ML VIAL SC SCH ×2 (08:56→21:12)
--- NOTE | 2017-02-28 09:57 | GILP ---
DATE OF PROCEDURE: 02/28/2017 INDICATIONS FOR PROCEDURE: A 66-year-old female undergoing this procedure, who has a large giant the stone, either in the bile duct or cystic duct. The purpose of this procedure is to evaluate with the Spy glass and if the stone is in the bile duct, use laser to break the stone and hopefully to remove it. The risks of the procedure, related complications, anesthetic risk, alternatives, all thoroughly discussed with both the sons, who understood, agreed, and consented for it. DESCRIPTION OF PROCEDURE: The patient was brought to OR room #9, placed in a prone position after intubation. The ERCP scope passed with much ease into the esophagus, advanced further down into the stomach. The apex of the duodenum was narrow. Would not allow easy passage of the ERCP scope. With some pressure, was dilated and finally managed to pass into the 2nd part of the duodenum. Stent was identified, successfully removed. Bile duct was selectively cannulated. A large stone was identified. The stone was giant. It was decided to dilate the distal part of the bile duct. A 12 mm CRE balloon was used, initially dilated up to 10 mm, then up to 12 mm for 15 seconds. Some bleeding was seen, so we stopped the dilatation. After dilating, we passed a Spy glass over the long wire and it was much easier to pass it. As soon as we were in the mid portion of the bile duct, the largest stone was identified. It was a combination of cholesterol and pigmentation. It was so huge that we could not see the entire stones. At this point, decided to use laser. A laser fiber was passed, protected glass wand and initially low-dose was use to start breaking the stone. Multiple fragments were created, but the stone was so huge, we increased it to double the dose. Again, it kept on breaking and we did it for 45 minutes and still there was some stone may be protruding from the cystic duct. This was a humongous stone. At this point, decided to terminate the procedure. Scope was removed. We used a balloon to sweep the bile duct. Multiple stones and mud particles removed. Bile duct was swept multiple times. So at this point, decided to deploy the stent. An 18.5-Urdu 9 cm was the only stent that was available was successfully deployed and purulent material came out. The scope was removed with good patient tolerance. IMPRESSION: 1. Removal of the old stent. 2. Ampullary dilatation of the bile duct with 12 mm balloon. 3. Breaking the giant stone with the help of a laser into multiple pieces. It was both cholesterol and pigmented stone. 4. Multiple stones, both pigmented and cholesterol, and the mud removed with the balloon sweeping. 5. Stent, an 18.5-Urdu 9 cm successfully deployed. 6. There appears to be also filling defect large in the cystic duct. A guidewire had gone multiple times into the gallbladder, indicating that the stone is probably protruding from the cystic duct. 7. Total fluoro time was 45 seconds. The best option for this patient would be to laparoscopically remove the cystic duct stone, and hopefully, we will have enough room to drag the rest of the fragments. This stone is both in the bile duct and in the cystic duct. 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 The patient will need multiple endoscopic retrograde cholangiopancreatograms with electrohydraulic lithotripsy or holmium laser or the best option will be to send the patient to tertiary care center because of this required prolonged and multiple procedure to remove the stone. Dictated By: Gurjit Soares MD /nai/s[place] /Document#: [id number] ; Dr. Sean Delatorre
--- NOTE | 2017-02-28 10:47 | CONS ---
Date/Time of Note Date/Time of Note DATE: 02/28/17 TIME: 10:45 Assessment/Plan Assessment/Plan Additional Assessment/Plan ASSESSMENT: 1. Cholangitis, successfully treated by stenting the bile duct and relieving the obstruction. 2. Stone, either in the bile duct or the gallbladder. It appears more in the neck of the gallbladder pressing upon the bile duct. 3. Diabetes mellitus. 4. Hypertension. 5. Cerebrovascular accident. 6. Laser lithotripsy for a large stone identified in the bile duct. Broken the stone into pieces and multiple stones were removed. 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 Plan Continue antibiotic Advance diet Surgical follow-up Consultation Date/Type/Reason Admit Date/Time Feb 22, 2017 at 09:50 Initial Consult Date 02/22/17 Type of Consultation: NEPHROLOGY Referring Provider: JOSE TOLBERT MD 24 HR Interval Summary Free Text/Dictation Sore throat Exam/Review of Systems Vital Signs Vitals Vital Signs Date Time Temp Pulse Resp B/P Pulse Ox O2 Delivery O2 Flow Rate FiO2 02/28/17 07:23 97.8 82 18 133/60 99 02/28/17 01:30 Room Air 02/25/17 20:00 2.0 Intake and Output 02/27/17 02/27/17 02/28/17 15:00 23:00 07:00 Intake Total 100 ml 300 ml 480 ml Output Total 1500 ml Balance 100 ml 300 ml -1020 ml Exam Constitutional: alert, oriented, well developed Psych: nl mood/affect, no complaints Head: atraumatic, normocephalic Eyes: EOMI, PERRL, nl conjunctiva, nl lids, nl sclera ENMT: nl external ears & nose, nl lips & teeth, nl nasal mucosa & septum Neck: non-tender, supple Respiratory: clear to auscultation, normal air movement Cardiovascular: nl pulses, regular rate and rhythm Gastrointestinal: nl liver, spleen, non-tender, soft Musculoskeletal: nl extremities to inspection, nl gait and stance Extremities: normal pulses Neurological: 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 II-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 intact, nl mental status, nl speech, nl strength Skin: nl turgor, No rash or lesions Lymph: nl lymph nodes Results Result Diagram: 02/26/17 0444 02/26/17 0445 Results 24 hrs Laboratory Tests Test 02/27/17:29 02/27/17 16:38 02/27/17 21:59 02/27/17 23:28 Bedside Glucose 173 130 218 153 Test 02/28/17 08:53 Bedside Glucose 122 Medications Medications Current Medications Amlodipine Besylate (Norvasc) 10 mg DAILY PO Last administered on 02/28/17 08: 47; Admin Dose 10 MG; Start 02/23/17 at 09:00 Atorvastatin Calcium (Lipitor) 40 mg QHS PO Last administered on 02/27/17 23: 33; Admin Dose 40 MG; Start 02/22/17 at 21:00 Pantoprazole (Protonix Tab) 40 mg DAILY PO Last administered on 02/28/17 08:48 ; Admin Dose 40 MG; Start 02/22/17 at 10:00 Ondansetron HCl (Zofran Inj) 4 mg Q6H PRN IV NAUSEA AND/OR VOMITING Last administered on 02/27/17 22:19; Admin Dose 4 MG; Start 02/22/17 at 10:00 Acetaminophen (Tylenol Tab) 650 mg Q6H PRN PO PAIN LEVEL 1-3 OR FEVER; Start at 10:00 Acetaminophen/ Hydrocodone Bitart ([place] (5/325)) 1 tab Q6H PRN PO MODERATE PAIN LEVEL 4-6; Start 02/22/17 at 10:00 Morphine Sulfate (morphine) 1 mg Q4H PRN IV SEVERE PAIN LEVEL 7-10; Start at 10:00 Docusate Sodium (Colace) 100 mg Q12H PRN PO CONSTIPATION; Start 02/22/17 at 10: 00 Magnesium Hydroxide (Milk Of Mag) 30 ml DAILY PRN PO CONSTIPATION; Start at 10:00 Bisacodyl (Dulcolax) 5 mg DAILY PRN PO CONSTIPATION Last administered on 09:06; Admin Dose 5 MG; Start 02/22/17 at 10:00 Bisacodyl (Dulcolax Supp) 10 mg DAILY PRN MS CONSTIPATION; Start 02/22/17 at 10: 00 Zolpidem Tartrate (Ambien) 5 mg QHS PRN PO SLEEP; Start 02/22/17 at 10:00 Heparin Sodium (Porcine) 5000 unit 5,000 unit Q12 SC Last administered on 08:56; Admin Dose 5,000 UNIT; Start 02/22/17 at 21:00 Piperacillin Sod/ Tazobactam Sod (Zosyn 3.375gm/ 100 ml (Pmx)) 100 ml @ 200 mls /hr Q6 IVPB Last administered on 02/28/17 05:23; Admin Dose 200 MLS/HR; Start 02/22/17 at 15:32 Nystatin (Nystatin Susp) 5 ml TID PO Last administered on 02/28/17 08:48; Admin Dose 5 ML; Start 02/22/17 at 21:00 Diagnostic Test (Pha) (Accu-Chek) 1 ea 02 XX Last administered on 02/26/17 02: 08; Admin Dose 1 EA; Start 02/23/17 at 02:00 Miscellaneous Information 1 ea NOTE XX ; Start 02/22/17 at 18:00 Glucose (Glutose) 15 gm Q15M PRN PO DECREASED GLUCOSE; Start 02/22/17 at 18:00 Glucose (Glutose) 22.5 gm Q15M PRN PO DECREASED GLUCOSE; Start 02/22/17 at 18:00 Dextrose (D50w Syringe) 25 ml Q15M PRN IV DECREASED GLUCOSE; Start 02/22/17 at 18:00 Dextrose (D50w Syringe) 50 ml Q15M PRN IV DECREASED GLUCOSE; Start 02/22/17 at 18:00 Glucagon (Glucagen) 1 mg Q15M PRN IM DECREASED GLUCOSE; Start 02/22/17 at 18:00 Glucose (Glutose) 15 gm Q15M PRN BUCCAL DECREASED GLUCOSE; Start 02/22/17 at 18: 00 Latanoprost 1 drop 1 drop HS BOTH EYES Last administered on 02/27/17 23:33; Admin Dose 1 DROP; Start 02/23/17 at 21:52 Dextrose/Sodium Chloride (D5-1/2ns) 1,000 ml @ 60 mls/hr [id number] IV Last administered on 02/27/17 11:43; Admin Dose 60 MLS/HR; Start 02/27/17 at 11:30 LAUREN GODFREY MD Feb 28, 2017 10:47
--- NOTE | 2017-02-28 13:16 | PN ---
Date/Time of Note Date/Time of Note DATE: 02/28/17 TIME: 13:14 Assessment/Plan Lines/Catheters IV [facility]from [facility] [place] Assessment/Plan Chief Complaint/Hosp Course 1. Cholangitis secondary biliary obstruction/Choledocholithiasis s/p ERCP by Dr. Soares in past. Here for removal of stent and cholecystectomy: lap janet not done 2/2 stone in cbd vs. cystic duct; stent replaced, pus evacuated by Dr. Soares; MRCP noted: s/p ERCP yesterday large stone broken up and removed -still with stones in bile duct and cystic duct -eventual lap janet after stone removal vs. transfer to tertiary center 2. CAD, hx of [place] with multiple stents -cleared by cardiology 3. DM -nutrition and medication optimization -encourage weight optimization 4. CVA hx -medical/cardiac optimization -off loading -nutritional optimization 5. Rheumatoid arthritis. -medical management Thank you. Patient seen and examined in collaboration with Dr. Milan Smart. No identifiable intraductal calculi of the examination is limited. Problems: Subjective 24 Hr Interval Summary S/p ERCP. Sleepy. Feels well. No c/o pain, abdominal discomfort, n/v/d/dysuria, fevers, chills, sob, cp, palpitations. +bowel function. Exam/Review of Systems Vital Signs Vitals Vital Signs Date Time Temp Pulse Resp B/P Pulse Ox O2 Delivery O2 Flow Rate FiO2 02/28/17 21:39 98.3 80 20 117/58 100 02/28/17 01:30 Room Air 02/25/17 20:00 2.0 Intake and Output 02/27/17 02/27/17 02/28/17 15:00 23:00 07:00 Intake Total 100 ml 300 ml 480 ml Output Total 1500 ml Balance 100 ml 300 ml -1020 ml Exam Free Text/Dictation Constitutional: alert, oriented, somnolent, easily wakes Psych: nl mood/affect, no complaints, anxious for procedure Head: atraumatic, normocephalic Eyes: nl lids, nl sclera ENMT: mucosa pink and moist, nl nasal mucosa & septum Neck: non-tender, supple Respiratory: normal air movement Cardiovascular: nl pulses, regular rate and rhythm Gastrointestinal: bowel sounds, non-tender, soft, rotund No distended Musculoskeletal: nl extremities to inspection Extremities: normal pulses Skin: nl turgor, rash or lesions Lymph: nl lymph nodes Results Result Diagram: 02/26/17 0444 02/28/17 1713 DENNIS MENDEZ NP Feb 28, 2017 13:16
--- NOTE | 2017-02-28 16:03 | PN ---
Date/Time of Note Date/Time of Note DATE: 02/28/17 TIME: 15:58 Assessment/Plan VTE Prophylaxis VTE Prophylaxis Intervention: SCD's Lines/Catheters IV Catheter Type (from Nrs): Saline Lock Assessment/Plan Assessment/Plan 1. Cholangitis secondary biliary obstruction/Choledocholithiasis s/p ERCP by Dr. Soares in past. Here for removal of stent and cholecystectomy: lap janet not done 2/2 stone in cbd vs. cystic duct; stent replaced, pus evacuated by Dr. Soares; MRCP noted -eventual lap janet after stone removal - SP ERCP 2. CAD, hx of [place] with multiple stents -cleared by cardiology 3. DM -nutrition and medication optimization -encourage weight optimization 4. CVA hx -medical/cardiac optimization -off loading -nutritional optimization 5. Rheumatoid arthritis. -medical management 6. CKD- stage II-III - nephrology follows 7. HTN- stable 8 Dyslipidemias- cont Atorvastatin Steve Keyes Subjective 24 Hr Interval Summary Free Text/Dictation sp ERCP yesterday, awaiting surgery. dw staff Respiratory: no complaints Cardiovascular: no complaints Gastrointestinal: no complaints Genitourinary: no complaints Musculoskeletal: no complaints Skin: no complaints Exam/Review of Systems Vital Signs Vitals Vital Signs Date Time Temp Pulse Resp B/P Pulse Ox O2 Delivery O2 Flow Rate FiO2 02/28/17 07:23 97.8 82 18 133/60 99 02/28/17 01:30 Room Air 02/25/17 20:00 2.0 Intake and Output 02/27/17 02/27/17 02/28/17 15:00 23:00 07:00 Intake Total 100 ml 300 ml 480 ml Output Total 1500 ml Balance 100 ml 300 ml -1020 ml Exam Constitutional: alert, oriented Respiratory: clear to auscultation, normal air movement Cardiovascular: nl pulses, regular rate and rhythm Gastrointestinal: non-tender, soft Extremities: normal pulses Results Result Diagram: 02/26/17 0444 02/26/17 0445 Results 24 hrs Laboratory Tests Test 02/27/17 16:38 02/27/17 21:59 02/27/17 23:28 02/28/17 08:53 Bedside Glucose 130 218 153 122 Test 02/28/17 12:36 Bedside Glucose 155 Medications Medications Current Medications Amlodipine Besylate (Norvasc) 10 mg DAILY PO Last administered on 02/28/17 08: 47; Admin Dose 10 MG; Start 02/23/17 at 09:00 Atorvastatin Calcium (Lipitor) 40 mg QHS PO Last administered on 02/27/17 23: 33; Admin Dose 40 MG; Start 02/22/17 at 21:00 Pantoprazole (Protonix Tab) 40 mg DAILY PO Last administered on 02/28/17 08:48 ; Admin Dose 40 MG; Start 02/22/17 at 10:00 Ondansetron HCl (Zofran Inj) 4 mg Q6H PRN IV NAUSEA AND/OR VOMITING Last administered on 02/27/17 22:19; Admin Dose 4 MG; Start 02/22/17 at 10:00 Acetaminophen (Tylenol Tab) 650 mg Q6H PRN PO PAIN LEVEL 1-3 OR FEVER; Start at 10:00 Acetaminophen/ Hydrocodone Bitart ([place] (5/325)) 1 tab Q6H PRN PO MODERATE PAIN LEVEL 4-6; Start 02/22/17 at 10:00 Morphine Sulfate (morphine) 1 mg Q4H PRN IV SEVERE PAIN LEVEL 7-10; Start at 10:00 Docusate Sodium (Colace) 100 mg Q12H PRN PO CONSTIPATION; Start 02/22/17 at 10: 00 Magnesium Hydroxide (Milk Of Mag) 30 ml DAILY PRN PO CONSTIPATION; Start at 10:00 Bisacodyl (Dulcolax) 5 mg DAILY PRN PO CONSTIPATION Last administered on 09:06; Admin Dose 5 MG; Start 02/22/17 at 10:00 Bisacodyl (Dulcolax Supp) 10 mg DAILY PRN [place] CONSTIPATION; Start 02/22/17 at 10: 00 Zolpidem Tartrate (Ambien) 5 mg QHS PRN PO SLEEP; Start 02/22/17 at 10:00 Heparin Sodium (Porcine) 5000 unit 5,000 unit Q12 SC Last administered on 08:56; Admin Dose 5,000 UNIT; Start 02/22/17 at 21:00 Piperacillin Sod/ Tazobactam Sod (Zosyn 3.375gm/ 100 ml (Pmx)) 100 ml @ 200 mls /hr Q6 IVPB Last administered on 02/28/17 12:37; Admin Dose 200 MLS/HR; Start 02/22/17 at 15:32 Nystatin (Nystatin Susp) 5 ml TID PO Last administered on 02/28/17 12:37; Admin Dose 5 ML; Start 02/22/17 at 21:00 Diagnostic Test (Pha) (Accu-Chek) 1 ea 02 XX Last administered on 02/26/17 02: 08; Admin Dose 1 EA; Start 02/23/17 at 02:00 Miscellaneous Information 1 ea NOTE XX ; Start 02/22/17 at 18:00 Glucose (Glutose) 15 gm Q15M PRN PO DECREASED GLUCOSE; Start 02/22/17 at 18:00 Glucose (Glutose) 22.5 gm Q15M PRN PO DECREASED GLUCOSE; Start 02/22/17 at 18:00 Dextrose (D50w Syringe) 25 ml Q15M PRN IV DECREASED GLUCOSE; Start 02/22/17 at 18:00 Dextrose (D50w Syringe) 50 ml Q15M PRN IV DECREASED GLUCOSE; Start 02/22/17 at 18:00 Glucagon (Glucagen) 1 mg Q15M PRN IM DECREASED GLUCOSE; Start 02/22/17 at 18:00 Glucose (Glutose) 15 gm Q15M PRN BUCCAL DECREASED GLUCOSE; Start 02/22/17 at 18: 00 Latanoprost 1 drop 1 drop HS BOTH EYES Last administered on 02/27/17 23:33; Admin Dose 1 DROP; Start 02/23/17 at 21:52 Dextrose/Sodium Chloride (D5-1/2ns) 1,000 ml @ 60 mls/hr [id number] IV Last administered on 02/27/17 11:43; Admin Dose 60 MLS/HR; Start 02/27/17 at 11:30 JENNIFER CALABRESE Feb 28, 2017 16:03
--- NOTE | 2017-02-28 16:31 | CONS ---
Date/Time of Note Date/Time of Note DATE: 02/28/17 TIME: 16:30 Assessment/Plan Assessment/Plan Additional Assessment/Plan 1. Acute cholangitis secondary biliary obstruction/Choledocholithiasis s/p ERCP by Dr. Soares in past. Here for removal of stent and cholecystectomy- s/P ERCP with stent exchange on 02/27/17 2. H/O CKD II/III 3. H/o CAD s/p previous stent placement 4. H/o previous CVA 5. Hypertension 6. Hyperlipidemia 7. Diabetes melitus Type II 8. H/o Rheumatoid Arthritis 8. Hypokalemia Plan : conitnue IV abx zosyn, renally dose a/p ERCP with replacement of stent - Pain controlled Renal funciton stable, will follow up Consultation Date/Type/Reason Admit Date/Time Feb 22, 2017 at 09:50 Initial Consult Date 02/22/17 Type of Consultation: NEPHROLOGY Referring Provider: JOSE TOLBERT MD Exam/Review of Systems Vital Signs Vitals Vital Signs Date Time Temp Pulse Resp B/P Pulse Ox O2 Delivery O2 Flow Rate FiO2 02/28/17 14:30 97.9 78 17 135/68 98 02/28/17 01:30 Room Air 02/25/17 20:00 2.0 Intake and Output 02/27/17 02/27/17 02/28/17 15:00 23:00 07:00 Intake Total 100 ml 300 ml 480 ml Output Total 1500 ml Balance 100 ml 300 ml -1020 ml Exam Constitutional: alert Respiratory: clear to auscultation, diminished breath sounds, normal air movement Cardiovascular: nl pulses, regular rate and rhythm Gastrointestinal: firm, other (TTp in RUQ, no rebound, no guarding), soft Extremities: normal pulses Neurological: MUD MILL TENDER II-XII intact, nl mental status, nl speech, nl strength Results Result Diagram: 02/26/17 0444 02/26/17 0445 Results 24 hrs Laboratory Tests Test 02/27/17 16:38 02/27/17 21:59 02/27/17 23:28 02/28/17 08:53 Bedside Glucose 130 218 153 122 Test 02/28/17 12:36 Bedside Glucose 155 Medications Medications Current Medications Amlodipine Besylate (Norvasc) 10 mg DAILY PO Last administered on 02/28/17t 08: 47; Admin Dose 10 MG; Start 02/23/17 at 09:00 Atorvastatin Calcium (Lipitor) 40 mg QHS PO Last administered on 02/27/17 23: 33; Admin Dose 40 MG; Start 02/22/17 at 21:00 Pantoprazole (Protonix Tab) 40 mg DAILY PO Last administered on 02/28/17 08:48 ; Admin Dose 40 MG; Start 02/22/17 at 10:00 Ondansetron HCl (Zofran Inj) 4 mg Q6H PRN IV NAUSEA AND/OR VOMITING Last administered on 02/27/17 22:19; Admin Dose 4 MG; Start 02/22/17 at 10:00 Acetaminophen (Tylenol Tab) 650 mg Q6H PRN PO PAIN LEVEL 1-3 OR FEVER; Start at 10:00 Acetaminophen/ Hydrocodone Bitart ([place] (5/325)) 1 tab Q6H PRN PO MODERATE PAIN LEVEL 4-6; Start 02/22/17 at 10:00 Morphine Sulfate (morphine) 1 mg Q4H PRN IV SEVERE PAIN LEVEL 7-10; Start at 10:00 Docusate Sodium (Colace) 100 mg Q12H PRN PO CONSTIPATION; Start 02/22/17 at 10: 00 Magnesium Hydroxide (Milk Of Mag) 30 ml DAILY PRN PO CONSTIPATION; Start at 10:00 Bisacodyl (Dulcolax) 5 mg DAILY PRN PO CONSTIPATION Last administered on 09:06; Admin Dose 5 MG; Start 02/22/17 at 10:00 Bisacodyl (Dulcolax Supp) 10 mg DAILY PRN [place] CONSTIPATION; Start 02/22/17 at 10: 00 Zolpidem Tartrate (Ambien) 5 mg QHS PRN PO SLEEP; Start 02/22/17 at 10:00 Heparin Sodium (Porcine) 5000 unit 5,000 unit Q12 SC Last administered on 08:56; Admin Dose 5,000 UNIT; Start 02/22/17 at 21:00 Piperacillin Sod/ Tazobactam Sod (Zosyn 3.375gm/ 100 ml (Pmx)) 100 ml @ 200 mls /hr Q6 IVPB Last administered on 02/28/17 12:37; Admin Dose 200 MLS/HR; Start 02/22/17 at 15:32 Nystatin (Nystatin Susp) 5 ml TID PO Last administered on 02/28/17 12:37; Admin Dose 5 ML; Start 02/22/17 at 21:00 Diagnostic Test (Pha) (Accu-Chek) 1 ea 02 XX Last administered on 02/26/17 02: 08; Admin Dose 1 EA; Start 02/23/17 at 02:00 Miscellaneous Information 1 ea NOTE XX ; Start 02/22/17 at 18:00 Glucose (Glutose) 15 gm Q15M PRN PO DECREASED GLUCOSE; Start 02/22/17 at 18:00 Glucose (Glutose) 22.5 gm Q15M PRN PO DECREASED GLUCOSE; Start 02/22/17 at 18:00 Dextrose (D50w Syringe) 25 ml Q15M PRN IV DECREASED GLUCOSE; Start 02/22/17 at 18:00 Dextrose (D50w Syringe) 50 ml Q15M PRN IV DECREASED GLUCOSE; Start 02/22/17 at 18:00 Glucagon (Glucagen) 1 mg Q15M PRN IM DECREASED GLUCOSE; Start 02/22/17 at 18:00 Glucose (Glutose) 15 gm Q15M PRN BUCCAL DECREASED GLUCOSE; Start 02/22/17 at 18: 00 Latanoprost 1 drop 1 drop HS BOTH EYES Last administered on 02/27/17 23:33; Admin Dose 1 DROP; Start 02/23/17 at 21:52 Dextrose/Sodium Chloride (D5-1/2ns) 1,000 ml @ 60 mls/hr [id number] IV Last administered on 02/27/17 11:43; Admin Dose 60 MLS/HR; Start 02/27/17 at 11:30 LANDON ZAMORA MD Feb 28, 2017 16:31
[2017-02-28 18:13] LABS: CALCIUM 9.6 mg/dl (8.4-10.2); CREATININE 0.83 mg/dl (0.44-1.00); POTASSIUM 3.6 mmol/L (3.5-5.1)
[2017-02-28] MEDS: ATORVASTATIN 40 MG TAB PO SCH (21:10)
[2017-02-28] MEDS: LATANOPROST 0.005% 2.5 ML OPH BOTH EYES SCH (21:10)
[2017-03-01] MEDS: ACCU-CHEK XX SCH (01:39)
[2017-03-01 02:10] VITALS: BP 98/46; RESP 20
[2017-03-01 05:53] LABS: BASOPHILS % 0.3 % (0.0-2.0); EOSINOPHILS # 0.2 10^3/ul (0.0-0.5); EOSINOPHILS % 3.6 % (0.0-7.0); HEMATOCRIT 31.7 % (37.0-47.0); HEMOGLOBIN 10.3 g/dl (12.0-16.0); LYMPHOCYTES # 1.1 10^3/ul (0.8-2.9); LYMPHOCYTES % 17.1 % (15.0-51.0); MEAN CORPUSCULAR HEMOGLOBIN 32.5 pg (29.0-33.0); MEAN CORPUSCULAR HGB CONC 32.5 g/dl (32.0-37.0); MEAN PLATELET VOLUME 11.3 fl (7.4-10.4); MONOCYTE # 0.8 10^3/ul (0.3-0.9); NEUTROPHIL # 4.3 10^3/ul (1.6-7.5); NEUTROPHILS % 66.7 % (39.0-77.0); PLATELET COUNT 199 10^3/UL (140-415); RED BLOOD COUNT 3.17 10^6/ul (4.20-5.40); RED CELL DISTRIBUTION WIDTH 17.4 % (11.5-14.5); WHITE BLOOD COUNT 6.4 10^3/ul (4.8-10.8)
[2017-03-01] MEDS: PIPER-TAZO 3.375 GM IV (PMX) 100 ML IVPB SCH ×3 (05:59→17:16)
[2017-03-01 06:23] LABS: CALCIUM 9.2 mg/dl (8.4-10.2); CREATININE 0.9 mg/dl (0.44-1.00)
[2017-03-01 07:01] LABS: POTASSIUM 3.4 mmol/L (3.5-5.1)
[2017-03-01 07:47] VITALS: BP 114/56; RESP 18
[2017-03-01] MEDS: NYSTATIN SUSP 5 ML CUP PO SCH ×3 (08:49→20:23)
[2017-03-01] MEDS: PANTOPRAZOLE (EC) 40 MG TAB PO SCH (08:49)
[2017-03-01] MEDS: AMLODIPINE 10 MG TAB PO SCH (08:50)
[2017-03-01] MEDS: HEPARIN 5,000 UNIT/0.5 ML VIAL SC SCH ×2 (08:53→20:27)
[2017-03-01] MEDS: INSULIN ASPART [NOVOLOG] 3 ML PEN SC SCH ×4 (08:54→20:25)
[2017-03-01] MEDS ORDERED: POTASSIUM CHLORIDE (SR) 20 MEQ TAB PO STA (09:34)
[2017-03-01] MEDS: DEXTROSE 5%-0.45% NACL 1,000 ML IV SCH (12:41)
[2017-03-01 14:30] VITALS: BP 121/58; PULSE 76; RESP 16
--- NOTE | 2017-03-01 15:00 | CONS ---
Date/Time of Note Date/Time of Note DATE: 03/01/17 TIME: 14:59 Assessment/Plan Assessment/Plan Additional Assessment/Plan 1. Acute cholangitis secondary biliary obstruction/Choledocholithiasis s/p ERCP by Dr. Soares in past. Here for removal of stent and cholecystectomy- s/P ERCP with stent exchange on 02/27/17 2. H/O CKD II/III 3. H/o CAD s/p previous stent placement 4. H/o previous CVA 5. Hypertension 6. Hyperlipidemia 7. Diabetes melitus Type II 8. H/o Rheumatoid Arthritis 8. Hypokalemia Plan : conitnue IV abx zosyn, renally dose,K low- [id number] PO x 1 dose today a/p ERCP with replacement of stent - Pain controlled Renal funciton stable, will follow up Consultation Date/Type/Reason Admit Date/Time Feb 22, 2017 at 09:50 Initial Consult Date 02/22/17 Type of Consultation: NEPHROLOGY Referring Provider: JOSE TOLBERT MD 24 HR Interval Summary Free Text/Dictation K low, tolerartin diet, abdominal pain Exam/Review of Systems Vital Signs Vitals Vital Signs Date Time Temp Pulse Resp B/P Pulse Ox O2 Delivery O2 Flow Rate FiO2 03/01/17 07:47 98.4 78 18 114/56 97 02/28/17 01:30 Room Air 02/25/17 20:00 2.0 Intake and Output 02/28/17 02/28/17 03/01/17 15:00 23:00 07:00 Intake Total 100 ml 1220 ml 620 ml Output Total 1700 ml 750 ml Balance 100 ml -480 ml -130 ml Exam Constitutional: alert Respiratory: clear to auscultation, diminished breath sounds, normal air movement Cardiovascular: nl pulses, regular rate and rhythm Gastrointestinal: firm, other (TTp in RUQ, no rebound, no guarding), soft Extremities: normal pulses Neurological: CHILD LIFE SPECIALIST II-XII intact, nl mental status, nl speech, nl strength Results Result Diagram: 03/01/17 0435 03/01/17 0435 Results 24 hrs Laboratory Tests Test 02/28/17 17:13 02/28/17 18:05 02/28/17 21:08 03/01/17 04:35 Sodium Level 135 135 Potassium Level 3.6 3.4 L Chloride Level 102 104 Carbon Dioxide Level 26 26 Anion Gap 11 8 Blood Urea Nitrogen 10 9 Creatinine 0.83 0.90 Glucose Level 139 135 Calcium Level 9.6 9.2 Bedside Glucose 116 140 White Blood Count 6.4 Red Blood Count 3.17 L Hemoglobin 10.3 L Hematocrit 31.7 L Mean Corpuscular Volume 100.0 Mean Corpuscular Hemoglobin 32.5 Mean Corpuscular Hemoglobin Concent 32.5 Red Cell Distribution Width 17.4 H Platelet Count 199 # Mean Platelet Volume 11.3 H Neutrophils % 66.7 Lymphocytes % 17.1 Monocytes % 12.0 H Eosinophils % 3.6 Basophils % 0.3 Nucleated Red Blood Cells % 0.0 Neutrophils # 4.3 Lymphocytes # 1.1 Monocytes # 0.8 Eosinophils # 0.2 Basophils # 0.0 Nucleated Red Blood Cells # 0.0 Test 03/01/17 08:48 03/01/17 13:03 Bedside Glucose 187 126 Medications Medications Current Medications Amlodipine Besylate (Norvasc) 10 mg DAILY PO Last administered on 03/01/17 08: 50; Admin Dose 10 MG; Start 02/23/17 at 09:00 Atorvastatin Calcium (Lipitor) 40 mg QHS PO Last administered on 02/28/17 21: 10; Admin Dose 40 MG; Start 02/22/17 at 21:00 Pantoprazole (Protonix Tab) 40 mg DAILY PO Last administered on 03/01/17 08:49 ; Admin Dose 40 MG; Start 02/22/17 at 10:00 Ondansetron HCl (Zofran Inj) 4 mg Q6H PRN IV NAUSEA AND/OR VOMITING Last administered on 02/27/17 22:19; Admin Dose 4 MG; Start 02/22/17 at 10:00 Acetaminophen (Tylenol Tab) 650 mg Q6H PRN PO PAIN LEVEL 1-3 OR FEVER; Start at 10:00 Acetaminophen/ Hydrocodone Bitart ([place] (5/325)) 1 tab Q6H PRN PO MODERATE PAIN LEVEL 4-6 Last administered on 03/01/17 00:40; Admin Dose 1 TAB; Start 02/22/17 at 10:00 Morphine Sulfate (morphine) 1 mg Q4H PRN IV SEVERE PAIN LEVEL 7-10; Start at 10:00 Docusate Sodium (Colace) 100 mg Q12H PRN PO CONSTIPATION; Start 02/22/17 at 10: 00 Magnesium Hydroxide (Milk Of Mag) 30 ml DAILY PRN PO CONSTIPATION; Start at 10:00 Bisacodyl (Dulcolax) 5 mg DAILY PRN PO CONSTIPATION Last administered on 09:06; Admin Dose 5 MG; Start 02/22/17 at 10:00 Bisacodyl (Dulcolax Supp) 10 mg DAILY PRN [place] CONSTIPATION; Start 02/22/17 at 10: 00 Zolpidem Tartrate (Ambien) 5 mg QHS PRN PO SLEEP; Start 02/22/17 at 10:00 Heparin Sodium (Porcine) 5000 unit 5,000 unit Q12 SC Last administered on 08:53; Admin Dose 5,000 UNIT; Start 02/22/17 at 21:00 Piperacillin Sod/ Tazobactam Sod (Zosyn 3.375gm/ 100 ml (Pmx)) 100 ml @ 200 mls /hr Q6 IVPB Last administered on 03/01/17 13:04; Admin Dose 200 MLS/HR; Start 02/22/17 at 15:32 Nystatin (Nystatin Susp) 5 ml TID PO Last administered on 03/01/17 13:03; Admin Dose 5 ML; Start 02/22/17 at 21:00 Diagnostic Test (Pha) (Accu-Chek) 1 ea 02 XX Last administered on 02/26/17 02: 08; Admin Dose 1 EA; Start 02/23/17 at 02:00 Miscellaneous Information 1 ea NOTE XX ; Start 02/22/17 at 18:00 Glucose (Glutose) 15 gm Q15M PRN PO DECREASED GLUCOSE; Start 02/22/17 at 18:00 Glucose (Glutose) 22.5 gm Q15M PRN PO DECREASED GLUCOSE; Start 02/22/17 at 18:00 Dextrose (D50w Syringe) 25 ml Q15M PRN IV DECREASED GLUCOSE; Start 02/22/17 at 18:00 Dextrose (D50w Syringe) 50 ml Q15M PRN IV DECREASED GLUCOSE; Start 02/22/17 at 18:00 Glucagon (Glucagen) 1 mg Q15M PRN IM DECREASED GLUCOSE; Start 02/22/17 at 18:00 Glucose (Glutose) 15 gm Q15M PRN BUCCAL DECREASED GLUCOSE; Start 02/22/17 at 18: 00 Latanoprost 1 drop 1 drop HS BOTH EYES Last administered on 02/28/17 21:10; Admin Dose 1 DROP; Start 02/23/17 at 21:52 Dextrose/Sodium Chloride (D5-1/2ns) 1,000 ml @ 60 mls/hr [id number] IV Last administered on 02/27/17 11:43; Admin Dose 60 MLS/HR; Start 02/27/17 at 11:30 LANDON ZAMORA MD Mar 01, 2017 15:00
--- NOTE | 2017-03-01 15:03 | PN ---
Date/Time of Note Date/Time of Note DATE: 03/01/17 TIME: 15:01 Assessment/Plan VTE Prophylaxis VTE Prophylaxis Intervention: SCD's Lines/Catheters IV [facility] Saline Lock Urinary Cath still in place: No Assessment/Plan Assessment/Plan - hypokalemia- replace KCL, AM labs - Cholangitis secondary biliary obstruction/Choledocholithiasis s/p ERCP by Dr. Soares in past. stent replaced, pus evacuated by Dr. Soares -eventual lap janet after stone removal - sp ERCP - CAD, hx of [place] with multiple stents -cleared by cardiology -DM -nutrition and medication optimization -encourage weight optimization -CVA hx -medical/cardiac optimization -off loading -nutritional optimization - Rheumatoid arthritis. -medical management - CKD- stage II-III - nephrology follows - HTN- stable - Dyslipidemias- cont Atorvastatin Dw Dr Keyes Subjective 24 Hr Interval Summary Free Text/Dictation Feels better, denies any nausea/vomitting, tolerates diet, wants to go home, vss , afebrile, dw staff Respiratory: no complaints Cardiovascular: no complaints Gastrointestinal: pain Genitourinary: no complaints Musculoskeletal: no complaints Skin: no complaints Exam/Review of Systems Vital Signs Vitals Vital Signs Date Time Temp Pulse Resp B/P Pulse Ox O2 Delivery O2 Flow Rate FiO2 03/01/17 07:47 98.4 78 18 114/56 97 02/28/17 01:30 Room Air 02/25/17 20:00 2.0 Intake and Output 02/28/17 02/28/17 03/01/17 15:00 23:00 07:00 Intake Total 100 ml 1220 ml 620 ml Output Total 1700 ml 750 ml Balance 100 ml -480 ml -130 ml Exam Constitutional: alert, oriented, well developed Respiratory: clear to auscultation Cardiovascular: nl pulses, regular rate and rhythm Gastrointestinal: soft, tender Musculoskeletal: nl extremities to inspection Extremities: normal pulses Results Result Diagram: 03/01/17 0435 03/01/17 0435 Results 24 hrs Laboratory Tests Test 02/28/17 17:13 02/28/17 18:05 02/28/17 21:08 03/01/17 04:35 Sodium Level 135 135 Potassium Level 3.6 3.4 L Chloride Level 102 104 Carbon Dioxide Level 26 26 Anion Gap 11 8 Blood Urea Nitrogen 10 9 Creatinine 0.83 0.90 Glucose Level 139 135 Calcium Level 9.6 9.2 Bedside Glucose 116 140 White Blood Count 6.4 Red Blood Count 3.17 L Hemoglobin 10.3 L Hematocrit 31.7 L Mean Corpuscular Volume 100.0 Mean Corpuscular Hemoglobin 32.5 Mean Corpuscular Hemoglobin Concent 32.5 Red Cell Distribution Width 17.4 H Platelet Count 199 # Mean Platelet Volume 11.3 H Neutrophils % 66.7 Lymphocytes % 17.1 Monocytes % 12.0 H Eosinophils % 3.6 Basophils % 0.3 Nucleated Red Blood Cells % 0.0 Neutrophils # 4.3 Lymphocytes # 1.1 Monocytes # 0.8 Eosinophils # 0.2 Basophils # 0.0 Nucleated Red Blood Cells # 0.0 Test 03/01/17 08:48 03/01/17 13:03 Bedside Glucose 187 126 Medications Medications Current Medications Amlodipine Besylate (Norvasc) 10 mg DAILY PO Last administered on 03/01/17 08: 50; Admin Dose 10 MG; Start 02/23/17 at 09:00 Atorvastatin Calcium (Lipitor) 40 mg QHS PO Last administered on 02/28/17 21: 10; Admin Dose 40 MG; Start 02/22/17 at 21:00 Pantoprazole (Protonix Tab) 40 mg DAILY PO Last administered on 03/01/17 08:49 ; Admin Dose 40 MG; Start 02/22/17 at 10:00 Ondansetron HCl (Zofran Inj) 4 mg Q6H PRN IV NAUSEA AND/OR VOMITING Last administered on 02/27/17 22:19; Admin Dose 4 MG; Start 02/22/17 at 10:00 Acetaminophen (Tylenol Tab) 650 mg Q6H PRN PO PAIN LEVEL 1-3 OR FEVER; Start at 10:00 Acetaminophen/ Hydrocodone Bitart ([place] (5/325)) 1 tab Q6H PRN PO MODERATE PAIN LEVEL 4-6 Last administered on 03/01/17 00:40; Admin Dose 1 TAB; Start 02/22/17 at 10:00 Morphine Sulfate (morphine) 1 mg Q4H PRN IV SEVERE PAIN LEVEL 7-10; Start at 10:00 Docusate Sodium (Colace) 100 mg Q12H PRN PO CONSTIPATION; Start 02/22/17 at 10: 00 Magnesium Hydroxide (Milk Of Mag) 30 ml DAILY PRN PO CONSTIPATION; Start at 10:00 Bisacodyl (Dulcolax) 5 mg DAILY PRN PO CONSTIPATION Last administered on 09:06; Admin Dose 5 MG; Start 02/22/17 at 10:00 Bisacodyl (Dulcolax Supp) 10 mg DAILY PRN [place] CONSTIPATION; Start 02/22/17 at 10: 00 Zolpidem Tartrate (Ambien) 5 mg QHS PRN PO SLEEP; Start 02/22/17 at 10:00 Heparin Sodium (Porcine) 5000 unit 5,000 unit Q12 SC Last administered on 08:53; Admin Dose 5,000 UNIT; Start 02/22/17 at 21:00 Piperacillin Sod/ Tazobactam Sod (Zosyn 3.375gm/ 100 ml (Pmx)) 100 ml @ 200 mls /hr Q6 IVPB Last administered on 03/01/17 13:04; Admin Dose 200 MLS/HR; Start 02/22/17 at 15:32 Nystatin (Nystatin Susp) 5 ml TID PO Last administered on 03/01/17 13:03; Admin Dose 5 ML; Start 02/22/17 at 21:00 Diagnostic Test (Pha) (Accu-Chek) 1 ea 02 XX Last administered on 02/26/17 02: 08; Admin Dose 1 EA; Start 02/23/17 at 02:00 Miscellaneous Information 1 ea NOTE XX ; Start 02/22/17 at 18:00 Glucose (Glutose) 15 gm Q15M PRN PO DECREASED GLUCOSE; Start 02/22/17 at 18:00 Glucose (Glutose) 22.5 gm Q15M PRN PO DECREASED GLUCOSE; Start 02/22/17 at 18:00 Dextrose (D50w Syringe) 25 ml Q15M PRN IV DECREASED GLUCOSE; Start 02/22/17 at 18:00 Dextrose (D50w Syringe) 50 ml Q15M PRN IV DECREASED GLUCOSE; Start 02/22/17 at 18:00 Glucagon (Glucagen) 1 mg Q15M PRN IM DECREASED GLUCOSE; Start 02/22/17 at 18:00 Glucose (Glutose) 15 gm Q15M PRN BUCCAL DECREASED GLUCOSE; Start 02/22/17 at 18: 00 Latanoprost 1 drop 1 drop HS BOTH EYES Last administered on 02/28/17 21:10; Admin Dose 1 DROP; Start 02/23/17 at 21:52 Dextrose/Sodium Chloride (D5-1/2ns) 1,000 ml @ 60 mls/hr [id number] IV Last administered on 02/27/17 11:43; Admin Dose 60 MLS/HR; Start 02/27/17 at 11:30 JENNIFER CALABRESE Mar 01, 2017 15:03
[2017-03-01 17:18] VITALS: BP 127/59; PULSE 72
--- NOTE | 2017-03-01 19:37 | PN ---
Date/Time of Note Date/Time of Note DATE: 03/01/17 TIME: 19:37 Assessment/Plan Lines/Catheters IV Catheter Type (from [facility]): Saline Lock [place] in Place (from [facility]): No Assessment/Plan Chief Complaint/Hosp Course 1. Cholangitis secondary biliary obstruction/Choledocholithiasis s/p ERCP by Dr. Soares in past. Here for removal of stent and cholecystectomy: lap janet not done 2/2 stone in cbd vs. cystic duct; stent replaced, pus evacuated by Dr. Soarse; MRCP noted: s/p ERCP/spyglass large stone broken up and removed but still with stones in bile duct and cystic duct -lap janet and repeat spyglass but patient and family (son Dru) are refusing further treatments now and would rather take her home and come back at later time for completion procedures. 2. CAD, hx of [place] with multiple stents -cleared by cardiology 3. DM -nutrition and medication optimization -encourage weight optimization 4. CVA hx -medical/cardiac optimization -off loading -nutritional optimization 5. Rheumatoid arthritis. -medical management Thank you, Problems: Subjective 24 Hr Interval Summary Repeat ercp/spyglass only successful to remove parts of the stone. Patient and son (Dru) report patient not reacting well to anesthesia and they do not want to have further procedures at this time. Feels well. No c/o pain, abdominal discomfort, n/v/d/dysuria, fevers, chills, sob, cp, palpitation, cough, sz, rash , bloating, dysuria. +bowel function. Exam/Review of Systems Vital Signs Vitals Vital Signs Date Time Temp Pulse Resp B/P Pulse Ox O2 Delivery O2 Flow Rate FiO2 03/02/17 07:56 98.1 73 14 125/63 98 03/01/17 14:30 Room Air Intake and Output 03/01/17 03/01/17 03/02/17 15:00 23:00 07:00 Intake Total 100 ml 1260 ml 820 ml Output Total 1700 ml 800 ml Balance 100 ml -440 ml 20 ml Exam Free Text/Dictation Constitutional: alert, oriented, somnolent, easily wakes Psych: nl mood/affect, no complaints, anxious for procedure Head: atraumatic, normocephalic Eyes: nl lids, nl sclera ENMT: mucosa pink and moist, nl nasal mucosa & septum Neck: non-tender, supple Respiratory: normal air movement Cardiovascular: nl pulses, regular rate and rhythm Gastrointestinal: bowel sounds, non-tender, soft, rotund. No distended Musculoskeletal: nl extremities to inspection Extremities: normal pulses Skin: nl turgor, rash or lesions Lymph: nl lymph node Results Result Diagram: 03/01/17 0435 03/01/17 0435 BINH RODRIGUEZ MD Mar 01, 2017 19:37
[2017-03-01] MEDS: ATORVASTATIN 40 MG TAB PO SCH (20:23)
[2017-03-01] MEDS: LATANOPROST 0.005% 2.5 ML OPH BOTH EYES SCH (20:41)
[2017-03-01 21:19] VITALS: BP 139/63; RESP 20
[2017-03-02] VITALS: BP 130/59; RESP 18
[2017-03-02] MEDS: PIPER-TAZO 3.375 GM IV (PMX) 100 ML IVPB SCH ×4 (00:25→18:00)
[2017-03-02] MEDS: ACCU-CHEK XX SCH (02:00)
[2017-03-02] MEDS: DEXTROSE 5%-0.45% NACL 1,000 ML IV SCH (06:10)
[2017-03-02 07:56] VITALS: BP 125/63; RESP 14
[2017-03-02] MEDS: NYSTATIN SUSP 5 ML CUP PO SCH ×2 (08:46→12:44)
[2017-03-02] MEDS: PANTOPRAZOLE (EC) 40 MG TAB PO SCH (08:47)
[2017-03-02] MEDS: AMLODIPINE 10 MG TAB PO SCH (08:47)
[2017-03-02] MEDS: INSULIN ASPART [NOVOLOG] 3 ML PEN SC SCH ×3 (08:53→18:49)
[2017-03-02] MEDS: HEPARIN 5,000 UNIT/0.5 ML VIAL SC SCH (08:54)
--- NOTE | 2017-03-02 12:16 | PN ---
Date/Time of Note Date/Time of Note DATE: 03/02/17 TIME: 12:16 Assessment/Plan VTE Prophylaxis VTE Prophylaxis Intervention: other Lines/Catheters IV [facility]ter Type (from [facility]): Saline Lock Urinary Cath still in place: No Assessment/Plan Chief Complaint/Hosp Course - hypokalemia- replace KCL, AM labs - Cholangitis secondary biliary obstruction/Choledocholithiasis s/p ERCP by Dr. Soares in past. Here for removal of stent and cholecystectomy: lap janet not done 2/2 stone in cbd vs. cystic duct; stent replaced, pus evacuated by Dr. Soares; MRCP noted -eventual lap janet after stone removal - ERCP pending -todat at 1730 - CAD, hx of [place] with multiple stents -cleared by cardiology -DM -nutrition and medication optimization -encourage weight optimization -CVA hx -medical/cardiac optimization -off loading -nutritional optimization 5. Rheumatoid arthritis. -medical management Problems: Subjective 24 Hr Interval Summary Free Text/Dictation Patient denies any complaints Exam/Review of Systems Vital Signs Vitals Vital Signs Date Time Temp Pulse Resp B/P Pulse Ox O2 Delivery O2 Flow Rate FiO2 03/02/17 07:56 98.1 73 14 125/63 98 03/01/17 14:30 Room Air Intake and Output 03/01/17 03/01/17 03/02/17 15:00 23:00 07:00 Intake Total 100 ml 1260 ml 820 ml Output Total 1700 ml 800 ml Balance 100 ml -440 ml 20 ml Exam Constitutional: well developed Head: atraumatic, normocephalic Neck: supple Respiratory: clear to auscultation Cardiovascular: regular rate and rhythm Gastrointestinal: non-tender, soft Extremities: normal pulses Results Result Diagram: 03/01/17 0435 03/01/17 0435 Results 24 hrs Laboratory Tests Test 03/01/17 13:03 03/01/17 17:35 03/01/17 20:24 03/02/17 08:49 Bedside Glucose 126 163 127 149 Medications Medications Current Medications Amlodipine Besylate (Norvasc) 10 mg DAILY PO Last administered on 03/02/17 08: 47; Admin Dose 10 MG; Start 02/23/17 at 09:00 Atorvastatin Calcium (Lipitor) 40 mg QHS PO Last administered on 03/01/17 20: 23; Admin Dose 40 MG; Start 02/22/17 at 21:00 Pantoprazole (Protonix Tab) 40 mg DAILY PO Last administered on 03/02/17 08:47 ; Admin Dose 40 MG; Start 02/22/17 at 10:00 Ondansetron HCl (Zofran Inj) 4 mg Q6H PRN IV NAUSEA AND/OR VOMITING Last administered on 02/27/17 22:19; Admin Dose 4 MG; Start 02/22/17 at 10:00 Acetaminophen (Tylenol Tab) 650 mg Q6H PRN PO PAIN LEVEL 1-3 OR FEVER; Start at 10:00 Acetaminophen/ Hydrocodone Bitart ([place] (5/325)) 1 tab Q6H PRN PO MODERATE PAIN LEVEL 4-6 Last administered on 03/01/17 00:40; Admin Dose 1 TAB; Start 02/22/17 at 10:00 Morphine Sulfate (morphine) 1 mg Q4H PRN IV SEVERE PAIN LEVEL 7-10; Start at 10:00 Docusate Sodium (Colace) 100 mg Q12H PRN PO CONSTIPATION; Start 02/22/17 at 10: 00 Magnesium Hydroxide (Milk Of Mag) 30 ml DAILY PRN PO CONSTIPATION; Start at 10:00 Bisacodyl (Dulcolax) 5 mg DAILY PRN PO CONSTIPATION Last administered on 09:06; Admin Dose 5 MG; Start 02/22/17 at 10:00 Bisacodyl (Dulcolax Supp) 10 mg DAILY PRN [place] CONSTIPATION; Start 02/22/17 at 10: 00 Zolpidem Tartrate (Ambien) 5 mg QHS PRN PO SLEEP; Start 02/22/17 at 10:00 Heparin Sodium (Porcine) 5000 unit 5,000 unit Q12 SC Last administered on 08:54; Admin Dose 5,000 UNIT; Start 02/22/17 at 21:00 Piperacillin Sod/ Tazobactam Sod (Zosyn 3.375gm/ 100 ml (Pmx)) 100 ml @ 200 mls /hr Q6 IVPB Last administered on 03/02/17 06:51; Admin Dose 200 MLS/HR; Start 02/22/17 at 15:32 Nystatin (Nystatin Susp) 5 ml TID PO Last administered on 03/02/17 08:46; Admin Dose 5 ML; Start 02/22/17 at 21:00 Diagnostic Test (Pha) (Accu-Chek) 1 ea 02 XX Last administered on 02/26/17 02: 08; Admin Dose 1 EA; Start 02/23/17 at 02:00 Miscellaneous Information 1 ea NOTE XX ; Start 02/22/17 at 18:00 Glucose (Glutose) 15 gm Q15M PRN PO DECREASED GLUCOSE; Start 02/22/17 at 18:00 Glucose (Glutose) 22.5 gm Q15M PRN PO DECREASED GLUCOSE; Start 02/22/17 at 18:00 Dextrose (D50w Syringe) 25 ml Q15M PRN IV DECREASED GLUCOSE; Start 02/22/17 at 18:00 Dextrose (D50w Syringe) 50 ml Q15M PRN IV DECREASED GLUCOSE; Start 02/22/17 at 18:00 Glucagon (Glucagen) 1 mg Q15M PRN IM DECREASED GLUCOSE; Start 02/22/17 at 18:00 Glucose (Glutose) 15 gm Q15M PRN BUCCAL DECREASED GLUCOSE; Start 02/22/17 at 18: 00 Latanoprost 1 drop 1 drop HS BOTH EYES Last administered on 03/01/17 20:41; Admin Dose 1 DROP; Start 02/23/17 at 21:52 Dextrose/Sodium Chloride (D5-1/2ns) 1,000 ml @ 60 mls/hr [id number] IV Last administered on 02/27/17 11:43; Admin Dose 60 MLS/HR; Start 02/27/17 at 11:30 FLAKITO CID Mar 02, 2017 12:16
--- NOTE | 2017-03-02 12:25 | CONS ---
Date/Time of Note Date/Time of Note DATE: 03/02/17 TIME: 12:24 Assessment/Plan Assessment/Plan Additional Assessment/Plan Additional Assessment/Plan ASSESSMENT: 1. Cholangitis, successfully treated by stenting the bile duct and relieving the obstruction. 2. Stone, either in the bile duct or the gallbladder. It appears more in the neck of the gallbladder pressing upon the bile duct. 3. Diabetes mellitus. 4. Hypertension. 5. Cerebrovascular accident. 6. Laser lithotripsy for a large stone identified in the bile duct. Broken the stone into pieces and multiple stones were removed. 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 Plan Continue antibiotic Advance diet Surgical follow-up Patient and the family refused surgery they want patient to go home and come as an outpatient. For surgery Consultation Date/Type/Reason Admit Date/Time Feb 22, 2017 at 09:50 Initial Consult Date 02/22/17 Type of Consultation: NEPHROLOGY Referring Provider: JOSE TOLBERT MD 24 HR Interval Summary Constitutional: improved, no complaints Exam/Review of Systems Vital Signs Vitals Vital Signs Date Time Temp Pulse Resp B/P Pulse Ox O2 Delivery O2 Flow Rate FiO2 03/02/17 07:56 98.1 73 14 125/63 98 03/01/17 14:30 Room Air Intake and Output 03/01/17 03/01/17 03/02/17 15:00 23:00 07:00 Intake Total 100 ml 1260 ml 820 ml Output Total 1700 ml 800 ml Balance 100 ml -440 ml 20 ml Exam Constitutional: alert, oriented, well developed Psych: nl mood/affect, no complaints Head: atraumatic, normocephalic Eyes: EOMI, PERRL, nl conjunctiva, nl lids, nl sclera ENMT: nl external ears & nose, nl lips & teeth, nl nasal mucosa & septum Neck: non-tender, supple Respiratory: clear to auscultation, normal air movement Cardiovascular: nl pulses, regular rate and rhythm Gastrointestinal: nl liver, spleen, non-tender, soft Musculoskeletal: nl extremities to inspection, nl gait and stance Extremities: normal pulses Neurological: LINSEED OIL ORDER FILLER II-XII intact, nl mental status, nl speech, nl strength Skin: nl turgor, No rash or lesions Lymph: nl lymph nodes Results Result Diagram: 03/01/17 0435 03/01/17 0435 Results 24 hrs Laboratory Tests Test 03/01/17 13:03 03/01/17 17:35 03/01/17 20:24 03/02/17 08:49 Bedside Glucose 126 163 127 149 Medications Medications Current Medications Amlodipine Besylate (Norvasc) 10 mg DAILY PO Last administered on 03/02/17 08: 47; Admin Dose 10 MG; Start 02/23/17 at 09:00 Atorvastatin Calcium (Lipitor) 40 mg QHS PO Last administered on 03/01/17 20: 23; Admin Dose 40 MG; Start 02/22/17 at 21:00 Pantoprazole (Protonix Tab) 40 mg DAILY PO Last administered on 03/02/17 08:47 ; Admin Dose 40 MG; Start 02/22/17 at 10:00 Ondansetron HCl (Zofran Inj) 4 mg Q6H PRN IV NAUSEA AND/OR VOMITING Last administered on 02/27/17 22:19; Admin Dose 4 MG; Start 02/22/17 at 10:00 Acetaminophen (Tylenol Tab) 650 mg Q6H PRN PO PAIN LEVEL 1-3 OR FEVER; Start at 10:00 Acetaminophen/ Hydrocodone Bitart ([place] (5/325)) 1 tab Q6H PRN PO MODERATE PAIN LEVEL 4-6 Last administered on 03/01/17 00:40; Admin Dose 1 TAB; Start 02/22/17 at 10:00 Morphine Sulfate (morphine) 1 mg Q4H PRN IV SEVERE PAIN LEVEL 7-10; Start at 10:00 Docusate Sodium (Colace) 100 mg Q12H PRN PO CONSTIPATION; Start 02/22/17 at 10: 00 Magnesium Hydroxide (Milk Of Mag) 30 ml DAILY PRN PO CONSTIPATION; Start at 10:00 Bisacodyl (Dulcolax) 5 mg DAILY PRN PO CONSTIPATION Last administered on 09:06; Admin Dose 5 MG; Start 02/22/17 at 10:00 Bisacodyl (Dulcolax Supp) 10 mg DAILY PRN [place] CONSTIPATION; Start 02/22/17 at 10: 00 Zolpidem Tartrate (Ambien) 5 mg QHS PRN PO SLEEP; Start 02/22/17 at 10:00 Heparin Sodium (Porcine) 5000 unit 5,000 unit Q12 SC Last administered on 08:54; Admin Dose 5,000 UNIT; Start 02/22/17 at 21:00 Piperacillin Sod/ Tazobactam Sod (Zosyn 3.375gm/ 100 ml (Pmx)) 100 ml @ 200 mls /hr Q6 IVPB Last administered on 03/02/17 06:51; Admin Dose 200 MLS/HR; Start 02/22/17 at 15:32 Nystatin (Nystatin Susp) 5 ml TID PO Last administered on 03/02/17 08:46; Admin Dose 5 ML; Start 02/22/17 at 21:00 Diagnostic Test (Pha) (Accu-Chek) 1 ea 02 XX Last administered on 02/26/17 02: 08; Admin Dose 1 EA; Start 02/23/17 at 02:00 Miscellaneous Information 1 ea NOTE XX ; Start 02/22/17 at 18:00 Glucose (Glutose) 15 gm Q15M PRN PO DECREASED GLUCOSE; Start 02/22/17 at 18:00 Glucose (Glutose) 22.5 gm Q15M PRN PO DECREASED GLUCOSE; Start 02/22/17 at 18:00 Dextrose (D50w Syringe) 25 ml Q15M PRN IV DECREASED GLUCOSE; Start 02/22/17 at 18:00 Dextrose (D50w Syringe) 50 ml Q15M PRN IV DECREASED GLUCOSE; Start 02/22/17 at 18:00 Glucagon (Glucagen) 1 mg Q15M PRN IM DECREASED GLUCOSE; Start 02/22/17 at 18:00 Glucose (Glutose) 15 gm Q15M PRN BUCCAL DECREASED GLUCOSE; Start 02/22/17 at 18: 00 Latanoprost 1 drop 1 drop HS BOTH EYES Last administered on 03/01/17 20:41; Admin Dose 1 DROP; Start 02/23/17 at 21:52 Dextrose/Sodium Chloride (D5-1/2ns) 1,000 ml @ 60 mls/hr [id number] IV Last administered on 02/27/17 11:43; Admin Dose 60 MLS/HR; Start 02/27/17 at 11:30 LAUREN GODFREY MD Mar 02, 2017 12:25
--- NOTE | 2017-03-02 13:37 | CONS ---
Date/Time of Note Date/Time of Note DATE: 03/02/17 TIME: 13:37 Assessment/Plan Assessment/Plan Additional Assessment/Plan 1. Acute cholangitis secondary biliary obstruction/Choledocholithiasis s/p ERCP by Dr. Soares in past. Here for removal of stent and cholecystectomy- s/P ERCP with stent exchange on 02/27/17 2. H/O CKD II/III 3. H/o CAD s/p previous stent placement 4. H/o previous CVA 5. Hypertension 6. Hyperlipidemia 7. Diabetes melitus Type II 8. H/o Rheumatoid Arthritis 8. Hypokalemia Plan : conitnue IV abx zosyn, renally dose,K low- [id number] PO x 1 dose today a/p ERCP with replacement of stent - Pain controlled Renal funciton stable, will follow up Steve Yang Consultation Date/Type/Reason Admit Date/Time Feb 22, 2017 at 09:50 Initial Consult Date 02/22/17 Type of Consultation: NEPHROLOGY Referring Provider: JOSE TOLBERT MD Exam/Review of Systems Vital Signs Vitals Vital Signs Date Time Temp Pulse Resp B/P Pulse Ox O2 Delivery O2 Flow Rate FiO2 03/02/17 07:56 98.1 73 14 125/63 98 03/01/17 14:30 Room Air Intake and Output 03/01/17 03/01/17 03/02/17 15:00 23:00 07:00 Intake Total 100 ml 1260 ml 820 ml Output Total 1700 ml 800 ml Balance 100 ml -440 ml 20 ml Exam Constitutional: alert, oriented, well developed Respiratory: clear to auscultation, normal air movement Cardiovascular: nl pulses, regular rate and rhythm Gastrointestinal: non-tender, soft Musculoskeletal: nl extremities to inspection Extremities: normal pulses Neurological: nl mental status, nl speech Results Result Diagram: 03/01/17 0435 03/01/17 0435 Results 24 hrs Laboratory Tests Test 03/01/17 17:35 03/01/17 20:24 03/02/17 08:49 03/02/17 12:38 Bedside Glucose 163 127 149 156 Medications Medications Current Medications Amlodipine Besylate (Norvasc) 10 mg DAILY PO Last administered on 03/02/17t 08: 47; Admin Dose 10 MG; Start 02/23/17 at 09:00 Atorvastatin Calcium (Lipitor) 40 mg QHS PO Last administered on 03/01/17 20: 23; Admin Dose 40 MG; Start 02/22/17 at 21:00 Pantoprazole (Protonix Tab) 40 mg DAILY PO Last administered on 03/02/17 08:47 ; Admin Dose 40 MG; Start 02/22/17 at 10:00 Ondansetron HCl (Zofran Inj) 4 mg Q6H PRN IV NAUSEA AND/OR VOMITING Last administered on 02/27/17 22:19; Admin Dose 4 MG; Start 02/22/17 at 10:00 Acetaminophen (Tylenol Tab) 650 mg Q6H PRN PO PAIN LEVEL 1-3 OR FEVER; Start at 10:00 Acetaminophen/ Hydrocodone Bitart ([place] (5/325)) 1 tab Q6H PRN PO MODERATE PAIN LEVEL 4-6 Last administered on 03/01/17 00:40; Admin Dose 1 TAB; Start 02/22/17 at 10:00 Morphine Sulfate (morphine) 1 mg Q4H PRN IV SEVERE PAIN LEVEL 7-10; Start at 10:00 Docusate Sodium (Colace) 100 mg Q12H PRN PO CONSTIPATION; Start 02/22/17 at 10: 00 Magnesium Hydroxide (Milk Of Mag) 30 ml DAILY PRN PO CONSTIPATION; Start at 10:00 Bisacodyl (Dulcolax) 5 mg DAILY PRN PO CONSTIPATION Last administered on 09:06; Admin Dose 5 MG; Start 02/22/17 at 10:00 Bisacodyl (Dulcolax Supp) 10 mg DAILY PRN [place] CONSTIPATION; Start 02/22/17 at 10: 00 Zolpidem Tartrate (Ambien) 5 mg QHS PRN PO SLEEP; Start 02/22/17 at 10:00 Heparin Sodium (Porcine) 5000 unit 5,000 unit Q12 SC Last administered on 08:54; Admin Dose 5,000 UNIT; Start 02/22/17 at 21:00 Piperacillin Sod/ Tazobactam Sod (Zosyn 3.375gm/ 100 ml (Pmx)) 100 ml @ 200 mls /hr Q6 IVPB Last administered on 03/02/17 12:43; Admin Dose 200 MLS/HR; Start 02/22/17 at 15:32 Nystatin (Nystatin Susp) 5 ml TID PO Last administered on 03/02/17 12:44; Admin Dose 5 ML; Start 02/22/17 at 21:00 Diagnostic Test (Pha) (Accu-Chek) 1 ea 02 XX Last administered on 02/26/17 02: 08; Admin Dose 1 EA; Start 02/23/17 at 02:00 Miscellaneous Information 1 ea NOTE XX ; Start 02/22/17 at 18:00 Glucose (Glutose) 15 gm Q15M PRN PO DECREASED GLUCOSE; Start 02/22/17 at 18:00 Glucose (Glutose) 22.5 gm Q15M PRN PO DECREASED GLUCOSE; Start 02/22/17 at 18:00 Dextrose (D50w Syringe) 25 ml Q15M PRN IV DECREASED GLUCOSE; Start 02/22/17 at 18:00 Dextrose (D50w Syringe) 50 ml Q15M PRN IV DECREASED GLUCOSE; Start 02/22/17 at 18:00 Glucagon (Glucagen) 1 mg Q15M PRN IM DECREASED GLUCOSE; Start 02/22/17 at 18:00 Glucose (Glutose) 15 gm Q15M PRN BUCCAL DECREASED GLUCOSE; Start 02/22/17 at 18: 00 Latanoprost 1 drop 1 drop HS BOTH EYES Last administered on 03/01/17 20:41; Admin Dose 1 DROP; Start 02/23/17 at 21:52 Dextrose/Sodium Chloride (D5-1/2ns) 1,000 ml @ 60 mls/hr [id number] IV Last administered on 02/27/17 11:43; Admin Dose 60 MLS/HR; Start 02/27/17 at 11:30 JENNIFER CALABRESE Mar 02, 2017 13:37
[2017-03-02 14:00] VITALS: BP 131/69; RESP 15
--- NOTE | 2017-03-02 18:47 | PN ---
DATE: 03/01/2017 SUBJECTIVE DATA: A 66-year-old female with a history of hypertension, diabetes mellitus, has got a large stone in the bile duct and also possible large stone in the cystic duct pressing the biliary system. The stone was broken into small pieces and also multiple fragments were removed with the holmium laser and a stent was deployed. Patient is comfortable now. No abdominal pain. No nausea, no vomiting. OBJECTIVE DATA: VITAL SIGNS: Stable. ABDOMEN: Benign LUNGS: Clear. EXTREMITIES: No edema. NEUROLOGIC: Grossly within normal limits. ASSESSMENT: 1. Multiple bile duct stones. 2. Possible cystic duct stone pressing upon the biliary system like Mirizzi syndrome. 3. Diabetes mellitus. 4. Hypertension. PLAN: 1. Discussed with the patient and the son for a possible lap cholecystectomy and removal of the cystic duct which will make it easy to remove the bile duct stone because bile duct stone, unable to remove it with a balloon sweep since it is being getting compressed by the cystic duct stone. 2. Continue antibiotic in the interim. Family and the son probably wants to take the patient home and do the procedure as an outpatient. Dictated By: Gurjit Soares MD /nai/[email or web address] /Document#: [id number]
--- NOTE | 2017-03-02 23:22 | PN ---
Date/Time of Note Date/Time of Note DATE: 03/02/17 TIME: 23:21 Assessment/Plan Lines/Catheters IV Catheter Type (from [facility] [place]): Saline Lock [place] in Place (from [facility], [place]): No Assessment/Plan Chief Complaint/Hosp Course 1. Cholangitis secondary biliary obstruction/Choledocholithiasis s/p ERCP by Dr. Soares in past. Here for removal of stent and cholecystectomy: lap janet not done 2/2 stone in cbd vs. cystic duct; stent replaced, pus evacuated by Dr. Soares; MRCP noted: s/p ERCP/spyglass large stone broken up and removed but still with stones in bile duct and cystic duct -lap janet and repeat spyglass but patient and family (son Dru) are refusing further treatments now and would rather take her home and come back at later time for completion procedures. 2. CAD, hx of [place] with multiple stents -cleared by cardiology 3. DM -nutrition and medication optimization -encourage weight optimization 4. CVA hx -medical/cardiac optimization -off loading -nutritional optimization 5. Rheumatoid arthritis. -medical management Thank you, Problems: Subjective 24 Hr Interval Summary Repeat ercp/spyglass only successful to remove parts of the stone. Patient and son (Dru) report patient not reacting well to anesthesia and they do not want to have further procedures at this time. Feels well. No c/o pain, abdominal discomfort, n/v/d/dysuria, fevers, chills, sob, cp, palpitation, cough, sz, rash , bloating, dysuria. +bowel function. Exam/Review of Systems Vital Signs Vitals Vital Signs Date Time Temp Pulse Resp B/P Pulse Ox O2 Delivery O2 Flow Rate FiO2 03/02/17 14:00 98.7 70 15 131/69 92 03/01/17 14:30 Room Air Intake and Output 03/01/17 03/01/17 03/02/17 15:00 23:00 07:00 Intake Total 100 ml 1260 ml 820 ml Output Total 1700 ml 800 ml Balance 100 ml -440 ml 20 ml Exam Free Text/Dictation Constitutional: alert, oriented, somnolent, easily wakes Psych: nl mood/affect, no complaints, anxious for procedure Head: atraumatic, normocephalic Eyes: nl lids, nl sclera ENMT: mucosa pink and moist, nl nasal mucosa & septum Neck: non-tender, supple Respiratory: normal air movement Cardiovascular: nl pulses, regular rate and rhythm Gastrointestinal: bowel sounds, non-tender, soft, rotund. No distended Musculoskeletal: nl extremities to inspection Extremities: normal pulses Skin: nl turgor, rash or lesions Lymph: nl lymph node Results Result Diagram: 03/01/17 0435 03/01/17 0435 BINH RODRIGUEZ MD Mar 02, 2017 23:22
== END 2017-03-02 18:42 | disposition home or self-care (01) | DRG 445 ==
LOC: SDS 06:00 → MS1 09:50 → SDS 09:50 → MS1 13:30
PROVIDERS: ADMIT Surgery; ATTEND Internal Medicine
PROC: 0FPB8DZ Removal of Intraluminal Device from Hepatobiliary Duct, Via Natural or Artificial Opening Endoscopic (ICD-10-PCS; 2017-02-22)
PROC: 0F788DZ Dilation of Cystic Duct with Intraluminal Device, Via Natural or Artificial Opening Endoscopic (ICD-10-PCS; 2017-02-22)
PROC: 0FC98ZZ Extirpation of Matter from Common Bile Duct, Via Natural or Artificial Opening Endoscopic (ICD-10-PCS; 2017-02-22)
PROC: 0FC88ZZ Extirpation of Matter from Cystic Duct, Via Natural or Artificial Opening Endoscopic (ICD-10-PCS; principal; 2017-02-28)
PROC: 0FC98ZZ Extirpation of Matter from Common Bile Duct, Via Natural or Artificial Opening Endoscopic (ICD-10-PCS; 2017-02-28)
PROC: 0FPB8DZ Removal of Intraluminal Device from Hepatobiliary Duct, Via Natural or Artificial Opening Endoscopic (ICD-10-PCS; 2017-02-28)
PROC: 0F788DZ Dilation of Cystic Duct with Intraluminal Device, Via Natural or Artificial Opening Endoscopic (ICD-10-PCS; 2017-02-28)
PROC: BF10YZZ Fluoroscopy of Bile Ducts using Other Contrast (ICD-10-PCS; 2017-02-28)
DX: K80.31 Calculus of bile duct with cholangitis, unspecified, with obstruction (principal); E11.22 Type 2 diabetes mellitus with diabetic chronic kidney disease; E11.42 Type 2 diabetes mellitus with diabetic polyneuropathy; E11.9 Type 2 diabetes mellitus without complications; D64.9 Anemia, unspecified; I12.9 Hypertensive chronic kidney disease with stage 1 through stage 4 chronic kidney disease, or unspecified chronic kidney disease; K31.84 Gastroparesis; E11.43 Type 2 diabetes mellitus with diabetic autonomic (poly)neuropathy; E66.9 Obesity, unspecified; I25.2 Old myocardial infarction; I25.10 Atherosclerotic heart disease of native coronary artery without angina pectoris; Z95.5 Presence of coronary angioplasty implant and graft; Z86.73 Personal history of transient ischemic attack (TIA), and cerebral infarction without residual deficits; M06.9 Rheumatoid arthritis, unspecified; Z68.31 Body mass index [BMI] 31.0-31.9, adult; Z45.89 Encounter for adjustment and management of other implanted devices; N18.3 Chronic kidney disease, stage 3 (moderate); E78.5 Hyperlipidemia, unspecified; E87.6 Hypokalemia; R19.7 Diarrhea, unspecified
CPT/HCPCS: 71010; 74176; 74181; 74330; 80048; 80053; 81001; 82962; 85025; 85610; 85730; 88305; 93005; C2617; J0690; J0744; J1100; J1170; J1644; J1815; J2250; J2405; J2543; J2710; J3010; J7042; Q9967